=== PATIENT | female | born 1935 | race Caucasian/White ===

== ENCOUNTER → 2016-02-25 | Day surgery (SDC) | payer BC ==
[2016-02-18 09:52] VITALS: Ht 149.9 cm; Wt 77.3 kg
[~2016-02-25] VITALS: Ht 149.9 cm; Wt 77.3 kg
[~2016-02-25] MED LIST: ACET325T96 PO; ADVIN50/60 INH; ALBUAER19 INH; ALEN5TAB2 PO; ASCO1CAP3 PO; CEPH500C2 PO; CHOL1CAP30 PO; CLB/200 PO; FLUT50SP37 NAE; HYDR-5688 PO; IBUP-1050 PO; IOPAMIDOL INJ 61% 15 ML VIAL ONE; LIDOCAINE HCL 1% MPF 5 ML VIAL ONE; METO-551 PO; METO25TA3 PO; METO50TA7 PO; MONT1TAB5 PO; MULT-920 PO; MULT1CHW28 PO; NEILMED SINUS RINSE; POLYSOL4 OPB; PRAM0.129 PO; PRAM1TAB47 PO; PRAV20TA PO; PRLSR20 PO; SIMV20TA2 PO; SODIUM CHLORIDE 0.9% INJ 10 ML VIAL ONE; VERA120T15 PO; VNTHFA/IN INH; VRP40 PO; [UNRECOGNIZED DRUG - CODE] PO
--- NOTE | 2016-02-25 13:26 | History & Physical Bridge - [place] ---
H&P Re-Evaluation Bridge Note: I have examined the patient, reviewed the History & Physical and in the interval since the performance of the History & Physical I have noted the following changes of clinical significance: No changes noted
[2016-02-25 13:55] VITALS: TEMP 36.7
--- NOTE | 2016-02-25 14:03 | Discharge Instructions ---
Discharge Instructions Visit Reason for Visit: Lumbar Radiculopathy Discharge Discharge Diagnosis / Problem: stenosis with leg pain Discharge Goals Goal(s): Decrease discomfort, Improve function Activity Recommendations Activity Limitations: resume your previous activity Anesthesia . Post Anesthesia Instructions: If you have had General Anesthesia or IV Sedation: * Do not drive today. * Resume driving when surgeon permits. * Do not make important decisions or sign legal documents today. * Call surgeon for: 1. Temperature elevations greater than 101 degrees F. 2. Uncontrollable pain. 3. Excessive bleeding. 4. Persistent nausea and vomiting. 5. Medication intolerance (nausea, vomiting or rash). * For nausea and vomiting use only clear liquids such as: tea, soda, bouillon until nausea subsides, then gradually increase diet as tolerated. * If you have any concerns or questions, call your surgeon's office. If physician is unavailable and it is an emergency, call 911 or go to the nearest emergency room. . Diet Recommendations Recommended Home Diet: resume previous diet Procedures Procedures Performed: Lumbar Epidural Steroid Injection Pending Studies Studies pending at discharge: no Medical Emergencies . Who to Call and When: Medical Emergencies: If at any time you feel your situation is an emergency, please call 911 immediately. . Non-Emergent Contact Non-Emergency issues call your: Specialist . . "Provider Documentation" section prepared by Navneet Del Cid.
[2016-02-25 14:07] VITALS: BP 135/83; PULSE 82; O2SAT 95
--- NOTE | 2016-02-25 14:14 | OPERATIVE REPORT ---
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 POSTOPERATIVE DIAGNOSIS: Same. PROCEDURE: Right paramedian L5-S1 intralaminar epidural steroid injection under fluoroscopic guidance. INDICATIONS FOR PROCEDURE: The patient is a 80-year-old white female who presents today with a past medical history significant for synovial cyst resection with relief of radicular pain about 10 years ago. She reports just recently she began having problems with lumbar spinal stenosis and neurogenic claudication and she presents today for an epidural steroid injection to relieve her pain and improve her functional status. CONSENT: Verbal and written consent was obtained from the patient. Risks and benefits were reviewed. Risks include but are not limited to epidural abscess, epidural hematoma, allergic reaction, dural puncture. The patient wishes to proceed. DESCRIPTION OF PROCEDURE: The patient was taken back to the special procedures room of the [facility]. She was maintained in a prone position. Backside was cleansed with Betadine x3 and a dry sterile dressing was applied. Fluoroscope was used to identify the L5-S1 intralaminar space. Overlying skin on the right side was then anesthetized with 4 mL of lidocaine 1% with a 25-gauge 1.5-inch needle. A 22-gauge 3.5-inch Tuohy needle was then directed down towards the intralaminar space. It was advanced under lateral fluoroscopic guidance and loss of resistance was noted at a depth of 7 cm. Isovue-300 contrast 1 mL was injected in which demonstrated epidural uptake pattern which was confirmed with both AP and lateral views. She then underwent injection after negative aspiration of 40 mg of Depo-Medrol and 4 mL of preservative free sodium chloride. Injection was well tolerated. DISPOSITION: 1. The patient is taken out into the discharge recovery area where she will be discharged home once discharge criteria have been met. 2. Follow up in the [facility] office in 2-4 weeks. I attest to the content of the Intraoperative Record and any orders documented therein. Any exceptio ns are noted below.
== END | disposition home or self-care (01) ==
LOC: X.SURG 12:33
PROVIDERS: ATTEND Physical Medicine & Rehabilitation
DX: M48.06 Spinal stenosis, lumbar region (principal); M54.16 Radiculopathy, lumbar region; M06.9 Rheumatoid arthritis, unspecified; I10 Essential (primary) hypertension; Z85.3 Personal history of malignant neoplasm of breast

== ENCOUNTER → 2016-03-25 | Outpatient (CLI) | payer BC ==
[~2016-03-25] MED LIST changes: -ALEN5TAB2 PO; -CHOL1CAP30 PO; -IOPAMIDOL INJ 61% 15 ML VIAL ONE; -LIDOCAINE HCL 1% MPF 5 ML VIAL ONE; -METO25TA3 PO; -MONT1TAB5 PO; -SODIUM CHLORIDE 0.9% INJ 10 ML VIAL ONE; -VNTHFA/IN INH; -VRP40 PO
--- NOTE | 2016-03-26 07:31 | MAMMOGRAPHY REPORT ---
BILATERAL DIGITAL SCREENING MAMMOGRAM TOMOSYNTHESIS WITH CAD: 03/25/2016 CLINICAL HISTORY: Personal history of breast cancer. TECHNIQUE: Breast tomosynthesis in addition to standard 2D mammography was performed. Current study was also evaluated with a Computer Aided Detection (CAD) system. COMPARISON: Comparison is made to exams dated: 03/21/2015 mammogram, 02/27/2014 mammogram, 02/26/2013 ma mmogram, 03/08/2012 ultrasound, 03/08/2012 mammogram, and 02/25/2012 mammogram - [facility] enter. BREAST COMPOSITION: The tissue of both breasts is heterogeneously dense, which may obscure small ma sses. FINDINGS: No suspicious masses, calcifications, or areas of architectural distortion are noted in e ither breast. There has been no significant interval change compared to prior exams. There are stab le postsurgical changes in the left breast from prior lumpectomy. Scattered lateral benign-appearin g calcifications are not significantly changed. IMPRESSION: ACR BI-RADS CATEGORY 2: BENIGN There is no mammographic evidence of malignancy. A 1 year screening mammogram is recommended. The p atient will receive written notification of the results. Approximately 10% of breast cancers are not detected with mammography. A negative mammographic repor t should not delay biopsy if a clinically suggestive mass is present. Angela Ware M.D. /:03/25/2016 16:22:22 Service Manager: Madiha Peraza [facility] [address] letter sent: Normal 1/2 BI-RADS Code: ACR BI-RADS Category 2: Benign
== END | disposition home or self-care (01) ==
LOC: C.MAMM 10:25
PROVIDERS: ATTEND Internal Medicine
DX: Z12.31 Encounter for screening mammogram for malignant neoplasm of breast (principal); Z85.3 Personal history of malignant neoplasm of breast

== ENCOUNTER → 2016-04-20 | Outpatient (CLI) | payer BC ==
[2016-04-20 16:40] LABS: HEMATOCRIT 46.9 % (37-47); MEAN CELL VOLUME 94.9 fL (80-100); MEAN CORPUSCULAR HEMOGLOBIN 31.6 pg (25-34); MEAN CORPUSCULAR HGB CONC 33.3 g/dl (32-36); MEAN PLATELET VOLUME 12.3 fL (7.4-10.4); PLATELET COUNT 161 K/uL (130-400); RED BLOOD COUNT 4.94 M/uL (4.2-5.4); WHITE BLOOD COUNT 6.16 K/uL (4.8-10.8)
[2016-04-20 16:51] LABS: BLOOD UREA NITROGEN 20 mg/dl (7-18); BUN/CREATININE RATIO 31.2 (10-20); CALCIUM 9.3 mg/dl (8.5-10.1); CARBON DIOXIDE 32 mmol/L (21-32); CHLORIDE 106 mmol/L (98-107); CREATININE 0.63 mg/dl (0.60-1.20); GLUCOSE 81 mg/dl (70-99); MAGNESIUM 2.2 mg/dl (1.8-2.4); POTASSIUM 3.9 mmol/L (3.5-5.1); SODIUM 144 mmol/L (136-145)
== END | disposition home or self-care (01) ==
LOC: C.LAB1850 15:18
PROVIDERS: ATTEND Internal Medicine Cardiovascular Disease
DX: R00.2 Palpitations (principal)

== ENCOUNTER → 2016-04-28 | Outpatient (CLI) | payer BC ==
--- NOTE | 2016-04-28 15:31 | MAMMOGRAPHY REPORT ---
UNILATERAL LEFT DIGITAL DIAGNOSTIC MAMMOGRAM TOMOSYNTHESIS WITH CAD AND TARGETED LEFT ULTRASOUND: 04/28/2016 CLINICAL HISTORY: 80-year-old woman presents with pain along the left lateral breast deep near her r ibs that is asymmetric comparing to the right breast. No definite palpable mass or skin changes. P ersonal history of remote left breast cancer status post lumpectomy and radiation. TECHNIQUE: Left breast tomosynthesis in addition to standard 2D mammography was performed. Current ana laura rodriguez was also evaluated with a Computer Aided Detection (CAD) system. COMPARISON: Comparison is made to exams dated: 03/25/2016 mammogram, 03/21/2015 mammogram, 02/27/2014 ma mmogram, 02/26/2013 mammogram, 03/08/2012 ultrasound, and 02/23/2011 mammogram - [facility] nter. BREAST COMPOSITION: The tissue of the left breast is heterogeneously dense, which may obscure small masses. FINDINGS: A triangular skin palpable marker is located in the superior posterior left breast on the MLO view, denoting the area of pain pointed out by the patient. There are scattered coarse benign calcifications in the left breast. On the left CC view tomosynthesis slice 16 there is possible arc hitectural distortion identified in the lateral, middle one third of the breast. Another questionab le area of architectural distortion is seen anteriorly within the left breast on CC slice 35. There is skin irregularity in the medial left breast, in the area of skin surgical scar from prior lumpec luis daniel. Targeted ultrasound was performed in the areas of focal pain pointed out by the patient. The patien t reported she is most tender in the 3:00 to 4:00 left breast, 8 cm from the nipple area in the area of concern within the 3:00 left breast, there is a hypoechoic taller than wide shadowing mass with indistinct margins measuring approximately 5.9 x 6.6 x 6.4 mm. In the adjacent 3:00 left breast, 6 cm from the nipple, another ill-defined hypoechoic shadowing mass is seen measuring approximately 7. 7 x 8.6 x 7.7 mm. Angular geographic hypoechoic tissue is identified in the 6:00 left breast, 2 cm from the nipple. It is unclear if this may be related to the patient's prior surgery and represent surgical scarring. 2 abutting irregular hypoechoic solid shadowing masses with increased vascularit y are identified in the 12:00 left breast periareolar region measuring approximately 10.8 x 9.4 x 9. 2 mm in conglomerate. Additional sonographic evaluation performed in the left axilla fails to demon strate any suspicious lymphadenopathy. IMPRESSION: ACR BI-RADS CATEGORY 5: HIGHLY SUGGESTIVE OF MALIGNANCY, TARGETED ULTRASOUND ACR BI-RAD S CATEGORY 5: HIGHLY SUGGESTIVE OF MALIGNANCY 1. There are at least 4 suspicious hypoechoic solid shadowing masses within the left breast. The d istance between the 2 abutting masses in the 12:00 axis and the far lateral mass in the 3:00 breast is greater than 5 cm apart, suggesting multicentric disease. The patient is also experiencing sever e tenderness with sonography performed over both masses in the 3:00 breast. Further evaluation with an ultrasound-guided core needle biopsy of one of the masses in the 3:00 left breast, and the abutt ing masses in the 12:00 breast is recommended. 2. No suspicious left axillary lymphadenopathy was identified on ultrasound. These results and recommendations were discussed with the patient at the time of the exam. She tent atively scheduled the left breast biopsies prior to leaving our department. Approximately 10% of breast cancers are not detected with mammography. A negative mammographic repor t should not delay biopsy if a clinically suggestive mass is present. Jo Suggs M.D. ay/:04/28/2016 14:28:11 Planting Material Carrier: Madiha Peraza, [facility] letter sent: Abnormal 4/5 BI-RADS Code: ACR BI-RADS Category 5: Highly Suggestive Of Malignancy Ultrasound BI-RADS: ACR BI-RA DS Category 5: Highly Suggestive Of Malignancy
== END | disposition home or self-care (01) ==
LOC: C.MAMM 12:58
PROVIDERS: ATTEND Nurse Practitioner Family
DX: N64.4 Mastodynia (principal); N64.59 Other signs and symptoms in breast; N63 Unspecified lump in breast

== ENCOUNTER → 2016-05-07 | Outpatient (CLI) | payer BC ==
--- NOTE | 2016-05-07 10:15 | Discharge Instructions ---
Discharge Instructions Procedure Procedure Date: May 07, 2016. Reason for visit: Left Masses. Discharge Discharge Date: May 07, 2016. Discharge Diagnosis: status post breast biopsy Instructions Activity Recommendations: Additional Limitations (see below) Return to School/Work: no limitations Recommended Home Diet: No Limitations Provider Instructions: ACTIVITY RECOMMENDATIONS: * No lifting, pushing, pulling or exercising the affected side for three days. RETURN TO SCHOOL/WORK: * You may return to work/school after the procedure, but do not perform any strenuous activities for 24 to 48 hours. MEDICATIONS: * Tylenol (two 325 mg) every four to six hours if needed for mild pain (if not allergic to Tylenol). DIET: * Resume previous diet. SPECIAL CARE INSTRUCTIONS: * Keep biopsy site dry for 24 hours. May shower after 24 hours, but do not soak (bathe) incision. * May remove Tegaderm (plastic patch) tomorrow AFTER showering. * Leave the steri-strips on for one week. Allow the steri-strips to fall off by themselves. If not off after one week, you may remove them. You may place a Bandaid crosswise over the strips, if desired. * Apply ice 10 minutes on and 10 minutes off as needed. * Wear a bra at bedtime to sleep more comfortably for 2-3 days. * Your referring physician should have the results after approximately 5 to 7 business days. * Call for unusual bleeding, fever, drainage, etc or if you have any questions call during normal business hours or after hours call Dr Ware, . FOLLOW UP VISIT: Follow-up with Referring Physician as scheduled. Allergies Coded Allergies: Acetaminophen (Unverified Allergy, Unknown, [facility], 02/25/16) "BECAME DEPENDENT" Oxycodone (Unverified Allergy, Unknown, [facility], 02/25/16) Codeine (Verified Adverse Reaction, Mild, [facility], 02/25/16) Leta Cordoba Recommendations: Call your doctor if: * Temperature above 101 degrees * Pain not relieved by pain medicine ordered * There is increased drainage or redness from any incision * You have any unanswered questions or concerns. Your Doctors Instructions noted above were prepared by provider Angela Ware. Patient Signature Section: Patient Instructions Signature Page Delores Burger Patient (or Guardian) Signature/Date: I have read and understand the instructions given to me by my caregivers. Caregiver/RN/Doctor Signature/Date: The above-named patient and/or guardian has received patient instructions on this date. + Original Patient Signature Page (only) stays with chart. Please make copy for patient.
--- NOTE | 2016-05-07 14:32 | MAMMOGRAPHY REPORT ---
THIS REPORT HAS BEEN AMENDED. ULTRASOUND GUIDED BIOPSY LEFT BREAST: 05/07/2016 CLINICAL HISTORY: Left 12:00 breast mass. PATIENT CONSENT: The procedure, risks and benefits were discussed with the patient and informed writ ten consent was obtained. A timeout was performed immediately prior to the procedure. PROCEDURE DESCRIPTION: With ultrasound guidance, aseptic technique, and lidocaine as the local anest hetic (1% lidocaine to anesthetize the skin and 1% lidocaine with epinephrine to anesthetize the britt per tissues), the mass of concern in the left 12:00 breast (labeled mass B) was sampled 4 times with a 14-gauge Achieve biopsy needle. Direct pressure was applied to the site immediately post procedu re and hemostasis was achieved. Immediately thereafter, with ultrasound guidance, aseptic technique , and lidocaine as the local anesthetic, a metallic localizer clip (wing-shaped) was placed at the b iopsy site. Direct pressure was applied to the site immediately post procedure and hemostasis was ac hieved. Postprocedure unilateral mammograms were performed to confirm placement of the clip in the expected location of the breast mass. The patient tolerated the procedure without complication. She was given wound care instructions. The specimens were sent to pathology for analysis. COMPARISON: Comparison is made to exams dated: 04/28/2016 mammogram, 03/21/2015 mammogram, and 5 mammogram - [facility]. IMPRESSION: ULTRASOUND GUIDED BIOPSY Ultrasound guided core needle biopsy of the left 12:00 breast mass (labeled mass "B"), with clip juwan cement. The patient will receive pathology results from her referring provider. Angela Ware M.D. ah/:05/07/2016 10:19:21 Bait Man: Madiha Peraza, [facility] AMENDMENT: 05/12/2016 Angela Ware M.D. Pathology results from ultrasound-guided core needle biopsy of 2 left breast masses were reviewed on 05/12/2016. 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 Given the heterogeneously dense mammographic pattern and given the pr esence of possible architectural distortion seen with multiple areas in the left breast mammographic ally, recommend further evaluation with bilateral breast MRI to better evaluate the extent of diseas e.
--- NOTE | 2016-05-07 14:32 | MAMMOGRAPHY REPORT ---
UNILATERAL LEFT DIGITAL DIAGNOSTIC MAMMOGRAM TOMOSYNTHESIS: 05/07/2016 CLINICAL HISTORY: Status post ultrasound-guided biopsy of 2 left breast masses. TECHNIQUE: Breast tomosynthesis in addition to standard 2D mammography was performed. Postprocedur al Left CC and ML 2-D and tomosynthesis images were obtained. COMPARISON: Comparison is made to exams dated: 04/28/2016 mammogram, 03/25/2016 mammogram, 03/21/2015 ma mmogram, 02/27/2014 mammogram, and 02/26/2013 mammogram - [facility]. BREAST COMPOSITION: The tissue of the left breast is heterogeneously dense, which may obscure small masses. FINDINGS: A new wing-shaped biopsy marker clip is seen at the site of the biopsied mass in the left 12:00 breast. A new ribbon-shaped biopsy marker clip is seen at the site of the biopsied left 3:00 breast mass. No significant postbiopsy hematoma is seen. IMPRESSION: POST PROCEDURE IMAGING FOR MARKER PLACEMENT New biopsy marker clips status post ultrasound-guided biopsies of the left breast 2. Pathology res ults are pending. Approximately 10% of breast cancers are not detected with mammography. A negative mammographic repor t should not delay biopsy if a clinically suggestive mass is present. Angela Ware M.D. ah/:05/07/2016 10:30:30 Hurl Shaker: Madiha Peraza, [facility] BI-RADS Code: Post Procedure Imaging For Marker Placement
--- NOTE | 2016-05-07 14:32 | MAMMOGRAPHY REPORT ---
ULTRASOUND GUIDED BIOPSY LEFT BREAST: 05/07/2016 CLINICAL HISTORY: Suspicious left 3:00 breast mass. PATIENT CONSENT: The procedure, risks and benefits were discussed with the patient and informed writ ten consent was obtained. A timeout was performed immediately prior to the procedure. PROCEDURE DESCRIPTION: With ultrasound guidance, aseptic technique, and lidocaine as the local anest hetic (1% lidocaine to anesthetize the skin and 1% lidocaine with epinephrine to anesthetize the britt per tissues), the mass of concern in the left 3:00 breast, 8 cm from the nipple, (mass A) was sample d 4 times with a 14-gauge Achieve biopsy needle. Direct pressure was applied to the site immediatel y post procedure and hemostasis was achieved. Immediately thereafter, with ultrasound guidance, ase ptic technique, and lidocaine as the local anesthetic, a metallic localizer clip (ribbon-shaped) was placed at the biopsy site. Direct pressure was applied to the site immediately post procedure and hemostasis was achieved. Postprocedure unilateral mammograms were performed to confirm placement of the clip in the expected location of the breast mass. The patient tolerated the procedure without c omplication. She was given wound care instructions. The specimens were sent to pathology for analys is. COMPARISON: Comparison is made to exams dated: 04/28/2016 ultrasound, 04/28/2016 mammogram, 03/25/2016 ma mmogram, 03/21/2015 mammogram, and 02/27/2014 mammogram - [facility]. IMPRESSION: ULTRASOUND GUIDED BIOPSY Ultrasound guided core needle biopsy of the left 3:00 breast mass (labeled mass "A"), with clip plac ement. The patient will receive pathology results from her referring provider. Angela Ware M.D. ah/:05/07/2016 10:17:23 Magazine Supervisor: Madiha Peraza, [facility]
== END | disposition home or self-care (01) ==
LOC: C.MAMM 09:19
PROVIDERS: ATTEND Internal Medicine
DX: N63 Unspecified lump in breast (principal); D05.12 Intraductal carcinoma in situ of left breast

== ENCOUNTER → 2016-06-14 | Outpatient (CLI) | payer BC ==
[~2016-06-14] MED LIST changes: -SIMV20TA2 PO
--- NOTE | 2016-06-15 17:18 | DIAGNOSTIC IMAGING REPORT ---
PET/CT CLINICAL HISTORY: Breast cancer. TECHNIQUE: A PET/CT was performed from the skull base through the upper thighs following intravenous injection of 14.7 mCi of F 18 FDG IV. The injection was performed at 8:18 AM on June 14, 2016 and imaging began at 9:18 AM on June 14, 2016. Unenhanced CT was performed for attenuation correction purposes and anatomic localization. COMPARISON STUDY: CT of the chest abdomen and pelvis July 13, 2012. FINDINGS: Head and neck: No suspicious FDG uptake is identified within the neck. There is no cervical lymphadenopathy. Chest: No enlarged axillary, mediastinal or hilar lymph nodes are identified. There is no abnormal laurel FDG uptake. There is mild asymmetric FDG uptake within the left breast at the 12:00 position with an SUV max of 2.2. There is slight asymmetric left breast thickening. Subpleural reticulation within the left lung reflects postradiation change. The right upper lobe nodular densities are unchanged since a chest CT July 13, 2012. Abdomen and Pelvis: No suspicious FDG uptake is identified within the abdomen or the pelvis. There is no lymphadenopathy. Musculoskeletal: No suspicious skeletal uptake is identified. IMPRESSION: 1. No evidence of FDG avid metastatic disease. 2. Mild asymmetric FDG uptake within the left breast at the 12:00 position which may be related to the known breast masses or represent postbiopsy change. Electronically signed by: Christiano Walter M.D. 06/15/2016 5:16 PM Dictated Date/Time: 06/14/2016 11:46 AM
== END | disposition home or self-care (01) ==
LOC: C.PET 06-07 09:19
PROVIDERS: ATTEND Internal Medicine Hematology & Oncology
DX: C50.012 Malignant neoplasm of nipple and areola, left female breast (principal)

== ENCOUNTER → 2016-06-21 | Outpatient (CLI) | payer BC ==
[2016-06-21 09:25] LABS: HEMATOCRIT 45.7 % (37-47); MEAN CELL VOLUME 95.6 fL (80-100); MEAN CORPUSCULAR HEMOGLOBIN 31.4 pg (25-34); MEAN CORPUSCULAR HGB CONC 32.8 g/dl (32-36); MEAN PLATELET VOLUME 11.7 fL (7.4-10.4); PLATELET COUNT 155 K/uL (130-400); RED BLOOD COUNT 4.78 M/uL (4.2-5.4); WHITE BLOOD COUNT 5.07 K/uL (4.8-10.8)
[2016-06-21 09:33] LABS: ALT/SGPT 23 U/L (12-78); BLOOD UREA NITROGEN 14 mg/dl (7-18); BUN/CREATININE RATIO 30.6 (10-20); CARBON DIOXIDE 26 mmol/L (21-32); CHLORIDE 108 mmol/L (98-107); CHOLESTEROL 188 mg/dl (0-200); CREATININE 0.47 mg/dl (0.60-1.20); GLUCOSE 90 mg/dl (70-99); SODIUM 143 mmol/L (136-145); TRIGLYCERIDES 57 mg/dl (0-150); VERY LOW DENSITY LIPOPROT CALC 11 mg/dl
[2016-06-21 09:36] LABS: ALB/GLOB RATIO 0.8 (0.9-2); ALKALINE PHOSPHATASE 66 U/L (45-117); AST/SGOT 20 U/L (15-37); CHOLESTEROL/HDL RATIO 2.4; HDL CHOLESTEROL 78 mg/dl; LDL CHOLESTEROL CALCULATED 99 mg/dl
[2016-06-21 09:37] LABS: CALCIUM 9.3 mg/dl (8.5-10.1)
== END | disposition home or self-care (01) ==
LOC: C.LABFOXMH 08:49
PROVIDERS: ATTEND Internal Medicine
DX: E78.00 Pure hypercholesterolemia, unspecified (principal); Z51.81 Encounter for therapeutic drug level monitoring

== ENCOUNTER → 2016-07-23 | Outpatient (CLI) | payer BC ==
[~2016-07-23] MED LIST changes: -ASCO1CAP3 PO; -METO-551 PO
--- NOTE | 2016-07-23 11:19 | DIAGNOSTIC IMAGING REPORT ---
LUMBAR SPINE 5 VIEWS HISTORY: Low BACK PAIN COMPARISON: PET CT 06/14/2016. Lumbar spine 11/21/2015. FINDINGS: There is no fracture. No subluxation. There. The 6 lumbar-type vertebral bodies. There is moderate stool seen throughout the colon, unchanged. The sacrum is intact. Mild degenerative changes within the bilateral sacroiliac joints. Mild to moderate facet degenerative changes throughout the lumbar spine. This remains unchanged. Mild disc space narrowing at L5 L6 and L6 S1. Moderate to severe disc space narrowing at L3-L4 and L4-L5. IMPRESSION: No fracture or subluxation within the lumbar spine. Degenerative changes as described above which are not significantly changed. Electronically signed by: Kee Oliveira M.D. 07/23/2016 11:17 AM Dictated Date/Time: 07/23/2016 11:15 AM
== END | disposition home or self-care (01) ==
LOC: C.RAD 10:34
PROVIDERS: ATTEND Internal Medicine
DX: M54.5 Low back pain (principal)

== ENCOUNTER 2016-08-09 07:27 | Inpatient (IN) | payer BC, OTHER ==
[2016-07-02 08:27] VITALS: BMI 36.0
[2016-07-02 08:48] VITALS: BMI 36.0
[2016-08-09] VITALS (10 sets, daily range): BP systolic 134–182; BP diastolic 64–82; PULSE 58–78; TEMP 36.4–37; O2SAT 92–97; Ht 149.9 cm; Wt 80.0 kg
[~2016-08-09] VITALS: Ht 149.9 cm; Wt 80.0 kg
[~2016-08-09 07:27] MED LIST changes: +CEFAZOLIN 2000 MG/60 ML D5W IV SCH; -CEPH500C2 PO; -HYDR-5688 PO; +LACTATED RINGER'S 1000ML 1,000 ML IV SCH; -MULT-920 PO; -MULT1CHW28 PO; -NEILMED SINUS RINSE; -PRAM0.129 PO; -[UNRECOGNIZED DRUG - CODE] PO
[2016-08-09] MEDS ORDERED: FENTANYL CITRATE INJ 50 MCG/1 ML 2 ML VIAL ONE ×2 (07:52→10:10)
[2016-08-09] MEDS ORDERED: MIDAZOLAM HCL 1 MG/ML 2ML VIAL ONE (07:52)
[2016-08-09] MEDS ORDERED: [UNRECOGNIZED DRUG - CODE] PO (08:30)
[2016-08-09] MEDS ORDERED: NEILMED SINUS RINSE (08:30)
[2016-08-09] MEDS ORDERED: MULT-920 PO (08:34)
[2016-08-09] MEDS ORDERED: ISOSULFAN BLUE 10 MG/ML VIAL 5 ML ONE (09:04)
--- NOTE | 2016-08-09 09:14 | DIAGNOSTIC IMAGING REPORT ---
Lymphoscintigraphy LYMPH SENTINEL NODE ID CLINICAL HISTORY: BREAST CA breast carcinoma TECHNIQUE: Sequential periareolar injection of 1 mCi lymphocele. COMPARISON STUDY: None FINDINGS: Successful periareolar injection pre lymphoscintigraphy IMPRESSION: Lymphoscintigraphy Electronically signed by: Jersey Zhu M.D. 08/09/2016 9:12 AM Dictated Date/Time: 08/09/2016 9:11 AM
[2016-08-09] MEDS ORDERED: KETOROLAC TROMETHAMINE 15 MG/ML VIAL IV. PRN (10:00)
[2016-08-09] MEDS ORDERED: ONDANSETRON INJ 2 MG/ML 2 ML VIAL IV PRN ×2 (10:00→11:15)
[2016-08-09] MEDS ORDERED: LABETALOL HCL IV 5 MG/ML 20ML IV PRN (10:00)
[2016-08-09] MEDS ORDERED: ATROPINE SULFATE 0.1 MG/ML 5ML SYR IV PRN (10:00)
[2016-08-09] MEDS ORDERED: ROCURONIUM BROMID 50MG/5ML SYR ONE (10:06)
[2016-08-09] MEDS ORDERED: DEXAMETHASONE SOD INJ 4 MG/ML VIAL ONE (10:06)
[2016-08-09] MEDS ORDERED: LIDOCAINE HCL 2% 2 ML VIAL (20MG/ML) ONE (10:06)
[2016-08-09] MEDS ORDERED: ONDANSETRON INJ 2 MG/ML 2 ML VIAL ONE (10:06)
[2016-08-09] MEDS ORDERED: PROPOFOL IV EMULSION 10 MG/ML 20 ML VIAL IV ONE (10:06)
[2016-08-09] MEDS ORDERED: GLYCOPYRROLATE INJ 0.2 MG/ML VIAL ONE (11:04)
[2016-08-09] MEDS ORDERED: LACTATED RINGER'S 1000ML 1,000 ML IV SCH (11:04)
[2016-08-09] MEDS ORDERED: NEOSTIGMINE METHYLSULFATE 5 MG/5 ML SYR ONE (11:04)
--- NOTE | 2016-08-09 11:04 | [facility] Post Operative Brief Note ---
Immediate Operative Summary Operative Date Aug 09, 2016. Pre-Operative Diagnosis Left Breast Cancer Post-Operative Diagnosis Left Breast Cancer Procedure(s) Performed Left Breast Mastectomy with Left [place] Lymph Node Biopsy Surgeon Dr. Mota Sheeter Helper Surgeon(s) Jose L Ramsay PA-C Estimated Blood Loss 20ml Findings 2 sentinel LNs- negative on frozen Specimens A) Left Breast- silk is lateral (permanent specimen) B) Frozen specimen- [place] lymph node left breast- sent to lab at 1020. C) Additional inferior breast tissue- long silk lateral, short silk inferior edge (permanent specimen) Drains #[address] CATRACHO to bulb Anesthesia gen Complication(s) None Disposition Recovery Room / PACU
[2016-08-09] MEDS ORDERED: CEPH500C2 PO (11:12)
[2016-08-09] MEDS ORDERED: HYDR-5688 PO (11:12)
--- NOTE | 2016-08-09 11:14 | Discharge Instructions ---
Discharge Instructions Date of Service Aug 09, 2016. Admission Reason for Admission: Left Breast Cancer W/Lymph Inj Only Discharge Discharge Diagnosis / Problem: Lt breast cancer Discharge Goals Goal(s): Decrease discomfort, Improve function, Improve disease control Activity Recommendations Activity Limitations: as noted below Lifting Limitations: no more than 10 pounds Exercise/Sports Limitations: until after follow-up appointment May Resume Sexual Activity: when tolerated Shower/Bathe: keep incision dry (may shower over incision 08/11) Driving or Machine Use: 2 weeks SPECIAL CARE INSTRUCTIONS: * Cover incisions and change daily for comfort/drainage. * Empty drain 2-3 times per day and record. * May use ibuprofen for pain as tolerated. * Expect some swelling and bruising. Call your doctor if: * Temperature above 101 degrees * Pain not relieved by pain medicine ordered * There is increased drainage or redness from any incision * You have any unanswered questions or concerns [phone]. FOLLOW UP VISIT: If not already scheduled, please call the office for a follow-up visit. for next week- drain check and removal OFFICE PHONE NUMBER: Dr. Mota Office . Current Hospital Diet Patient's current hospital diet: Regular Diet Discharge Diet Recommended Diet: Regular Diet Procedures Procedures Performed: Left Breast Mastectomy with Left [place] Lymph Node Biopsy Pending Studies Studies pending at discharge: no Laboratory Results Lipid Panel Test 06/21/16 07:25 Range/Units Triglycerides Level 57 0-150 mg/dl Cholesterol Level 188 0-200 mg/dl HDL Cholesterol 78 mg/dl Cholesterol/HDL Ratio 2.4 LDL Cholesterol, Calculated 99 mg/dl Medical Emergencies . Who to Call and When: Medical Emergencies: If at any time you feel your situation is an emergency, please call 911 immediately. . Non-Emergent Contact Non-Emergency issues call your: Primary Care Provider, Surgeon . "Provider Documentation" section prepared by Roshan Mota. . VTE Core Measure Inpt VTE Proph given/why not?: SCD's
[2016-08-09] MEDS ORDERED: MoRPHine SULFATE 2 MG/ML CARP IV PRN (11:15)
[2016-08-09] MEDS ORDERED: MoRPHine SULFATE 4 MG/ML 1 ML CARP\\VIAL IV PRN (11:15)
[2016-08-09] MEDS ORDERED: HYDROCODONE/ACETAMOPHEN 5/325MG TAB PO PRN (11:15)
[2016-08-09] MEDS ORDERED: KETOROLAC TROMETHAMINE 30 MG/ML VIAL ONE (11:22)
[2016-08-09] MEDS: FENTANYL CITRATE INJ 50 MCG/1 ML 2 ML VIAL IV PRN ×2 (11:26→11:35)
--- NOTE | 2016-08-09 12:40 | Anesthesiology Progress Note ---
Anesthesia Post Op Note Date & Time Aug 09, 2016 at 12:39 Vital Signs Pain Intensity: 4 Vital Signs Past 12 Hours Date Time Temp Pulse Resp B/P (MAP) Pulse Ox O2 Delivery O2 Flow Rate FiO2 08/09/16 12:36 60 16 179/78 (111) 95 2.0 08/09/16 12:13 37.0 58 16 175/75 (108) 94 Nasal Cannula 2.0 08/09/16 12:00 36.2 60 16 176/73 96 Nasal Cannula 2 08/09/16 11:50 55 16 173/72 95 Nasal Cannula 2 08/09/16 11:40 58 14 170/76 96 Mask 10 08/09/16 11:30 55 18 181/79 95 Mask 10 08/09/16 11:20 61 19 182/82 96 Mask 10 08/09/16 11:12 36.3 65 16 181/81 96 Mask 10 08/09/16 08:00 36.8 75 18 173/82 94 Room Air Notes Mental Status: alert / awake / arousable, participated in evaluation Pt Amnestic to Procedure: Yes Nausea / Vomiting: adequately controlled Pain: adequately controlled Airway Patency, RR, SpO2: stable & adequate BP & HR: stable & adequate Hydration State: stable & adequate Anesthetic Complications: no major complications apparent
[2016-08-09] MEDS: HYDROCODONE/ACETAMOPHEN 5/325MG TAB PO PRN ×2 (13:27→22:27)
--- NOTE | 2016-08-09 13:56 | OPERATIVE REPORT ---
DATE OF OPERATION: 08/09/2016 NAME OF OPERATION: Left mastectomy with sentinel lymph node biopsy. PREOPERATIVE DIAGNOSIS: Recurrent left breast cancer. POSTOPERATIVE DIAGNOSIS: Same. STAFF SURGEON: Dr. Mota. ANESTHESIA: General anesthetic. RN CLINICAL APPEALS: Michael Ramsay PA-C DESCRIPTION OF PROCEDURE: The patient was brought in the operating room and placed on the operating table in supine position. Her left arm was extended on an arm board. She had previous left breast injection for the lymphoscintigraphy. Her left breast was prepped and draped as well as her axilla in the usual fashion. The Neoprobe was used in the axilla. I could identify activity in the axilla. At this point, elliptical incision was made from the sternum to the axilla around the nipple areolar complex to construct superior and inferior skin flaps. Superiorly, the subcutaneous tissue was dissected away from the breast tissue down to the pectoralis major muscle. This was also then done inferiorly and then the breast removed from the pectoralis muscle taking the fascia. The breast was then marked with the long silk suture lateral. Vessels were oversewn using 2-0 chromic and 0 chromic catgut suture. I was able to easily identify 2 lymph nodes in the left axilla. These did indicate activity and were felt to be the sentinel lymph node. These were sent for frozen section and found to be negative. A 15 round Ebenezer-Larios drain was placed into the left chest wound, secured to the skin using 3-0 nylon suture. Subcutaneous tissue was reapproximated using interrupted 3-0 Vicryl suture. Skin reapproximated using subcuticular 4-0 Monocryl and Steri-Strips. Dressing applied and patient transferred to recovery room in stable condition. I attest to the content of the Intraoperative Record and any orders documented therein. Any exception s are noted below.
--- NOTE | 2016-08-09 15:58 | Medical Consult ---
Consultation Date of Consultation: Aug 09, 2016. Attending Physician: Roshan Mota M.D. 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 She currently rates her pain a 2/10. She has no other complaints. She tolerated her lunch postoperatively without any complaints of nausea. She has not yet passed gas or had a bowel movement. She is urinating without difficulty. The patient has a history of asthma. She denies any shortness of breath. She also denies any chest pain or pressure. She denies any heart palpitations. She does note that she has fluctuant constipation and requires MiraLAX twice daily. Past Medical/Surgical History History of breast cancer Asthma Objective sleep apnea uses CPAP at home SVT status post ablation in the Status post D and C Family History Father-hypertension Social History Smoking Status: Never Smoker Alcohol Use: none Marital Status: Housing Status: assisted living (lives at [facility]) Occupation Status: retired Allergies Coded Allergies: Codeine (Unverified Allergy, Unknown, UNKNOWN, 08/09/16) Oxycodone (Unverified Adverse Reaction, Unknown, BECAME ADDICTED TO IT- 2003 PER PT, 08/09/16) Home Medications MiraLAX twice daily Metoprolol XL 50 mg twice daily Advair twice daily Omeprazole 20 mg daily Mirapex 0.5 mg at night Pravastatin 20 mg daily Verapamil 120 mg daily Current Inpatient Medications Current Inpatient Medications Medications (Trade) Dose Ordered Sig/Jalen Route Start Time Stop Time Status Last Admin Dose Admin Cefazolin Sodium 60 ml @ 100 mls/hr PREOP IV 08/09/16 06:00 08/09/16 18:00 08/09/16 09:25 100 MLS/HR Lactated Ringer's 1,000 ml @ 15 mls/hr Q24H IV 08/09/16 06:00 08/09/16 18:00 Cefazolin Sodium 1000 mg/Dextrose 55 ml @ 100 mls/hr Q6H IV 08/09/16 16:00 08/19/16 11:59 Acetaminophen/ Hydrocodone Bitart ([place] 5/325 Tab) 1 tab Q4 PRN PO 08/09/16 11:15 08/23/16 11:14 08/09/16 13:27 1 TAB Acetaminophen/ Hydrocodone Bitart ([place] 5/325 Tab) 2 tab Q4 PRN PO 08/09/16 11:15 08/23/16 11:14 Morphine Sulfate (MoRPHine SULFATE INJ) 2 mg Q4H PRN IV 08/09/16 11:15 08/23/16 11:14 Morphine Sulfate (MoRPHine SULFATE INJ) 4 mg Q4H PRN IV 08/09/16 11:15 08/23/16 11:14 Ondansetron HCl (Zofran Inj) 4 mg Q6H PRN IV 08/09/16 11:15 09/08/16 11:14 Review of Systems 10 system review performed and negative unless noted in HPI or below Physical Exam Date Time Temp Pulse Resp B/P (MAP) Pulse Ox O2 Delivery O2 Flow Rate FiO2 08/09/16 15:02 36.9 72 16 168/81 (110) 94 Nasal Cannula 2.0 08/09/16 14:10 36.6 68 16 167/81 (109) 97 Nasal Cannula 2.0 08/09/16 13:10 36.4 71 18 182/64 (103) 96 Nasal Cannula 2.0 08/09/16 12:36 60 16 179/78 (111) 95 2.0 08/09/16 12:13 37.0 58 16 175/75 (108) 94 Nasal Cannula 2.0 08/09/16 12:10 Room Air 08/09/16 12:10 94 Nasal Cannula 2.0 08/09/16 12:00 36.2 60 16 176/73 96 Nasal Cannula 2 08/09/16 11:50 55 16 173/72 95 Nasal Cannula 2 08/09/16 11:40 58 14 170/76 96 Mask 10 08/09/16 11:30 55 18 181/79 95 Mask 10 08/09/16 11:20 61 19 182/82 96 Mask 10 08/09/16 11:12 36.3 65 16 181/81 96 Mask 10 08/09/16 08:00 36.8 75 18 173/82 94 Room Air General Appearance: no apparent distress Head: normocephalic Eyes: EOMI Neck: thyroid normal Respiratory/Chest: lungs clear Cardiovascular: regular rate, rhythm Abdomen/GI: non tender, soft, + pertinent finding (bowel sounds hypoactive) Extremities/Musculoskelatal: no calf tenderness, no pedal edema Neurologic/Psych: no motor/sensory deficits, oriented x 3 Skin: warm/dry Assessment & Plan 81-year-old female with a diagnosis of breast cancer underwent a left total mastectomy today. Postoperatively, she is doing well -pain management, DVT prophylaxis, PT per primary team Asthma -Continue Advair twice daily -I added duo nebs every 4 hours as needed for difficulty breathing Hypertension/SVT -Continue metoprolol XL 50 mg twice daily and verapamil 120 mg daily. I ordered both of these Obstructive sleep apnea -Continue CPAP. Patient brought her own. Chronic transient constipation -MiraLAX twice daily-ordered -Colace 100 mg twice daily-ordered -Dulcolax suppositories prn Thank you for this consultation. We will continue to follow. I personally and independently interviewed and examined the patient I reviewed labs and imaging I agree with above mentioned physical exam, History and ROS I discussed and formulated the assessment and plan with Mrs. Erwin 81-year-old female S/P left total mastectomy today ROS is unobtainable PE as above assessment: Asthma Hypertension MADAN Chronic constipation Plan: -Continue Advair twice daily -I added duo nebs every 4 hours as needed for difficulty breathing -stool softiners -Continue CPAP. continue BP meds DVT prophylaxis by primary team Kadeem Massey [facility]
[2016-08-09] MEDS ORDERED: ALBUT/IPRATROP 3MG/0.5MG NEB 3 ML VIAL INH PRN (16:00)
[2016-08-09] MEDS: CEFAZOLIN IV 1,000 MG in DEXTROSE 5% 50ML 50 ML IV SCH ×2 (16:47→22:27)
[2016-08-09] MEDS: FLUTICASONE/SALMETEROL (ADVAIR) 500/50 INH 14 PUFF INH SCH (21:16)
[2016-08-09] MEDS: POLYETHYLENE (MIRALAX) 17 GM PACK PO SCH (21:19)
[2016-08-09] MEDS: VERAPAMIL HCL 120 MG TABCR PO SCH (21:19)
[2016-08-09] MEDS: DOCUSATE SODIUM 100 MG CAP PO SCH (21:19)
[2016-08-09] MEDS: PRAVASTATIN SOD 20 MG TAB PO SCH (21:20)
[2016-08-09] MEDS: PRAMIPEXOLE DIHYDROCHLORIDE 0.5 MG TAB PO SCH (21:20)
[2016-08-09] MEDS: PANTOprazole SOD 40 MG TAB PO SCH (21:20)
[2016-08-09] MEDS: METOPROLOL SUCC 50MG EXT REL TAB PO SCH (21:20)
[2016-08-10] VITALS (8 sets, daily range): BP systolic 130–168; BP diastolic 66–76; PULSE 66–77; TEMP 36.3–37; O2SAT 92–96
[2016-08-10] MEDS: CEFAZOLIN IV 1,000 MG in DEXTROSE 5% 50ML 50 ML IV SCH ×4 (03:41→21:35)
[2016-08-10 05:21] LABS: HEMATOCRIT 43.2 % (37-47); MEAN CELL VOLUME 92.5 fL (80-100); MEAN CORPUSCULAR HEMOGLOBIN 29.8 pg (25-34); MEAN CORPUSCULAR HGB CONC 32.2 g/dl (32-36); MEAN PLATELET VOLUME 11.3 fL (7.4-10.4); PLATELET COUNT 168 K/uL (130-400); RED BLOOD COUNT 4.67 M/uL (4.2-5.4); WHITE BLOOD COUNT 9.79 K/uL (4.8-10.8)
[2016-08-10 05:46] LABS: BUN/CREATININE RATIO 18.4 (10-20); CALCIUM 8.1 mg/dl (8.5-10.1); CREATININE 0.61 mg/dl (0.60-1.20); POTASSIUM 3.8 mmol/L (3.5-5.1)
--- NOTE | 2016-08-10 05:58 | Surgery Progress Note ---
Surgery Progress Note Date of Service Aug 10, 2016. Subjective pain controlled, no complaints Objective Vital Signs: Date Time Temp Pulse Resp B/P (MAP) Pulse Ox O2 Delivery O2 Flow Rate FiO2 08/10/16 03:15 37.0 69 16 135/70 (91) 94 BiPAP 08/09/16 23:05 36.9 71 16 134/71 (92) 93 Room Air 08/09/16 22:30 CPAP 08/09/16 21:18 78 148/76 (100) 08/09/16 19:09 36.7 76 18 146/74 (98) 92 Nasal Cannula 2.0 08/09/16 16:00 Nasal Cannula 2.0 08/09/16 15:02 36.9 72 16 168/81 (110) 94 Nasal Cannula 2.0 08/09/16 14:10 36.6 68 16 167/81 (109) 97 Nasal Cannula 2.0 08/09/16 13:10 36.4 71 18 182/64 (103) 96 Nasal Cannula 2.0 08/09/16 12:36 60 16 179/78 (111) 95 2.0 08/09/16 12:13 37.0 58 16 175/75 (108) 94 Nasal Cannula 2.0 08/09/16 12:10 Room Air 08/09/16 12:10 94 Nasal Cannula 2.0 08/09/16 12:00 36.2 60 16 176/73 96 Nasal Cannula 2 08/09/16 11:50 55 16 173/72 95 Nasal Cannula 2 08/09/16 11:40 58 14 170/76 96 Mask 10 08/09/16 11:30 55 18 181/79 95 Mask 10 08/09/16 11:20 61 19 182/82 96 Mask 10 08/09/16 11:12 36.3 65 16 181/81 96 Mask 10 08/09/16 08:00 36.8 75 18 173/82 94 Room Air General Appearance: no apparent distress Respiratory/Chest: no respiratory distress Incision(s): intact, drainage (expected from drain) Laboratory Results: Results Past 24 Hours Test 08/10/16 04:33 Range/Units White Blood Count 9.79 4.8-10.8 K/uL Red Blood Count 4.67 4.2-5.4 M/uL Hemoglobin 13.9 12.0-16.0 g/dL Hematocrit 43.2 37-47 % Mean Corpuscular Volume 92.5 80-100 fL Mean Corpuscular Hemoglobin 29.8 25-34 pg Mean Corpuscular Hemoglobin Concent 32.2 32-36 g/dl RDW Standard Deviation 46.5 36.4-46.3 fL RDW Coefficient of Variation 13.7 11.5-14.5 % Platelet Count 168 130-400 K/uL Mean Platelet Volume 11.3 7.4-10.4 fL Sodium Level 141 136-145 mmol/L Potassium Level 3.8 3.5-5.1 mmol/L Chloride Level 106 98-107 mmol/L Carbon Dioxide Level 28 21-32 mmol/L Anion Gap 7.0 3-11 mmol/L Blood Urea Nitrogen 11 7-18 mg/dl Creatinine 0.61 0.60-1.20 mg/dl Est Creatinine Clear Calc Drug Dose 68.4 ml/min Estimated GFR () 99.9 Estimated GFR (Non- 86.2 BUN/Creatinine Ratio 18.4 10-20 Random Glucose 144 70-99 mg/dl Calcium Level 8.1 8.5-10.1 mg/dl Assessment & Plan 08/10/16- s/p Lt mastectomy w/ sentinel lymph node bx- doing well will monitor progress today and cont wound care and IV atbx- probable d/c tomorrow to [facility]
--- NOTE | 2016-08-10 08:03 | Anesthesiology Progress Note ---
Anesthesia Post Op Note Date & Time Aug 10, 2016 at 08:02 Vital Signs Vital Signs Past 12 Hours Date Time Temp Pulse Resp B/P (MAP) Pulse Ox O2 Delivery O2 Flow Rate FiO2 08/10/16 07:41 36.4 66 14 134/68 (90) 93 Room Air 08/10/16 03:15 37.0 69 16 135/70 (91) 94 BiPAP 08/09/16 23:05 36.9 71 16 134/71 (92) 93 Room Air 08/09/16 22:30 CPAP 08/09/16 21:18 78 148/76 (100) Notes Mental Status: alert / awake / arousable, participated in evaluation Pt Amnestic to Procedure: Yes Nausea / Vomiting: adequately controlled Pain: adequately controlled Airway Patency, RR, SpO2: stable & adequate BP & HR: stable & adequate Hydration State: stable & adequate Anesthetic Complications: no major complications apparent
[2016-08-10] MEDS: FLUTICASONE/SALMETEROL (ADVAIR) 500/50 INH 14 PUFF INH SCH ×2 (09:18→21:34)
[2016-08-10] MEDS: DOCUSATE SODIUM 100 MG CAP PO SCH ×2 (09:18→21:30)
[2016-08-10] MEDS: METOPROLOL SUCC 50MG EXT REL TAB PO SCH ×2 (09:19→21:33)
[2016-08-10] MEDS: PANTOprazole SOD 40 MG TAB PO SCH ×2 (09:19→21:30)
[2016-08-10] MEDS: POLYETHYLENE (MIRALAX) 17 GM PACK PO SCH ×2 (09:19→21:33)
[2016-08-10] MEDS: HYDROCODONE/ACETAMOPHEN 5/325MG TAB PO PRN ×2 (09:25→15:07)
[2016-08-10] MEDS ORDERED: COUGH DROP (SUGAR FREE) LOZ 24 LOZ/1 BOX PO PRN (09:45)
--- NOTE | 2016-08-10 09:54 | Hospitalist Progress Note ---
Hospitalist Progress Note Date of Service Aug 10, 2016. (Ellen George PA-C) Subjective Pt evaluation today including: conversation w/ patient, physical exam, chart review, lab review, review of studies, review of inpatient medication list Patient seen and evaluated. Reporting increased pain of the L chest but just received medication and will monitor. Reporting post-nasal drip, irritated throat, and loose cough of clear/white sputum. Order placed for cough drops and will monitor. No wheezing, SOB, or asthma exacerbation. Utilized CPAP throughout the night. Tolerating diet without N/V/abdominal pain. Constitutional: No fever, No chills ENT: + nasal symptoms, + sore throat, + problem reported (post-nasal drip), No trouble swallowing Respiratory: + cough, + sputum (clear/white), No wheezing, No shortness of breath Cardiovascular: No orthopnea, No palpitations Breast: + breast pain (musculoskeletal at site of L mastectomy) Abdomen: + constipation (chronic), No pain, No nausea, No vomiting, No diarrhea Musculoskeletal: No swelling, No calf pain Female : No dysuria Neurologic: + numbness/tingling (chronic at tips of fingers; no worsening or new onset numbness/tingling since surgery) (Ellen George, ASHLEYC) Medications Current Inpatient Medications Medications (Trade) Dose Ordered Sig/Jalen Route Start Time Stop Time Status Last Admin Dose Admin Cefazolin Sodium 1000 mg/Dextrose 55 ml @ 100 mls/hr Q6H IV 08/09/16 16:00 08/19/16 11:59 08/10/16 09:25 100 MLS/HR Acetaminophen/ Hydrocodone Bitart ([place] 5/325 Tab) 1 tab Q4 PRN PO 08/09/16 11:15 08/23/16 11:14 08/10/16 09:25 1 TAB Acetaminophen/ Hydrocodone Bitart ([place] 5/325 Tab) 2 tab Q4 PRN PO 08/09/16 11:15 08/23/16 11:14 Morphine Sulfate (MoRPHine SULFATE INJ) 2 mg Q4H PRN IV 08/09/16 11:15 08/23/16 11:14 Morphine Sulfate (MoRPHine SULFATE INJ) 4 mg Q4H PRN IV 08/09/16 11:15 08/23/16 11:14 Ondansetron HCl (Zofran Inj) 4 mg Q6H PRN IV 08/09/16 11:15 09/08/16 11:14 Salmeterol Xinafoate/ Fluticasone (Advair Diskus 500/50 Inh) 1 puff BID INH 08/09/16 21:00 09/08/16 20:59 08/10/16 09:18 1 PUFF Metoprolol Succinate (Toprol Xl Tab) 50 mg BID PO 08/09/16 21:00 09/08/16 20:59 08/10/16 09:19 50 MG Pramipexole Dihydrochloride (miraPEX TAB) 0.5 mg QPM PO 08/09/16 21:00 09/08/16 20:59 08/09/16 21:20 0.5 MG Pravastatin Sodium (Pravachol Tab) 20 mg QPM PO 08/09/16 21:00 09/08/16 20:59 08/09/16 21:20 20 MG Pantoprazole Sodium (Protonix Tab) 40 mg BID PO 08/09/16 21:00 09/08/16 20:59 08/10/16 09:19 40 MG Verapamil HCl (Calan-Sr Tab) 120 mg QPM PO 08/09/16 21:00 09/08/16 20:59 08/09/16 21:19 120 MG Albuterol/ Ipratropium (Duoneb) 3 ml Q4 PRN INH 08/09/16 16:00 09/08/16 15:59 Polyethylene (Miralax Powder Packet) 17 gm BID PO 08/09/16 21:00 09/08/16 20:59 08/10/16 09:19 17 GM Docusate Sodium (coLACE CAP) 100 mg BID PO 08/09/16 21:00 09/08/16 20:59 08/10/16 09:18 100 MG Menthol (Nice Jodie) 1 jodie Q2H PRN PO 08/10/16 09:45 09/09/16 09:44 UNV (Ellen George PA-C) Objective Vital Signs Date Time Temp Pulse Resp B/P (MAP) Pulse Ox O2 Delivery O2 Flow Rate FiO2 08/10/16 08:28 93 Room Air 08/10/16 07:41 36.4 66 14 134/68 (90) 93 Room Air 08/10/16 03:15 37.0 69 16 135/70 (91) 94 BiPAP 08/09/16 23:05 36.9 71 16 134/71 (92) 93 Room Air 08/09/16 22:30 CPAP 08/09/16 21:18 78 148/76 (100) 08/09/16 19:09 36.7 76 18 146/74 (98) 92 Nasal Cannula 2.0 08/09/16 16:00 Nasal Cannula 2.0 08/09/16 15:02 36.9 72 16 168/81 (110) 94 Nasal Cannula 2.0 08/09/16 14:10 36.6 68 16 167/81 (109) 97 Nasal Cannula 2.0 08/09/16 13:10 36.4 71 18 182/64 (103) 96 Nasal Cannula 2.0 08/09/16 12:36 60 16 179/78 (111) 95 2.0 08/09/16 12:13 37.0 58 16 175/75 (108) 94 Nasal Cannula 2.0 08/09/16 12:10 Room Air 08/09/16 12:10 94 Nasal Cannula 2.0 08/09/16 12:00 36.2 60 16 176/73 96 Nasal Cannula 2 08/09/16 11:50 55 16 173/72 95 Nasal Cannula 2 08/09/16 11:40 58 14 170/76 96 Mask 10 08/09/16 11:30 55 18 181/79 95 Mask 10 08/09/16 11:20 61 19 182/82 96 Mask 10 08/09/16 11:12 36.3 65 16 181/81 96 Mask 10 (Ellen George, PA-C) Physical Exam General Appearance: WD/WN, no apparent distress Eyes: sclerae normal ENT: hearing grossly normal, pharynx normal Neck: supple, no JVD, trachea midline Respiratory/Chest: lungs clear, normal breath sounds, no respiratory distress, no accessory muscle use, + pertinent finding (L CATRACHO drain with serosang. drainage ; dressing/NYLA wrap clean dry intact; surround skin without erythema/warmth) Cardiovascular: regular rate, rhythm, no gallop, no murmur Abdomen: normal bowel sounds, non tender, soft Extremities: no pedal edema, no calf tenderness, + pertinent finding (radial pulse and ulnar pulse 2+ in L arm; motor function intact) Neurologic/Psychiatric: no motor/sensory deficits, alert, oriented x 3 Skin: normal color, warm/dry (Ellen George PA-C) Laboratory Results Last 24 Hours Test 08/10/16 04:33 White Blood Count 9.79 K/uL Red Blood Count 4.67 M/uL Hemoglobin 13.9 g/dL Hematocrit 43.2 % Mean Corpuscular Volume 92.5 fL Mean Corpuscular Hemoglobin 29.8 pg Mean Corpuscular Hemoglobin Concent 32.2 g/dl RDW Standard Deviation 46.5 fL RDW Coefficient of Variation 13.7 % Platelet Count 168 K/uL Mean Platelet Volume 11.3 fL Sodium Level 141 mmol/L Potassium Level 3.8 mmol/L Chloride Level 106 mmol/L Carbon Dioxide Level 28 mmol/L Anion Gap 7.0 mmol/L Blood Urea Nitrogen 11 mg/dl Creatinine 0.61 mg/dl Est Creatinine Clear Calc Drug Dose 68.4 ml/min Estimated GFR () 99.9 Estimated GFR (Non- 86.2 BUN/Creatinine Ratio 18.4 Random Glucose 144 mg/dl Calcium Level 8.1 mg/dl (Ellen George PA-C) Assessment and Plan 81-year-old female with a diagnosis of breast cancer underwent a left total mastectomy 08/09. Postoperatively, she is doing well S/P L Total Mastectomy 2/2 Recurrent Breast CA: Dr. Mota on 08/09: - Pain management, IVF, DVT prophylaxis, PT/OT per primary team Asthma without Exacerbation: - Advair BID - Duonebs Q4H PRN Hypertension/SVT: - Metoprolol XL 50 mg BID and Verapamil 120 mg daily Obstructive Sleep Apnea: - Continue CPAP - May use own Chronic Transient Constipation: - MiraLAX BID - patient's current home regimen - Colace 100 mg BID - Dulcolax suppositories PRN Thank you for this consultation. We will continue to follow. Continued [facility] stay due to: inadequate oral pain control Discharge planning: home ([place]) (Ellen George PA-C) Attending Attestation & Admission Note: Pt seen/examined, chart reviewed, and care plan d/w THEODORE George. I agree w/ the peraza components of her documentation. Pt c/o mild cough. Pain controlled in left chest. VSS o2 sats acceptable gen - nad heart - RRR lungs - scant end-exp wheeze with decreased airation A/P: 1. asthma - recommended she use her albuterol tonight and again in am if necessary. Encouraged pulm toilet with incentive shahana. If cough continues consider mucinex. 2. MADAN - CPAP. 3. HTN - BPs reasonably controlled with home meds. Demetris Garcia MD (Demetris Garcia MD)
[2016-08-10] MEDS: VERAPAMIL HCL 120 MG TABCR PO SCH (21:31)
[2016-08-10] MEDS: PRAMIPEXOLE DIHYDROCHLORIDE 0.5 MG TAB PO SCH (21:32)
[2016-08-10] MEDS: PRAVASTATIN SOD 20 MG TAB PO SCH (21:33)
[2016-08-11] MEDS: CEFAZOLIN IV 1,000 MG in DEXTROSE 5% 50ML 50 ML IV SCH ×2 (04:25→10:42)
--- NOTE | 2016-08-11 07:13 | DISCHARGE SUMMARY ---
PRINCIPAL DIAGNOSIS: Recurrent left breast cancer. PROCEDURES: The patient underwent left mastectomy with sentinel lymph node biopsy. HISTORY OF PRESENT ILLNESS: The patient is a 81-year-old female with a core biopsy of the left breast showing invasive cancer with decision to proceed with left mastectomy with sentinel lymph node biopsy. HOSPITAL COURSE: The patient was brought into the hospital on 08/09/2016 where she underwent left mastectomy with sentinel lymph node biopsy. The sentinel lymph node biopsy was negative. The patient did well and has progressed well in both diet and activity and is felt stable for discharge back to [facility] today to be followed in the surgical clinic next week.
[2016-08-11 07:48] VITALS: BP 132/68; PULSE 74; TEMP 36.5; O2SAT 91
[2016-08-11 07:57] VITALS: O2SAT 91
[2016-08-11] MEDS: FLUTICASONE/SALMETEROL (ADVAIR) 500/50 INH 14 PUFF INH SCH (08:25)
[2016-08-11] MEDS: POLYETHYLENE (MIRALAX) 17 GM PACK PO SCH (08:26)
[2016-08-11] MEDS: DOCUSATE SODIUM 100 MG CAP PO SCH (08:26)
[2016-08-11] MEDS: PANTOprazole SOD 40 MG TAB PO SCH (08:26)
[2016-08-11] MEDS: METOPROLOL SUCC 50MG EXT REL TAB PO SCH (08:27)
[2016-08-11 09:47] VITALS: BP 159/78; PULSE 86; O2SAT 94
[2016-08-11 11:22] VITALS: BP 159/78; PULSE 86; TEMP 36.5; O2SAT 94
== END 2016-08-11 14:39 | DRG 581 ==
LOC: C.ACU 07:27 → C.MSN 08:40 → ENRESERV 11:48
PROVIDERS: ADMIT Surgery; ATTEND Surgery
PROC: 0HTU0ZZ Resection of Left Breast, Open Approach (ICD-10-PCS; principal; 2016-08-09 10:00)
PROC: 07B60ZX Excision of Left Axillary Lymphatic, Open Approach, Diagnostic (ICD-10-PCS; principal; 2016-08-09 10:00)
DX: C50.912 Malignant neoplasm of unspecified site of left female breast (principal); M19.90 Unspecified osteoarthritis, unspecified site; J45.909 Unspecified asthma, uncomplicated; N81.11 Cystocele, midline; I10 Essential (primary) hypertension; N39.46 Mixed incontinence; G47.33 Obstructive sleep apnea (adult) (pediatric); K59.01 Slow transit constipation; Z80.3 Family history of malignant neoplasm of breast

== ENCOUNTER → 2016-09-30 | Outpatient (CLI) | payer BC ==
[~2016-09-30] MED LIST changes: -CEFAZOLIN 2000 MG/60 ML D5W IV SCH; +CEPH500C2 PO; +HYDR-5688 PO; -LACTATED RINGER'S 1000ML 1,000 ML IV SCH; +MULT-920 PO; +NEILMED SINUS RINSE; +[UNRECOGNIZED DRUG - CODE] PO
== END | disposition home or self-care (01) ==
LOC: C.MAMM 10:27
PROVIDERS: ATTEND Internal Medicine
DX: M85.851 Other specified disorders of bone density and structure, right thigh (principal); M85.852 Other specified disorders of bone density and structure, left thigh

== ENCOUNTER → 2017-01-05 | Outpatient (CLI) | payer BC ==
[2017-01-05 08:55] LABS: ALT/SGPT 23 U/L (12-78); BLOOD UREA NITROGEN 18 mg/dl (7-18); CALCIUM 9.1 mg/dl (8.5-10.1); CARBON DIOXIDE 27 mmol/L (21-32); CHLORIDE 107 mmol/L (98-107); CREATININE 0.53 mg/dl (0.60-1.20); GLUCOSE 95 mg/dl (70-99); SODIUM 143 mmol/L (136-145)
[2017-01-05 09:00] LABS: MEAN CELL VOLUME 92.6 fL (80-100); MEAN CORPUSCULAR HGB CONC 32.4 g/dl (32-36); MEAN PLATELET VOLUME 12.4 fL (7.4-10.4); PLATELET COUNT 153 K/uL (130-400); RED BLOOD COUNT 4.97 M/uL (4.2-5.4)
[2017-01-05 09:05] LABS: ALB/GLOB RATIO 0.8 (0.9-2); ALKALINE PHOSPHATASE 75 U/L (45-117); AST/SGOT 21 U/L (15-37)
== END ==
LOC: C.LABFOXMH 08:03
PROVIDERS: ATTEND Internal Medicine
DX: G62.9 Polyneuropathy, unspecified (principal)

== ENCOUNTER → 2017-02-09 | Outpatient (CLI) | payer BC ==
[~2017-02-09] MED LIST changes: +ACET-1693 PO; -ACET325T96 PO; +ALEN5TAB2 PO; +CHOL1CAP30 PO; +METO25TA4 PO; -METO50TA7 PO; +METO50TA8 PO; +MONT1TAB5 PO; +VNTHFA/IN INH; +VRP40 PO
== END | disposition home or self-care (01) ==
LOC: C.RDSM 08:15
PROVIDERS: ATTEND Orthopaedic Surgery Sports Medicine
DX: G56.01 Carpal tunnel syndrome, right upper limb (principal)

== ENCOUNTER → 2017-02-28 | Outpatient (CLI) | payer BC ==
[~2017-02-28] MED LIST changes: -ACET-1693 PO; +ACET325T96 PO; -CEPH500C2 PO; -HYDR-5688 PO; +METO25TA3 PO; -METO25TA4 PO; +METO50TA7 PO; -METO50TA8 PO
[2017-02-28 09:17] LABS: HEMATOCRIT 46.7 % (37-47); HEMOGLOBIN 15.6 g/dL (12.0-16.0); MEAN CELL VOLUME 91.7 fL (80-100); MEAN CORPUSCULAR HEMOGLOBIN 30.6 pg (25-34); MEAN CORPUSCULAR HGB CONC 33.4 g/dl (32-36); PLATELET COUNT 170 K/uL (130-400); RED CELL DISTRIBUTION WIDTH CV 14.3 % (11.5-14.5); RED CELL DISTRIBUTION WIDTH SD 48.3 fL (36.4-46.3); WHITE BLOOD COUNT 6.25 K/uL (4.8-10.8)
[2017-02-28 09:35] LABS: ALBUMIN 3.3 gm/dl (3.4-5.0); ALT/SGPT 24 U/L (12-78); AST/SGOT 19 U/L (15-37); BLOOD UREA NITROGEN 15 mg/dl (7-18); CALCIUM 9.1 mg/dl (8.5-10.1); CARBON DIOXIDE 29 mmol/L (21-32); CREATININE 0.58 mg/dl (0.60-1.20); GLUCOSE 96 mg/dl (70-99); POTASSIUM 3.9 mmol/L (3.5-5.1); SODIUM 138 mmol/L (136-145)
[2017-02-28 09:37] LABS: ALKALINE PHOSPHATASE 78 U/L (45-117); TOTAL PROTEIN 7.5 gm/dl (6.4-8.2)
== END | disposition home or self-care (01) ==
LOC: C.LABFOXMH 08:46
PROVIDERS: ATTEND Internal Medicine
DX: C50.919 Malignant neoplasm of unspecified site of unspecified female breast (principal)

== ENCOUNTER → 2017-03-04 | Day surgery (SDC) | payer BC ==
[2017-02-28 08:19] VITALS: Ht 149.9 cm; Wt 77.3 kg
[~2017-03-04] VITALS: Ht 149.9 cm; Wt 77.3 kg
[~2017-03-04] MED LIST changes: -ALBUAER19 INH; +ATROPINE SULFATE 0.1 MG/ML 5ML SYR IV PRN; +BUPIVACAINE 0.5 % 5 MG/1 ML MPF 30ML VIAL ONE; +CEFAZOLIN 1000MG IV PUSH 5 ML IV SCH; +EpHEDrine SULFATE INJ 50 MG/ML AMP IV PRN; +EpINEphrine INJ 1MG/ML AMP 1 MG/ML AMP ONE; +FENTANYL CITRATE INJ 50 MCG/1 ML 2 ML VIAL IV PRN; +FENTANYL CITRATE INJ 50 MCG/1 ML 2 ML VIAL ONE; +HydrALAZINE HCL 20 MG/ML VIAL ONE; +LACTATED RINGER'S 1000ML 1,000 ML IV SCH; +LIDOCAINE HCL 1% 20 ML VIAL ONE; +LIDOCAINE HCL 2% 2 ML VIAL (20MG/ML) ONE; -METO50TA7 PO; -NEILMED SINUS RINSE; +ONDANSETRON INJ 2 MG/ML 2 ML VIAL IV PRN; +PROMETHAZINE HCL INJ 6.25 MG in SODIUM CHLORIDE 0.9% 50ML 50 ML IV PRN; +PROPOFOL IV EMULSION 10 MG/ML 20 ML VIAL IV ONE; +TRAMADOL HCL 50 MG TAB PO PRN; -VERA120T15 PO; -[UNRECOGNIZED DRUG - CODE] PO
--- NOTE | 2017-03-04 10:03 | Discharge Instructions-SurgCtr ---
Discharge Instructions Date of Service Mar 04, 2017. Visit Reason for Visit: Right Carpal Tunnel Syndrome Discharge Discharge Diagnosis / Problem: Status post endscopic right carpal tunnel release. Discharge Goals Goal(s): Decrease discomfort, Improve function, Increase independence Activity Recommendations Activity Limitations: per Instructions/Follow-up section May Resume Sexual Activity: when tolerated Driving or Machine Use: Not while on Narcotics Anesthesia . Post Anesthesia Instructions: If you have had General Anesthesia or IV Sedation: * Do not drive today. * Resume driving when surgeon permits. * Do not make important decisions or sign legal documents today. * Call surgeon for: 1. Temperature elevations greater than 101 degrees F. 2. Uncontrollable pain. 3. Excessive bleeding. 4. Persistent nausea and vomiting. 5. Medication intolerance (nausea, vomiting or rash). * For nausea and vomiting use only clear liquids such as: tea, soda, bouillon until nausea subsides, then gradually increase diet as tolerated. * If you have any concerns or questions, call your surgeon's office. If physician is unavailable and it is an emergency, call 911 or go to the nearest emergency room. . Instructions / Follow-Up Instructions / Follow-Up Dr. Roberson in 10-15 days. PT in 3-5 days. Diet Recommendations Home Diet: resume previous diet Procedures Procedures Performed: Right Endoscopic Carpal Tunnel Pending Studies Studies pending at discharge: no Medical Emergencies . Who to Call and When: Medical Emergencies: If at any time you feel your situation is an emergency, please call 911 immediately. . Non-Emergent Contact Non-Emergency issues call your: Surgeon Call Non-Emergent contact if: temperature is above 101.5, your pain is not controlled, wound has increased drainage, wound has increased redness . . "Provider Documentation" section prepared by Luis Angel Roberson. .
--- NOTE | 2017-03-04 10:05 | [facility] Post Operative Brief Note ---
Immediate Operative Summary Operative Date Mar 04, 2017. Pre-Operative Diagnosis Right Carpal Tunnel Syndrome Post-Operative Diagnosis Same Procedure(s) Performed Right Endoscopic Carpal Tunnel Surgeon Dr. Roberson Glass Unloading Equipment Tender Surgeon(s) Kassie Morton Estimated Blood Loss 11ML Findings Thickened Right TCL. Fluids (cc crystalloids) 700 Specimens none per surgeon Drains n/a Anesthesia Local + sedation Complication(s) None Disposition Recovery Room / PACU (Stable)
--- NOTE | 2017-03-04 10:06 | [facility] Operative Report ---
Operative Report Operative Date Mar 04, 2017. Pre-Operative Diagnosis Right Carpal Tunnel Syndrome Post-Operative Diagnosis Same Procedure(s) Performed Right Endoscopic Carpal Tunnel Surgeon Dr. Roberson Index Editor Surgeon(s) Patricia Morton. Estimated Blood Loss 11ML Findings Thickened right Transverse Carpal Ligament. Fluids (cc crystalloids) 700 Specimens none per surgeon Drains n/a Anesthesia Local + sedation Complication(s) None Disposition Recovery Room / PACU (Stable) Implants n/a Indications The patient is a 81 year old female with long standing right carpal tunnel syndrome that has failed conservative treatment. I recommended endoscopic right carpal tunnel release. The patient understands the risks of surgery, which include but are not limited to: bleeding, infection, re-operation, damage to nerves and arteries, continued pain, and stiffness. The patient understands all of these instructions and explanations, all of their questions have been satisfactorily addressed. The patient has elected to proceed with surgery and the informed consent was signed. Description of Procedure The patient was taken to the Operating Room and placed in the supine position on the operating table. After adequate sedation was administered a multidisciplinary time-out was performed identifying my initials on the right upper extremity as the correct and operative limb. Prior to the incisions being made, 1 gram of intravenous Ancef were given. The right upper extremity was prepped and draped in the usual orthopaedic sterile fashion. A Median nerve block was performed in the standard manner, along with superficial injection of the planned incisions with 10 cc of a 50:50 mix of 1% Lidocaine plain and 0.5% Bupivacaine plain. The Pisiform was marked and the planned transverse incision was marked 0.5 cm proximal and 1.5 cm radial, approximately 1 cm in length. An Esmarch was used to exsanguinate the limb and the tourniquet was inflated to 250mmHg. The planned exit portal was made in- line with the Ring Finger crossing Caplans line. The Transverse incision was carried down through the skin and blunt dissect was carried down through the fascia, protecting any superficial vessels. A freer was used to expose the carpal tunnel to the point of the distal exit portal. The slotted cannula was introduced from proximal to distal and the exit portal was incised and the slotted cannula was delivered out the exit portal. The hand was placed on the extension bump. The arthroscope was placed from proximal to distal to view the Transverse Carpal Ligament (TCL). Multiple Q-tips were used for better exposure. The most distal aspect of the TCL was incised with forward cutting blade. Then the Triangular blade was used to incise the TCL in the mid-portion. The retrograde scalpel was used to connect the two incisions in the TCL. At this point the arthroscope was switched to view from the distal to proximal and the proximal portion of the TCL was incised. Care was taken not incise the skin. The forward cutting blade was used to incise the proximal portion. Then the retrograde blade connected the two incisions in the TCL. The triangular blade was used to incise any remaining fibers of the TCL. The entire release was visualized with the arthroscope. The wounds were copiously irrigated. The trocar was replaced prior to removing the cannula. Both portals were closed with 3-0 Nylon. The incisions were dressed with Xeroform gauze, sterile gauze, sterile Webril, and an NYLA bandage. The sponge and needle counts were correct. The patient was taken to the recovery room in stable condition. Post-op Instructions: Pain medicine prescription was given pre-operatively to be taken as needed. The patient will elevate and ice. No heavy lifting with his right upper extremity. The patient will follow up with me in 10-15 days. I attest to the content of the Intraoperative Record and any orders documented therein. Any exceptions are noted below.
[2017-03-04 10:11] VITALS: TEMP 36.6
--- NOTE | 2017-03-04 10:48 | Anesthesia Progress Nt - [facility] ---
Anesthesia Post Op Note Date & Time Mar 04, 2017 at 10:48 Vital Signs Pain Intensity: 0 Vital Signs Past 12 Hours Date Time Temp Pulse Resp B/P (MAP) Pulse Ox O2 Delivery O2 Flow Rate FiO2 03/04/17 10:11 36.6 78 16 154/66 (95) 95 Room Air 03/04/17 08:15 36.6 82 18 154/87 (109) 94 Room Air Notes Mental Status: alert / awake / arousable, participated in evaluation Pt Amnestic to Procedure: Yes Nausea / Vomiting: adequately controlled Pain: adequately controlled Airway Patency, RR, SpO2: stable & adequate BP & HR: stable & adequate Hydration State: stable & adequate Anesthetic Complications: no major complications apparent
[2017-03-04 11:00] VITALS: BP 138/76; PULSE 75; O2SAT 95
== END | disposition home or self-care (01) ==
LOC: X.SURG 07:56
PROVIDERS: ATTEND Orthopaedic Surgery Sports Medicine
DX: G56.01 Carpal tunnel syndrome, right upper limb (principal); I10 Essential (primary) hypertension; E78.00 Pure hypercholesterolemia, unspecified; G47.33 Obstructive sleep apnea (adult) (pediatric); M06.9 Rheumatoid arthritis, unspecified; M19.90 Unspecified osteoarthritis, unspecified site; E66.9 Obesity, unspecified; Z79.899 Other long term (current) drug therapy; Z68.34 Body mass index [BMI] 34.0-34.9, adult; K44.9 Diaphragmatic hernia without obstruction or gangrene; Z85.3 Personal history of malignant neoplasm of breast; E03.9 Hypothyroidism, unspecified

== ENCOUNTER → 2017-03-28 | Outpatient (CLI) | payer BC ==
[~2017-03-28] MED LIST changes: -ATROPINE SULFATE 0.1 MG/ML 5ML SYR IV PRN; -BUPIVACAINE 0.5 % 5 MG/1 ML MPF 30ML VIAL ONE; -CEFAZOLIN 1000MG IV PUSH 5 ML IV SCH; -EpHEDrine SULFATE INJ 50 MG/ML AMP IV PRN; -EpINEphrine INJ 1MG/ML AMP 1 MG/ML AMP ONE; -FENTANYL CITRATE INJ 50 MCG/1 ML 2 ML VIAL IV PRN; -FENTANYL CITRATE INJ 50 MCG/1 ML 2 ML VIAL ONE; -HydrALAZINE HCL 20 MG/ML VIAL ONE; -IBUP-1050 PO; -LACTATED RINGER'S 1000ML 1,000 ML IV SCH; -LIDOCAINE HCL 1% 20 ML VIAL ONE; -LIDOCAINE HCL 2% 2 ML VIAL (20MG/ML) ONE; -ONDANSETRON INJ 2 MG/ML 2 ML VIAL IV PRN; -PROMETHAZINE HCL INJ 6.25 MG in SODIUM CHLORIDE 0.9% 50ML 50 ML IV PRN; -PROPOFOL IV EMULSION 10 MG/ML 20 ML VIAL IV ONE; -TRAMADOL HCL 50 MG TAB PO PRN
--- NOTE | 2017-03-28 15:03 | MAMMOGRAPHY REPORT ---
UNILATERAL RIGHT DIGITAL SCREENING MAMMOGRAM TOMOSYNTHESIS WITH CAD: 03/28/2017 CLINICAL HISTORY: Annual screening of the right breast. Personal history of left breast cancer statu s post mastectomy. TECHNIQUE: Right breast tomosynthesis in addition to standard 2D mammography was performed. Current ana laura rodriguez was also evaluated with a Computer Aided Detection (CAD) system. COMPARISON: Comparison is made to exams dated: 05/07/2016 ultrasound biopsy, 05/07/2016 mammogram, 04/21 ultrasound biopsy, 03/25/2016 mammogram, 03/21/2015 mammogram, and 02/27/2014 mammogram - [facility]. BREAST COMPOSITION: The tissue of the right breast is heterogeneously dense, which may obscure small masses. FINDINGS: There is an asymmetry in the slightly medial anterior right breast on the CC tomosynthesis images (slice 17/85) that could represent normal overlapping fiber glandular tissue although additio nal spot compression tomosynthesis views and possible ultrasound are recommended. There are scattered benign appearing round and rim calcifications in the right breast. No other susp icious mass, architectural distortion or cluster of microcalcifications is seen. IMPRESSION: ACR BI-RADS CATEGORY 0: INCOMPLETE EVALUATION: NEED ADDITIONAL IMAGING EVALUATION The asymmetry in the slightly medial, anterior right breast needs additional evaluation. The patient will be called to schedule an appointment. Approximately 10% of breast cancers are not detected with mammography. A negative mammographic report should not delay biopsy if a clinically suggestive mass is present. Jo Suggs M.D. ay/:03/28/2017 13:52:56 Human Factors Advisor Lead: Madiha WOLFE(R)(M), [facility] letter sent: Addl Imaging 0 BI-RADS Code: ACR BI-RADS Category 0: Incomplete Evaluation: Need Additional Imaging Evaluation
== END | disposition home or self-care (01) ==
LOC: C.MAMM 10:25
PROVIDERS: ATTEND Internal Medicine
DX: Z12.31 Encounter for screening mammogram for malignant neoplasm of breast (principal); N64.89 Other specified disorders of breast; Z90.12 Acquired absence of left breast and nipple

== ENCOUNTER → 2017-04-08 | Outpatient (CLI) | payer BC ==
[~2017-04-08] MED LIST changes: +ACET-1693 PO; -ACET325T96 PO; -METO25TA3 PO; +METO25TA4 PO
--- NOTE | 2017-04-08 14:58 | MAMMOGRAPHY REPORT ---
UNILATERAL RIGHT DIGITAL DIAGNOSTIC MAMMOGRAM TOMOSYNTHESIS AND TARGETED RIGHT ULTRASOUND: 04/08/2017 CLINICAL HISTORY: Callback from screening mammogram for right breast asymmetry. TECHNIQUE: Breast tomosynthesis in addition to standard 2D mammography was performed. Right CC and spot compression right CC 2-D and tomosynthesis images were obtained. COMPARISON: Comparison is made to exams dated: 03/28/2017 mammogram, 05/07/2016 ultrasound biopsy, 2016 mammogram, 03/21/2015 mammogram, and 02/27/2014 mammogram - [facility]. BREAST COMPOSITION: The tissue of the right breast is heterogeneously dense, which may obscure small masses. FINDINGS: The previously described asymmetry seen within the right slightly medial anterior breast on the cc view effaces on the additional views and has the appearance of normal fibroglandular tissue o n the current exam. No suspicious mass or other suspicious abnormality is seen within this region on the additional views. Targeted ultrasound was performed of the right slightly medial breast in the region of the mammograph ic asymmetry. Sonographically normal tissue is seen in this region, without evidence of a mass or ot her suspicious sonographic abnormalities. IMPRESSION: ACR BI-RADS CATEGORY 2: BENIGN, TARGETED ULTRASOUND ACR BI-RADS CATEGORY 2: BENIGN The right breast asymmetry effaces on the additional views, without corresponding suspicious sonograp hic abnormality evident. Findings are benign and compatible with normal overlapping fibroglandular t issue. There is no mammographic or targeted sonographic evidence of malignancy. A 1 year screening m ammogram is recommended. The patient has been verbally notified of the results. Approximately 10% of breast cancers are not detected with mammography. A negative mammographic report should not delay biopsy if a clinically suggestive mass is present. Angela Ware M.D. /:04/08/2017 11:31:38 Research Study Assistant: Madiha WOLFE(Zac)(Jeannette), [facility] letter sent: Normal 1/2 BI-RADS Code: ACR BI-RADS Category 2: Benign Ultrasound BI-RADS: ACR BI-RADS Category 2: Benign
== END | disposition home or self-care (01) ==
LOC: C.MAMM 11:01
PROVIDERS: ATTEND Internal Medicine
DX: N64.89 Other specified disorders of breast (principal); Z90.12 Acquired absence of left breast and nipple

== ENCOUNTER → 2017-07-04 | Outpatient (CLI) | payer BC ==
[2017-07-04 09:41] LABS: BLOOD UREA NITROGEN 14 mg/dl (7-18); CALCIUM 8.9 mg/dl (8.5-10.1); CARBON DIOXIDE 30 mmol/L (21-32); CHOLESTEROL 182 mg/dl (0-200); CREATININE 0.53 mg/dl (0.60-1.20); GLUCOSE 84 mg/dl (70-99); POTASSIUM 4.4 mmol/L (3.5-5.1); SODIUM 142 mmol/L (136-145)
[2017-07-04 09:45] LABS: LDL CHOLESTEROL CALCULATED 102 mg/dl
== END | disposition home or self-care (01) ==
LOC: C.LABFOXMH 08:48
PROVIDERS: ATTEND Internal Medicine
DX: I10 Essential (primary) hypertension (principal); E78.00 Pure hypercholesterolemia, unspecified

== ENCOUNTER 2022-07-02 07:27 | Observation (INO) ==
--- NOTE | 2022-05-31 14:48 | PAT Medication Instructions ---
Medication Instructions Date of Service May 31, 2022 Home Medications acetaminophen 650 mg tablet,extended release 325 - 650 mg PO Q6H PRN Pain albuterol sulfate 90 mcg/actuation aerosol inhaler (Ventolin HFA) 2 puff inhalation Q6H PRN Shortness Of Breath Or Wheezing celecoxib 200 mg capsule (Celebrex) 200 mg PO BID fluticasone propionate 50 mcg/actuation nasal spray,suspension (Flonase Allergy Relief) 1 spray intranasal QPM omeprazole 20 mg tablet,delayed release 20 mg PO QAM pravastatin 20 mg tablet 20 mg PO QPM verapamil 120 mg 24 hr capsule,extended release 120 mg PO QAM candesartan 8 mg tablet 8 mg PO QAM metoprolol succinate 50 mg tablet,extended release 24 hr 50 mg PO BID pramipexole 0.5 mg tablet 0.5 mg PO TID umeclidinium 62.5 mcg-vilanterol 25 mcg/actuation powdr for inhalation (Anoro Ellipta) 1 inh inhalation QAM denosumab 60 mg/mL subcutaneous syringe See Rx Instructions escitalopram oxalate 5 mg tablet (Lexapro) 5 mg PO DAILY Equate Eye Drops 1 drp PO UD PRN Dry Eyes diclofenac sodium 1 % topical gel 2 g topical QID PRN Pain furosemide 40 mg tablet 40 mg PO QAM Continue as directed denosumab 60 mg/mL subcutaneous syringe See Rx Instructions escitalopram oxalate 5 mg tablet (Lexapro) 5 mg PO DAILY ASK your surgeon for instructions celecoxib 200 mg capsule (Celebrex) 200 mg PO BID diclofenac sodium 1 % topical gel 2 g topical QID PRN Pain DO NOT take the morning of surgery candesartan 8 mg tablet 8 mg PO QAM furosemide 40 mg tablet 40 mg PO QAM Take morning of surgery With a small sip of water, OTHERWISE NOTHING TO EAT OR DRINK AFTER MIDNIGHT: acetaminophen 650 mg tablet,extended release 325 - 650 mg PO Q6H PRN Pain (if needed) albuterol sulfate 90 mcg/actuation aerosol inhaler (Ventolin HFA) 2 puff inhalation Q6H PRN Shortness Of Breath Or Wheezing (use if needed; please bring with you to hospital day of surgery if possible) omeprazole 20 mg tablet,delayed release 20 mg PO QAM verapamil 120 mg 24 hr capsule,extended release 120 mg PO QAM metoprolol succinate 50 mg tablet,extended release 24 hr 50 mg PO BID pramipexole 0.5 mg tablet 0.5 mg PO TID umeclidinium 62.5 mcg-vilanterol 25 mcg/actuation powdr for inhalation (Anoro El lipta) 1 inh inhalation QAM Equate Eye Drops 1 drp PO UD PRN Dry Eyes (if needed) Take evening before surgery acetaminophen 650 mg tablet,extended release 325 - 650 mg PO Q6H PRN Pain (if needed) albuterol sulfate 90 mcg/actuation aerosol inhaler (Ventolin HFA) 2 puff inhalation Q6H PRN Shortness Of Breath Or Wheezing (if needed) fluticasone propionate 50 mcg/actuation nasal spray,suspension (Flonase Allergy Relief) 1 spray intranasal QPM pravastatin 20 mg tablet 20 mg PO QPM metoprolol succinate 50 mg tablet,extended release 24 hr 50 mg PO BID Equate Eye Drops 1 drp PO UD PRN Dry Eyes (if needed) pramipexole 0.5 mg tablet 0.5 mg PO TID Other Notes If you have any questions please call us at [phone] or [phone] or [phone] or [phone]
--- NOTE | 2022-06-03 14:06 | Anesthesiology Consultation ---
Date of Service June 03, 2022 Assessment & Plan (1) Encounter for pre-operative examination: Chart Review Chart Review: Acceptable Risk for Surgery (pending upcoming or most recent PCP note ) and Patient seen in Pre Admission Testing - Please obtain upcoming PCP visit (Dr. Kumari) (pt thinks appt is the week of 06/07/22) - Fluid bolus not ordered due to moderate aortic stenosis hx- will leave to anesthesiologist discretion if patient needs procedure under [place] Left limb restriction - Pt is NOT an Outpatient Joint candidate Per PAT appt on 06/03/22, patient denies any recent travel or large group ac tivities. Pt is vaccinated for Covid. Will leave to surgeon's discretion if preop Covid testing needed. Educated on importance of using Covid precautions one week prior to surgery Pt seen by cardio 05/04/22= patient with longstanding dyspneic symptoms which may be due to low-grade chronic heart failure with preserved EF, as recent spirometry was unremarkable. Fortunately, she appears euvolemic on her current furosemide dose of 40 mg daily. On exam, aortic stenosis is probably moderate. Given her an active lifestyle and vascular risk factors (primarily age), she could have occult coronary artery disease as well. Therefore recommend reevaluation cardiac structure as well as pharmacologic stress test prior to any surgery. "Will schedule dobutamine stress echocardiogram. As long as her aortic stenosis is not severe and there is no evidence of myocardial ischemia, she could proceed to knee surgery anytime after her stress study." (Stress test showed no ischemia and moderate aortic stenosis ) Teaching & Discussion Pre-Anesthesia Teaching/Discussion Notes: Instructed NPO after midnight before surgery,except medications with 15 cc of water. Medication instructions provided according to the PAT guidelines. History Surgery Operation Date: 07/02/22 12:50 Proposed Procedures p Right Lateral Total Hip Arthroplasty - Familia Jameson, Height/Weight Height: 4 ft 11 in Weight: 76 kg Allergies Allergy/AdvReac Type Severity Reaction Status Date / Time codeine Allergy Unknown "RISE IN Verified 05/28/22 13:16 TEMP" oxycodone AdvReac Unknown BECAME Verified 06/01/22 15:11 ADDICTED TO IT PER PT COW MILK AdvReac Unknown "GAS" Uncoded 06/01/22 15:11 Medications Home Medications Medication Instructions Recorded Confirmed Last Taken acetaminophen 650 mg 325 - 650 mg PO Q6H PRN Pain 11/17/17 05/28/22 Unknown tablet,extended release albuterol sulfate 90 mcg/actuation 2 puff inhalation Q6H PRN 11/17/17 05/28/22 11/24/17 07:00 aerosol inhaler (Ventolin HFA) Shortness Of Breath Or Wheezing celecoxib 200 mg capsule (Celebrex) 200 mg PO BID 11/17/17 05/28/22 11/24/17 07:00 fluticasone propionate 50 1 spray intranasal QPM 11/17/17 05/28/22 11/24/17 07:00 mcg/actuation nasal spray,suspension (Flonase Allergy Relief) omeprazole 20 mg tablet,delayed 20 mg PO QAM 11/17/17 05/28/22 11/24/17 07:00 release pravastatin 20 mg tablet 20 mg PO QPM 11/17/17 05/28/22 11/23/17 verapamil 120 mg 24 hr 120 mg PO QAM 11/23/18 05/28/22 Unknown capsule,extended release candesartan 8 mg tablet 8 mg PO QAM 01/29/21 05/28/22 Unknown metoprolol succinate 50 mg 50 mg PO BID 04/02/21 05/28/22 Unknown tablet,extended release 24 hr pramipexole 0.5 mg tablet 0.5 mg PO TID 04/02/21 05/28/22 Unknown umeclidinium 62.5 mcg-vilanterol 1 inh inhalation QAM 11/17/21 05/28/22 Unknown 25 mcg/actuation powdr for inhalation (Anoro Ellipta) denosumab 60 mg/mL subcutaneous See Rx Instructions subcut .COMPLEX 03/29/22 05/28/22 Unknown syringe escitalopram oxalate 5 mg tablet 5 mg PO DAILY 05/04/22 05/28/22 Unknown (Lexapro) Equate Eye Drops 1 drp PO UD PRN Dry Eyes 05/28/22 05/28/22 Unknown diclofenac sodium 1 % topical gel 2 g topical QID PRN Pain 05/28/22 05/28/22 Unknown furosemide 40 mg tablet 40 mg PO QAM 05/28/22 05/28/22 Unknown Past Medical History Medical History Asthma Stable and controlled Atrial fibrillation [facility] Breast cancer, left x2, 1997- radiation, 2016- surgery Carpal tunnel syndrome Residual right finger numbness Chronic back pain Cystocele, midline GERD (gastroesophageal reflux disease) Well controlled and stable Hearing deficit b/l hearing aids Hyperlipidemia Hypertension Moderate aortic stenosis Per 05/19/22 DSE Osteoarthritis Restless leg syndrome Sciatic nerve disease Sleep apnea CPAP Exercise / Class Metabolic Activity III < 4 Walking/Shop/Light housework (no chest pain, mild SOB with flat surface ambulation - uses walker ) Past Surgical History Surgical History H/O left breast biopsy 1997- MALIGNANT History of back surgery LUMBAR CYST REMOVED History of carpal tunnel surgery of right wrist History of left mastectomy 2016 LEFT LIMB RESTRICTION History of lumpectomy of left breast 1997 History of tonsillectomy and adenoidectomy S/P epidural steroid injection Past Anesthesia History No Hx of Anesthesia Complications and No Family Hx of Anesthesia Complications History of PONV No Hx of PONV and No Hx of Motion Sickness Social History Smoking Status: Never smoker Do You Dip or Chew Tobacco: No Hx Alcohol Use: Yes Alcohol type: wine alcohol intake frequency: holidays/special occasions only Hx Substance Use: No substance use type: does not use Review of Systems Cough x 1 week- tested three times for Covid (negative). Pt declines Covid test in PAT Patient denies chest pain, shortness of breath, dyspnea on exertion, cough, wheezing, palpitations. No hx of seizures, stroke, NM. No hx of blood clots or blood transfusions Physical Exam Vital Signs VITALS BP 136/72 P 98 TEMP 98.0 SP02 94% RESP 16 Constitutional no acute distress ENMT Mouth: + small oral opening; no TMJ clicking Thyromental Distance: < 3.5 Finger Breadths (3.0) Mallampati Class: III Neck + limited neck extension (significant ) Respiratory normal respiratory effort; no respiratory distress Auscultation: lungs clear to auscultation bilaterally; no wheezes Cardiovascular Rate/Rhythm: regular rate and regular rhythm Heart Sounds: + murmur (II-III/ murmur) Vessels: no carotid bruit Musculoskeletal Spine: no pain with cervical ROM Extremities: extremities normal to inspection Psychiatric Orientation: alert Lab Results Anesthesia Preop Results Results Anesthesia Widget: WBC 8.54 K/ul (4.8-10.8) 06/03/22 Hgb 13.8 g/dl (12.0-16.0) 06/03/22 Hct 42.3 % (37.0-47.0) 06/03/22 Plt 167 K/uL (130-400) 06/03/22 Na 138 mmol/L (136-145) 06/03/22 K 4.0 mmol/L (3.5-5.1) 06/03/22 Cl 103 mmol/L (98-107) 06/03/22 CO2 29 mmol/L (21-32) 06/03/22 BUN 18 mg/dl (6-23) 06/03/22 Creat 0.60 mg/dl (0.6-1.2) 06/03/22 Glucose Level 146 mg/dl (70-99(Fasting)) H 06/03/22 PT 11.2 Seconds (9.0-12.0) 06/03/22 PTT 30.3 Seconds (21.0-31.0) 06/03/22 INR 1.1 (0.9-1.1) 06/03/22 Blood Type AB Positive 06/03/22 Antibody Screen NEGATIVE 06/03/22 Testing Electrocardiogram Date: 06/03/22 Findings: + NSR @ (90bpm ) Minimal voltage criteria for LVH, may be normal variant When compared to EKG from June 01, 2010nonspecific T wave abnormality no longer evident in inferior leads, T wave amplitude has increased anterior lateral leads per cardio Chest X-Ray Date: 06/03/22 FINDINGS: No pneumothorax. No pleural effusions. Chronic reticulonodular interstitial thickening persists. This is most pronounced at the lung bases. Otherwise, no new focal lung consolidations. No evidence for pulmonary edema. The heart remains mildly enlarged. There are calcifications within the aortic knob. Degenerative changes within the thoracic spine. IMPRESSION: No change in the chronic reticulonodular interstitial thickening. No new focal lung consolidations identified. Echocardiogram Date: 01/06/21 EF: 60-65% LV Function: normal RWMA: + none Other Findings: + LVH (Mild concentric) and + diastolic dysfunction (Grade 1) Mild to moderate valvular aortic stenosis Mild AR. Mild MR LA moderately dilated. RV mildly dilated. RVSP is normal. Stress Test Date: 05/19/22 Type: DSE Negative dobutamine stress echocardiogram for myocardial ischemia by echocardiographic and EKG criteria at 91% MPHR. Transient neck/chest discomfort at peak exertion (nonspecific finding). Sporadic PVCs at baseline with a 4 beat run of ventricular tachycardia during stress. Resting echocardiogram with normal systolic function, moderate AAS/mild AI. (ROB 1.4-1.6 cm; AV max velocity 1.90 m/s; AV mean PG 7.8mmHg) Compared with 01/06/2021 study, mild progression of aortic stenosis, no other significant change Mild cLVH. EF 60%. No RWMA COVID-19 Risk Screen Screening Information COVID-19 Screen Date: 06/03/22 Exposure 21 Days Family/Household +COVID Last 21 Days: No Exposure 10 Days Any COVID Exposure Last 10 Days: No Symptoms Last 10 Days Experienced COVID Sx Last 10 Days: No + COVID 0-90 Days COVID + in Last 0-90 Days: No Risk Plan COVID Risk Plan: No Risk Identified Patient Education COVID Preop Screening Education Complete: Yes
--- NOTE | 2022-07-02 06:40 | History & Physical Report ---
Date of Service July 02, 2022 Assessment & Plan (1) Osteoarthritis of right hip: We will proceed with a right total hip arthroplasty. Postoperatively she will be started on aspirin for DVT prophylaxis and kept overnight in the hospital for postoperative medical management. History of Present Illness Chief Complaint: Osteoarthritis of the right hip. Primary Care Provider: José Kumari MD Delores is a pleasant 87-year-old female who has been dealing with increasing right lower extremity pain. She is pain in her knee and her hip. She is ambulating with a wheeled walker because of the hip pain. X-rays and clinical examination were diagnostic for advanced osteoarthritis of the right hip. After failed conservative treatment, she has elected proceed with a right total hip arthroplasty.. Allergies Allergy/AdvReac Type Severity Reaction Status Date / Time codeine Allergy Unknown "RISE IN Verified 05/28/22 13:16 TEMP" oxycodone AdvReac Unknown BECAME Verified 06/01/22 15:11 ADDICTED TO IT PER PT COW MILK AdvReac Unknown "GAS" Uncoded 06/01/22 15:11 Home Medications Medication Instructions Recorded Confirmed Type acetaminophen 650 mg 325 - 650 mg PO Q6H PRN Pain 11/17/17 05/28/22 History tablet,extended release albuterol sulfate 90 mcg/actuation 2 puff inhalation Q6H PRN 11/17/17 05/28/22 History aerosol inhaler (Ventolin HFA) Shortness Of Breath Or Wheezing celecoxib 200 mg capsule (Celebrex) 200 mg PO BID 11/17/17 05/28/22 History fluticasone propionate 50 1 spray intranasal QPM 11/17/17 05/28/22 History mcg/actuation nasal spray,suspension (Flonase Allergy Relief) omeprazole 20 mg tablet,delayed 20 mg PO QAM 11/17/17 05/28/22 History release pravastatin 20 mg tablet 20 mg PO QPM 11/17/17 05/28/22 History verapamil 120 mg 24 hr 120 mg PO QAM 11/23/18 05/28/22 History capsule,extended release candesartan 8 mg tablet 8 mg PO QAM 01/29/21 05/28/22 History metoprolol succinate 50 mg 50 mg PO BID 04/02/21 05/28/22 History tablet,extended release 24 hr pramipexole 0.5 mg tablet 0.5 mg PO TID 04/02/21 05/28/22 History umeclidinium 62.5 mcg-vilanterol 1 inh inhalation QAM 11/17/21 05/28/22 History 25 mcg/actuation powdr for inhalation (Anoro Ellipta) denosumab 60 mg/mL subcutaneous See Rx Instructions subcut .COMPLEX 03/29/22 05/28/22 History syringe escitalopram oxalate 5 mg tablet 5 mg PO DAILY 05/04/22 05/28/22 History (Lexapro) Equate Eye Drops 1 drp PO UD PRN Dry Eyes 05/28/22 05/28/22 History diclofenac sodium 1 % topical gel 2 g topical QID PRN Pain 05/28/22 05/28/22 Hi story furosemide 40 mg tablet 40 mg PO QAM 05/28/22 05/28/22 History Past Med/Surg History Medical History Asthma Stable and controlled Atrial fibrillation Follows with [facility] Breast cancer, left x2, 1997- radiation, 2016- surgery Carpal tunnel syndrome Residual right finger numbness Chronic back pain Cystocele, midline GERD (gastroesophageal reflux disease) Well controlled and stable Hearing deficit b/l hearing aids Hyperlipidemia Hypertension Moderate aortic stenosis Per 05/19/22 DSE Osteoarthritis Restless leg syndrome Sciatic nerve disease Sleep apnea CPAP Surgical History H/O left breast biopsy 1997- MALIGNANT History of back surgery LUMBAR CYST REMOVED History of carpal tunnel surgery of right wrist History of left mastectomy 2016 LEFT LIMB RESTRICTION History of lumpectomy of left breast 1997 History of tonsillectomy and adenoidectomy S/P epidural steroid injection Social History Smoking Status: Never smoker Second Hand Exposure: Yes (HX CHILD); Do You Dip or Chew Tobacco: No; Tobacco Cessation Education Requested by Patient: No Hx Alcohol Use: Yes Alcohol type: wine Hx Substance Use: No Preferred Language: Chadian Communication Ability: Effective Technology Education Instructor Required: No Beliefs That Will Affect Care: None Current Living Situation: Spouse Other Information That Helps Us Care for You: No Feels Safe at Home: Yes Safety Concerns: Feels Safe At This Time Assistive Devices: CPAP, Glasses and Hearing Aid - Bilateral Review of Systems All systems reviewed & are unremarkable except as noted in HPI & below. Physical Exam On physical examination the right hip, she has decreased range of motion and pain with forced internal and external rotation. All of her pain is located in her groin.. Constitutional WD/WN, vitals as above Eyes PERRL, conjunctivae normal, anicteric sclerae ENMT external ear and nose normal, oropharynx normal Neck trachea midline, no thyromegaly Respiratory normal respiratory effort, lungs clear to auscultation Cardiovascular RRR, no murmur, no edema Gastrointestinal (Abdomen) normal bowel sounds, soft, nontender, no hepatosplenomegaly Skin no rashes, warm and dry Psychiatric A+Ox3, euthymic affect Results & Data Results & Data Laboratory Results . Diagnostic Findings X-rays of the right hip show advanced osteoarthritis with joint space narrowing, osteophyte formation, and further articulation. PG Care Time/CCT Total # of Minutes Spent Total Time Spent with Patient: Total time spent is greater than 50% in coordination of care (as documented) at patient's floor/unit and/or counseling patient: Coding Level of Care Code None Diagnoses Osteoarthritis of right hip M16.11
[~2022-07-02 07:27] MED LIST changes: -ACET-1693 PO; +ACETAMINOPHEN 500 MG TAB PO SCH; -ADVIN50/60 INH; -ALEN5TAB2 PO; +BUPIVACAINE 0.5 % 5 MG/1 ML PF 10ML VIAL ONE; -CHOL1CAP30 PO; -CLB/200 PO; +DEXAMETHASONE SOD INJ 4 MG/ML VIAL ONE; +FAMOTIDINE 20 MG TAB PO SCH; -FLUT50SP37 NAE; +GABAPENTIN 300 MG CAP PO SCH; +LIDOCAINE 2% 2 ML VIAL/AMP(20MG/ML) INFIL ONE; +LR 15ML/HR IV SCH; +LR 60ML/HR IV SCH; -METO25TA4 PO; +MIDAZOLAM HCL 1 MG/ML 2ML VIAL ONE; -MONT1TAB5 PO; -MULT-920 PO; +ONDANSETRON INJ 2 MG/ML 2 ML VIAL ONE; +ORTHO JOINT MIX INFIL SCH; -POLYSOL4 OPB; -PRAM1TAB47 PO; -PRAV20TA PO; -PRLSR20 PO; +PROPOFOL IV EMULSION 10 MG/ML 20 ML VIAL IV ONE; +TRANEXAMIC ACID 1,000 MG **IV Intra-op IV SCH; +TRANEXAMIC ACID 1,000 MG **IV Pre-op IV SCH; -VNTHFA/IN INH; -VRP40 PO; +ceFAZolin 2000MG 2,000 MG/15 ML SYR IV SCH; +dexAMETHasone 4 MG TAB PO SCH; +fentaNYL citrate PF 100 MCG/2 ML VIAL ONE
--- NOTE | 2022-07-02 08:21 | History & Physical Bridge Note ---
Date of Service July 02, 2022 History & Physical Bridge Note I have examined the patient, reviewed the History & Physical and in the interval since the performance of the History & Physical I have noted the following changes of clinical significance: no changes noted
[2022-07-02] MEDS ORDERED: fentaNYL citrate PF 100 MCG/2 ML VIAL IV PRN (08:54)
[2022-07-02] MEDS ORDERED: ATROPINE SULFATE 0.1 MG/ML 10ML SYR IV PRN (08:54)
[2022-07-02] MEDS ORDERED: ePHEDrine sulfate 50 MG/ML AMP IV PRN (08:54)
[2022-07-02] MEDS ORDERED: ONDANSETRON INJ 2 MG/ML 2 ML VIAL IV PRN ×2 (08:54→13:31)
[2022-07-02] MEDS ORDERED: ROCURONIUM BROMIDE 10 MG/ML 5 ML VIAL IV ONE ×5 (09:08)
[2022-07-02] MEDS ORDERED: LIDOCAINE 2% 2 ML VIAL/AMP(20MG/ML) INFIL ONE (09:09)
[2022-07-02] MEDS ORDERED: ORTHO JOINT ANESTHETIC ONE (09:20)
[2022-07-02] MEDS ORDERED: METOPROLOL TARTRATE 1 MG/ML VIAL IV ONE (09:48)
[2022-07-02] MEDS ORDERED: SUGAMMADEX SODIUM 200 MG/2 ML VIAL IV ONE (09:52)
[2022-07-02] MEDS ORDERED: ESMOLOL HCL INJ 10 MG/ML 10ML VIAL IV ONE (09:52)
[2022-07-02] MEDS ORDERED: hydrALAZINE HCL 20 MG/ML VIAL ONE (09:58)
[2022-07-02] MEDS ORDERED: PROPOFOL IV EMULSION 10 MG/ML 20 ML VIAL IV ONE (10:05)
[2022-07-02] MEDS ORDERED: fentaNYL citrate PF 100 MCG/2 ML VIAL ONE (10:15)
--- NOTE | 2022-07-02 11:10 | XRay Report ---
XR hip RT 1V HISTORY: 87 years-old Female RIGHT HIP XRAY IN OR right hip arthroplasty COMPARISON: 06/02/2012 TECHNIQUE: Crosstable lateral view of the right hip FINDINGS: Single image demonstrates satisfactory alignment of the right hip arthroplasty. Expected postoperativ e soft tissue swelling with deep tissue air. No acute fracture identified. IMPRESSION: Right hip arthroplasty with expected postoperative changes. ACT 112: Negative or not required by law. The above report was generated using voice recognition software. It may contain grammatical, syntax o r spelling errors. Electronically signed by: True Garcia M.D. 07/02/2022 11:09 AM
--- NOTE | 2022-07-02 11:12 | Operative Report ---
PG Post Operative Report Pre & Post Diagnosis Operation Date: 07/02/22 09:20 Pre-Op Diagnosis: Osteoarthritis of the right hip Post-Op Diagnosis: Osteoarthritis of the right hip I identified the patient and participated in the time-out.: Yes Procedure Operation Date: 07/02/22 09:20 Actual Procedures p Right Lateral Total Hip Arthroplasty(Right) - Familia Jameson DO Surgeon Familia Jameson DO Laundry Or Dry Cleaners Counter Clerk Armando Gunter PA-C Estimated Blood Loss 200 Findings Consistent with Post-Op Diagnosis Specimens Right femoral head Description of Procedure On July 02, [address] [facility] for the above procedure. She was seen in the preoperative holding area and the operative extremity identified and signed. She was given a preoperative antibiotic and a spinal anesthetic. She was taken back the operating room and laid on the table in supine position. She was given basic sedation. She was put into the lateral decubitus position. The right hip was prepped and draped in sterile fashion. A timeout was done. The patient and the operative extremity was properly identified. A lateral approach was used. Dissection was taken down through the fascia. The IT band was exposed and incised. The abductors were then exposed. The anterior third of the abductors were then tenotomized off the greater trochanter. The capsule was then excised. The hip was then dislocated. The femoral neck was then resected and the femoral head was removed. The acetabulum was then exposed. Time was spent doing a circumferential capsule labral release. Sequential reaming up to a size 45 reamer was done. A 46 mm Biomet G7 shell was then impacted into place. A manhole cover was placed followed by a 25 mm screw. An E1 polyethylene liner was then snapped into place. Surrounding soft tissues were injected with 100 cc of an orthopedic pain control cocktail. The proximal femur was then exposed. Sequential broaching up to a size 2 broach was done. A standard femoral neck and a 32 mm head was then placed. The hip was then reduced. A single flatplate x-ray was taken out was happy with the overall sizing and alignment of the components. The hip was then dislocated. The trials were removed. The final size 2 Melvina Avenir complete standard offset collared stem was then impacted into place. A 32 mm ceramic head with a 0 neck was then impacted into place. The hip was then reduced. The hip was then brought through a full range of motion and felt to be stable. The wound was then irrigated. The abductors were then tenodesed back to the greater trochanter with transosseous broadband sutures and side to side sutures. The IT band was closed with #1 Vicryl. Deep fat layer was closed with #1 Vicryl. Skin was closed with 2-0 Vicryl and alice. She was then placed in a soft dressing. She was then transferred to a hospital bed and taken to the postanesthesia care unit in stable condition. She tolerated the procedure well. Armando Gunter PA-C, was present for the entire procedure. He was critical for patient positioning, prepping, draping, retraction exposure, wound closure and application of sterile dressing. I attest to the content of the Intraoperative Record and any orders documented therein. Any exceptions are noted below.
--- NOTE | 2022-07-02 12:21 | XRay Report ---
AP PELVIS, CROSSTABLE LATERAL RIGHT HIP History: Right total hip arthroplasty. Degenerative arthritis. Postop. FINDINGS: The patient is status post a right total hip arthroplasty. The hardware is intact. No fract ure or dislocation. Skin alice are in place. IMPRESSION: Right total hip arthroplasty. No evidence for hardware complication ACT 112: Negative or not required by law. Electronically signed by: Kee Oliveira M.D. 07/02/2022 12:20 PM
[2022-07-02] MEDS ORDERED: METOCLOPRAMIDE HCL INJ 5 MG/ML 2 ML VIAL IV PRN (13:31)
[2022-07-02] MEDS ORDERED: ALBUTEROL HFA 8 GM INHALER INH PRN (13:31)
[2022-07-02] MEDS ORDERED: MAGNESIUM HYDROXIDE SUSP 30 ML UDC PO PRN (13:31)
[2022-07-02] MEDS ORDERED: SODIUM CHLORIDE 0.9% 1000ML 1,000 ML IV SCH (13:31)
[2022-07-02] MEDS ORDERED: NALOXONE HCL 0.4 MG/1 ML VIAL/CARP IV PRN (13:31)
[2022-07-02] MEDS ORDERED: bisacodyL 10 MG SUPP PR PRN (13:31)
--- NOTE | 2022-07-02 13:32 | Anesthesiology Progress Note ---
Date of Service July 02, 2022 Anesthesia Post Procedure Vital Signs Vital Signs: Temp Pulse Pulse Resp BP Pulse Ox O2 Del Method 07/02/22 13:10 36.9 C 90 17 106/55 L 94 Nasal Cannula 07/02/22 13:00 89 20 106/55 L 94 Nasal Cannula 07/02/22 12:45 36.7 C 87 18 104/62 92 Nasal Cannula 07/02/22 12:35 87 16 121/60 95 Nasal Cannula 07/02/22 12:25 86 21 122/59 L 97 Oxymask 07/02/22 12:15 86 17 118/57 L 96 Oxymask 07/02/22 12:05 91 H 20 135/61 99 Oxymask 07/02/22 11:55 87 19 127/55 L 99 Oxymask 07/02/22 11:45 36.9 C 85 14 119/59 L 98 Oxymask 07/02/22 08:21 36.6 C 79 18 161/97 H 93 Room Air O2 Flow Rate 07/02/22 13:10 4 07/02/22 13:00 4 07/02/22 12:45 2 07/02/22 12:35 2 07/02/22 12:25 4 07/02/22 12:15 4 07/02/22 12:05 10 07/02/22 11:55 10 07/02/22 11:45 10 07/02/22 08:21 Transfer of Care Handoff Completed per policy Notes Mental Status: alert / awake / arousable and participated in evaluation Patient Amnestic to Procedure: Yes Nausea / Vomiting: adequately controlled Pain: adequately controlled Airway Patency, RR, SpO2: stable & adequate BP & HR: stable & adequate Hydration State: stable & adequate Anesthetic Complications: no major complications apparent and Pt Satisfied with anesthetic care
[2022-07-02] MEDS: PRAMIPEXOLE DIHYDROCHLO 0.5 MG TAB PO SCH ×2 (15:07→21:39)
[2022-07-02] MEDS: KETOROLAC TROMETHAMINE 15 MG/ML VIAL IV SCH ×2 (15:07→17:40)
[2022-07-02] MEDS: ceFAZolin 2000MG 2,000 MG/15 ML SYR IV SCH (17:39)
[2022-07-02] MEDS ORDERED: SENNA 8.6 MG TAB PO SCH (21:00)
[2022-07-02] MEDS ORDERED: PRAVASTATIN SOD 20 MG TAB PO SCH (21:00)
[2022-07-02] MEDS: METOPROLOL SUCC 50MG EXT REL TAB PO SCH (21:39)
[2022-07-02] MEDS: DOCUSATE SODIUM 100 MG CAP PO SCH (21:39)
[2022-07-02] MEDS: ASPIRIN 81 MG ECTAB PO SCH (21:39)
[2022-07-03] MEDS: ceFAZolin 2000MG 2,000 MG/15 ML SYR IV SCH (00:49)
[2022-07-03] MEDS: KETOROLAC TROMETHAMINE 15 MG/ML VIAL IV SCH ×2 (00:49→06:29)
[2022-07-03] MEDS: PRAMIPEXOLE DIHYDROCHLO 0.5 MG TAB PO SCH ×2 (07:10→14:05)
[2022-07-03] MEDS: ASPIRIN 81 MG ECTAB PO SCH (07:10)
[2022-07-03] MEDS: METOPROLOL SUCC 50MG EXT REL TAB PO SCH (07:11)
[2022-07-03] MEDS: DOCUSATE SODIUM 100 MG CAP PO SCH (07:12)
[2022-07-03] MEDS: traMADol HCL 50 MG TABLET PO PRN ×2 (07:18→14:05)
--- NOTE | 2022-07-03 07:36 | Orthopedic Progress Note ---
Date of Service July 03, 2022 Assessment & Plan (1) Status post right hip replacement: Overall she is doing fairly well. She is not having too much pain in the right hip. She will be seen by physical therapy today for ambulation and range of motion exercises. She is on aspirin for DVT prophylaxis. If she does well enough today with physical therapy to be discharged to [facility] then she can be discharged home later today. If she is very slow with therapy and they do not feel safe discharging her to [facility], she can stay until tomorrow. Galen Estrella was seen and examined at bedside this morning. Overall she is doing fairly well. She has not been out of bed yet with physical therapy. She has some soreness in the hip but is not too bad. She was sitting in a chair some last night. She has no complaints.. Review of Systems All systems reviewed & are unremarkable except as noted in HPI & below. Physical Exam On physical examination of the right hip, the dressing is clean and dry. Her leg is out full extension. She has active dorsiflexion plantarflexion of her right ankle.. Results & Data Results & Data Laboratory Results . Diagnostic Findings Postoperative x-rays of the right hip show the prosthesis to be in anatomic alignment without any evidence of fracture, desiccation, or loosening. PG Care Time/CCT Total # of Minutes Spent Total Time Spent with Patient: Total time spent is greater than 50% in coordination of care (as documented) at patient's floor/unit and/or counseling patient: Coding Level of Care Code 90770 Post Operative Follow-Up Diagnoses Status post right hip replacement Z96.641
[2022-07-03] MEDS ORDERED: dexAMETHasone 4 MG TAB PO SCH (08:00)
[2022-07-03] MEDS ORDERED: FUROSEMIDE 40 MG TAB PO SCH (09:00)
[2022-07-03] MEDS ORDERED: ESCITALOPRAM OXALATE 10 MG TAB PO SCH (09:00)
[2022-07-03] MEDS ORDERED: VERAPAMIL HCL 120 MG TABCR PO SCH (09:00)
[2022-07-03] MEDS ORDERED: UMECLIDINIUM/VILANTEROL 62.5/25MCG 7 PUFFS/INHALER INH SCH (09:00)
[2022-07-03] MEDS ORDERED: MULTIVITAMIN TAB PO SCH (09:00)
[2022-07-03] MEDS ORDERED: LOSARTAN POTASSIUM 25 MG TAB PO SCH (09:00)
[2022-07-03] MEDS ORDERED: PANTOprazole 40 MG TAB PO SCH (09:00)
--- NOTE | 2022-07-07 11:35 | Discharge Summary ---
Date of Service July 07, 2022 Admission HPI (Per Admitting) Delores is a pleasant 87-year-old female who has been dealing with increasing right lower extremity pain. She is pain in her knee and her hip. She is ambulating with a wheeled walker because of the hip pain. X-rays and clinical examination were diagnostic for advanced osteoarthritis of the right hip. After failed conservative treatment, she has elected proceed with a right total hip arthroplasty.. Admission Exam (Per Admitting) On physical examination the right hip, she has decreased range of motion and pain with forced internal and external rotation. All of her pain is located in her groin.. Principal Diagnosis Same as "Discharge Diagnosis" noted below under Discharge Instructions. Discharge Exam On physical examination of the right hip, the dressing is clean and dry. Her leg is out full extension. She has active dorsiflexion plantarflexion of her right ankle.. Discharge Data Procedures Performed Operation Date: 07/02/22 09:20 Actual Procedures p Right Lateral Total Hip Arthroplasty(Right) - Familia Jameson DO Hospital Course (1) Status post right hip replacement: Admitted after elective R Lateral THR. She had no immediate post operative complications. She was cleared by PT/OT for discharge back to [facility] and was discharged there on POD 1 without issue. PG Care Time/CCT Total # of Minutes Spent Total Time Spent with Patient: Total time spent is greater than 50% in coordination of care (as documented) at patient's floor/unit and/or counseling patient: Discharge Plan Discharge Items Patient Disposition: Transfer Halfway Fac Reason For Visit: Osteoarthritis of the right hip Discharge Diagnosis: Right hip replacement Activity: Per Instructions section Non-emergency contact: Surgeon Call non-emergency contact if: your wound has increased redness and your wound has increased drainage Follow-up/Referrals: José Kumari MD [Primary Care Provider] - Diet: Regular Addtl Attending Provider Instructions: Activity and Therapy Recommendations: * If you are using [facility] then therapy will be provided at your home until they feel you have accomplished all of your goals. * If you are using [facility] then Physical Therapy will be provided until they feel you are ready to start Outpatient Physical Therapy. * If you are not using home therapy then Outpatient Physical Therapy should start about 3-5 days from your day of surgery. Therapy will last about 6-10 weeks * You were shown a series of exercises in the hospital. Do these exercises three times each day including the exercises you were shown in physical therapy. * Get up and walk several times each day.~ For the first four weeks, try not to stand or walk for more than one hour at a time. If you do stand or walk for more than one hour, you will not hurt anything, but your leg will likely swell.~~ * As you feel comfortable, you may change from the walker or crutches to a cane and~then to independent walking. Medications: * Narcotic You will likely be sent home from the hospital with a prescription for the narcotic pain medication that worked best throughout your stay. * Aspirin Most patients will be required to take Aspirin 81mg twice a day for 6 weeks after surgery. This is obtained [id number] and a prescription is not necessary. * Other medications may be prescribed for specific circumstances. If you have any questions, please call the office at . * Resume previous home medications unless otherwise instructed TEDs/Elastic Stockings: The white elastic stockings help limit swelling and prevent blood clots from forming in your legs. The more you wear them, the more they work. Wear them for six weeks. Dressing Care: Leave the Silverlon dressing in place for 7 days. After 7 days you may remove the dressing. If the incision is not draining then you may leave the alice open to air. If there is a little bit of drainage or if the alice are getting stuck on your clothing then cover the incision with a dry dressing. The alice will be removed at your 2 week follow-up appointment. Showering: You may shower with the Silverlon dressing in place. Do not let the shower spray hit the dressing directly. Pat the Silverlon dressing dry. If the dressing becomes wet underneath, then simply remove the dressing. Keep the incision dry until you are 7 days out from the day of surgery. After 7 days you may remove the Silverlon dressing and shower with the alice exposed. Let soapy water run over the alice and pat them dry. Do not scrub or soak the incision. Things To Watch For: * Drainage from the incision site that occurs more than one week after your surgery. * Increased redness at the incision site. * Fever above 102 degrees Fahrenheit. * Unusual chest pain or shortness of breath. * Call [facility] at with any of the above problems Follow-Up Visit: Follow-up with Dr. Jameson's PA (Familia Rodriguez) 2-3 weeks after your day of surgery. He will remove your alice and answer any questions. If you have any additional questions or concerns, Dr Jameson is usually in the office at the same time and will be available An appointment was probably scheduled when you signed-up for surgery in the office. If you have any questions call Office Instructions: More detailed instructions as well as Frequently Asked Questions were provided in a folder by our office when you signed-up for surgery. Please review these instructions when you get home. If you have any further questions or concerns, please feel free to call the office at [phone] Pending Studies at Discharge: No Stand-Alone Forms: My [facility], Smoking Cessation Skilled Items Patient informed of condition?: Yes DNR: No Discharge Level of Care: Skilled Communicable Disease: No Discharge Prognosis: Stable Lines: None Urinary Catheter: No Medications and DC Order Prescriptions: New aspirin 81 mg Tablet,Delayed Release (/Ec) 81 mg PO BID 42 Days Qty: 84 0RF tramadol 50 mg Tablet 50 mg PO Q4H PRN (Reason: pain) Qty: 40 0RF Continued denosumab 60 mg/mL syringe See Rx Instructions subcut .COMPLEX Rx Instructions: every 6 months subcutaneously; metoprolol succinate 50 mg tablet extended release 24 hr 50 mg PO BID candesartan 8 mg tablet 8 mg PO QAM escitalopram oxalate [Lexapro] 5 mg tablet 5 mg PO DAILY Patient Comments: ordered by Dr shamar Vann, but doesn't think she's taking this verapamil 120 mg capsule,ext rel. pellets 24 hr 120 mg PO QAM Anoro Ellipta 62.5-25 mcg/actuation blister with device 1 inh inhalation QAM celecoxib [Celebrex] 200 mg Capsule 200 mg PO BID acetaminophen 650 mg Tablet Extended Release 325 - 650 mg PO Q6H PRN (Reason: Pain) pravastatin 20 mg Tablet 20 mg PO QPM albuterol sulfate [Ventolin HFA] 90 mcg/actuation Hfa Aerosol Inhaler 2 puff INHALATION Q6H PRN (Reason: Shortness Of Breath Or Wheezing) fluticasone propionate [Flonase Allergy Relief] 50 mcg/actuation [place],Suspension 1 spray INTRANASAL QPM omeprazole 20 mg Tablet,Delayed Release (Dr/Ec) 20 mg PO QAM pramipexole 0.5 mg tablet 0.5 mg PO TID furosemide 40 mg tablet 40 mg PO QAM diclofenac sodium 1 % Gel 2 g TOPICAL QID PRN (Reason: Pain) Rx Instructions: apply to single elbow, wrist or hand; for hand includes palm/fingers/back of hand Equate Eye Drops 1 drp PO UD PRN (Reason: Dry Eyes) Discharge Orders: Discharge Order (Routine); Ordered 07/03/22 Ordered By: Familia Jameson Admission Data Admit Date/Time: 07/02/22 11:40 Attending Provider: Familia Jameson Admit Provider: Familia Jameson Primary Care Provider: José Kumari Other Interventions: Discharge Summary Assessment (RN) Last Done: 07/03/22 13:08
== END 2022-07-03 15:00 ==
LOC: 3E 07:27 → ASU 07:27

== ENCOUNTER 2022-11-26 07:34 | Observation (INO) ==
--- NOTE | 2022-11-02 14:02 | PAT Medication Instructions ---
Medication Instructions Date of Service November 02, 2022 Home Medications acetaminophen 650 mg tablet,extended release 325 - 650 mg PO Q6H PRN albuterol sulfate 90 mcg/actuation aerosol inhaler (Ventolin HFA) 2 puff inhalation Q6H PRN celecoxib 200 mg capsule (Celebrex) 200 mg PO BID fluticasone propionate 50 mcg/actuation nasal spray,suspension (Flonase Allergy Relief) 1 spray intranasal QPM omeprazole 20 mg tablet,delayed release 20 mg PO QAM pravastatin 20 mg tablet 20 mg PO QPM verapamil 120 mg 24 hr capsule,extended release 120 mg PO QAM candesartan 8 mg tablet 8 mg PO QAM metoprolol succinate 50 mg tablet,extended release 24 hr 50 mg PO BID pramipexole 0.5 mg tablet 0.5 mg PO HS umeclidinium 62.5 mcg-vilanterol 25 mcg/actuation powdr for inhalation (Anoro Ellipta) 1 inh inhalation QAM escitalopram oxalate 5 mg tablet (Lexapro) 5 mg PO QAM diclofenac sodium 1 % topical gel 2 g topical QID PRN furosemide 40 mg tablet 60 mg PO QAM calcium carbonate 500 mg calcium (1,250 mg) chewable tablet 500 mg PO Q6H PRN cholecalciferol (vitamin D3) 50 mcg (2,000 unit) capsule (Vitamin D3) 50 mcg PO HS ASK your surgeon for instructions celecoxib 200 mg capsule (Celebrex) 200 mg PO BID STOP taking 24 hours before surgery diclofenac sodium 1 % topical gel 2 g topical QID PRN DO NOT take the morning of surgery candesartan 8 mg tablet 8 mg PO QAM furosemide 40 mg tablet 60 mg PO QAM calcium carbonate 500 mg calcium (1,250 mg) chewable tablet 500 mg PO Q6H PRN Take morning of surgery With a small sip of water, OTHERWISE NOTHING TO EAT OR DRINK AFTER MIDNIGHT: acetaminophen 650 mg tablet,extended release 325 - 650 mg PO Q6H PRN(if needed) albuterol sulfate 90 mcg/actuation aerosol inhaler (Ventolin HFA) 2 puff inhalation Q6H PRN(use if needed; please bring with you to hospital day of surgery if possible) omeprazole 20 mg tablet,delayed release 20 mg PO QAM verapamil 120 mg 24 hr capsule,extended release 120 mg PO QAM metoprolol succinate 50 mg tablet,extended release 24 hr 50 mg PO BID umeclidinium 62.5 mcg-vilanterol 25 mcg/actuation powdr for inhalation (Anoro Ellipta) 1 inh inhalation QAM escitalopram oxalate 5 mg tablet (Lexapro) 5 mg PO QAM Take evening before surgery acetaminophen 650 mg tablet,extended release 325 - 650 mg PO Q6H PRN(if needed) albuterol sulfate 90 mcg/actuation aerosol inhaler (Ventolin HFA) 2 puff inhalation Q6H PRN(if needed) fluticasone propionate 50 mcg/actuation nasal spray,suspension (Flonase Allergy Relief) 1 spray intranasal QPM pravastatin 20 mg tablet 20 mg PO QPM metoprolol succinate 50 mg tablet,extended release 24 hr 50 mg PO BID pramipexole 0.5 mg tablet 0.5 mg PO HS calcium carbonate 500 mg calcium (1,250 mg) chewable tablet 500 mg PO Q6H PRN(if needed) cholecalciferol (vitamin D3) 50 mcg (2,000 unit) capsule (Vitamin D3) 50 mcg PO HS Other Notes If you have any questions please call us at [phone] or [phone] or [phone] or [phone]
--- NOTE | 2022-11-05 13:11 | Anesthesiology Consultation ---
Date of Service November 05, 2022 Assessment & Plan (1) Encounter for pre-operative examination: - Outpatient joint assessment: Pt currently scheduled for inpatient pathway. If surgeon requests review for outpatient joint pathway, patient is not recommended candidate for outpatient joint program from anesthesia standpoint. - LUE limb restriction s/p left breast lumpectomy - Cardiology visit (05/04/22): patient with longstanding dyspneic symptoms which may be due to low-grade chronic heart failure with preserved EF, as recent spirometry was unremarkable. Fortunately, she appears euvolemic on her current furosemide dose of 40 mg daily. On exam, aortic stenosis is probably moderate. Given her an active lifestyle and vascular risk factors (primarily age), she could have occult coronary artery disease as well. Therefore recommend reevaluation cardiac structure as well as pharmacologic stress test prior to any surgery. "Will schedule dobutamine stress echocardiogram. As long as her aortic stenosis is not severe and there is no evidence of myocardial ischemia, she could proceed to knee surgery anytime after her stress study."(Stress test showed no ischemia and moderate aortic stenosis, Right MERRITT done at [facility] 07/02/22*) - S/P Right MERRITT (07/02/22): Grade 2 view, Glidescope #3, ETT 7.0 at [facility] ([place] 2/2 moderate per anesthesia consult) - Infectious disease screening: Per assessment on 11/05/22: No known infectious disease contacts or current infectious disease symptoms. No noted Covid positive test result in past 90 days. - Patient scheduled for routine cardiology f/u visit prior to surgery- Awaiting cardiology visit note (EUGENIA, appt 11/16). Chart Review Chart Review: Acceptable Risk for Surgery and Patient seen in Pre Admission Testing Teaching & Discussion Pre-Anesthesia Teaching/Discussion Notes: Instructed NPO after midnight before surgery,except medications with 15 cc of water. Medication instructions provided according to the PAT guidelines. History Surgery Operation Date: 11/26/22 10:00 Proposed Procedures p Left Total Knee Arthroplasty - Familia Jameson, Height/Weight Height: 4 ft 11 in Weight: 73.3 kg Allergies Allergy/AdvReac Type Severity Reaction Status Date / Time codeine Allergy Unknown Temperature Verified 11/05/22 08:43 rise oxycodone AdvReac Unknown "Became Verified 11/05/22 08:43 addicted to it" COW MILK AdvReac Unknown "Gas" Uncoded 11/05/22 08:43 Medications Home Medications Medication Instructions Recorded Confirmed Last Taken acetaminophen 650 mg 325 - 650 mg PO Q6H PRN Pain 11/17/17 10/28/22 07/01/22 08:00 tablet,extended release albuterol sulfate 90 mcg/actuation 2 puff inhalation Q6H PRN 11/17/17 10/28/22 07/01/22 08:00 aerosol inhaler (Ventolin HFA) Shortness Of Breath Or Wheezing celecoxib 200 mg capsule (Celebrex) 200 mg PO BID 11/17/17 10/28/22 06/28/22 08:00 fluticasone propionate 50 1 spray intranasal QPM 11/17/17 10/28/22 07/01/22 08:00 mcg/actuation nasal spray,suspension (Flonase Allergy Relief) omeprazole 20 mg tablet,delayed 20 mg PO QAM 11/17/17 10/28/22 07/01/22 08:00 release pravastatin 20 mg tablet 20 mg PO QPM 11/17/17 10/28/22 07/01/22 22:00 verapamil 120 mg 24 hr 120 mg PO QAM 11/23/18 10/28/22 07/01/22 08:00 capsule,extended release candesartan 8 mg tablet 8 mg PO QAM 01/29/21 10/28/22 07/01/22 08:00 metoprolol succinate 50 mg 50 mg PO BID 04/02/21 10/28/22 07/01/22 08:00 tablet,extended release 24 hr pramipexole 0.5 mg tablet 0.5 mg PO HS 04/02/21 10/28/22 07/01/22 22:00 umeclidinium 62.5 mcg-vilanterol 1 inh inhalation QAM 11/17/21 10/28/22 Unknown 25 mcg/actuation powdr for inhalation (Anoro Ellipta) escitalopram oxalate 5 mg tablet 5 mg PO QAM 05/04/22 10/28/22 07/01/22 08:00 (Lexapro) diclofenac sodium 1 % topical gel 2 g topical QID PRN Pain 05/28/22 10/28/22 06/28/22 08:00 furosemide 40 mg tablet 60 mg PO QAM 0410/28/22 07/01/22 08:00 calcium carbonate 500 mg calcium 500 mg PO Q6H PRN Indigestion 10/28/22 10/28/22 Unknown (1,250 mg) chewable tablet cholecalciferol (vitamin D3) 50 50 mcg PO HS 10/28/22 10/28/22 Unknown mcg (2,000 unit) capsule (Vitamin D3) Past Medical History Medical History Asthma Atrial fibrillation Follows with [facility] cardio Breast cancer, left x2, 1997- radiation, 2016- surgery Left limb restriction Carpal tunnel syndrome Residual right finger numbness Chronic back pain Cystocele, midline GERD (gastroesophageal reflux disease) Well controlled and stable Hearing deficit b/l hearing aids History of COVID-19 06/2022- "mild cold symptoms" > resolved Hyperlipidemia Hypertension Moderate aortic stenosis DSE 05/19/22: Moderate aortic stenosis (ROB 1.4-1.6cm2, MG 7.8mmhg) Osteoarthritis Restless leg syndrome Sciatic nerve disease Sleep apnea CPAP (compliant) Exercise / Class Metabolic Activity III < 4 Walking/Shop/Light housework (uses walker) Past Surgical History Surgical History H/O left breast biopsy 1997 ("malignant") History of back surgery Lumbar cyst removal History of carpal tunnel surgery of right wrist History of left mastectomy 2016 Left limb restriction History of lumpectomy of left breast 1997 History of right hip replacement Right MERRITT (07/02/22): Grade 2 view, Glidescope #3, ETT 7.0 at [facility] ([place] 2/2 moderate per anesthesia consult) History of tonsillectomy and adenoidectomy S/P epidural steroid injection Past Anesthesia History No Hx of Anesthesia Complications and No Family Hx of Anesthesia Complications History of PONV No Hx of PONV and No Hx of Motion Sickness Social History Smoking Status: Never smoker Do You Dip or Chew Tobacco: No Hx Alcohol Use: Yes Alcohol type: wine alcohol intake frequency: holidays/special occasions only Hx Substance Use: No substance use type: does not use Review of Systems Patient denies chest pain, shortness of breath, fever, chills, cough, wheezing, palpitations. Physical Exam Vital Signs VITALS BP 123/72 P 84 TEMP 97.7 SP02 94%RA RESP 18 PHYSICAL Mildly decreased cervical extension range of motion. Full TMJ range of motion. TMD 3 finger breaths Mallampati Score 4 (small oral opening) Dentition: intact Lungs: clear throughout to auscultation Cardiac: regular rate and rhythm, II-III/ systolic murmur Spine: normal Carotid arteries: negative bruit Extremities: no LE edema Lab Results Anesthesia Preop Results Results Anesthesia Widget: WBC 7.56 K/ul (4.8-10.8) 11/05/22 Hgb 14.3 g/dl (12.0-16.0) 11/05/22 Hct 45.0 % (37.0-47.0) 11/05/22 Plt 177 K/uL (130-400) 11/05/22 Na 140 mmol/L (136-145) 11/05/22 K 4.3 mmol/L (3.5-5.1) 11/05/22 Cl 104 mmol/L (98-107) 11/05/22 CO2 28 mmol/L (21-32) 11/05/22 BUN 26 mg/dl (6-23) H 11/05/22 Creat 0.76 mg/dl (0.6-1.2) 11/05/22 Glucose Level 86 mg/dl (70-99(Fasting)) 11/05/22 PT 10.5 Seconds (9.0-12.0) 11/05/22 PTT 27.4 Seconds (21.0-31.0) 11/05/22 INR 1.0 (0.9-1.1) 11/05/22 Blood Type AB Positive 11/05/22 Antibody Screen NEGATIVE 11/05/22 Testing Electrocardiogram Date: 06/03/22 Findings: + NSR @ (90bpm ) Minimal voltage criteria for LVH, may be normal variant When compared to EKG from June 01, 2010nonspecific T wave abnormality no longer evident in inferior leads, T wave amplitude has increased anterior lateral leads per cardio Chest X-Ray Date: 06/03/22 FINDINGS: No pneumothorax. No pleural effusions. Chronic reticulonodular interstitial thickening persists. This is most pronounced at the lung bases. Otherwise, no new focal lung consolidations. No evidence for pulmonary edema. The heart remains mildly enlarged. There are calcifications within the aortic knob. Degenerative changes within the thoracic spine. IMPRESSION: No change in the chronic reticulonodular interstitial thickening. No new focal lung consolidations identified. Echocardiogram Date: 01/06/21 EF: 60-65% LV Function: normal RWMA: + none Other Findings: + LVH (Mild concentric) and + diastolic dysfunction (Grade 1) Mild to moderate valvular aortic stenosis Mild AR. Mild MR LA moderately dilated. RV mildly dilated. RVSP is normal. Stress Test Date: 05/19/22 Type: DSE Negative dobutamine stress echocardiogram for myocardial ischemia by echocardiographic and EKG criteria at 91% MPHR. Transient neck/chest discomfort at peak exertion (nonspecific finding). Sporadic PVCs at baseline with a 4 beat run of ventricular tachycardia during stress. Resting echocardiogram with normal systolic function, moderate /mild AI. (ROB 1.4-1.6 cm; AV max velocity 1.90 m/s; AV mean PG 7.8mmHg) Compared with 01/06/2021 study, mild progression of aortic stenosis, no other significant change Mild cLVH. EF 60%. No RWMA
[~2022-11-26 07:34] MED LIST changes: -BUPIVACAINE 0.5 % 5 MG/1 ML PF 10ML VIAL ONE; -DEXAMETHASONE SOD INJ 4 MG/ML VIAL ONE; -LIDOCAINE 2% 2 ML VIAL/AMP(20MG/ML) INFIL ONE; -MIDAZOLAM HCL 1 MG/ML 2ML VIAL ONE; -ONDANSETRON INJ 2 MG/ML 2 ML VIAL ONE; -PROPOFOL IV EMULSION 10 MG/ML 20 ML VIAL IV ONE; +ROPIVACAINE 0.5% 5 MG/ML 30 ML VIAL ONE; -fentaNYL citrate PF 100 MCG/2 ML VIAL ONE
[2022-11-26] MEDS ORDERED: MIDAZOLAM HCL 1 MG/ML 2ML VIAL ONE (08:00)
[2022-11-26] MEDS ORDERED: fentaNYL citrate PF 100 MCG/2 ML VIAL ONE (08:00)
--- NOTE | 2022-11-26 08:08 | History & Physical Bridge Note ---
Date of Service November 26, 2022 History & Physical Bridge Note I have examined the patient, reviewed the History & Physical and in the interval since the performance of the History & Physical I have noted the following changes of clinical significance: no changes noted
[2022-11-26] MEDS ORDERED: ORTHO JOINT ANESTHETIC ONE (08:35)
[2022-11-26] MEDS ORDERED: ATROPINE SULFATE 0.1 MG/ML 10ML SYR IV PRN (08:39)
[2022-11-26] MEDS ORDERED: ePHEDrine sulfate 50 MG/ML AMP IV PRN (08:39)
[2022-11-26] MEDS ORDERED: fentaNYL citrate PF 100 MCG/2 ML VIAL IV PRN (08:39)
[2022-11-26] MEDS ORDERED: ONDANSETRON INJ 2 MG/ML 2 ML VIAL IV PRN ×2 (08:39→14:25)
[2022-11-26] MEDS ORDERED: DEXAMETHASONE SOD INJ 4 MG/ML VIAL ONE (09:24)
[2022-11-26] MEDS ORDERED: ONDANSETRON INJ 2 MG/ML 2 ML VIAL ONE (09:24)
[2022-11-26] MEDS ORDERED: ROCURONIUM BROMIDE 10 MG/ML 5 ML VIAL IV ONE ×4 (09:39→09:40)
--- NOTE | 2022-11-26 10:27 | Operative Report ---
PG Post Operative Report Pre & Post Diagnosis Operation Date: 11/26/22 09:00 Pre-Op Diagnosis: osteoarthritis of left knee Post-Op Diagnosis: osteoarthritis of left knee I identified the patient and participated in the time-out.: Yes Procedure Operation Date: 11/26/22 09:00 Actual Procedures p Left Total Knee Arthroplasty(Left) - Familia Jameson DO Surgeon Familia Jameson DO [employer] Familia Rodriguez PA-C Estimated Blood Loss 30 Findings Consistent with Post-Op Diagnosis Specimens Left femoral tibial bone Description of Procedure Implants used: I used a Melvina Persona total knee arthroplasty system with a size 6 PS narrow femur, C tibia, 28 oval patella, and a size 12 CPS polyethylene bearing. All components were cemented in place with Biomet cement. Delores arrived [facility] for the above procedure. She was seen in the preoperative holding area and the operative extremity was identified and signed. She was given a preoperative antibiotic, TXA, a spinal anesthetic and an adductor nerve block. She was taken back to the operating room and laid on the table in supine position. She was given basic sedation. The operative knee was then prepped and draped in sterile fashion. A timeout was done, and the patient and the operative extremity was properly identified. A midline incision was made directly over the patella. Dissection was taken down to the extensor mechanism. A midvastus arthrotomy was used. The medial retinaculum was released and the fat pad was mostly excised. The knee was flexed and the ACL, PCL, and meniscus were removed. A drill was sent down the center of the femoral canal followed by an intramedullary awais. Off that awais a distal femoral cutting block was placed. 9 mm was resected off the distal femur at 5 of valgus. A posterior referencing AP sizing guide was then placed on the distal femur. The femur measured to be a size 6. 2 drill holes were placed in 3 of external rotation. A 4-in-1 cutting block was then impacted into place. Anterior, posterior, and chamfer cuts were then made. The proximal tibia was then exposed. An external tibial alignment guide was placed. A tibial cut guide was then anchored in place and the proximal tibia was then resected. The posterior aspect of the knee was then opened up and any additional meniscus fragments and osteophytes were removed. The tibia measured to be a size C. The tibial plate was then placed in the appropriate rotation and the tibia was drilled and punched. Trial components were then placed. I used a size 12 CPS polyethylene insert. The knee was brought through a full range of motion and felt to be stable. The peg holes for the femoral component were then drilled. The patella was then everted and 9 mm was resected off the posterior aspect of the patella. The patella measured to be a size 28 oval. 3 peg holes were then drilled. A trial patella was placed. The knee was once again brought through a full range of motion and felt to be stable. Trial components were then removed. The surrounding soft tissues were injected with 100 cc of an orthopedic pain control cocktail. All components were then cemented into place with Biomet cement. The final polyethylene insert was then snapped into place. Once cement was dry the tourniquet was deflated. Hemostasis was obtained. A dilute betadyne lavage was then done for 3 minutes. The joint was then irrigated with normal saline solution. The midvastus arthrotomy was then closed with #1 Vicryl suture. The skin was closed with 2-0 Vicryl, 3-0V lock suture, and alice. A soft compressive dressing was placed. She was then transferred to a hospital bed and taken to the postanesthesia care unit in stable condition. She tolerated the procedure well. Familia Rodriguez PA-C, was present for the entire procedure. He was critical for patient positioning, prepping, draping, retraction exposure, wound closure and application of sterile dressing. I attest to the content of the Intraoperative Record and any orders documented therein. Any exceptions are noted below.
[2022-11-26] MEDS ORDERED: SUGAMMADEX SODIUM 200 MG/2 ML VIAL IV ONE (10:38)
--- NOTE | 2022-11-26 11:28 | XRay Report ---
TWO VIEWS LEFT KNEE CLINICAL HISTORY: Postoperative examination. FINDINGS: AP and crosstable lateral portable views of the left knee are obtained. A left knee arthrop lasty is in near anatomic alignment. There has been undersurface remodeling of the patella. No acute fracture is seen. There are expected postoperative changes around the knee including skin clips, soft tissue edema, and subcutaneous gas. Atherosclerotic calcification is noted in the popliteal artery. IMPRESSION: Expected postoperative changes status post left knee arthroplasty. No acute fracture is s een. ACT 112: Negative or not required by law. Electronically signed by: Blaine Michael M.D. 11/26/2022 11:26 AM
--- NOTE | 2022-11-26 12:39 | Anesthesiology Progress Note ---
Date of Service November 26, 2022 Anesthesia Post Procedure Vital Signs Vital Signs: Temp Pulse Resp BP BP Pulse Ox O2 Del Method 11/26/22 12:25 60 19 130/61 93 Nasal Cannula 11/26/22 12:15 62 22 129/59 L 93 Nasal Cannula 11/26/22 12:05 59 L 23 122/60 93 Nasal Cannula 11/26/22 11:55 53 L 22 108/51 L 93 Nasal Cannula 11/26/22 11:45 63 18 137/58 L 94 Nasal Cannula 11/26/22 11:35 65 22 149/70 H 97 Oxymask 11/26/22 11:25 68 22 145/68 H 94 Oxymask 11/26/22 11:15 72 22 142/70 H 94 Oxymask 11/26/22 11:05 72 22 133/74 94 Oxymask 11/26/22 10:57 36.5 C 68 10 L 136/83 94 Oxymask 11/26/22 07:50 36.8 C 76 20 118/62 95 Room Air O2 Flow Rate 11/26/22 12:25 3 11/26/22 12:15 3 11/26/22 12:05 3 11/26/22 11:55 3 11/26/22 11:45 2 11/26/22 11:35 4 11/26/22 11:25 8 11/26/22 11:15 12 11/26/22 11:05 12 11/26/22 10:57 12 11/26/22 07:50 Pain Intensity Left Knee: Pain Intensity: 7 Transfer of Care Handoff Completed per policy Notes Mental Status: alert / awake / arousable and participated in evaluation Patient Amnestic to Procedure: Yes Nausea / Vomiting: adequately controlled Pain: adequately controlled Airway Patency, RR, SpO2: stable & adequate BP & HR: stable & adequate Hydration State: stable & adequate Anesthetic Complications: no major complications apparent and Pt Satisfied with anesthetic care
[2022-11-26] MEDS ORDERED: HYDROmorphone INJ 0.5 MG/0.5 ML SYR IV PRN (14:25)
[2022-11-26] MEDS ORDERED: METOCLOPRAMIDE HCL INJ 5 MG/ML 2 ML VIAL IV PRN (14:25)
[2022-11-26] MEDS ORDERED: oxyCODONE HCL IR 5 MG TAB (IMMEDIATE RELEASE) PO PRN (14:25)
[2022-11-26] MEDS ORDERED: ALBUTEROL HFA 8 GM INHALER INH PRN (14:25)
[2022-11-26] MEDS ORDERED: bisacodyL 10 MG SUPP PR PRN (14:25)
[2022-11-26] MEDS ORDERED: MAGNESIUM HYDROXIDE SUSP 30 ML UDC PO PRN (14:25)
[2022-11-26] MEDS ORDERED: NALOXONE HCL 0.4 MG/1 ML VIAL/CARP IV PRN (14:25)
[2022-11-26] MEDS: SODIUM CHLORIDE 0.9% 1,000 ML IV SCH (15:07)
[2022-11-26] MEDS: ACETAMINOPHEN 500 MG TAB PO SCH (16:44)
[2022-11-26] MEDS: ceFAZolin 2000MG 2,000 MG/15 ML SYR IV SCH (17:09)
[2022-11-26] MEDS: DOCUSATE SODIUM 100 MG CAP PO SCH (20:50)
[2022-11-26] MEDS: ASPIRIN 81 MG ECTAB PO SCH (20:50)
[2022-11-26] MEDS: METOPROLOL SUCC 50MG EXT REL TAB PO SCH (20:51)
[2022-11-26] MEDS ORDERED: SENNA 8.6 MG TAB PO SCH (21:00)
[2022-11-26] MEDS ORDERED: PRAMIPEXOLE DIHYDROCHLO 0.5 MG TAB PO SCH (21:00)
[2022-11-26] MEDS ORDERED: FLUTICASONE PROPIONATE NA SPR 16 GM BTL SCH (21:00)
[2022-11-26] MEDS ORDERED: PRAVASTATIN SOD 20 MG TAB PO SCH (21:00)
[2022-11-27] MEDS: ACETAMINOPHEN 500 MG TAB PO SCH ×3 (00:51→13:49)
[2022-11-27] MEDS: ceFAZolin 2000MG 2,000 MG/15 ML SYR IV SCH (01:28)
[2022-11-27] MEDS: SODIUM CHLORIDE 0.9% 1,000 ML IV SCH (02:18)
[2022-11-27] MEDS ORDERED: dexAMETHasone 4 MG TAB PO SCH (08:00)
--- NOTE | 2022-11-27 08:11 | Orthopedic Progress Note ---
Date of Service November 27, 2022 Assessment & Plan (1) Status post left knee replacement: Overall she is doing well with the knee but she is dealing with some confusion. I am not sure if this is baseline for her. I talked to the nurse. She lives at [place] [facility] was hoping to go back to the [facility] when stable. She was not on any oxygen when I was in there this morning. We will see how she does with physical therapy. If she does well with therapy and her vital signs are stable, and her confusion subsides then she can be discharged to the [facility] today. Otherwise, she may need to stay an extra day. We will see how she does. Galen Estrella was seen and examined at bedside this morning. Unfortunately she is little bit confused. She is not having any pain in the knee but she was confused about where she was this morning. Not sure if this is baseline for her or not. She had no acute events overnight.. Review of Systems All systems reviewed & are unremarkable except as noted in HPI & below. Physical Exam On physical examination of the left knee, the dressing is clean and dry. She is sitting up at bedside with the knee flexed 90 degrees. She does not seem to have much pain in the knee.. Results & Data Results & Data Laboratory Results . Diagnostic Findings Postoperative x-rays of the left knee show the prosthesis to be in anatomic alignment without any evidence of fracture, dyscrasia, or loosening.. PG Care Time/CCT Total # of Minutes Spent Total Time Spent with Patient: Total time spent is greater than 50% in coordination of care (as documented) at patient's floor/unit and/or counseling patient: Coding Level of Care Code 87094 Post Operative Follow-Up Diagnoses Status post left knee replacement Z96.652
[2022-11-27] MEDS: ASPIRIN 81 MG ECTAB PO SCH (08:38)
[2022-11-27] MEDS: DOCUSATE SODIUM 100 MG CAP PO SCH (08:38)
[2022-11-27] MEDS: METOPROLOL SUCC 50MG EXT REL TAB PO SCH (08:38)
[2022-11-27] MEDS ORDERED: LOSARTAN POTASSIUM 25 MG TAB PO SCH (09:00)
[2022-11-27] MEDS ORDERED: PANTOprazole 40 MG TAB PO SCH (09:00)
[2022-11-27] MEDS ORDERED: VERAPAMIL HCL 120 MG TABCR PO SCH (09:00)
[2022-11-27] MEDS ORDERED: UMECLIDINIUM/VILANTEROL 62.5/25MCG 7 PUFFS/INHALER INH SCH (09:00)
[2022-11-27] MEDS ORDERED: MULTIVITAMIN TAB PO SCH (09:00)
[2022-11-27] MEDS ORDERED: ESCITALOPRAM OXALATE 10 MG TAB PO SCH (09:00)
[2022-11-27] MEDS ORDERED: FUROSEMIDE 20 MG TAB PO SCH (09:00)
--- NOTE | 2022-11-30 06:46 | Discharge Summary ---
Date of Service November 30, 2022 Principal Diagnosis Same as "Discharge Diagnosis" noted below under Discharge Instructions. Discharge Exam On physical examination of the left knee, the dressing is clean and dry. She is sitting up at bedside with the knee flexed 90 degrees. She does not seem to have much pain in the knee.. Discharge Data Procedures Performed Operation Date: 11/26/22 09:00 Actual Procedures p Left Total Knee Arthroplasty(Left) - Familia Jameson DO Ordered Studies 11/26/22 05:00 US - OR guided needle placemen Routine Hospital Course (1) Status post left knee replacement: On November 26, 2022 Delores arrived at [facility] and underwent a left knee replacement without complication. She had a general anesthetic. Postoperatively she was started on aspirin for DVT prophylaxis and transferred to the general orthopedic floors. Her hospital course was uneventful. On postop day #1, her vital signs were mostly stable. She was a little bit hypoxic but that improved throughout the morning. She was also a little bit confused in the morning but that also improved. She was able to participate well with physical therapy doing ambulation and range of motion exercises. She was then discharged back to [facility]. She will follow-up with orthopedics in 2 weeks. PG Care Time/CCT Total # of Minutes Spent Total Time Spent with Patient: Total time spent is greater than 50% in coordination of care (as documented) at patient's floor/unit and/or counseling patient: Discharge Plan Discharge Items Patient Disposition: Home - Home Health Services Reason For Visit: DJD Left Knee Discharge Diagnosis: Left knee replacement Activity: Per Instructions section Non-emergency contact: Surgeon Call non-emergency contact if: your wound has increased redness and your wound has increased drainage Follow-up/Referrals: José Kumari MD [Primary Care Provider] - Diet: Regular Addtl Attending Provider Instructions: Activity and Therapy Recommendations: * If you are using [facility] then therapy will be provided at your home until they feel you have accomplished all of your goals. * If you are using [facility] then Physical Therapy will be provided until they feel you are ready to start Outpatient Physical Therapy. * If you are not using home therapy then Outpatient Physical Therapy should start about 3-5 days from your day of surgery. Therapy will last about 6-10 weeks * It is important not to put a pillow under your knee when you are relaxing or sleeping. It is just as important to make sure you are getting your knee perfectly straight as it is to regain your knee bend. * You were shown a series of exercises in the hospital. Do these exercises three times each day including the exercises you were shown in physical therapy. * Get up and walk several times each day. For the first four weeks, try not to stand or walk for more than one hour at a time. If you do stand or walk for more than one hour, you will not hurt anything, but your leg will likely swell. * As you feel comfortable, you may change from the walker or crutches to a cane and then to independent walking. Medications: * Narcotic You will likely be sent home from the hospital with a prescription for the narcotic pain medication that worked best throughout your stay. * Aspirin Most patients will be required to take Aspirin 81mg twice a day for 6 weeks after surgery. This is obtained [id number] and a prescription is not necessary. * Other medications may be prescribed for specific circumstances. If you have any questions, please call the office at . * Resume previous home medications unless otherwise instructed TEDs/Elastic Stockings: The white elastic stockings help limit swelling and prevent blood clots from forming in your legs.~ The more you wear them, the more they work. Wear them for six weeks. Dressing Care: The dressing can be changed after physical therapy on postop day #1. Daily dry dressing changes for a few days, especially if the incision is still draining some. If the incision is not draining then you may leave the alice open to air. If there is a little bit of drainage or if the alice are getting stuck on your clothing then cover the incision with a dry dressing. The alice will be removed at your 2 week follow-up appointment. Showering: You may shower 5 days from the day of surgery as long as the incision is no longer draining. You may shower with the alice exposed. Let soapy water run over the alice and pat them dry. Do not scrub or soak the incision. Things To Watch For: * Drainage from the incision site that occurs more than one week after your surgery. * Increased redness at the incision site. * Fever above 102 degrees Fahrenheit. * Unusual chest pain or shortness of breath. * Call [facility] at with any of the above problems Follow-Up Visit: Follow-up with Dr. Jameson's PA (Familia Rodriguez) 2-3 weeks after your day of surgery. He will remove your alice and answer any questions. If you have any additional questions or concerns, Dr Jameson is usually in the office at the same time and will be available An appointment was probably scheduled when you signed-up for surgery in the office. If you have any questions call Office Instructions: More detailed instructions as well as Frequently Asked Questions were provided in a folder by our office when you signed-up for surgery. Please review these instructions when you get home. If you have any further questions or concerns, please feel free to call the office at [phone] Pending Studies at Discharge: No Stand-Alone Forms: My [facility] [employer], Smoking Cessation Medications and DC Order Prescriptions: New aspirin 81 mg Tablet,Delayed Release (Dr/Ec) 81 mg PO BID 42 Days Qty: 84 0RF tramadol 50 mg tablet 50 mg PO Q6H PRN (Reason: pain) Qty: 30 0RF Continued metoprolol succinate 50 mg tablet extended release 24 hr 50 mg PO BID candesartan 8 mg tablet 8 mg PO QAM escitalopram oxalate [Lexapro] 5 mg tablet 5 mg PO QAM Patient Comments: ordered by Dr shamar Vann, but doesn't think she's taking this verapamil 120 mg capsule,ext rel. pellets 24 hr 120 mg PO QAM Anoro Ellipta 62.5-25 mcg/actuation blister with device 1 inh inhalation QAM celecoxib [Celebrex] 200 mg Capsule 200 mg PO BID acetaminophen 650 mg Tablet Extended Release 325 - 650 mg PO Q6H PRN (Reason: Pain) pravastatin 20 mg Tablet 20 mg PO QPM albuterol sulfate [Ventolin HFA] 90 mcg/actuation Hfa Aerosol Inhaler 2 puff INHALATION Q6H PRN (Reason: Shortness Of Breath Or Wheezing) fluticasone propionate [Flonase Allergy Relief] 50 mcg/actuation [place],Suspension 1 spray INTRANASAL QPM omeprazole 20 mg Tablet,Delayed Release (Dr/Ec) 20 mg PO QAM pramipexole 0.5 mg tablet 0.5 mg PO HS furosemide 40 mg tablet 60 mg PO QAM diclofenac sodium 1 % Gel 2 g TOPICAL QID PRN (Reason: Pain) Rx Instructions: apply to single elbow, wrist or hand; for hand includes palm/fingers/back of hand calcium carbonate 500 mg calcium (1,250 mg) Tablet,Chewable 500 mg PO Q6H PRN (Reason: Indigestion) cholecalciferol (vitamin D3) [Vitamin D3] 50 mcg (2,000 unit) Capsule 50 mcg PO HS Admission Data Admit Date/Time: 11/26/22 10:55 Attending Provider: Familia Jameson Admit Provider: Familia Jameson Primary Care Provider: José Kumari Other Interventions: Discharge Summary Assessment (RN) Last Done: 11/27/22 14:11
== END 2022-11-27 16:04 | disposition home health service (06) ==
LOC: PACUINP 07:34 → ASU 07:34 → 3W 14:29

== ENCOUNTER 2024-02-07 07:55 | Inpatient (IN) ==
--- NOTE | 2024-01-17 13:49 | PAT Medication Instructions ---
Medication Instructions Date of Service January 17, 2024 Home Medications acetaminophen 650 mg tablet,extended release 325 - 650 mg PO Q6H PRN Pain albuterol sulfate 90 mcg/actuation aerosol inhaler (Ventolin HFA) 2 puff inhalation Q6H PRN Shortness Of Breath Or Wheezing celecoxib 200 mg capsule (Celebrex) 200 mg PO BID fluticasone propionate 50 mcg/actuation nasal spray,suspension (Flonase Allergy Relief) 1 spray intranasal QPM PRN allergies omeprazole 20 mg tablet,delayed release 20 mg PO QAM verapamil 120 mg 24 hr capsule,extended release 120 mg PO QAM candesartan 8 mg tablet 8 mg PO QAM metoprolol succinate 50 mg tablet,extended release 24 hr 50 mg PO BID pramipexole 0.5 mg tablet 0.5 mg PO HS escitalopram oxalate 5 mg tablet (Lexapro) 5 mg PO QAM furosemide 40 mg tablet 60 mg PO QAM calcium carbonate 500 mg PO Q6H PRN Indigestion cholecalciferol (vitamin D3) 50 mcg (2,000 unit) capsule (Vitamin D3) 50 mcg PO HS aspirin 81 mg capsule 81 mg PO DAILY atorvastatin 40 mg tablet 40 mg PO DAILY potassium chloride 10 mEq capsule,extended release 10 meq PO DAILY vitamin B12 1,000 mcg-folic acid 400 mcg sublingual tablet 1 tab sublingual DAILY MEDICATION INSTRUCTIONS: Continue as directed albuterol sulfate 90 mcg/actuation aerosol inhaler (Ventolin HFA) 2 puff inhalation Q6H PRN Shortness Of Breath Or Wheezing (use if needed; BRING TO HOSPITAL) fluticasone propionate 50 mcg/actuation nasal spray,suspension (Flonase Allergy Relief) 1 spray intranasal QPM PRN allergies ASK your surgeon for instructions celecoxib 200 mg capsule (Celebrex) 200 mg PO BID ASK your prescriber and surgeon aspirin 81 mg capsule 81 mg PO DAILY DO NOT take the morning of surgery calcium carbonate 500 mg PO Q6H PRN Indigestion candesartan 8 mg tablet 8 mg PO QAM furosemide 40 mg tablet 60 mg PO QAM potassium chloride 10 mEq capsule,extended release 10 meq PO DAILY vitamin B12 1,000 mcg-folic acid 400 mcg sublingual tablet 1 tab sublingual DAILY Take morning of surgery With a small sip of water, OTHERWISE NOTHING TO EAT OR DRINK AFTER MIDNIGHT: metoprolol succinate 50 mg tablet,extended release 24 hr 50 mg PO BID acetaminophen 650 mg tablet,extended release 325 - 650 mg PO Q6H PRN Pain atorvastatin 40 mg tablet 40 mg PO DAILY omeprazole 20 mg tablet,delayed release 20 mg PO QAM verapamil 120 mg 24 hr capsule,extended release 120 mg PO QAM escitalopram oxalate 5 mg tablet (Lexapro) 5 mg PO QAM Take evening before surgery metoprolol succinate 50 mg tablet,extended release 24 hr 50 mg PO BID acetaminophen 650 mg tablet,extended release 325 - 650 mg PO Q6H PRN Pain calcium carbonate 500 mg PO Q6H PRN Indigestion pramipexole 0.5 mg tablet 0.5 mg PO HS cholecalciferol (vitamin D3) 50 mcg (2,000 unit) capsule (Vitamin D3) 50 mcg PO HS Other Notes If you have any questions please call us at [phone] or [phone] or [phone] or [phone]
--- NOTE | 2024-01-18 12:22 | Anesthesiology Consultation ---
Date of Service January 18, 2024 Assessment & Plan (1) Encounter for pre-operative examination: Plan - CBC with diff, coags and TS clotted per labs. Awaiting surgeon's office response on if to order these for day of surgery or earlier. - left arm restriction. - cardiology office visit 05/19/23 [place]: "...chronic HFpEF who underwent left knee arthroplasty recently with no perioperative complications...has not had any s ymptoms to suggest ongoing myocardial ischemia, uncontrolled heart failure, or significant dysrhythmia...appears euvolemic on her current furosemide dose of 60 mg daily. Her aortic stenosis was previously moderate but is now likely bordering on severe, but with her limited ambulatory ability (uses a walker) she likely will tolerate progressive aortic stenosis for years to come. Check follow-up echocardiogram at the time of her next office visit in 6 months (for prognostic purposes)..." Chart Review Chart Review: Pending: Refer to Additional Notes / Consult section and Patient seen in Pre Admission Testing Teaching & Discussion Pre-Anesthesia Teaching/Discussion Notes: Instructed NPO after midnight before surgery, except medications with 15 cc of water. Medication instructions provided according to the PAT guidelines. History Surgery Operation Date: 02/07/24 10:20 Proposed Procedures p Right Transcarotid Artery Revascularization - Jaden Camarillo MD Height/Weight Height: 4 ft 11 in Weight: 76.6 kg Allergies Allergy/AdvReac Type Severity Reaction Status Date / Time codeine Allergy Unknown Temperature Verified 01/17/24 10:25 rise oxycodone AdvReac Unknown "Became Verified 01/17/24 10:25 addicted to it" COW MILK AdvReac Unknown "Gas" Uncoded 01/17/24 10:25 Medications Home Medications Medication Instructions Recorded Confirmed Last Taken acetaminophen 650 mg 325 - 650 mg PO Q6H PRN Pain 11/17/17 01/17/24 11/25/22 tablet,extended release albuterol sulfate 90 mcg/actuation 2 puff inhalation Q6H PRN 11/17/17 01/17/24 07/01/22 08:00 aerosol inhaler (Ventolin HFA) Shortness Of Breath Or Wheezing celecoxib 200 mg capsule (Celebrex) 200 mg PO BID 11/17/17 01/17/24 11/25/22 fluticasone propionate 50 1 spray intranasal QPM PRN 11/17/17 01/17/24 11/25/22 mcg/actuation nasal allergies spray,suspension (Flonase Allergy Relief) omeprazole 20 mg tablet,delayed 20 mg PO QAM 11/17/17 01/17/24 11/26/22 06:00 release verapamil 120 mg 24 hr 120 mg PO QAM 11/23/18 01/17/24 11/26/22 06:00 capsule,extended release candesartan 8 mg tablet 8 mg PO QAM 01/29/21 01/17/24 11/25/22 metoprolol succinate 50 mg 50 mg PO BID 04/02/21 01/17/24 11/26/22 06:00 tablet,extended release 24 hr pramipexole 0.5 mg tablet 0.5 mg PO HS 04/02/21 01/17/24 11/25/22 escitalopram oxalate 5 mg tablet 5 mg PO QAM 05/04/22 01/17/24 11/26/22 06:00 (Lexapro) furosemide 40 mg tablet 60 mg PO QAM 05/28/22 01/17/24 11/25/22 calcium carbonate 500 mg PO Q6H PRN Indigestion 10/28/22 01/17/24 11/25/22 cholecalciferol (vitamin D3) 50 50 mcg PO HS 10/28/22 01/17/24 11/25/22 mcg (2,000 unit) capsule (Vitamin D3) aspirin 81 mg capsule 81 mg PO DAILY 01/17/24 01/17/24 Unknown atorvastatin 40 mg tablet 40 mg PO DAILY 01/17/24 01/17/24 Unknown potassium chloride 10 mEq 10 meq PO DAILY 01/17/24 01/17/24 Unknown capsule,extended release vitamin B12 1,000 mcg-folic acid 1 tab sublingual DAILY 01/17/24 01/17/24 Unknown 400 mcg sublingual tablet Past Medical History Medical History (Updated 01/23/24 @ 10:40 by Mya Latham PA-C) Arthritis Asthma Atrial fibrillation per hx, pt unsure, Follows with [facility] cardio Bilateral edema of lower extremity chronic, denies change or worsening Breast cancer, left (1996) "Status post left breast cancer 1996 treated with lumpectomy followed by radiation therapy Self detected left breast mass April 2016 Status post mammogram followed by core needle biopsy 05/07/2016 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, progesterone receptor positive, HER-2/wendy positive" Carpal tunnel syndrome surgery 2022-Residual right finger numbness Chronic back pain Chronic neck pain Cystocele, midline Dyslipidemia Dyspnea on exertion chronic, denies change or worsening GERD (gastroesophageal reflux disease) Well controlled and stable Hearing deficit b/l hearing aids Heart failure with preserved ejection fraction History of COVID-19 (06/2022) 06/2022- "mild cold symptoms" > resolved Hyperlipidemia Hypertension controlled, stable per pt Limb alert care status left Moderate aortic stenosis DSE 05/19/22: Moderate aortic stenosis (ROB 1.4-1.6cm2, MG 7.8mmhg) Osteoarthritis Poor historian Restless leg syndrome Sciatic nerve disease Sleep apnea CPAP (compliant) SVT (supraventricular tachycardia) "palpitations occasionally" - follows with kumar Patient denies h/o stroke, seizures, heart attack, heart failure, DM, HTN, blood clots/DVTs or blood transfusions. Exercise / Class Metabolic Activity III < 4 Walking/Shop/Light housework (ambulates with rolling walker, occasional shortness of breath with one flight of stairs-ongoing for several years-usually remains on flat surfaces-denies chest discomfort, denies change or worsening) Past Surgical History Surgical History (Updated 01/23/24 @ 10:40 by Mya Latham PA-C) H/O left breast biopsy (1997) ("malignant") History of back surgery Lumbar cyst removal History of carpal tunnel surgery of right wrist History of left mastectomy (2015) Left limb restriction History of lumpectomy of left breast 1997 History of right hip replacement (07/02/22) Right MERRITT History of tonsillectomy and adenoidectomy S/P epidural steroid injection Status post left knee replacement (12/2022) Past Anesthesia History No Hx of Anesthesia Complications and No Family Hx of Anesthesia Complications History of PONV No Hx of PONV and No Hx of Motion Sickness Social History Smoking Status: Never smoker Do You Dip or Chew Tobacco: No Hx Alcohol Use: Yes Alcohol type: wine alcohol intake frequency: a few times a month Hx Substance Use: No substance use type: does not use Review of Systems Patient denies chest pain, reflux, fever, chills, cough, wheezing, or palpitations. Physical Exam Vital Signs Vitals BP 118/77 P 65 TEMP 98.3 SP02 94% on RA RESP 18 Physical Patient resting comfortably in chair in no acute distress, alert and oriented, responding appropriately throughout visit Full cervical extension range of motion without pain TMD 3 finger breadths Mallampati Score 2 Dentition: intact, denies chipped or loose teeth, caps/crowns, implants or bridg es Lungs: normal respiratory effort. Good air movement, clear throughout to auscultation, no adventitious breath sounds Cardiac: regular rate and rhythm, 2/6 systolic murmur, no gallops or rubs Lab Results Anesthesia Preop Results Results Anesthesia Widget: Na 140 mmol/L (136-145) 01/18/24 K 4.1 mmol/L (3.5-5.1) 01/18/24 Cl 104 mmol/L (98-107) 01/18/24 CO2 31 mmol/L (21-32) 01/18/24 BUN 25 mg/dl (6-23) H 01/18/24 Creat 0.69 mg/dl (0.6-1.2) 01/18/24 Glucose Level 122 mg/dl (70-99(Fasting)) H 01/18/24 Testing Electrocardiogram Date: 01/18/24 NSR, rate 67 bpm Chest X-Ray Date: 07/06/23 No acute chest disease and no evidence of left rib fracture. Echocardiogram Date: 01/06/24 EF 65-70% No LV regional wall motion abnormalities Mild cLVH Grade II diastolic dysfunction Moderate valvular aortic stenosis (ROB 1.2 cm2, mean gradient 11.4 mmHg) Moderate aortic regurgitation Mild to moderate mitral regurgitation Moderately dilated LA Stress Test Date: 05/19/22 Negative dobutamine stress echo for myocardial ischemia MPHR 91% Sporadic PVCs at baseline with a 4 beat run of ventricular tachycardia during stress EF 60% Mildly dilated LA Mild cLVH Mild mitral regurgitation Moderate aortic valve stenosis Mild aortic valve insufficiency Mild tricuspid regurgitation Other Testing Neck CTA 12/29/23 1. Mild atherosclerosis of the right carotid bulb with resultant high-grade stenosis of the proximal cervical segment right ICA. 2. Short segment high-grade stenosis of the V4 segment left vertebral artery. 3. No dissection or arterial occlusion identified. Brain MRI 12/04/23 1. No acute intracranial abnormality. 2. Question an abnormal left vertebral artery flow-void at the skull base. This may be artifactual or related to slow flow. If warranted this could be further assessed with a CT angiogram of the neck. Carotid doppler 11/25/23 1. There is evidence of greater than 70% stenosis of the right internal carotid artery by velocity criteria. 2. There is no sonographic evidence of hemodynamically significant stenosis involving the left carotid arterial system. 3. Antegrade flow is shown in the vertebral arteries.
--- NOTE | 2024-02-07 07:54 | History & Physical Report ---
Date of Service February 07, 2024 Assessment & Plan (1) Stenosis of right carotid artery: Plan: Patient admitted for a right tcar. I have discussed the risks options and benefits of the procedure with the patient. The patient understands the risks options and benefits and agrees to the procedure. History of Present Illness Chief Complaint: Right internal carotid artery stenosis Primary Care Provider: José Kumari MD Ms. Burger is an 88-year-old female who in mid October had an episode of left leg weakness at which point she was dragging her foot. This lasted a short period of time and then totally resolved. She had not had any episodes similar to this before or after this 1 episode. She denies any upper extremity weakness or facial droop or speech difficulties at that time. Allergies Allergy/AdvReac Type Severity Reaction Status Date / Time codeine Allergy Unknown Temperature Verified 02/03/24 13:42 rise oxycodone AdvReac Unknown "Became Verified 02/03/24 13:42 addicted to it" COW MILK AdvReac Unknown "Gas" Uncoded 02/03/24 13:42 Home Medications Medication Instructions Recorded Confirmed Type acetaminophen 650 mg 325 - 650 mg PO Q6H PRN Pain 11/17/17 02/03/24 History tablet,extended release albuterol sulfate 90 mcg/actuation 2 puff inhalation Q6H PRN 11/17/17 02/03/24 History aerosol inhaler (Ventolin HFA) Shortness Of Breath Or Wheezing celecoxib 200 mg capsule (Celebrex) 200 mg PO BID 11/17/17 02/03/24 History fluticasone propionate 50 1 spray intranasal QPM PRN 11/17/17 02/03/24 History mcg/actuation nasal allergies spray,suspension (Flonase Allergy Relief) omeprazole 20 mg tablet,delayed 20 mg PO QAM 11/17/17 02/03/24 History release verapamil 120 mg 24 hr 120 mg PO QAM 11/23/18 02/03/24 History capsule,extended release candesartan 8 mg tablet 8 mg PO QAM 01/29/21 02/03/24 History metoprolol succinate 50 mg 50 mg PO BID 04/02/21 02/03/24 History tablet,extended release 24 hr pramipexole 0.5 mg tablet 0.5 mg PO HS 04/02/21 02/03/24 History escitalopram oxalate 5 mg tablet 5 mg PO QAM 05/04/22 02/03/24 History (Lexapro) furosemide 40 mg tablet 60 mg PO QAM 05/28/22 02/03/24 History calcium carbonate 500 mg PO Q6H PRN Indigestion 10/28/22 02/03/24 History cholecalciferol (vitamin D3) 50 50 mcg PO HS 10/28/22 02/03/24 History mcg (2,000 unit) capsule (Vitamin D3) aspirin 81 mg capsule 81 mg PO DAILY 01/17/24 02/03/24 History atorvastatin 40 mg tablet 40 mg PO DAILY 01/17/24 02/03/24 History potassium chloride 10 mEq 10 meq PO DAILY 01/17/24 02/03/24 History capsule,extended release vitamin B12 1,000 mcg-folic acid 1 tab sublingual DAILY 01/17/24 02/03/24 History 400 mcg sublingual tablet Past Med/Surg History Problem List (Updated 02/07/24 @ 07:55 by Jaden Camarillo MD) Stenosis of right carotid artery Preoperative cardiovascular examination Valvular heart disease Carotid artery stenosis Encounter for pre-operative examination DDD (degenerative disc disease), lumbar Bruit of left carotid artery Arthritis Diastolic congestive heart failure, NYHA class 3 Bilateral edema of lower extremity (Chronic) SVT (supraventricular tachycardia) (Chronic) Asthma (Chronic) Hypertension (Chronic) Dyslipidemia (Chronic) Dyspnea on exertion (Chronic) Breast cancer (Acute 05/07/16) "Status post left breast cancer 1996 treated with lumpectomy followed by radiation therapy Self detected left breast mass April 2016 Status post mammogram followed by core needle biopsy 05/07/2016 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, progesterone receptor positive, HER-2/wendy positive" Medical History Chronic neck pain Poor historian Arthritis Limb alert care status left Dyspnea on exertion chronic, denies change or worsening SVT (supraventricular tachycardia) "palpitations occasionally" - follows with kumar Bilateral edema of lower extremity chronic, denies change or worsening Moderate aortic stenosis DSE 05/19/22: Moderate aortic stenosis (ROB 1.4-1.6cm2, MG 7.8mmhg) Dyslipidemia Heart failure with preserved ejection fraction History of COVID-19 (06/2022) 06/2022- "mild cold symptoms" > resolved Asthma Cystocele, midline Carpal tunnel syndrome surgery 2022-Residual right finger numbness Osteoarthritis Sciatic nerve disease Chronic back pain GERD (gastroesophageal reflux disease) Well controlled and stable Breast cancer, left (1996) "Status post left breast cancer 1996 treated with lumpectomy followed by radiation therapy Self detected left breast mass April 2016 Status post mammogram followed by core needle biopsy 05/07/2016 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, progesterone receptor positive, HER-2/wendy positive" Hearing deficit b/l hearing aids Restless leg syndrome Hyperlipidemia Hypertension controlled, stable per pt Atrial fibrillation per hx, pt unsure, Follows with [facility] Sleep apnea CPAP (compliant) Surgical History Status post left knee replacement (12/2022) History of right hip replacement (07/02/22) Right MERRITT S/P epidural steroid injection History of carpal tunnel surgery of right wrist History of back surgery Lumbar cyst removal H/O left breast biopsy (1997) ("malignant") History of left mastectomy (2015) Left limb restriction History of lumpectomy of left breast 1997 History of tonsillectomy and adenoidectomy Social History Smoking Status: Never smoker Second Hand Exposure: No; Do You Dip or Chew Tobacco: No; Tobacco Cessation Education Requested by Patient: No Hx Alcohol Use: Yes Alcohol type: wine Hx Substance Use: No Preferred Language: Cuban Communication Ability: Effective Policy Director Required: No Beliefs That Will Affect Care: None Current Living Situation: Spouse Current Living Situation Comment: assisted living at [facility] Other Information That Helps Us Care for You: No Feels Safe at Home: Yes Safety Concerns: Feels Safe At This Time Assistive Devices: Cane, CPAP, Glasses, Hearing Aid - Bilateral and Walker Review of Systems All systems reviewed & are unremarkable except as noted in HPI & below Physical Exam Physical Exam: On exam she is awake alert oriented x 3. Her blood pressure 104/54 on the right. Left was not taken due to mastectomy in the past. In no apparent distress. Her radials and carotids are +2 bilaterally. I cannot appreciate any carotid bruits. Lungs are clear. Heart had a regular rate and rhythm. Abdominal exam is benign. I cannot appreciate a pulsatile mass due to the body habitus. Femorals and pedal's are +2 bilaterally. Neurologic exam is grossly intact to motor and sensory function.
[2024-02-07 09:04] LABS: Basophils # (auto) 0.06 K/uL (0.00-0.20); Basophils % (auto) 0.8 %; Eosinophils # (auto) 0.25 K/uL (0.00-0.50); Eosinophils % (auto) 3.5 %; Hematocrit (blood only) 47.6 % (37.0-47.0); Hemoglobin 15.3 g/dl (12.0-16.0); Immature Granulocytes # (auto) 0.02 K/uL (0.01-0.20); Immature Granulocytes % (auto) 0.3 %; Lymphocytes # (auto) 1.27 K/uL (1.20-3.40); Lymphocytes % (auto) 17.6 %; Mean Corpuscular Hemoglobin 29.8 pg (25.0-34.0); Mean Corpuscular Hgb Conc 32.1 g/dL (32.0-36.0); Mean Corpuscular Volume 92.6 fL (80.0-100.0); Mean Platelet Volume 11.3 fL (9.4-12.4); Monocytes # (auto) 0.58 K/uL (0.11-0.59); Neutrophils # (auto) 5.04 K/uL (1.40-6.50); Neutrophils % (auto) 69.8 %; Platelet Count 186 K/uL (130-400); RDW Coefficient of Variation 13.5 % (11.5-14.5); RDW Standard Deviation 46.2 fL (36.4-46.3); Red Blood Count 5.14 M/uL (4.20-5.40); White Blood Count 7.22 K/ul (4.8-10.8)
[2024-02-07 09:23] LABS: BUN Creatinine Ratio 31.9 (10-20); Calcium 9.5 mg/dl (8.6-10.3); Creatinine Clr Calc Pharmacy 49.8 ml/min; Potassium 3.9 mmol/L (3.5-5.1)
[2024-02-07] MEDS ORDERED: DEXAMETHASONE SOD INJ 4 MG/ML VIAL ONE (09:26)
[2024-02-07] MEDS ORDERED: ONDANSETRON INJ 2 MG/ML 2 ML VIAL ONE (09:26)
[2024-02-07] MEDS ORDERED: LIDOCAINE 2% 2 ML VIAL/AMP(20MG/ML) INFIL ONE (09:26)
[2024-02-07] MEDS ORDERED: PROPOFOL IV EMULSION 10 MG/ML 20 ML VIAL IV ONE (09:26)
[2024-02-07] MEDS ORDERED: fentaNYL citrate PF 100 MCG/2 ML VIAL ONE (09:26)
[2024-02-07] MEDS ORDERED: ROCURONIUM BROMIDE 10 MG/ML 5 ML VIAL IV ONE (09:27)
[2024-02-07] MEDS ORDERED: GLYCOPYRROLATE 0.2 MG/ML VIAL ONE (09:27)
[2024-02-07] MEDS ORDERED: HEPARIN SOD (PORCINE) 1000 UNIT/ML ONE (09:27)
[2024-02-07 09:34] LABS: Partial Thromboplastin Time 28 Seconds (21-31); Prothrombin Time 10.8 Seconds (9.0-12.0)
[2024-02-07] MEDS ORDERED: Nursing to Pharmacy Communication SCH (10:00)
[2024-02-07] MEDS: LR 15ML/HR IV SCH (10:30)
[2024-02-07] MEDS: ceFAZolin 2000MG 2,000 MG/15 ML SYR IV SCH ×2 (11:10→19:46)
[2024-02-07] MEDS ORDERED: ePHEDrine sulfate 50 MG/5 ML SYR ONE (11:29)
[2024-02-07] MEDS ORDERED: SUGAMMADEX SODIUM 200 MG/2 ML VIAL IV ONE (11:56)
[2024-02-07] MEDS ORDERED: PROTAMINE SULFATE 10 MG/ML 5 ML VIAL IV ONE (12:25)
[2024-02-07] MEDS: GELATIN SPONGE SZ 100 ONE (12:40)
[2024-02-07] MEDS: ceFAZolin 330 MG/ML 1 GM VIAL ONE (12:53)
--- NOTE | 2024-02-07 12:53 | History & Physical Bridge Note ---
Date of Service February 07, 2024 History & Physical Bridge Note I have examined the patient, reviewed the History & Physical and in the interval since the performance of the History & Physical I have noted the following changes of clinical significance: no changes noted
--- NOTE | 2024-02-07 12:53 | Post Operative Brief Note ---
Immediate Post Op Note Date of Surgery February 07, 2024 Pre & Post Diagnosis Operation Date: 02/07/24 10:20 Pre-Op Diagnosis: Stenosis of right carotid artery Post-Op Diagnosis: Stenosis of right carotid artery I identified the patient and participated in the time-out.: Yes Procedure Operation Date: 02/07/24 10:20 Actual Procedures p Right Transcarotid Artery Revascularization, Ultrasound Femoral vein(Right) - Jaden Camarillo MD Surgeon Jaden Camarillo MD Chemical Research Technician DO Lanre Dejesus, PAC Estimated Blood Loss 20 Findings Consistent with Post-Op Diagnosis Anesthesia Type General Complications none Disposition Accompanied Patient To Recovery: No Disposition: Recovery Room
[2024-02-07] MEDS: THROMBIN FOR SOLN 20000 UNIT KIT ONE (12:54)
[2024-02-07] MEDS: BUPIVACAINE/EPINEPHRINE 0.5% MPF 1:200,000 30 ML VIAL ONE (12:55)
--- NOTE | 2024-02-07 13:11 | Operative Report ---
Post Operative Report Pre & Post Diagnosis Operation Date: 02/07/24 10:20 Pre-Op Diagnosis: Stenosis of right carotid artery Post-Op Diagnosis: Stenosis of right carotid artery I identified the patient and participated in the time-out.: Yes Procedure Operation Date: 02/07/24 10:20 Actual Procedures p Right Transcarotid Artery Revascularization, Ultrasound Femoral vein(Right) - Jaden Camarillo MD Surgeon Jaden Camarillo MD Deputy Commonwealth'S Attorney DO Kaitlynn DejesusMinarchick, PAC Estimated Blood Loss 20 Findings Consistent with Post-Op Diagnosis Severe stenosis of the R ICA seen on pre-intervention angiography. Following stenting, no significant flow limiting stenosis within the stented segment. Pt was moving all extremities at conclusion of case with some baseline L leg weakness. Fluids Per anesthesia record. Specimens No specimen. Drains No drain. Anesthesia Type General Complications No apparent complications on conclusion of the case. Indications Stenosis of the R carotid Description of Procedure The patient was brought to the operating room, where lines were placed and general anesthesia was accomplished by anesthesia team. A shoulder roll was placed and the neck was rotated towards the left side of the patient. The right neck and left groin were prepped and patient was draped in the usual sterile fashion. A timeout was performed identifying the correct patient by name, procedure, and location of procedure and all were in agreement. A 4cm transverse incision was made between the sternal and clavicular heads of the sternocleidomastoid muscle. The muscle heads were retracted to each side and the carotid sheath was identified. Using blunt dissection, the carotid sheath was opened and 3cm of common carotid artery (CCA) were isolated. Umbilical tape was placed around the proximal CCA under direct visualization. A 5-0 prolene U- stitch was pre-placed in the anterior wall of the CCA to facilitate hemostasis after removal of the arterial sheath at completion of the procedure. The patient was given 8000 units of IV heparin. The contralateral (left) common femoral vein was accessed under ultrasound guidance, using a micropuncture needle and a wire and sheath were placed using modified Seldinger technique. The venous return sheath was advanced into the common femoral vein over the 0.035" wire. Blood was aspirated from the flow line and the sheath was flushed with heparinized saline.The sheath was secured to the patient's skin with a 2-0 silk stitch to maintain position in the vessel. ACT was confirmed to be above 250 seconds prior to arterial access. A 4-Irish non- stiffened micropuncture set was used, puncturing the artery with a 21G needle through the pre-placed U-stitch while holding gentle traction on the umbilical tape to stabilize the CCA within the incision. The micropuncture wire was advanced 3-4cm into the CCA and the 21G needle removed. The micropuncture sheath was advanced 3cm into the CCA and the wire and dilator were removed. A cerebral angiogram was obtained after ensuring there were no air bubbles in the system. The J-tipped guidewire was inserted and the external carotid artery was engaged After micropuncture sheath removal, the transcarotid arterial sheath was advanced to the 3rd marker and the 0.035" wire and dilator were removed. Susan rial sheath position was assessed under fluoroscopy. The arterial sheath was sutured to the patient at two sites. The Flow Controller was connected to the transcarotid arterial sheath, prepared by passively allowing arterial blood to backfill the line and then it was connected to the venous return sheath. The CCA was clamped proximally with a Yoko tourniquet to ensure active flow reversal. Heparinized saline was delivered into the venous flow line to confirm adequate flow reversal. A TCAR timeout was performed, heart rate was >70bpm and systolic BP was >140mmHg. Patient had been pretreated with glycopyrrolate and atropine was available. The lesion was crossed with a 0.035 stiff angle glide wire and catheter. The glide catheter was exchanged for 0.014" guidewire and pre-dilation balloon angioplasty was performed with a 4.5x25mm [employer] rapid exchange balloon to 12 atmospheres for about 10 seconds. A 8/6 x 30mm ENROUTE transcarotid stent was placed, sized to the right CCA. A completion angiogram was performed showing appropriate stent position with good wall apposition. Post-dilation balloon angioplasty was performed with a 5x25 and a 6x25 silk road balloon. At TCAR case completion, antegrade flow was restored by releasing the tourniquet on the CCA and closing the stopcocks to the flow lines. The total clamp time was 26 minutes. The transcarotid arterial sheath was removed and the pre-placed suture was tied. 25 of protamine were given. A repeat ACT was obtained and was 141. The venous return sheath was removed and hemostasis achieved with manual compression. The neck incision was irrigated with antibiotic solution and was hemostatic before closure. The platysma was approximated with 3-0 Vicryl running suture and the skin was closed with 4-0 running Vicryl suture and covered with Dermabond. The patient tolerated the procedure well and was extubated in the operating room. Se was moving all four extremities to command prior to transfer to the recovery room. All counts were correct at the end of the procedure. Fluoroscopy time was 11.3minutes, radiation dose was 107mGy and 18cc of contrast were used. Dr. Camarillo was present and participated in all critical parts of the procedure. I attest to the content of the Intraoperative Record and any orders documented therein. Any exceptions are noted below.
[2024-02-07] MEDS: PHENYLEPHRINE HCL 25 MG/250 ML NSS IV ONE (14:00)
--- NOTE | 2024-02-07 14:50 | Anesthesiology Progress Note ---
Date of Service February 07, 2024 Anesthesia Post Procedure Vital Signs Vital Signs: Temp Pulse Pulse Resp BP BP Pulse Ox 02/07/24 14:35 68 12 167/72 H 97 02/07/24 14:25 36.5 C 69 14 146/63 H 160/90 H 98 02/07/24 14:15 60 23 162/80 H 141/91 H 95 02/07/24 14:05 58 L 20 100/41 L 127/37 L 96 02/07/24 13:55 59 L 15 86/51 L 81/51 L 93 02/07/24 13:45 61 14 92/86 L 103/42 L 95 02/07/24 13:35 62 16 92/78 L 80/50 L 97 02/07/24 13:25 65 20 114/68 96 02/07/24 13:17 36 C L 66 15 128/87 117/46 L 96 02/07/24 09:19 36.8 C 77 20 136/77 94 O2 Del Method O2 Flow Rate 02/07/24 14:35 Nasal Cannula 3 02/07/24 14:25 Nasal Cannula 3 02/07/24 14:15 Nasal Cannula 3 02/07/24 14:05 Nasal Cannula 3 02/07/24 13:55 Nasal Cannula 3 02/07/24 13:45 Oxymask 4 02/07/24 13:35 Oxymask 4 02/07/24 13:25 Oxymask 4 02/07/24 13:17 Oxymask 4 02/07/24 09:19 Room Air Pain Intensity Right 3rd Digit Toe: Pain Intensity: 6 Transfer of Care Handoff Completed per policy Notes Mental Status: alert / awake / arousable Patient Amnestic to Procedure: Yes Nausea / Vomiting: adequately controlled Pain: adequately controlled Airway Patency, RR, SpO2: stable & adequate BP & HR: stable & adequate Hydration State: stable & adequate Anesthetic Complications: no major complications apparent and Pt Satisfied with anesthetic care
[2024-02-07] MEDS ORDERED: NYSTATIN POWDER 15GM BTL EXT PRN (15:22)
[2024-02-07] MEDS ORDERED: ALBUTEROL HFA 8 GM INHALER INH PRN (15:22)
[2024-02-07] MEDS ORDERED: STAT IV Infusion **Titration per Protocol STA (15:22)
[2024-02-07] MEDS ORDERED: ONDANSETRON INJ 2 MG/ML 2 ML VIAL IV PRN (15:22)
[2024-02-07] MEDS: PHENYLEPHRINE/NSS 25 MG/250 ML BAG IV PRN (15:55)
--- NOTE | 2024-02-07 15:55 | Critical Care Consultation ---
Date of Consultation February 07, 2024 Assessment & Plan (1) Stenosis of right carotid artery: (2) Valvular heart disease: (3) Diastolic congestive heart failure, NYHA class 3: (4) Hypertension: (5) Dyslipidemia: Plan Impression: 88-year-old female with complicated medical history presenting for symptomatic right carotid stenosis status post TCAR. Her blood pressure is slightly low postoperatively. Recommendations: 1. Status post TCAR: Management per vascular surgery. 2. Postprocedural hypotension: Will hold metoprolol, verapamil, and candesartan. Currently on a low-dose of Vinod-Synephrine. Will try and wean off as tolerated. If unable to wean, may consider the addition of oral midodrine. Can restart antihypertensives as tolerated by blood pressure. 3. Defer anticoagulation and antiplatelet agents to vascular surgery. 4. Patient's remaining critical care issues have been well addressed by the vascular surgery service. Will continue to follow in the ICU overnight tonight. Feel free to reach out to us with additional critical care questions. History of Present Illness Attending Physician: Jaden Camarillo MD History of Present Illness Asked by vascular surgery to assist in evaluation management this patient status post right TCAR. History is obtained from review of electronic medical record as well as interviewed the patient. The patient is an 88-year-old female with a history of hypertension, valvular heart disease, diastolic heart failure, and hyperlipidemia who presented with strokelike symptoms in October. She was found to have carotid stenosis. She was taken to the OR today for TCAR which was accomplished without difficulty. She did require phenylephrine for a brief period of time in PACU but then became hypertensive and this was discontinued. She was brought to the ICU. She has had slightly low blood pressures on arrival. She is neuro logically intact. She offers no complaints currently. Allergies Allergy/AdvReac Type Severity Reaction Status Date / Time codeine Allergy Intermediate Temperature Verified 02/07/24 09:10 rise oxycodone AdvReac Severe "Became Verified 02/07/24 09:10 addicted to it" COW MILK AdvReac Mild "Gas" Uncoded 02/07/24 09:10 Home Medications Medication Instructions Recorded Confirmed Type acetaminophen 650 mg 325 - 650 mg PO Q6H PRN Pain 11/17/17 02/07/24 History tablet,extended release albuterol sulfate 90 mcg/actuation 2 puff inhalation Q6H PRN 11/17/17 02/07/24 History aerosol inhaler (Ventolin HFA) Shortness Of Breath Or Wheezing celecoxib 200 mg capsule (Celebrex) 200 mg PO BID 11/17/17 02/07/24 History fluticasone propionate 50 1 spray intranasal QPM PRN 11/17/17 02/07/24 History mcg/actuation nasal allergies spray,suspension (Flonase Allergy Relief) omeprazole 20 mg tablet,delayed 20 mg PO QAM 11/17/17 02/07/24 History release verapamil 120 mg 24 hr 120 mg PO QAM 11/23/18 02/07/24 History capsule,extended release candesartan 8 mg tablet (Atacand) 8 mg PO QAM 01/29/21 02/07/24 History metoprolol succinate 50 mg 50 mg PO BID 04/02/21 02/07/24 History tablet,extended release 24 hr pramipexole 0.5 mg tablet 0.5 mg PO HS 04/02/21 02/07/24 History escitalopram oxalate 5 mg tablet 5 mg PO QAM 05/04/22 02/07/24 History (Lexapro) furosemide 40 mg tablet 60 mg PO QAM 05/28/22 02/07/24 History calcium carbonate 500 mg PO Q6H PRN Indigestion 10/28/22 02/07/24 History cholecalciferol (vitamin D3) 50 50 mcg PO HS 10/28/22 02/07/24 History mcg (2,000 unit) capsule (Vitamin D3) aspirin 81 mg capsule 81 mg PO DAILY 01/17/24 02/07/24 History atorvastatin 40 mg tablet (Lipitor) 40 mg PO DAILY 01/17/24 02/07/24 History potassium chloride 10 mEq 10 meq PO DAILY 01/17/24 02/07/24 History capsule,extended release vitamin B12 1,000 mcg-folic acid 1 tab sublingual DAILY 01/17/24 02/07/24 History 400 mcg sublingual tablet clopidogrel 75 mg tablet (Plavix) 75 mg PO DAILY 02/07/24 02/07/24 History Patient History Medical History Chronic neck pain Poor historian Arthritis Limb alert care status left Dyspnea on exertion chronic, denies change or worsening SVT (supraventricular tachycardia) "palpitations occasionally" - follows with kumar Bilateral edema of lower extremity chronic, denies change or worsening Moderate aortic stenosis DSE 05/19/22: Moderate aortic stenosis (ROB 1.4-1.6cm2, MG 7.8mmhg) Dyslipidemia Heart failure with preserved ejection fraction History of COVID-19 (06/2022) 06/2022- "mild cold symptoms" > resolved Asthma Cystocele, midline Carpal tunnel syndrome surgery 2022-Residual right finger numbness Osteoarthritis Sciatic nerve disease Chronic back pain GERD (gastroesophageal reflux disease) Well controlled and stable Breast cancer, left (1996) "Status post left breast cancer 1996 treated with lumpectomy followed by radiation therapy Self detected left breast mass April 2016 Status post mammogram followed by core needle biopsy 05/07/2016 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, progesterone receptor positive, HER-2/wendy positive" Hearing deficit b/l hearing aids Restless leg syndrome Hyperlipidemia Hypertension controlled, stable per pt Atrial fibrillation per hx, pt unsure, Follows with EUGEN[facility] Vega cardio Sleep apnea CPAP (compliant) Surgical History Status post left knee replacement (12/2022) History of right hip replacement (07/02/22) Right MERRITT S/P epidural steroid injection History of carpal tunnel surgery of right wrist History of back surgery Lumbar cyst removal H/O left breast biopsy (1997) ("malignant") History of left mastectomy (2015) Left limb restriction History of lumpectomy of left breast 1997 History of tonsillectomy and adenoidectomy Social History Smoking Status: Never smoker Second Hand Exposure: No; Do You Dip or Chew Tobacco: No; Tobacco Cessation Education Requested by Patient: No Hx Alcohol Use: Yes Alcohol type: wine Hx Substance Use: No Preferred Language: Chinese Communication Ability: Effective Damaged Freight Inspector Required: No Beliefs That Will Affect Care: None Current Living Situation: Spouse Current Living Situation Comment: assisted living at [facility] Other Information That Helps Us Care for You: No Feels Safe at Home: Yes Safety Concerns: Feels Safe At This Time Assistive Devices: Cane, CPAP, Glasses, Hearing Aid - Bilateral and Walker Review of Systems Review of Systems: Please refer to admission H&P. No additions or deletions Physical Exam Constitutional: WD/WN, vitals as above Neck: trachea midline, no thyromegaly Incision site clean dry and intact. No swelling. No tracheal deviation Respiratory: normal respiratory effort, lungs clear to auscultation Cardiovascular: RRR, no murmur, no edema Gastrointestinal (Abdomen): normal bowel sounds, soft, nontender, no hepatosplenomegaly Musculoskeletal: Extremities: extremities normal to inspection Skin: no rashes, warm and dry Neurologic: Nonfocal exam Lymphatic: no cervical lymphadenopathy Results & Data Results & Data Vital Signs (Past 12 Hours) Vital Signs Temp Pulse Pulse Resp BP BP Pulse Ox 02/07/24 14:45 60 16 168/84 H 95 02/07/24 14:35 68 12 167/72 H 97 02/07/24 14:25 36.5 C 69 14 146/63 H 160/90 H 98 02/07/24 14:15 60 23 162/80 H 141/91 H 95 02/07/24 14:05 58 L 20 100/41 L 127/37 L 96 02/07/24 13:55 59 L 15 86/51 L 81/51 L 93 02/07/24 13:45 61 14 92/86 L 103/42 L 95 02/07/24 13:35 62 16 92/78 L 80/50 L 97 02/07/24 13:25 65 20 114/68 96 02/07/24 13:17 36 C L 66 15 128/87 117/46 L 96 02/07/24 09:19 36.8 C 77 20 136/77 94 O2 Del Method O2 Flow Rate 02/07/24 14:45 Nasal Cannula 3 02/07/24 14:35 Nasal Cannula 3 02/07/24 14:25 Nasal Cannula 3 02/07/24 14:15 Nasal Cannula 3 02/07/24 14:05 Nasal Cannula 3 02/07/24 13:55 Nasal Cannula 3 02/07/24 13:45 Oxymask 4 02/07/24 13:35 Oxymask 4 02/07/24 13:25 Oxymask 4 02/07/24 13:17 Oxymask 4 02/07/24 09:19 Room Air Critical Care Results & Data Vital Signs (Past 12 Hours) Vital Signs Temp Pulse Pulse Resp BP BP Pulse Ox 02/07/24 14:45 60 16 168/84 H 95 02/07/24 14:35 68 12 167/72 H 97 02/07/24 14:25 36.5 C 69 14 146/63 H 160/90 H 98 02/07/24 14:15 60 23 162/80 H 141/91 H 95 02/07/24 14:05 58 L 20 100/41 L 127/37 L 96 02/07/24 13:55 59 L 15 86/51 L 81/51 L 93 02/07/24 13:45 61 14 92/86 L 103/42 L 95 02/07/24 13:35 62 16 92/78 L 80/50 L 97 02/07/24 13:25 65 20 114/68 96 02/07/24 13:17 36 C L 66 15 128/87 117/46 L 96 02/07/24 09:19 36.8 C 77 20 136/77 94 O2 Del Method O2 Flow Rate 02/07/24 14:45 Nasal Cannula 3 02/07/24 14:35 Nasal Cannula 3 02/07/24 14:25 Nasal Cannula 3 02/07/24 14:15 Nasal Cannula 3 02/07/24 14:05 Nasal Cannula 3 02/07/24 13:55 Nasal Cannula 3 02/07/24 13:45 Oxymask 4 02/07/24 13:35 Oxymask 4 02/07/24 13:25 Oxymask 4 02/07/24 13:17 Oxymask 4 02/07/24 09:19 Room Air Lab & Micro Results (Past 24 Hours) RBC 5.14 M/uL (4.20-5.40) 02/07/24 WBC 7.22 K/ul (4.8-10.8) 02/07/24 Hgb 15.3 g/dl (12.0-16.0) 02/07/24 Hct 47.6 % (37.0-47.0) H 02/07/24 MCV 92.6 fL (80.0-100.0) 02/07/24 MCH 29.8 pg (25.0-34.0) 02/07/24 MCHC 32.1 g/dL (32.0-36.0) 02/07/24 RDW Standard Deviation 46.2 fL (36.4-46.3) 02/07/24 RDW Coefficient of Variation 13.5 % (11.5-14.5) 02/07/24 Plt Count 186 K/uL (130-400) 02/07/24 MPV 11.3 fL (9.4-12.4) 02/07/24 Neutrophils (%) (Auto) 69.8 % 02/07/24 Lymphocytes (%) (Auto) 17.6 % 02/07/24 Monocytes # (Auto) 0.58 K/uL (0.11-0.59) 02/07/24 Eosinophils # (Auto) 0.25 K/uL (0.00-0.50) 02/07/24 Immature Granulocyte % (Auto) 0.3 % 02/07/24 Neutrophils # (Auto) 5.04 K/uL (1.40-6.50) 02/07/24 Lymphocytes # (Auto) 1.27 K/uL (1.20-3.40) 02/07/24 Monocytes # (Auto) 0.58 K/uL (0.11-0.59) 02/07/24 Eosinophils # (Auto) 0.25 K/uL (0.00-0.50) 02/07/24 Basophils # (Auto) 0.06 K/uL (0.00-0.20) 02/07/24 Immature Granulocyte # (Auto) 0.02 K/uL (0.01-0.20) 4 Na 141 mmol/L (136-145) 02/07/24 K 3.9 mmol/L (3.5-5.1) 02/07/24 Cl 104 mmol/L (98-107) 02/07/24 CO2 28 mmol/L (21-32) 02/07/24 Anion Gap 9 (3-11) 02/07/24 BUN 23 mg/dl (6-23) 02/07/24 Creatinine 0.72 mg/dl (0.6-1.2) 02/07/24 BUN/Creatinine Ratio 31.9 (10-20) H 02/07/24 Glu 97 mg/dl (70-99(Fasting)) 02/07/24 Ca 9.5 mg/dl (8.6-10.3) 02/07/24 Calcium Level 9.5 mg/dl (8.6-10.3) 02/07/24 08:47 Prothromb Time International Ratio 1.0 (0.9-1.1) 02/07/24 08:4 7 I & O Totals 24 Hours 02/06/24 02/07/24 02/08/24 06:59 06:59 06:59 Intake Total 800 / 800 Output Total Balance 780 / 780 Cumulative 01/17/24 09:52 thru 02/07/24 14:37 Intake Total 800 Output Total 20 Balance 780 RT Ventilator Mngmt (Last Documented) Ventilator Ordered Settings Respiratory Rate 16 02/07/24 14:45 Ventilator - PT Measurements Respiratory Rate 16 Coding Level of Care Code 90180 IN/OBS CONSULT LVL 3,45M Diagnoses Stenosis of right carotid artery I65.21 Valvular heart disease I38 Chronic diastolic congestive heart failure, NYHA class 3 I50.32 Congestive heart failure chronicity: chronic Primary hypertension I10 Hypertension type: primary hypertension Dyslipidemia E78.5 (3) Diastolic congestive heart failure, NYHA class 3 Congestive heart failure chronicity: chronic Qualified Code(s): I50.32 - Chronic diastolic (congestive) heart failure (4) Hypertension Hypertension type: primary hypertension Qualified Code(s): I10 - Essential (primary) hypertension
[2024-02-07] MEDS: SODIUM CHLORIDE 0.9% 1,000 ML IV SCH (16:40)
[2024-02-07] MEDS: CeleBREX 200 MG CAP PO SCH (19:51)
[2024-02-07] MEDS: PRAMIPEXOLE DIHYDROCHLO 0.5 MG TAB PO SCH (19:52)
[2024-02-07] MEDS: CHOLECALCIFEROL 25 MCG (1000 UNITS) TAB PO SCH (19:53)
[2024-02-07] MEDS ORDERED: METOPROLOL SUCC 50MG EXT REL TAB PO SCH (21:00)
[2024-02-07] MEDS: traMADol HCL 50 MG TABLET PO PRN (23:35)
[2024-02-08] MEDS: ATORVASTATIN 40 MG TAB PO SCH (08:25)
[2024-02-08] MEDS: ASPIRIN 81 MG ECTAB PO SCH (08:25)
[2024-02-08] MEDS: ESCITALOPRAM OXALATE 10 MG TAB PO SCH (08:26)
[2024-02-08] MEDS: FOLIC ACID 400 MCG TAB PO SCH (08:26)
[2024-02-08] MEDS: PANTOprazole 40 MG TAB PO SCH (08:26)
[2024-02-08] MEDS: CYANOCOBALAMIN (B-12) 500 MCG TABLET PO SCH (08:26)
[2024-02-08] MEDS: CLOPIDOGREL BISULFATE 75 MG TAB PO SCH (08:29)
--- NOTE | 2024-02-08 08:39 | Critical Care Progress Note ---
Date of Service February 08, 2024 Assessment & Plan (1) Stenosis of right carotid artery: (2) Valvular heart disease: (3) Diastolic congestive heart failure, NYHA class 3: (4) Hypertension: (5) Dyslipidemia: Plan Impression: 88-year-old female with complicated medical history presenting for symptomatic right carotid stenosis status post TCAR. Requiring vasopressors overnight. Recommendations: 1. Status post TCAR: Management per vascular surgery. 2. Strokelike symptoms -at approximately 0830, I was summoned by nursing staff given an acute change in mental status as well as focal neurological deficits. On exam, the patient had a RIGHT-sided fixed gaze with garbled speech and dense LEFT-sided hemiparesis noted on exam. The patient had required vasopressors throughout the night and it had no similar symptoms previously. Blood pressures were running soft with systolics in the 80s. Given recent carotid intervention and focal exam findings, stroke alert was called to mobilize staff and expedite imaging studies. It is understood that the patient would not be a TNKase candidate secondary to recent vascular intervention, however her findings necessitated rapid evaluation and thus need for stroke alert. Her blood sugar was found to be within normal limits. Verbal order to titrate up her vasopressor while and route to CT to maintain higher blood pressures to aid in perfusion. Upon return from CT, the patient was reassessed and noted to have significant improvement in mentation and focal neurological deficits. She has had complete resolution at this time. Systolic blood pressures are running in the 160s. The patient is awake, alert, and oriented. She is able to describe her hospitalization and describes lack of symptoms at this point. Her neurological exam is completely unremarkable at this time. Patient likely experienced a hyperperfusion event in combination with recent carotid intervention. Recommend sustaining blood pressures in the 140s systolically for now. Vascular surgery was updated by nursing staff. Continue with stroke assessment interventions per hospital protocol 2. Postprocedural hypotension: Continue to hold antihypertensives. Continue with Vinod-Synephrine with goal systolics of 140. 3. Defer anticoagulation and antiplatelet agents to vascular surgery. I have personally spent 50 minutes of critical care time in the direct management of this patient. This is a life/limb threatening event. This includes time spent evaluating patient, direct bedside care, chart review, placing orders, interpretation of diagnostic studies, discussion with consultants, patient, and family members, as well as other required patient management activities. This time is exclusive of all separately billable procedures, and teaching time and separate from and in addition to any other critical care service time. Admission and Anticipated Discharge Date Admission Date: February 07, 2024 Supervising Physician Co-Signing Physician Notes Patient seen and examined. EMR reviewed. Discussed with critical care URI as well as with bedside critical care nurse and on multidisciplinary rounds. Events of this morning were noted. Patient's neurological status has resolved with improvement in her blood pressure. Would currently try and maintain systolic blood pressures around 120-140. Repeat imaging noted with repeat evaluation by vascular surgery pending. Continue physical therapy and Occupational Therapy. Will defer decisions regarding anticoagulation to vascular surgery. She did have a mild decrease in hemoglobin and hematocrit today but does not meet criteria for transfusion. Her other numbers are within normal limits. Will continue to observe in ICU today with ultimate disposition per vascular surgery. Subjective No reported overnight events. She remained on low-dose Vinod-Synephrine for soft blood pressures. At approximately 0 830, was summoned to bedside by nursing staff as the patient had an acute change in mental status. Patient with fixed gaze to the RIGHT with garbled speech and LEFT-sided flaccid paralysis. Stroke alert called per hospital protocol. Review of Systems Review of Systems: Unable to assess. Physical Exam Physical Exam: VITAL SIGNS - Vital signs and nursing notes were reviewed. GENERAL - 88-year-old female. RIGHT sided fixed gaze, garbled speech, LEFT-sided hemiparesis. SKIN - RIGHT-sided neck base incision site clean, dry, and intact. Mild underlying edema and ecchymosis. HEAD - NC/AT. EYES - PERRL. Sclera anicteric. RIGHT sided fixed gaze. NOSE - Midline and without cyanosis. No epistaxis or purulent drainage noted. MOUTH/OROPHARYNX - Without perioral cyanosis. B NECK - RIGHT sided neck incision site as above. LUNGS - Chest wall symmetric without accessory muscle use, intercostals retractions, or central cyanosis. Normal vesicular breath sounds CTA B/L. No wheezes, rales, or rhonchi appreciated. CARDIAC - RRR with S1/S2. No murmur, rubs, or gallops appreciated. ABDOMEN - Abdominal contour obese without pulsations or visible masses. BS normoactive all four quadrants. No tenderness, palpable masses, hepatosplenomegaly, or ascites noted. EXTREMITIES - No clubbing or peripheral cyanosis. No pretibial edema present. +3/5 radial and dorsalis pedis pulses palpated throughout. LEFT sided flaccid paralysis. NEUROLOGIC - 0833: RIGHT-sided fixed gaze. Garbled s peech. LEFT-sided hemiparesis. 0900: On reassessment, resolution of RIG HT-sided fixed gaze, garbled speech, and LEFT-sided hemiparesis. She has equal defensive fire control systems operator strength of the upper extremities bilaterally. She has full range of motion and strength of the bilateral lower extremities on exam. Sensation intact to the upper and lower extremities bilaterally. No facial droop appreciated. Patient is awake, alert, and oriented x 4. Resolution of symptoms noted on reassessment. Results & Data Results & Data Vital Signs (Past 12 Hours) Vital Signs Temp Pulse Resp BP Pulse Ox O2 Del Method 02/08/24 07:41 Room Air 02/08/24 07:38 81 02/08/24 07:34 131/64 02/08/24 07:27 60 15 94 Room Air 02/08/24 07:12 54 L 21 02/08/24 06:12 54 L 16 89 L 02/08/24 06:06 54 L 22 92 02/08/24 06:01 89/53 L 02/08/24 05:51 58 L 17 89 L 02/08/24 05:42 54 L 22 91 02/08/24 05:33 53 L 25 H 89 L 02/08/24 05:00 55 L 23 88 L 02/08/24 04:45 55 L 24 92 02/08/24 04:30 57 L 18 94 02/08/24 04:15 56 L 25 H 90 02/08/24 04:06 54 L 24 94 02/08/24 04:00 114/63 02/08/24 04:00 114/63 02/08/24 03:57 54 L 24 93 02/08/24 03:42 63 15 90 02/08/24 03:39 61 22 92 02/08/24 03:27 58 L 18 94 02/08/24 03:18 57 L 16 94 02/08/24 02:54 56 L 22 94 02/08/24 02:30 56 L 15 95 02/08/24 02:14 36.5 C 02/08/24 02:06 126/50 L 02/08/24 01:42 56 L 19 95 02/08/24 01:18 54 L 26 H 94 02/08/24 01:00 61 23 91 02/08/24 00:45 53 L 16 94 02/08/24 00:27 53 L 17 94 02/08/24 00:06 59 L 24 94 02/08/24 00:05 36.5 C 02/08/24 00:00 130/55 L 02/08/24 00:00 130/55 L 02/07/24 23:42 53 L 15 95 02/07/24 23:30 53 L 12 95 02/07/24 23:18 56 L 18 95 02/07/24 23:00 53 L 16 91 02/07/24 22:30 51 L 13 95 02/07/24 22:21 54 L 14 95 02/07/24 22:15 55 L 18 96 02/07/24 21:54 53 L 12 96 02/07/24 21:42 52 L 13 96 02/07/24 21:30 54 L 18 97 02/07/24 21:03 49 L 19 96 02/07/24 21:02 114/49 L 02/07/24 21:02 114/49 L 02/07/24 21:02 114/49 L 02/07/24 20:57 53 L 20 95 02/07/24 20:51 54 L 18 95 02/07/24 20:45 49 L 17 94 Coding Level of Care Code 15737 CRITICAL CARE 1ST 30-74M Diagnoses Stenosis of right carotid artery I65.21 Valvular heart disease I38 Chronic diastolic congestive heart failure, NYHA class 3 I50.32 Congestive heart failure chronicity: chronic Primary hypertension I10 Hypertension type: primary hypertension Dyslipidemia E78.5 (3) Diastolic congestive heart failure, NYHA class 3 Congestive heart failure chronicity: chronic Qualified Code(s): I50.32 - Chronic diastolic (congestive) heart failure (4) Hypertension Hypertension type: primary hypertension Qualified Code(s): I10 - Essential (primary) hypertension
[2024-02-08] MEDS: OPTIRAY 320 125ml IV ONE (08:45)
[2024-02-08] MEDS: FUROSEMIDE 20 MG TAB PO SCH (08:59)
[2024-02-08] MEDS ORDERED: CANDESARTAN 8 MG PO SCH (09:00)
[2024-02-08] MEDS ORDERED: NON-FORMULARY MEDICATION (Vitamin B12-Folic Acid 1,000-400 mcg Tablet, Sublingual) SL SCH (09:00)
[2024-02-08] MEDS ORDERED: VERAPAMIL HCL 120 MG TABCR PO SCH (09:00)
[2024-02-08] MEDS: CALCIUM CARBONATE 500 MG CHEWABLE TAB PO PRN (09:01)
[2024-02-08] MEDS: POTASSIUM CHLORIDE 10 MEQ TABCR PO SCH (09:01)
--- NOTE | 2024-02-08 09:05 | CT Scan Report ---
CT head/brain wo con CLINICAL HISTORY: neuro deficit, acute stroke suspected Technique: Contiguous axial CT images of the head were acquired from the base of the skull to the annabel luna without intravenous contrast administration. Images were viewed in brain, subdural and bone [facility]. Automated dose lowering techniques and/or adjustment according to patient size were utilized for this exam. Comparison: None available at the time of this dictation. Findings: Areas of decreased attenuation are present in the periventricular and subcortical white matter bilate rally consistent with small vessel ischemic disease. Generalized cerebral atrophy with commensurate e nlargement of the ventricles, sulci, and cisterns is also present. There is no acute intracranial hem orrhage or evidence of acute territorial infarction. No shift of the midline structures, mass effect, or extra-axial abnormalities are shown. Atherosclerotic calcifications are present in the intracran ial segments of the internal carotid arteries. Imaged portions of the paranasal sinuses and mastoid air cells are clear. The orbits appear normal. There are no acute fractures of the calvaria or scalp swelling. Impression: No acute intracranial hemorrhage, no evidence of acute territorial infarction or other acute intracra nial disease process. ACT 112: Negative or not required by law. Electronically signed by: Andres Guadalupe M.D. 02/08/2024 9:03 AM
--- NOTE | 2024-02-08 09:11 | CT Scan Report ---
CT angio head w con CLINICAL HISTORY: 88 years-old Female with neuro deficit, acute stroke suspected. Acute strokelike symptoms COMPARISON STUDY: Head CT of same day, brain MRI 12/04/2023, CT neck 12/29/2023 TECHNIQUE: Following the IV administration of 120 cc of Optiray, CT angiogram of the brain was performed from the skull ba se to the vertex. Images are reviewed in the axial, sagittal, and coronal planes. 3-D MIPS images are created and assessed. IV contrast was administered without complication. All measurements were obtai gold according to NASCET criteria. A dose lowering technique was utilized adhering to the principles o f ALARA. FINDINGS: CT BRAIN: Dictated separately. CT ANGIOGRAM OF THE BRAIN: Unchanged high-grade stenosis of the supraclinoid segment right ICA. The imaged distal left ICA appea rs patent. Moderate stenosis involving the proximal A2 segment of the left anterior cerebral artery. The middle cerebral arteries appear patent with areas of multifocal mild stenosis. Short segment high -grade stenosis of the V4 segment left vertebral artery redemonstrated. The distal right vertebral ar mani is patent. Multifocal moderate to high-grade stenoses of the posterior cerebral arteries with ar eas of mild basilar artery stenosis. Dural sinuses appear patent. IMPRESSION: 1. Unchanged high-grade stenosis of the supraclinoid segment right ICA. 2. Short segment high-grade stenosis of the V4 segment left vertebral artery is also unchanged. 3. Additional areas of otzc-ef-bjzaioip stenosis as above. ACT 112: Negative or not required by law. The above report was generated using voice recognition software. It may contain grammatical, syntax o r spelling errors. Electronically signed by: True Garcia M.D. 02/08/2024 9:09 AM
[2024-02-08 09:32] LABS: Basophils # (auto) 0.02 K/uL (0.00-0.20); Basophils % (auto) 0.2 %; Hematocrit (blood only) 35.5 % (37.0-47.0); Hemoglobin 11.7 g/dl (12.0-16.0); Immature Granulocytes # (auto) 0.03 K/uL (0.01-0.20); Immature Granulocytes % (auto) 0.3 %; Lymphocytes # (auto) 0.93 K/uL (1.20-3.40); Lymphocytes % (auto) 9.4 %; Mean Corpuscular Hemoglobin 31.2 pg (25.0-34.0); Mean Corpuscular Volume 94.7 fL (80.0-100.0); Monocytes # (auto) 0.85 K/uL (0.11-0.59); Monocytes % (auto) 8.6 %; Neutrophils # (auto) 8.02 K/uL (1.40-6.50); Neutrophils % (auto) 81.5 %; Platelet Count 161 K/uL (130-400); RDW Coefficient of Variation 14.1 % (11.5-14.5); RDW Standard Deviation 49.2 fL (36.4-46.3); Red Blood Count 3.75 M/uL (4.20-5.40); White Blood Count 9.85 K/ul (4.8-10.8)
--- NOTE | 2024-02-08 09:39 | CT Scan Report ---
CT ANGIOGRAPHY OF THE NECK WITH CONTRAST CLINICAL HISTORY: neuro deficit, acute stroke suspected COMPARISON STUDY: CTA of the neck December 29, 2023. Technique: CT angiography of the carotid and vertebral arteries was obtained using [employer] and 3D rec onstruction on an independent workstation. NASCET criteria was utilized. Automated exposure control was utilized for the study. A dose lowering technique was utilized adhering to the principles of ALA RA. 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 This has progressed since prior CT. The left vertebral artery is patent. The right vertebral artery is also patent. Mild plaque within the proximal left internal carotid artery results in mild stenosis. This is unchanged. Soft tissue gas, stranding and fluid within the right ne ck is postprocedural. Interval placement of a right carotid stent which extends across the bifurcatio n is noted. Severe narrowing at the origin of the right external carotid artery is not unexpected pos t stenting. There is moderate to severe luminal narrowing of the right carotid within the proximal as pect of the stent. The vessel is patent. The distal cervical portion of the right internal carotid ar mani is patent. Severe stenosis of the right cavernous carotid is similar to prior CTA of December 29, 2023. IMPRESSION: 1. Status post interval right transcarotid artery vascularization. Moderate to severe narrowing of th e right carotid within the proximal aspect of the stent. This may be due to pre-existing plaque. An u nderlying dissection is considered less likely but could appear similar. Findings discussed with Dr. Camarillo at time of dictation. Expected fluid and gas within the right neck. 2. 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 3. Severe stenosis of the right cavernous carotid, similar to prior CTA. ACT 112: Negative or not required by law. Electronically signed by: Christiano Walter M.D. 02/08/2024 9:38 AM
[2024-02-08 09:42] LABS: Albumin Level 2.9 gm/dl (3.4-5.0); BUN Creatinine Ratio 32.4 (10-20); Bilirubin,Total 0.5 mg/dl (0.2-1.0); Calcium 8.2 mg/dl (8.6-10.3); Creatinine Clr Calc Pharmacy 53.7 ml/min; Magnesium 1.9 mg/dl (1.7-2.4); Potassium 4.1 mmol/L (3.5-5.1); Total Protein 5.9 gm/dl (6.0-8.3)
[2024-02-08 09:47] LABS: Troponin I High Sensitivity 5.2 pg/ml (0-14)
[2024-02-08 09:48] LABS: Partial Thromboplastin Time 26 Seconds (21-31); Prothrombin Time 11.1 Seconds (9.0-12.0)
[2024-02-08] MEDS: MIDODRINE HCL 2.5 MG TAB PO SCH (11:40)
--- NOTE | 2024-02-08 15:15 | Surgery Progress Note ---
Date of Service February 08, 2024 Assessment & Plan (1) Dissection of right carotid artery: Plan: CTA showed an area of dissection just proximal to the stent with narrowing in the stent, although this may be flow dynamics due to the narrowing at the proximal stent from the dissection. Would recommend redo right tcar to seal the dissection. I have discussed the risks options and benefits of the procedure with the patients . The patient's understands the risks options and benefits and agrees to the procedure. This is scheduled for tomorrow afternoon. Admission and Anticipated Discharge Date Admission Date: February 07, 2024 Subjective Patient had left sided weakness and garbled speech this am that resolved. She then returned to normal. She was hypotensive at that time. Physical Exam Constitutional: WD/WN, vitals as above Respiratory: normal respiratory effort; no respiratory distress Cardiovascular: Rate/Rhythm: regular rate and regular rhythm Skin: + incision (dry and clean) Neurologic: CN's II-XI intact bilaterally and moves all extremities Results & Data Vital Signs (Past 12 Hours) Vital Signs Pulse Resp BP Pulse Ox O2 Del Method 02/08/24 14:30 60 19 93 02/08/24 14:00 50 L 14 95 02/08/24 13:33 54 L 22 92 02/08/24 13:30 117/51 L 02/08/24 13:30 117/51 L 02/08/24 13:30 117/51 L 02/08/24 13:21 59 L 18 95 02/08/24 13:12 56 L 20 93 02/08/24 13:00 120/51 L 02/08/24 13:00 120/51 L 02/08/24 12:54 53 L 24 93 02/08/24 12:33 61 13 89 L 02/08/24 12:30 123/58 L 02/08/24 12:30 123/58 L 02/08/24 12:30 123/58 L 02/08/24 12:27 61 17 93 02/08/24 12:12 69 23 95 02/08/24 12:00 151/62 H 02/08/24 11:57 55 L 13 95 02/08/24 11:45 58 L 16 94 02/08/24 11:33 50 L 18 90 02/08/24 11:31 145/61 H 02/08/24 11:27 52 L 18 90 02/08/24 11:15 139/55 L 02/08/24 11:15 54 L 19 89 L 02/08/24 11:06 55 L 23 94 02/08/24 11:00 117/52 L 02/08/24 10:51 63 12 91 02/08/24 10:48 60 16 92 02/08/24 10:45 123/54 L 02/08/24 10:42 55 L 16 91 02/08/24 10:39 55 L 16 93 02/08/24 10:31 152/67 H 02/08/24 10:15 145/70 H 02/08/24 10:06 53 L 23 94 02/08/24 09:45 63 16 93 02/08/24 09:45 120/49 L 02/08/24 09:39 61 25 H 92 02/08/24 09:30 119/55 L 02/08/24 09:18 58 L 18 93 02/08/24 09:15 140/60 02/08/24 09:09 56 L 18 95 02/08/24 09:00 161/67 H 02/08/24 08:27 69 20 86 L 02/08/24 08:15 61 20 88 L 02/08/24 08:09 78 16 90 02/08/24 07:41 Room Air 02/08/24 07:38 81 02/08/24 07:34 131/64 02/08/24 07:27 60 15 94 Room Air 02/08/24 07:12 54 L 21 02/08/24 06:12 54 L 16 89 L 02/08/24 06:06 54 L 22 92 02/08/24 06:01 89/53 L 02/08/24 05:51 58 L 17 89 L 02/08/24 05:42 54 L 22 91 02/08/24 05:33 53 L 25 H 89 L 02/08/24 05:00 55 L 23 88 L 02/08/24 04:45 55 L 24 92 02/08/24 04:30 57 L 18 94 02/08/24 04:15 56 L 25 H 90 02/08/24 04:06 54 L 24 94 02/08/24 04:00 114/63 02/08/24 04:00 114/63 02/08/24 03:57 54 L 24 93 02/08/24 03:42 63 15 90 02/08/24 03:39 61 22 92 02/08/24 03:27 58 L 18 94 02/08/24 03:18 57 L 16 94
[2024-02-09 06:32] LABS: Basophils # (auto) 0.06 K/uL (0.00-0.20); Basophils % (auto) 0.7 %; Eosinophils # (auto) 0.18 K/uL (0.00-0.50); Eosinophils % (auto) 2.2 %; Hematocrit (blood only) 33.9 % (37.0-47.0); Hemoglobin 10.9 g/dl (12.0-16.0); Immature Granulocytes # (auto) 0.02 K/uL (0.01-0.20); Immature Granulocytes % (auto) 0.2 %; Lymphocytes # (auto) 1.73 K/uL (1.20-3.40); Lymphocytes % (auto) 20.8 %; Mean Corpuscular Hemoglobin 30.7 pg (25.0-34.0); Mean Corpuscular Hgb Conc 32.2 g/dL (32.0-36.0); Mean Corpuscular Volume 95.5 fL (80.0-100.0); Mean Platelet Volume 12.2 fL (9.4-12.4); Monocytes # (auto) 0.78 K/uL (0.11-0.59); Monocytes % (auto) 9.4 %; Neutrophils # (auto) 5.53 K/uL (1.40-6.50); Neutrophils % (auto) 66.7 %; Platelet Count 133 K/uL (130-400); RDW Coefficient of Variation 14.3 % (11.5-14.5); Red Blood Count 3.55 M/uL (4.20-5.40)
[2024-02-09 06:39] LABS: Albumin Level 2.9 gm/dl (3.4-5.0); BUN Creatinine Ratio 35.1 (10-20); Bilirubin,Total 0.5 mg/dl (0.2-1.0); Calcium 8.3 mg/dl (8.6-10.3); Creatinine Clr Calc Pharmacy 63.8 ml/min; Magnesium 1.9 mg/dl (1.7-2.4); Phosphorus 2.7 mg/dl (2.5-4.9); Total Protein 5.9 gm/dl (6.0-8.3)
[2024-02-09] MEDS: FLUTICASONE PROPIONATE NA SPR 16 GM BTL PRN (07:38)
--- NOTE | 2024-02-09 08:30 | History & Physical Bridge Note ---
Date of Service February 09, 2024 History & Physical Bridge Note Patient for a redo right tcar due to dissection proximal to the stent. I have discussed the risks options and benefits of the procedure with the patient. The patient understands the risks options and benefits and agrees to the procedure. I have examined the patient, reviewed the History & Physical and in the interval since the performance of the History & Physical I have noted the following changes of clinical significance: no changes noted
--- NOTE | 2024-02-09 10:08 | Critical Care Progress Note ---
Date of Service February 09, 2024 Assessment & Plan (1) Stenosis of right carotid artery: (2) Valvular heart disease: (3) Diastolic congestive heart failure, NYHA class 3: (4) Hypertension: (5) Dyslipidemia: Plan Impression: 88-year-old female with complicated medical history presenting for symptomatic right carotid stenosis status post TCAR. Requiring vasopressors overnight. Recommendations: 1. Status post TCAR: Management per vascular surgery. Antiplatelet and anti coagulation per vascular surgery 2. Small dissection at the site of the TCAR. Plan to return to the OR today for overlapping stent. Keep NPO. Continue blood pressure 3. Postprocedural hypotension: Continue to hold antihypertensives. Continue with Vinod-Synephrine with goal systolics of 120-140 4. Will need physical therapy and Occupational Therapy evaluation post procedure but will hold off. 5. Will observe in the ICU after her procedure today. Above recommendations and plan were discussed with the patient as well as with bedside nurse. Admission and Anticipated Discharge Date Admission Date: February 07, 2024 Review of Systems Review of Systems: All systems reviewed & are unremarkable except as noted in Subjective Physical Exam Constitutional: WD/WN, vitals as above Neck: trachea midline, no thyromegaly Respiratory: normal respiratory effort, lungs clear to auscultation Cardiovascular: RRR, no murmur, no edema Gastrointestinal (Abdomen): normal bowel sounds, soft, nontender, no hepatosplenomegaly Musculoskeletal: Extremities: extremities normal to inspection Skin: no rashes, warm and dry Neurologic: unremarkable Lymphatic: no cervical lymphadenopathy Results & Data Results & Data Vital Signs (Past 12 Hours) Vital Signs Temp Pulse Resp BP Pulse Ox 02/09/24 07:06 61 17 95 02/09/24 07:00 145/65 H 02/09/24 06:54 65 20 97 02/09/24 06:51 59 L 14 95 02/09/24 06:30 140/61 02/09/24 06:30 140/61 02/09/24 06:21 57 L 23 93 02/09/24 06:03 59 L 22 95 02/09/24 06:00 139/63 02/09/24 05:36 59 L 14 96 02/09/24 05:30 59 L 17 97 02/09/24 05:30 149/64 H 02/09/24 05:30 149/64 H 02/09/24 05:30 149/64 H 02/09/24 05:09 64 19 97 02/09/24 04:30 60 19 95 02/09/24 04:30 140/61 02/09/24 04:03 56 L 24 94 02/09/24 04:00 143/64 H 02/09/24 04:00 143/64 H 02/09/24 03:51 56 L 19 94 02/09/24 03:39 61 17 96 02/09/24 03:09 57 L 20 95 02/09/24 03:00 146/63 H 02/09/24 02:30 168/65 H 02/09/24 02:18 57 L 22 94 02/09/24 02:00 58 L 19 96 02/09/24 02:00 153/66 H 02/09/24 02:00 153/66 H 02/09/24 01:33 56 L 21 95 02/09/24 01:30 147/59 H 02/09/24 01:30 147/59 H 02/09/24 01:30 147/59 H 02/09/24 01:27 58 L 22 93 02/09/24 01:03 60 90 02/09/24 01:00 143/63 H 02/09/24 01:00 143/63 H 02/09/24 00:48 57 L 21 93 02/09/24 00:42 61 17 90 02/09/24 00:13 36.6 C 02/09/24 00:09 57 L 16 93 02/09/24 00:00 53 L 02/08/24 23:33 58 L 19 91 02/08/24 23:30 140/61 02/08/24 23:30 140/61 02/08/24 23:24 58 L 19 93 02/08/24 23:12 58 L 17 91 02/08/24 23:00 138/58 L 02/08/24 22:54 60 20 90 02/08/24 22:36 61 21 90 02/08/24 22:30 150/80 H 02/08/24 22:30 150/80 H 02/08/24 22:18 72 21 02/08/24 22:01 163/90 H 02/08/24 22:00 65 17 94 Critical Care Results & Data Vital Signs (Past 12 Hours) Vital Signs Temp Pulse Resp BP Pulse Ox 12/19/24 07:06 61 17 95 02/09/24 07:00 145/65 H 02/09/24 06:54 65 20 97 02/09/24 06:51 59 L 14 95 02/09/24 06:30 140/61 02/09/24 06:30 140/61 02/09/24 06:21 57 L 23 93 02/09/24 06:03 59 L 22 95 02/09/24 06:00 139/63 02/09/24 05:36 59 L 14 96 02/09/24 05:30 59 L 17 97 02/09/24 05:30 149/64 H 02/09/24 05:30 149/64 H 02/09/24 05:30 149/64 H 02/09/24 05:09 64 19 97 02/09/24 04:30 60 19 95 02/09/24 04:30 140/61 02/09/24 04:03 56 L 24 94 02/09/24 04:00 143/64 H 02/09/24 04:00 143/64 H 02/09/24 03:51 56 L 19 94 02/09/24 03:39 61 17 96 02/09/24 03:09 57 L 20 95 02/09/24 03:00 146/63 H 02/09/24 02:30 168/65 H 02/09/24 02:18 57 L 22 94 02/09/24 02:00 58 L 19 96 02/09/24 02:00 153/66 H 02/09/24 02:00 153/66 H 02/09/24 01:33 56 L 21 95 02/09/24 01:30 147/59 H 02/09/24 01:30 147/59 H 02/09/24 01:30 147/59 H 02/09/24 01:27 58 L 22 93 02/09/24 01:03 60 90 02/09/24 01:00 143/63 H 02/09/24 01:00 143/63 H 02/09/24 00:48 57 L 21 93 02/09/24 00:42 61 17 90 02/09/24 00:13 36.6 C 02/09/24 00:09 57 L 16 93 02/09/24 00:00 53 L 02/08/24 23:33 58 L 19 91 02/08/24 23:30 140/61 02/08/24 23:30 140/61 02/08/24 23:24 58 L 19 93 02/08/24 23:12 58 L 17 91 02/08/24 23:00 138/58 L 02/08/24 22:54 60 20 90 02/08/24 22:36 61 21 90 02/08/24 22:30 150/80 H 02/08/24 22:30 150/80 H 02/08/24 22:18 72 21 Lab & Micro Results (Past 24 Hours) RBC 3.55 M/uL (4.20-5.40) L 02/09/24 WBC 8.30 K/ul (4.8-10.8) 02/09/24 Hgb 10.9 g/dl (12.0-16.0) L 02/09/24 Hct 33.9 % (37.0-47.0) L 02/09/24 MCV 95.5 fL (80.0-100.0) 02/09/24 MCH 30.7 pg (25.0-34.0) 02/09/24 MCHC 32.2 g/dL (32.0-36.0) 02/09/24 RDW Standard Deviation 50.0 fL (36.4-46.3) H 02/09/24 RDW Coefficient of Variation 14.3 % (11.5-14.5) 02/09/24 Plt Count 133 K/uL (130-400) 02/09/24 MPV 12.2 fL (9.4-12.4) 02/09/24 Neutrophils (%) (Auto) 66.7 % 02/09/24 Lymphocytes (%) (Auto) 20.8 % 02/09/24 Monocytes # (Auto) 0.78 K/uL (0.11-0.59) H 02/09/24 Eosinophils # (Auto) 0.18 K/uL (0.00-0.50) 02/09/24 Immature Granulocyte % (Auto) 0.2 % 02/09/24 Neutrophils # (Auto) 5.53 K/uL (1.40-6.50) 02/09/24 Lymphocytes # (Auto) 1.73 K/uL (1.20-3.40) 02/09/24 Monocytes # (Auto) 0.78 K/uL (0.11-0.59) H 02/09/24 Eosinophils # (Auto) 0.18 K/uL (0.00-0.50) 02/09/24 Basophils # (Auto) 0.06 K/uL (0.00-0.20) 02/09/24 Immature Granulocyte # (Auto) 0.02 K/uL (0.01-0.20) 4 Na 140 mmol/L (136-145) 02/09/24 K 4.0 mmol/L (3.5-5.1) 02/09/24 Cl 107 mmol/L (98-107) 02/09/24 CO2 29 mmol/L (21-32) 02/09/24 Anion Gap 4 (3-11) 02/09/24 BUN 20 mg/dl (6-23) 02/09/24 Creatinine 0.57 mg/dl (0.6-1.2) L 02/09/24 BUN/Creatinine Ratio 35.1 (10-20) H 02/09/24 Glu 87 mg/dl (70-99(Fasting)) 02/09/24 Ca 8.3 mg/dl (8.6-10.3) L 02/09/24 Phosphorus Level 2.7 mg/dl (2.5-4.9) 02/09/24 Total Bilirubin 0.5 mg/dl (0.2-1.0) 02/09/24 AST 14 U/L (13-39) 02/09/24 ALT 6 U/L (7-52) L 02/09/24 Alkaline Phosphatase 69 U/L (34-104) 02/09/24 TP 5.9 gm/dl (6.0-8.3) L 02/09/24 Albumin 2.9 gm/dl (3.4-5.0) L 02/09/24 Globulin 3.0 gm/dl (2.5-4.0) 02/09/24 Albumin/Globulin Ratio 1.0 (0.9-2) 02/09/24 Mg 1.9 mg/dl (1.7-2.4) 02/09/24 03:41 Calcium Level 8.3 mg/dl (8.6-10.3) L 02/09/24 03:41 I & O Totals 24 Hours 02/08/24 02/09/24 02/10/24 06:59 06:59 06:59 Intake Total 1351.679 / 1351.679 622.362 / 622.362 155.277 / 155.277 Output Total 520 / 520 Balance 1331.679 / 1331.679 622.362 / 622.362 -364.723 / -364.723 Cumulative 01/17/24 09:52 thru 02/09/24 09:55 Intake Total 2129.318 Output Total 540 Balance 1589.318 RT Ventilator Mngmt (Last Documented) Ventilator Ordered Settings Respiratory Rate 17 02/09/24 07:06 Ventilator - PT Measurements Respiratory Rate 17 Coding Level of Care Code 35790 SUB INP/OBS CARE 2/35MIN Diagnoses Stenosis of right carotid artery I65.21 Valvular heart disease I38 Chronic diastolic congestive heart failure, NYHA class 3 I50.32 Congestive heart failure chronicity: chronic Primary hypertension I10 Hypertension type: primary hypertension Dyslipidemia E78.5 (3) Diastolic congestive heart failure, NYHA class 3 Congestive heart failure chronicity: chronic Qualified Code(s): I50.32 - Chronic diastolic (congestive) heart failure (4) Hypertension Hypertension type: primary hypertension Qualified Code(s): I10 - Essential (primary) hypertension
[2024-02-09] MEDS ORDERED: fentaNYL citrate PF 100 MCG/2 ML VIAL ONE ×2 (13:33→14:51)
--- NOTE | 2024-02-09 13:39 | Anesthesiology Consultation ---
Date of Service February 09, 2024 Assessment & Plan (1) Encounter for pre-operative examination: Plan GA with trever perez Chart Review Chart Review: Acceptable Risk for Surgery Consults Requested none ASA ASA4 Proposed Anesthesia Anesthesia Type: General Anesthesia Line Insertion: Arterial line History Surgery Operation Date: 02/07/24 10:20 Proposed Procedures p Right Transcarotid Artery Revascularization - Jaden Camarillo MD Operation Date: 02/09/24 14:20 Proposed Procedures p Re-Do Right Transcarotid Artery Revascularization - Jaden Camarillo MD Height/Weight Height: 4 ft 11 in Weight: 77.9 kg Allergies Allergy/AdvReac Type Severity Reaction Status Date / Time codeine Allergy Intermediate Temperature Verified 02/07/24 09:10 rise oxycodone AdvReac Severe "Became Verified 02/07/24 09:10 addicted to it" lactose AdvReac Verified 02/08/24 09:58 COW MILK AdvReac Mild "Gas" Uncoded 02/07/24 09:10 Medications Home Medications Medication Instructions Recorded Confirmed Last Taken acetaminophen 650 mg 325 - 650 mg PO Q6H PRN Pain 11/17/17 02/07/24 02/07/24 05:00 tablet,extended release 650 mg albuterol sulfate 90 mcg/actuation 2 puff inhalation Q6H PRN 11/17/17 02/07/24 07/01/22 08:00 aerosol inhaler (Ventolin HFA) Shortness Of Breath Or Wheezing celecoxib 200 mg capsule (Celebrex) 200 mg PO BID 11/17/17 02/07/24 01/30/24 08:00 fluticasone propionate 50 1 spray intranasal QPM PRN 11/17/17 02/07/24 11/25/22 mcg/actuation nasal allergies spray,suspension (Flonase Allergy Relief) omeprazole 20 mg tablet,delayed 20 mg PO QAM 11/17/17 02/07/24 02/07/24 05:00 release verapamil 120 mg 24 hr 120 mg PO QAM 11/23/18 02/07/24 02/07/24 05:00 capsule,extended release candesartan 8 mg tablet (Atacand) 8 mg PO QAM 01/29/21 02/07/24 02/06/24 08:00 metoprolol succinate 50 mg 50 mg PO BID 04/02/21 02/07/24 02/07/24 05:00 tablet,extended release 24 hr pramipexole 0.5 mg tablet 0.5 mg PO HS 04/02/21 02/07/24 02/06/24 20:00 escitalopram oxalate 5 mg tablet 5 mg PO QAM 05/04/22 02/07/24 02/07/24 05:00 (Lexapro) furosemide 40 mg tablet 60 mg PO QAM 05/28/22 02/07/24 02/06/24 08:00 calcium carbonate 500 mg PO Q6H PRN Indigestion 10/28/22 02/07/24 11/25/22 cholecalciferol (vitamin D3) 50 50 mcg PO HS 10/28/22 02/07/24 02/06/24 08:00 mcg (2,000 unit) capsule (Vitamin D3) aspirin 81 mg capsule 81 mg PO DAILY 01/17/24 02/07/24 02/07/24 05:00 atorvastatin 40 mg tablet (Lipitor) 40 mg PO DAILY 01/17/24 02/07/24 02/06/24 20:00 potassium chloride 10 mEq 10 meq PO DAILY 01/17/24 02/07/24 02/06/24 08:00 capsule,extended release vitamin B12 1,000 mcg-folic acid 1 tab sublingual DAILY 01/17/24 02/07/24 02/06/24 08:00 400 mcg sublingual tablet clopidogrel 75 mg tablet (Plavix) 75 mg PO DAILY 02/07/24 02/07/24 02/07/24 05:00 Active Medications Generic Name Dose Route Start Last Admin Trade Name Buffy PRN Reason Stop Dose Admin Aspirin 81 mg 02/08/24 09:00 02/09/24 07:37 Aspirin 81 Mg Ectab PO 03/09/24 08:59 81 mg DAILY DANNY Administration Atorvastatin Calcium 40 mg 02/08/24 09:00 02/09/24 07:32 Atorvastatin 40 Mg Tab PO 03/09/24 08:59 40 mg DAILY DANNY Administration Calcium Carbonate 500 mg 02/07/24 16:24 02/08/24 09:01 Calcium Carbonate 500 Mg Chewable Tab PO 03/08/24 16:23 500 mg Q6H PRN Administration Indigestion Celecoxib 200 mg 02/07/24 21:00 02/09/24 11:50 Celebrex 200 Mg Cap PO 03/08/24 20:59 Not Given BID DANNY Clopidogrel Bisulfate 75 mg 02/08/24 09:00 02/09/24 07:37 Clopidogrel Bisulfate 75 Mg Tab PO 03/09/24 08:59 75 mg DAILY DANNY Administration Cyanocobalamin 1,000 mcg 02/08/24 09:00 02/09/24 07:32 Cyanocobalamin (B-12) 500 Mcg Tablet PO 03/09/24 08:59 1,000 mcg DAILY DANNY Administration Escitalopram Oxalate 5 mg 02/08/24 09:00 02/09/24 07:33 Escitalopram Oxalate 10 Mg Tab PO 03/09/24 08:59 5 mg QAM DANNY Administration Fluticasone Propionate 1 sprays 02/07/24 15:22 02/09/24 07:38 Fluticasone Propionate Na Spr 16 Gm Btl NA 03/08/24 15:21 1 sprays QPM PRN Administration allergies Folic Acid 400 mcg 02/08/24 09:00 02/09/24 07:37 Folic Acid 400 Mcg Tab PO 03/09/24 08:59 400 mcg DAILY DANNY Administration Furosemide 60 mg 02/08/24 09:00 02/09/24 07:32 Furosemide 20 Mg Tab PO 03/09/24 08:59 60 mg QAM DANNY Administration Phenylephrine HCl 25 mg in 250 mls @ 22.779 mls/hr 02/07/24 15:22 02/09/24 07:04 Phenylephrine/Nss IV 03/08/24 15:21 0.1 mcg/kg/min .[id number] PRN 4.6 mls/hr For SBP below 100 Titration Protocol 0.5 MCG/KG/MIN Midodrine 5 mg 02/08/24 12:00 02/09/24 12:50 Midodrine Hcl 2.5 Mg Tab PO 03/09/24 11:59 5 mg TID@0800,1200,1700 DANNY Administration Pantoprazole Sodium 40 mg 02/08/24 09:00 02/09/24 07:33 Pantoprazole 40 Mg Tab PO 03/09/24 08:59 40 mg QAM DANNY Administration Potassium Chloride 10 meq 02/08/24 09:00 02/09/24 07:40 Potassium Chloride 10 Meq Tabcr PO 03/09/24 08:59 10 meq DAILY DANNY Administration Pramipexole Dihydrochloride 0.5 mg 02/07/24 21:00 02/08/24 20:20 Pramipexole Dihydrochlo 0.5 Mg Tab PO 03/08/24 20:59 0.5 mg HS DANNY Administration Tramadol HCl 50 mg 02/07/24 15:22 02/09/24 07:56 Tramadol Hcl 50 Mg Tablet PO 03/08/24 15:21 50 mg Q4H PRN Administration Pain Vitamin D 50 mcg 02/07/24 21:00 02/08/24 20:20 Cholecalciferol 25 Mcg (1000 Units) Tab PO 03/08/24 20:59 50 mcg HS DANNY Administration NPO Date Last Intake of Fluids: 02/09/24 Time Last Intake of Fluids: 08:00 Last Intake of Fluids Comment: Sips of water with medications Date Last Intake of Solids: 02/08/24 Time Last Intake of Solids: 21:00 Past Medical History Medical History Chronic neck pain Poor historian Arthritis Limb alert care status left Dyspnea on exertion chronic, denies change or worsening SVT (supraventricular tachycardia) "palpitations occasionally" - follows with kumar Bilateral edema of lower extremity chronic, denies change or worsening Moderate aortic stenosis DSE 05/19/22: Moderate aortic stenosis (ROB 1.4-1.6cm2, MG 7.8mmhg) Dyslipidemia Heart failure with preserved ejection fraction History of COVID-19 (06/2022) 06/2022- "mild cold symptoms" > resolved Asthma Cystocele, midline Carpal tunnel syndrome surgery 2022-Residual right finger numbness Osteoarthritis Sciatic nerve disease Chronic back pain GERD (gastroesophageal reflux disease) Well controlled and stable Breast cancer, left (1996) "Status post left breast cancer 1996 treated with lumpectomy followed by radiation therapy Self detected left breast mass April 2016 Status post mammogram followed by core needle biopsy 05/07/2016 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, progesterone receptor positive, HER-2/wendy positive" Hearing deficit b/l hearing aids Restless leg syndrome Hyperlipidemia Hypertension controlled, stable per pt Atrial fibrillation per hx, pt unsure, Follows with EUGEN[facility] cardio Sleep apnea CPAP (compliant) Exercise / Class Metabolic Activity III < 4 Walking/Shop/Light housework Past Surgical History Surgical History Status post left knee replacement (12/2022) History of right hip replacement (07/02/22) Right MERRITT S/P epidural steroid injection History of carpal tunnel surgery of right wrist History of back surgery Lumbar cyst removal H/O left breast biopsy (1997) ("malignant") History of left mastectomy (2015) Left limb restriction History of lumpectomy of left breast 1997 History of tonsillectomy and adenoidectomy Past Anesthesia History No Hx of Anesthesia Complications History of PONV No Hx of PONV Social History Smoking Status: Never smoker Do You Dip or Chew Tobacco: No Hx Alcohol Use: Yes Alcohol type: wine alcohol intake frequency: a few times a month Hx Substance Use: No substance use type: does not use Review of Systems Neurologic: as per Subjective / HPI Physical Exam Vital Signs Last Vital Signs Temp 36.6 C 02/09/24 00:13 Pulse 57 L 02/09/24 12:27 Resp 19 02/09/24 12:27 BP 135/56 L 02/09/24 12:30 Pulse Ox 95 02/09/24 12:27 O2 Del Method Nasal Cannula 02/09/24 07:30 O2 Flow Rate 3 02/09/24 07:30 Constitutional + obese ENMT Mouth: no dentition abnormality Thyromental Distance: > or= 3.5 Finger Breadths Mallampati Class: III Respiratory normal respiratory effort Cardiovascular Rate/Rhythm: regular rate Neurologic moves all extremities diminished strength 3-4/5 upper,4/5 lower CN 2-12 grosely intact Testing Laboratory Results 02/09/24 03:41 02/09/24 03:41 PT 11.1 Seconds (9.0-12.0) 02/08/24 09:00 INR 1.0 (0.9-1.1) 02/08/24 09:00 APTT 26 Seconds (21-31) 02/08/24 09:00 Blood Type AB Positive 02/07/24 08:47 Antibody Screen NEGATIVE 02/07/24 08:47 02/09/24 02/09/24 02/08/24 11:41 05:28 18:31 POC Glucose 86 83 POC Glucose (other) 113 H Electrocardiogram Date: 01/18/24 NSR, rate 67 bpm Chest X-Ray Date: 07/06/23 No acute chest disease and no evidence of left rib fracture. Echocardiogram Date: 01/06/24 EF 65-70% No LV regional wall motion abnormalities Mild cLVH Grade II diastolic dysfunction Moderate valvular aortic stenosis (ROB 1.2 cm2, mean gradient 11.4 mmHg) Moderate aortic regurgitation Mild to moderate mitral regurgitation Moderately dilated LA Stress Test Date: 05/19/22 Negative dobutamine stress echo for myocardial ischemia MPHR 91% Sporadic PVCs at baseline with a 4 beat run of ventricular tachycardia during stress EF 60% Mildly dilated LA Mild cLVH Mild mitral regurgitation Moderate aortic valve stenosis Mild aortic valve insufficiency Mild tricuspid regurgitation Other Testing Neck CTA 12/29/23 1. Mild atherosclerosis of the right carotid bulb with resultant high-grade stenosis of the proximal cervical segment right ICA. 2. Short segment high-grade stenosis of the V4 segment left vertebral artery. 3. No dissection or arterial occlusion identified. Brain MRI 12/04/23 1. No acute intracranial abnormality. 2. Question an abnormal left vertebral artery flow-void at the skull base. This may be artifactual or related to slow flow. If warranted this could be further assessed with a CT angiogram of the neck. Carotid doppler 11/25/23 1. There is evidence of greater than 70% stenosis of the right internal carotid artery by velocity criteria. 2. There is no sonographic evidence of hemodynamically significant stenosis involving the left carotid arterial system. 3. Antegrade flow is shown in the vertebral arteries.
[2024-02-09] MEDS: ceFAZolin 2000MG 2,000 MG/15 ML SYR IV ONE (14:36)
[2024-02-09] MEDS ORDERED: PROTAMINE SULFATE 10 MG/ML 5 ML VIAL IV ONE (15:16)
[2024-02-09] MEDS ORDERED: SUGAMMADEX SODIUM 200 MG/2 ML VIAL IV ONE (15:17)
[2024-02-09] MEDS: VISIPAQUE IV ONE (15:17)
[2024-02-09] MEDS: THROMBIN FOR SOLN 20000 UNIT KIT ONE (15:18)
[2024-02-09] MEDS: GELATIN SPONGE SZ 100 ONE (15:19)
--- NOTE | 2024-02-09 15:45 | Post Operative Brief Note ---
Immediate Post Op Note Date of Surgery February 09, 2024 Pre & Post Diagnosis Operation Date: 02/09/24 14:20 Pre-Op Diagnosis: Right Common Carotid Artery Dissection Post-Op Diagnosis: Right Common Carotid Artery Dissection I identified the patient and participated in the time-out.: Yes Procedure Operation Date: 02/09/24 14:20 Actual Procedures p Re-Do Right Transcarotid Artery Revascularization, Ultrasound localization of left common femoral vein - Jaden Camarillo MD Surgeon Jaden Camarillo MD Pin Chaser DO Anjelica Estimated Blood Loss 20 Findings Consistent with Post-Op Diagnosis Drains De La Vega Catheter Anesthesia Type General Complications none Disposition Accompanied Patient To Recovery: No Disposition: Surgical ICU
[2024-02-09] MEDS: ceFAZolin 330 MG/ML 1 GM VIAL ONE (15:48)
[2024-02-09] MEDS: SURGICEL ABSORB HEMOSTAT 2IN X 14IN TOP ONE (15:55)
[2024-02-09] MEDS: BUPIVACAINE/EPINEPHRINE 0.5% MPF 1:200,000 30 ML VIAL ONE (16:06)
--- NOTE | 2024-02-09 16:22 | Operative Report ---
Post Operative Report Pre & Post Diagnosis Operation Date: 02/09/24 14:20 Pre-Op Diagnosis: Right Common Carotid Artery Dissection Post-Op Diagnosis: Right Common Carotid Artery Dissection I identified the patient and participated in the time-out.: Yes Procedure Operation Date: 02/09/24 14:20 Actual Procedures Procedure p Re-Do Right Transcarotid Artery Revascularization, Ultrasound localization of left common femoral vein - Jaden Camarillo MD Surgeon Jaden Camarillo MD Vegetable Buncher DO Anjelica Estimated Blood Loss 20 Findings Consistent with Post-Op Diagnosis On pre intervention angiography a dissection flap was noted proximal to prior R carotid stent with luminal narrowing within the stent. Following relining and extension of the stent, no residual narrowing or dissection was noted. The ICA was patent. Fluids Per anesthesia report Specimens No specimen Drains No drain Anesthesia Type General Complications None apparent at case conclusion Indications R carotid stenosis with dissection Description of Procedure The patient was brought to the operating room, where lines were placed and general anesthesia was accomplished by anesthesia team. A shoulder roll was placed and the neck was rotated towards the left side of the patient. The right neck and left groin were prepped and patient was draped in the usual sterile fashion. A timeout was performed identifying the correct patient by name, procedure, and location of procedure and all were in agreement. A 4cm transverse incision was made between the sternal and clavicular heads of the sternocleidomastoid muscle. The muscle heads were retracted to each side and the carotid sheath was identified. Using blunt dissection, the carotid sheath was opened and 3cm of common carotid artery (CCA) were isolated. Umbilical tape was placed around the proximal CCA under direct visualization. A 5-0 prolene U- stitch was pre-placed in the anterior wall of the CCA proximal to prior access site to facilitate hemostasis after removal of the arterial sheath at completion of the procedure. The patient was given 8000 units of IV heparin. The contralateral (left) common femoral vein was accessed under ultrasound guidance, using a micropuncture needle and a wire and sheath were placed using modified Seldinger technique. The venous return sheath was advanced into the common femoral vein over the 0.035" wire. Blood was aspirated from the flow line and the sheath was flushed with heparinized saline.The sheath was secured to the patient's skin with a 2-0 silk stitch to maintain position in the vessel. ACT was confirmed to be above 250 seconds prior to arterial access. A 4-Hebrew non- stiffened micropuncture set was used, puncturing the artery with a 21G needle through the pre-placed U-stitch while holding gentle traction on the umbilical tape to stabilize the CCA within the incision. The micropuncture wire was advanced 3-4cm into the CCA and the 21G needle removed. The micropuncture sheath was advanced 3cm into the CCA and the wire and dilator were removed. A cerebral angiogram was obtained after ensuring there were no air bubbles in the system. The J-tipped guidewire was inserted and passed to the proximal portion of the patient's prior stent. After micropuncture sheath removal, the transcarotid arterial sheath was advanced to the 3rd marker and the 0.035" wire and dilator were removed. Arterial sheath position was assessed under fluoroscopy. The arterial sheath was sutured to the patient at two sites. The Flow Controller was connected to the transcarotid arterial sheath, prepared by passively allowing arterial blood to backfill the line and then it was connected to the venous return sheath. The CCA was clamped proximally with a Yoko tourniquet to ensure active flow reversal. Heparinized saline was delivered into the venous flow line to confirm adequate flow reversal. A TCAR timeout was performed, heart rate was >70bpm and systolic BP was >140mmHg. Patient had been pretreated with glycopyrrolate and atropine was available. The lesion was crossed with an 0.014" guidewire. Pre-dilation balloon angioplasty was not performed. A 9/7x30mm ENROUTE transcarotid stent was placed within the prior stent. A second 9x30mm ENROUTE stent was placed to extend proximally. A completion angiogram was performed showing appropriate stent position with good wall apposition and no residual dissection or luminal narrowing was appreciated. Post-dilation balloon angioplasty was performed with a 6x35mm silkroad balloon. At TCAR case completion, antegrade flow was restored by releasing the tourniquet on the CCA and closing the stopcocks to the flow lines. The total clamp time was 15 minutes. The transcarotid arterial sheath was removed and the pre-placed suture was tied. 25 of protamine were given. A repeat ACT was obtained and was 141. The venous return sheath was removed and hemostasis achieved with manual compression. The neck incision was irrigated with antibiotic solution and was hemostatic before closure. 10cc of 0.25% marcaine with epinephrine were used for local anesthesia around skin edges. The platysma was approximated with 3-0 Vicryl running suture and the skin was closed with 4-0 running Vicryl suture and covered with Dermabond. The patient tolerated the procedure well and was extubated in the operating room. She was moving all four extremities to command prior to transfer to the recovery room. All counts were correct at the end of the procedure. Fluoroscopy time was 3.7minutes, radiation dose was 84mGy and 10cc of contrast were used. Dr. Camarillo was present and participated in all critical parts of the procedure. I attest to the content of the Intraoperative Record and any orders documented therein. Any exceptions are noted below.
--- NOTE | 2024-02-09 16:28 | Anesthesiology Progress Note ---
Date of Service February 09, 2024 Anesthesia Post Procedure Vital Signs Vital Signs: Temp Pulse Resp BP Pulse Ox O2 Del Method O2 Flow Rate 02/09/24 12:30 135/56 L 02/09/24 12:27 57 L 19 95 02/09/24 12:06 60 12 94 02/09/24 12:00 126/55 L 02/09/24 12:00 115/39 L 02/09/24 11:51 64 14 96 02/09/24 11:15 61 17 02/09/24 10:30 140/67 02/09/24 10:27 59 L 16 02/09/24 10:01 163/65 H 02/09/24 10:01 163/65 H 02/09/24 10:00 60 17 02/09/24 09:30 154/72 H 02/09/24 09:30 154/72 H 02/09/24 09:30 154/72 H 02/09/24 09:27 60 13 97 02/09/24 09:09 58 L 22 97 02/09/24 09:00 157/69 H 02/09/24 09:00 157/69 H 02/09/24 08:57 56 L 19 97 02/09/24 08:30 151/63 H 02/09/24 08:24 57 L 18 96 02/09/24 08:09 57 L 14 96 02/09/24 08:01 149/70 H 02/09/24 08:00 133/47 L 02/09/24 07:51 64 21 96 02/09/24 07:30 153/62 H 02/09/24 07:30 Nasal Cannula 3 02/09/24 07:27 59 L 17 96 02/09/24 07:06 61 17 95 02/09/24 07:00 145/65 H 02/09/24 06:54 65 20 97 02/09/24 06:51 59 L 14 95 02/09/24 06:30 140/61 02/09/24 06:30 140/61 02/09/24 06:21 57 L 23 93 02/09/24 06:03 59 L 22 95 02/09/24 06:00 139/63 02/09/24 05:36 59 L 14 96 02/09/24 05:30 59 L 17 97 02/09/24 05:30 149/64 H 02/09/24 05:30 149/64 H 02/09/24 05:30 149/64 H 02/09/24 05:09 64 19 97 02/09/24 04:30 60 19 95 02/09/24 04:30 140/61 02/09/24 04:03 56 L 24 94 02/09/24 04:00 143/64 H 02/09/24 04:00 143/64 H 02/09/24 03:51 56 L 19 94 02/09/24 03:39 61 17 96 02/09/24 03:09 57 L 20 95 02/09/24 03:00 146/63 H 02/09/24 02:30 168/65 H 02/09/24 02:18 57 L 22 94 02/09/24 02:00 58 L 19 96 02/09/24 02:00 153/66 H 02/09/24 02:00 153/66 H 02/09/24 01:33 56 L 21 95 02/09/24 01:30 147/59 H 02/09/24 01:30 147/59 H 02/09/24 01:30 147/59 H 02/09/24 01:27 58 L 22 93 02/09/24 01:03 60 90 02/09/24 01:00 143/63 H 02/09/24 01:00 143/63 H 02/09/24 00:48 57 L 21 93 02/09/24 00:42 61 17 90 02/09/24 00:13 36.6 C 02/09/24 00:09 57 L 16 93 02/09/24 00:00 53 L 02/08/24 23:33 58 L 19 91 02/08/24 23:30 140/61 02/08/24 23:30 140/61 02/08/24 23:24 58 L 19 93 02/08/24 23:12 58 L 17 91 02/08/24 23:00 138/58 L 02/08/24 22:54 60 20 90 02/08/24 22:36 61 21 90 02/08/24 22:30 150/80 H 02/08/24 22:30 150/80 H 02/08/24 22:18 72 21 02/08/24 22:01 163/90 H 02/08/24 22:00 65 17 94 02/08/24 21:33 58 L 21 92 02/08/24 21:30 150/67 H 02/08/24 21:27 58 L 93 02/08/24 21:12 61 24 91 02/08/24 21:00 169/68 H 02/08/24 20:51 60 19 93 02/08/24 20:33 58 L 14 95 02/08/24 20:30 144/62 H 02/08/24 20:30 144/62 H 02/08/24 20:27 70 95 02/08/24 20:09 56 L 13 96 02/08/24 20:00 166/67 H Nasal Cannula 2 02/08/24 19:30 Nasal Cannula 2 02/08/24 19:30 143/63 H 02/08/24 19:30 143/63 H 02/08/24 19:30 36.4 C L 02/08/24 19:12 65 16 95 02/08/24 19:06 57 L 19 95 02/08/24 19:00 148/60 H Nasal Cannula 2 02/08/24 18:36 56 L 13 96 02/08/24 18:30 145/64 H 02/08/24 18:27 59 L 15 96 02/08/24 18:09 59 L 20 94 02/08/24 18:00 133/55 L 02/08/24 18:00 133/55 L 02/08/24 17:57 59 L 20 95 02/08/24 17:30 59 L 14 94 02/08/24 17:30 123/58 L 02/08/24 17:21 55 L 17 96 02/08/24 17:11 103/58 L 02/08/24 16:51 62 16 92 02/08/24 16:30 145/60 H 02/08/24 16:30 145/60 H 02/08/24 16:30 145/60 H 02/08/24 16:30 145/60 H 02/08/24 16:30 67 15 89 L 02/08/24 16:30 36.6 C Pain Intensity Right 3rd Digit Toe: Pain Intensity: 6 Notes Mental Status: alert / awake / arousable Patient Amnestic to Procedure: Yes Nausea / Vomiting: adequately controlled Pain: adequately controlled Airway Patency, RR, SpO2: stable & adequate BP & HR: stable & adequate Hydration State: stable & adequate Anesthetic Complications: no major complications apparent Notes: Direct to ICU full report given
--- NOTE | 2024-02-09 22:14 | Anesthesiology Progress Note ---
Date of Service February 09, 2024 Anesthesia Post Procedure Vital Signs Vital Signs: Temp Pulse Resp BP Pulse Ox O2 Del Method O2 Flow Rate 02/09/24 17:30 63 14 94 02/09/24 17:30 138/57 L 02/09/24 17:15 155/64 H 02/09/24 17:15 64 16 95 02/09/24 16:54 64 14 97 02/09/24 16:53 36.9 C 02/09/24 16:50 179/76 H 02/09/24 16:40 200/79 H 96 6 02/09/24 16:39 71 16 97 8 02/09/24 16:36 210/89 H 02/09/24 16:36 210/89 H 02/09/24 16:36 65 20 98 02/09/24 16:27 78 28 H 94 10 02/09/24 12:30 135/56 L 02/09/24 12:27 57 L 19 95 02/09/24 12:06 60 12 94 02/09/24 12:00 126/55 L 02/09/24 12:00 115/39 L 02/09/24 11:51 64 14 96 02/09/24 11:15 61 17 02/09/24 10:30 140/67 02/09/24 10:27 59 L 16 02/09/24 10:01 163/65 H 02/09/24 10:01 163/65 H 02/09/24 10:00 60 17 02/09/24 09:30 154/72 H 02/09/24 09:30 154/72 H 02/09/24 09:30 154/72 H 02/09/24 09:27 60 13 97 02/09/24 09:09 58 L 22 97 02/09/24 09:00 157/69 H 02/09/24 09:00 157/69 H 02/09/24 08:57 56 L 19 97 02/09/24 08:30 151/63 H 02/09/24 08:24 57 L 18 96 02/09/24 08:09 57 L 14 96 02/09/24 08:01 149/70 H 02/09/24 08:00 133/47 L 02/09/24 07:51 64 21 96 02/09/24 07:30 153/62 H 02/09/24 07:30 Nasal Cannula 3 12/19/24 07:27 59 L 17 96 02/09/24 07:06 61 17 95 02/09/24 07:00 145/65 H 02/09/24 06:54 65 20 97 02/09/24 06:51 59 L 14 95 02/09/24 06:30 140/61 02/09/24 06:30 140/61 02/09/24 06:21 57 L 23 93 02/09/24 06:03 59 L 22 95 02/09/24 06:00 139/63 02/09/24 05:36 59 L 14 96 02/09/24 05:30 59 L 17 97 02/09/24 05:30 149/64 H 02/09/24 05:30 149/64 H 02/09/24 05:30 149/64 H 02/09/24 05:09 64 19 97 02/09/24 04:30 60 19 95 02/09/24 04:30 140/61 02/09/24 04:03 56 L 24 94 02/09/24 04:00 143/64 H 02/09/24 04:00 143/64 H 02/09/24 03:51 56 L 19 94 02/09/24 03:39 61 17 96 02/09/24 03:09 57 L 20 95 02/09/24 03:00 146/63 H 02/09/24 02:30 168/65 H 02/09/24 02:18 57 L 22 94 02/09/24 02:00 58 L 19 96 02/09/24 02:00 153/66 H 02/09/24 02:00 153/66 H 02/09/24 01:33 56 L 21 95 02/09/24 01:30 147/59 H 02/09/24 01:30 147/59 H 02/09/24 01:30 147/59 H 02/09/24 01:27 58 L 22 93 02/09/24 01:03 60 90 02/09/24 01:00 143/63 H 02/09/24 01:00 143/63 H 02/09/24 00:48 57 L 21 93 02/09/24 00:42 61 17 90 02/09/24 00:13 36.6 C 02/09/24 00:09 57 L 16 93 02/09/24 00:00 53 L 02/08/24 23:33 58 L 19 91 02/08/24 23:30 140/61 02/08/24 23:30 140/61 02/08/24 23:24 58 L 19 93 02/08/24 23:12 58 L 17 91 02/08/24 23:00 138/58 L 02/08/24 22:54 60 20 90 02/08/24 22:36 61 21 90 02/08/24 22:30 150/80 H 02/08/24 22:30 150/80 H 02/08/24 22:18 72 21 Pain Intensity Right 3rd Digit Toe: Pain Intensity: 6 Transfer of Care Handoff Completed per policy Notes Mental Status: alert / awake / arousable and participated in evaluation Patient Amnestic to Procedure: Yes Nausea / Vomiting: adequately controlled Pain: adequately controlled Airway Patency, RR, SpO2: stable & adequate BP & HR: stable & adequate Hydration State: stable & adequate Anesthetic Complications: no major complications apparent and Pt Satisfied with anesthetic care
--- NOTE | 2024-02-10 08:18 | Critical Care Progress Note ---
Date of Service February 10, 2024 Assessment & Plan (1) Stenosis of right carotid artery: (2) Valvular heart disease: (3) Diastolic congestive heart failure, NYHA class 3: (4) Hypertension: (5) Dyslipidemia: Plan Impression: 88-year-old female with complicated medical history presenting for symptomatic right carotid stenosis status post TCAR. Her care was complicated by dissection requiring return to the OR for overlapping stent placement. Her blood pressures have now been well-controlled. Recommendations: 1. Status post TCAR: Management per vascular surgery. Antiplatelet and anticoagulation per vascular surgery 2. Small dissection at the site of the TCAR. Resolved with repeat stent. 3. Postprocedural hypotension: Resolved. Can judiciously restart antihypertensives as tolerated 4. Initiate physical therapy and Occupational Therapy. Out of bed to chair as tolerated. 5. Patient requires rehab and may require placement. Will wait and see how she does. Discussed with vascular surgery. She is okay to transfer out of the ICU but requires some fine-tuning. Will consult hospitalist and asked them to assume primary attending duties as her vascular issues have been resolved. Critical care will sign off. Above recommendations and plan were discussed with the patient as well as with bedside nurse. Admission and Anticipated Discharge Date Admission Date: February 07, 2024 Subjective Patient seen and examined. EMR reviewed. Discussed with vascular surgery and with bedside critical care nurse. Patient is doing reasonably well. She is weak and debilitated. Her blood pressure has been stable and she has been off vasoactive medications. She has no new neurological deficits. Review of Systems Review of Systems: All systems reviewed & are unremarkable except as noted in Subjective Physical Exam Constitutional: WD/WN, vitals as above Neck: trachea midline, no thyromegaly Respiratory: normal respiratory effort, lungs clear to auscultation Cardiovascular: RRR, no murmur, no edema Gastrointestinal (Abdomen): normal bowel sounds, soft, nontender, no hepatosplenomegaly Musculoskeletal: Extremities: extremities normal to inspection Skin: no rashes, warm and dry Lymphatic: no cervical lymphadenopathy Results & Data Results & Data Vital Signs (Past 12 Hours) Vital Signs Temp Pulse Resp BP Pulse Ox 02/10/24 05:42 90 21 93 02/10/24 05:36 91 H 12 93 02/10/24 05:21 94 H 20 92 02/10/24 05:12 90 19 92 02/10/24 05:06 90 12 93 02/10/24 04:42 96 H 19 93 02/10/24 04:30 97 H 23 92 02/10/24 04:21 91 H 24 92 02/10/24 04:18 89 20 93 02/10/24 04:09 88 18 94 02/10/24 04:00 139/57 L 02/10/24 04:00 139/57 L 02/10/24 04:00 139/57 L 02/10/24 04:00 139/57 L 02/10/24 03:45 100 H 23 94 02/10/24 03:42 93 H 20 93 02/10/24 03:30 92 H 21 94 02/10/24 03:24 95 H 23 93 02/10/24 03:00 96 H 20 93 02/10/24 02:42 91 H 23 92 02/10/24 02:30 96 H 20 93 02/10/24 02:24 96 H 18 92 02/10/24 02:09 90 19 90 02/10/24 01:45 88 19 93 02/10/24 01:33 89 22 90 02/10/24 01:24 36.8 C 02/10/24 01:12 82 17 92 02/10/24 01:00 123/52 L 02/10/24 01:00 123/52 L 02/10/24 01:00 123/52 L 02/10/24 01:00 123/52 L 02/10/24 01:00 82 18 91 02/10/24 00:51 84 17 92 02/10/24 00:42 84 92 02/10/24 00:33 86 91 02/10/24 00:21 85 92 02/10/24 00:12 91 H 93 02/10/24 00:00 80 91 02/10/24 00:00 136/59 L 02/10/24 00:00 136/59 L 02/10/24 00:00 136/59 L 02/09/24 23:54 82 90 02/09/24 23:48 83 91 02/09/24 23:36 82 90 02/09/24 23:24 76 92 02/09/24 23:12 78 90 02/09/24 23:06 79 91 02/09/24 23:00 134/56 L 02/09/24 23:00 134/56 L 02/09/24 22:57 78 91 02/09/24 22:51 79 90 02/09/24 22:48 78 90 02/09/24 22:30 75 93 02/09/24 22:24 73 94 02/09/24 22:15 70 94 02/09/24 22:09 76 94 02/09/24 22:00 139/59 L 02/09/24 21:57 71 95 02/09/24 21:30 69 94 02/09/24 21:30 141/55 H 02/09/24 21:30 141/55 H 02/09/24 21:30 141/55 H 02/09/24 21:21 71 95 02/09/24 21:00 134/53 L 02/09/24 20:59 68 20 95 02/09/24 20:53 67 20 95 02/09/24 20:46 128/51 L 02/09/24 20:44 65 17 95 02/09/24 20:41 64 19 95 02/09/24 20:38 62 17 93 Critical Care Results & Data Vital Signs (Past 12 Hours) Vital Signs Temp Pulse Resp BP Pulse Ox 02/10/24 05:42 90 21 93 02/10/24 05:36 91 H 12 93 02/10/24 05:21 94 H 20 92 02/10/24 05:12 90 19 92 02/10/24 05:06 90 12 93 02/10/24 04:42 96 H 19 93 02/10/24 04:30 97 H 23 92 02/10/24 04:21 91 H 24 92 02/10/24 04:18 89 20 93 02/10/24 04:09 88 18 94 02/10/24 04:00 139/57 L 02/10/24 04:00 139/57 L 02/10/24 04:00 139/57 L 02/10/24 04:00 139/57 L 02/10/24 03:45 100 H 23 94 02/10/24 03:42 93 H 20 93 02/10/24 03:30 92 H 21 94 02/10/24 03:24 95 H 23 93 02/10/24 03:00 96 H 20 93 02/10/24 02:42 91 H 23 92 02/10/24 02:30 96 H 20 93 02/10/24 02:24 96 H 18 92 02/10/24 02:09 90 19 90 02/10/24 01:45 88 19 93 02/10/24 01:33 89 22 90 02/10/24 01:24 36.8 C 02/10/24 01:12 82 17 92 02/10/24 01:00 123/52 L 02/10/24 01:00 123/52 L 02/10/24 01:00 123/52 L 02/10/24 01:00 123/52 L 02/10/24 01:00 82 18 91 02/10/24 00:51 84 17 92 02/10/24 00:42 84 92 02/10/24 00:33 86 91 02/10/24 00:21 85 92 02/10/24 00:12 91 H 93 02/10/24 00:00 80 91 02/10/24 00:00 136/59 L 02/10/24 00:00 136/59 L 02/10/24 00:00 136/59 L 02/09/24 23:54 82 90 02/09/24 23:48 83 91 02/09/24 23:36 82 90 02/09/24 23:24 76 92 02/09/24 23:12 78 90 02/09/24 23:06 79 91 02/09/24 23:00 134/56 L 02/09/24 23:00 134/56 L 02/09/24 22:57 78 91 02/09/24 22:51 79 90 02/09/24 22:48 78 90 02/09/24 22:30 75 93 02/09/24 22:24 73 94 02/09/24 22:15 70 94 02/09/24 22:09 76 94 02/09/24 22:00 139/59 L 02/09/24 21:57 71 95 02/09/24 21:30 69 94 02/09/24 21:30 141/55 H 02/09/24 21:30 141/55 H 02/09/24 21:30 141/55 H 02/09/24 21:21 71 95 02/09/24 21:00 134/53 L 02/09/24 20:59 68 20 95 02/09/24 20:53 67 20 95 02/09/24 20:46 128/51 L 02/09/24 20:44 65 17 95 02/09/24 20:41 64 19 95 02/09/24 20:38 62 17 93 Lab & Micro Results (Past 24 Hours) No Data to Display No Data to Display No Data to Display I & O Totals 24 Hours 02/09/24 02/10/24 02/11/24 06:59 06:59 06:59 Intake Total 622.362 / 100.908 4415.940 / 1309.940 Output Total 2570 / 2570 Balance 622.362 / 622.362 -1260.060 / -1260.060 Cumulative 01/17/24 09:52 thru 02/10/24 05:57 Intake Total 3283.981 Output Total 2590 Balance 693.981 RT Ventilator Mngmt (Last Documented) Ventilator Ordered Settings Respiratory Rate 21 02/10/24 05:42 Ventilator - PT Measurements Respiratory Rate 21 Coding Level of Care Code 62613 SUB INP/OBS CARE 2/35MIN Diagnoses Stenosis of right carotid artery I65.21 Valvular heart disease I38 Chronic diastolic congestive heart failure, NYHA class 3 I50.32 Congestive heart failure chronicity: chronic Primary hypertension I10 Hypertension type: primary hypertension Dyslipidemia E78.5 (3) Diastolic congestive heart failure, NYHA class 3 Congestive heart failure chronicity: chronic Qualified Code(s): I50.32 - Chronic diastolic (congestive) heart failure (4) Hypertension Hypertension type: primary hypertension Qualified Code(s): I10 - Essential (primary) hypertension
--- NOTE | 2024-02-10 09:27 | Surgery Progress Note ---
Date of Service February 10, 2024 Assessment & Plan (1) Dissection of right carotid artery: Plan: Pt now POD #1 after redo R TCAR. Tachycardic today, but otherwise stable. No new sx/events. D/C to rehab when medically stable per medical team. Admission and Anticipated Discharge Date Admission Date: February 07, 2024 Subjective 88 yo f POD #1 after redo R TCAR, seen in f/u today. She previously had her original R TCAR 3 days ago and was noted to have a R carotid dissection requiring a redo. Pt states feeling ok, but tired and weak. Pt mildly confused. Review of Systems Review of Systems: All systems reviewed & are unremarkable except as noted in HPI & below Physical Exam Constitutional: WD/WN, vitals as above Respiratory: normal respiratory effort; no respiratory distress Cardiovascular: Rate/Rhythm: regular rate and regular rhythm Skin: + incision (dry and clean) Neurologic: CN's II-XI intact bilaterally and moves all extremities Results & Data Vital Signs (Past 12 Hours) Vital Signs Temp Pulse Pulse Resp BP BP Pulse Ox 02/10/24 07:00 36.5 C 99 H 20 126/72 95 02/10/24 05:42 90 21 93 02/10/24 05:36 91 H 12 93 02/10/24 05:21 94 H 20 92 02/10/24 05:12 90 19 92 02/10/24 05:06 90 12 93 02/10/24 04:42 96 H 19 93 02/10/24 04:30 97 H 23 92 02/10/24 04:21 91 H 24 92 02/10/24 04:18 89 20 93 02/10/24 04:09 88 18 94 02/10/24 04:00 139/57 L 02/10/24 04:00 139/57 L 02/10/24 04:00 139/57 L 02/10/24 04:00 139/57 L 02/10/24 03:45 100 H 23 94 02/10/24 03:42 93 H 20 93 02/10/24 03:30 92 H 21 94 02/10/24 03:24 95 H 23 93 02/10/24 03:00 96 H 20 93 02/10/24 02:42 91 H 23 92 02/10/24 02:30 96 H 20 93 02/10/24 02:24 96 H 18 92 02/10/24 02:09 90 19 90 02/10/24 01:45 88 19 93 02/10/24 01:33 89 22 90 02/10/24 01:24 36.8 C 02/10/24 01:12 82 17 92 02/10/24 01:00 123/52 L 02/10/24 01:00 123/52 L 02/10/24 01:00 123/52 L 02/10/24 01:00 123/52 L 02/10/24 01:00 82 18 91 02/10/24 00:51 84 17 92 02/10/24 00:42 84 92 02/10/24 00:33 86 91 02/10/24 00:21 85 92 02/10/24 00:12 91 H 93 02/10/24 00:00 80 91 02/10/24 00:00 136/59 L 02/10/24 00:00 136/59 L 02/10/24 00:00 136/59 L 02/09/24 23:54 82 90 02/09/24 23:48 83 91 02/09/24 23:36 82 90 02/09/24 23:24 76 92 02/09/24 23:12 78 90 02/09/24 23:06 79 91 02/09/24 23:00 134/56 L 02/09/24 23:00 134/56 L 02/09/24 22:57 78 91 02/09/24 22:51 79 90 02/09/24 22:48 78 90 02/09/24 22:30 75 93 02/09/24 22:24 73 94 02/09/24 22:15 70 94 02/09/24 22:09 76 94 02/09/24 22:00 139/59 L 02/09/24 21:57 71 95 02/09/24 21:30 69 94 02/09/24 21:30 141/55 H 02/09/24 21:30 141/55 H 02/09/24 21:30 141/55 H O2 Del Method O2 Flow Rate 02/10/24 07:00 Nasal Cannula 2 02/10/24 05:42 02/10/24 05:36 02/10/24 05:21 02/10/24 05:12 02/10/24 05:06 02/10/24 04:42 02/10/24 04:30 02/10/24 04:21 02/10/24 04:18 02/10/24 04:09 02/10/24 04:00 02/10/24 04:00 02/10/24 04:00 02/10/24 04:00 02/10/24 03:45 02/10/24 03:42 02/10/24 03:30 02/10/24 03:24 02/10/24 03:00 02/10/24 02:42 02/10/24 02:30 02/10/24 02:24 02/10/24 02:09 02/10/24 01:45 02/10/24 01:33 02/10/24 01:24 02/10/24 01:12 02/10/24 01:00 02/10/24 01:00 02/10/24 01:00 02/10/24 01:00 02/10/24 01:00 02/10/24 00:51 02/10/24 00:42 02/10/24 00:33 02/10/24 00:21 02/10/24 00:12 02/10/24 00:00 02/10/24 00:00 02/10/24 00:00 02/10/24 00:00 02/09/24 23:54 02/09/24 23:48 02/09/24 23:36 02/09/24 23:24 02/09/24 23:12 02/09/24 23:06 02/09/24 23:00 02/09/24 23:00 02/09/24 22:57 02/09/24 22:51 02/09/24 22:48 02/09/24 22:30 02/09/24 22:24 02/09/24 22:15 02/09/24 22:09 02/09/24 22:00 02/09/24 21:57 02/09/24 21:30 02/09/24 21:30 02/09/24 21:30 02/09/24 21:30
[2024-02-10] MEDS: METOPROLOL TARTRATE 1 MG/ML VIAL IV STA ×2 (09:46→10:20)
[2024-02-10] MEDS: METOPROLOL TARTRATE 25 MG TAB PO SCH ×2 (09:52→11:52)
[2024-02-10] MEDS ORDERED: STAT IV Infusion **Titration per Protocol STA ×2 (11:28→12:24)
[2024-02-10] MEDS: METOPROLOL TARTRATE 1 MG/ML VIAL IV PRN (11:46)
[2024-02-10] MEDS: dilTIAZem HCl 5 MG/ML 5 ML VIAL IV STA (11:48)
[2024-02-10] MEDS ORDERED: AMIODARONE IV BOLUS & DRIP IV STA (12:24)
[2024-02-10] MEDS: ACETAMINOPHEN 325 MG TAB PO PRN (12:25)
[2024-02-10] MEDS ORDERED: 0.2 MICRON FILTER SET 1 EACH IV ONE (12:45)
[2024-02-10] MEDS: AMIODARONE / D5W 150 MG/100 ML BAG IV ONE (12:47)
[2024-02-10] MEDS: AMIODARONE / D5W 360 MG/200 ML BAG IV ONE (12:52)
[2024-02-10] MEDS: dilTIAZem HCL 125 MG in DEXTROSE 5% 100 ML IV SCH (12:56)
--- NOTE | 2024-02-10 17:57 | Hospitalist Progress Note ---
Date of Service February 10, 2024 Assessment & Plan (1) Atrial fibrillation: Plan: new onset A-fib/RVR. Recent echocardiogramsuspect valvular heart disease as well as procedural stress as far as chronic/acute reasons. Did not respond in any lasting way to metoprolol. Recently hypotensiveconsidered diltiazem but after discussion with sorting machine attendant who is taking care of her when her blood pressures were lowerthis was foregone. Given that it just started this mo rning, risk of thromboembolism appears low. To slow rates/minimize risk of lowering blood pressureamiodarone drip startedon follow-up this appears to be helping her rates quite considerably. Most literature favors anticoagulation long-term for stroke prophylaxis even with that being "perioperative A-fib"but there appears to be no emergency and doing this. Did discuss with vascular surgeryanticoagulation is not contraindicated from a surgical perspectivetherefore will started, but again there does not appear to be a time sensitive urgency to this. (2) Valvular heart disease: Plan: continue home meds. While she did have some degree of anginal symptoms and ST depressions when she was quite tachycardicthis improved even slowing her heart rate down to reasonable ranges for her age, and she did not bump her troponin. Continue home meds (3) Carotid artery stenosis: Plan: status post multiple procedures. Appears to be doing well. Continue antiplatelets. (4) DVT prophylaxis: Plan: For now on dual antiplatelets. Will initiate anticoagulation soon (5) Discharge planning issues: Plan: PT/OT eval and treatappears likely to need SNF Admission and Anticipated Discharge Date Admission Date: February 07, 2024 Subjective Patient seen multiple times today. Whenever I first saw her this morning she had noted some degree of feeling like her heart was racing and a degree of chest pressurethis sounds to have been about one of her heart rate was as high as 150. And multiple follow-up visits once her heart rate was even down in the 120s she no longer had the chest pressure. Late in the day I revisited and was able to update her at the bedside. Nursing noted overall once her heart rates were a bit slower she had no notable problems other than some waxing and waning confusion. Review of Systems Review of Systems: All systems reviewed & are unremarkable except as noted in HPI & below Physical Exam Physical Exam: In general she is awake and alert seems to be oriented, although on again off again seems a little more easily confused. No distress. HEENT normocephalic atraumatic mucous membranes moist. Cardio is irregularly irregular and tachycardic, although her rate slow as the day progresses. Right neck incision appears to be healing. No focal neurodeficits noted, although exam somewhat limited given her overall status. Skin without rashes pallor or icterus. Results & Data Results & Data Vital Signs (Past 12 Hours) Vital Signs Temp Pulse Pulse Resp BP BP Pulse Ox 02/10/24 17:12 90 21 02/10/24 17:00 109/63 02/10/24 16:57 103 H 19 02/10/24 16:09 126 H 20 02/10/24 16:00 111/83 02/10/24 16:00 111/83 02/10/24 15:48 107 H 20 02/10/24 15:37 97.9 F 117 H 22 129/75 96 02/10/24 15:30 129/75 02/10/24 15:30 116 H 22 02/10/24 15:19 98.2 F 02/10/24 15:12 112 H 16 02/10/24 15:00 133/78 02/10/24 15:00 133/78 02/10/24 14:57 101 H 12 02/10/24 14:42 115 H 27 H 02/10/24 14:30 124/81 02/10/24 14:18 102 H 18 02/10/24 14:03 116 H 21 02/10/24 14:00 132/65 02/10/24 14:00 132/65 02/10/24 13:45 119 H 31 H 95 02/10/24 13:30 108/70 02/10/24 13:18 101 H 16 96 02/10/24 13:03 100 H 23 95 02/10/24 13:01 100/73 02/10/24 12:57 121 H 19 95 02/10/24 12:43 124 H 124/73 02/10/24 12:30 124/73 02/10/24 12:30 122 H 20 95 02/10/24 12:28 113/69 02/10/24 12:25 124 H 110/88 02/10/24 12:15 122 H 17 95 02/10/24 12:11 110/88 02/10/24 12:11 110/88 02/10/24 12:10 126 H 110/88 02/10/24 12:09 124 H 17 95 02/10/24 11:58 120 H 117/81 02/10/24 11:57 123 H 117/81 02/10/24 11:54 117/81 02/10/24 11:54 117/81 02/10/24 11:54 117/81 02/10/24 11:51 120 H 16 96 02/10/24 11:46 144 H 122/42 L 02/10/24 11:30 143 H 18 96 02/10/24 11:18 146 H 20 95 02/10/24 11:06 140 H 17 95 02/10/24 11:01 147/84 H 02/10/24 11:00 97.9 F 02/10/24 10:54 121 H 19 96 02/10/24 10:36 117 H 17 96 02/10/24 10:34 125 H 133/80 02/10/24 10:21 111 H 17 95 02/10/24 10:20 114 H 133/80 02/10/24 10:18 133/80 02/10/24 10:18 133/80 02/10/24 10:15 124 H 18 92 02/10/24 10:00 127/86 02/10/24 10:00 126 H 16 95 02/10/24 09:59 122 H 141/77 H 02/10/24 09:51 141/77 H 02/10/24 09:51 141/77 H 02/10/24 09:46 146 H 151/71 H 02/10/24 09:42 138 H 21 94 02/10/24 09:06 92 H 14 95 02/10/24 09:00 151/70 H 02/10/24 08:54 120 H 20 94 02/10/24 08:53 131/75 02/10/24 08:53 131/75 02/10/24 08:51 109 H 21 93 02/10/24 08:03 99 H 18 94 02/10/24 08:00 151/68 H 02/10/24 08:00 151/68 H 02/10/24 08:00 151/68 H 02/10/24 08:00 151/68 H 12/20/24 08:00 02/10/24 08:00 99 H 02/10/24 08:00 02/10/24 07:36 92 H 17 94 02/10/24 07:09 100 H 18 93 02/10/24 07:00 126/70 02/10/24 07:00 126/70 02/10/24 07:00 97.7 F 99 H 20 126/72 95 02/10/24 06:54 94 H 16 92 02/10/24 06:45 96 H 16 92 Pulse Ox O2 Del Method O2 Del Method O2 Flow Rate O2 Flow Rate 02/10/24 17:12 02/10/24 17:00 02/10/24 16:57 02/10/24 16:09 02/10/24 16:00 02/10/24 16:00 02/10/24 15:48 02/10/24 15:37 Nasal Cannula 2 02/10/24 15:30 02/10/24 15:30 02/10/24 15:19 02/10/24 15:12 02/10/24 15:00 02/10/24 15:00 02/10/24 14:57 02/10/24 14:42 02/10/24 14:30 02/10/24 14:18 02/10/24 14:03 02/10/24 14:00 02/10/24 14:00 02/10/24 13:45 02/10/24 13:30 02/10/24 13:18 02/10/24 13:03 02/10/24 13:01 02/10/24 12:57 02/10/24 12:43 02/10/24 12:30 02/10/24 12:30 02/10/24 12:28 02/10/24 12:25 02/10/24 12:15 02/10/24 12:11 02/10/24 12:11 02/10/24 12:10 02/10/24 12:09 02/10/24 11:58 02/10/24 11:57 02/10/24 11:54 02/10/24 11:54 02/10/24 11:54 02/10/24 11:51 02/10/24 11:46 02/10/24 11:30 02/10/24 11:18 02/10/24 11:06 02/10/24 11:01 02/10/24 11:00 02/10/24 10:54 02/10/24 10:36 02/10/24 10:34 02/10/24 10:21 02/10/24 10:20 02/10/24 10:18 02/10/24 10:18 02/10/24 10:15 02/10/24 10:00 02/10/24 10:00 02/10/24 09:59 02/10/24 09:51 02/10/24 09:51 02/10/24 09:46 02/10/24 09:42 02/10/24 09:06 02/10/24 09:00 02/10/24 08:54 02/10/24 08:53 02/10/24 08:53 02/10/24 08:51 02/10/24 08:03 02/10/24 08:00 02/10/24 08:00 02/10/24 08:00 02/10/24 08:00 02/10/24 08:00 95 Nasal Cannula 2 02/10/24 08:00 02/10/24 08:00 Nasal Cannula 2 02/10/24 07:36 02/10/24 07:09 02/10/24 07:00 02/10/24 07:00 02/10/24 07:00 Nasal Cannula 2 02/10/24 06:54 02/10/24 06:45 PG Care Time/CCT Total # of Minutes Spent Total Time Spent with Patient: Total time spent is greater than 50% in coordination of care (as documented) at patient's floor/unit and/or counseling patient: Coding Level of Care Code 94206 SUB INP/OBS CARE 3/50MIN Diagnoses Atrial fibrillation I48.91 Valvular heart disease I38 Stenosis of right carotid artery I65.21 Laterality: right DVT prophylaxis Z29.9 Discharge planning issues Z75.8 (3) Carotid artery stenosis Laterality: right Qualified Code(s): I65.21 - Occlusion and stenosis of right carotid artery
--- NOTE | 2024-02-10 17:57 | Billing Data ---
Date of Service February 10, 2024 Coding Level of Care Code 47376 SUB INP/OBS CARE MIN
[2024-02-10] MEDS ORDERED: METOPROLOL TARTRATE 1 MG/ML VIAL IV PRN (18:45)
[2024-02-10] MEDS: AMIODARONE / D5W 360 MG/200 ML BAG IV SCH (19:03)
[2024-02-10] MEDS: SODIUM CHLORIDE 0.9% 250 ML IV ONE (19:20)
--- NOTE | 2024-02-10 22:13 | Electrocardiogram Report ---
Test Reason : Blood Pressure : */* mmHG Vent. Rate : 145 BPM Atrial Rate : 163 BPM P-R Int : * ms QRS Dur : 96 ms QT Int : 318 ms P-R-T Axes : * -2 212 degrees QTcB Int : 493 ms Atrial fibrillation with rapid ventricular response with premature ventricular or aberrantly conducte d complexes Marked ST abnormality, possible inferolateral subendocardial injury Abnormal ECG When compared with ECG of 18-Jan-2024 11:58, Atrial fibrillation has replaced Sinus rhythm Vent. rate has increased by [address] now depressed in Inferior leads ST now depressed in Anterolateral leads Nonspecific T wave abnormality now evident in Inferior leads T wave inversion now evident in Lateral leads Confirmed by Jose Angel Almanzar ([id number]) on 02/10/2024 10:13:37 PM Referred By: Jaden Camarillo Confirmed By: Jose Angel Almanzar
--- NOTE | 2024-02-10 22:14 | Electrocardiogram Report ---
Test Reason : Blood Pressure : */* mmHG Vent. Rate : 134 BPM Atrial Rate : 134 BPM P-R Int : * ms QRS Dur : 88 ms QT Int : 334 ms P-R-T Axes : * 1 -23 degrees QTcB Int : 498 ms Atrial fibrillation with rapid ventricular response with premature ventricular or aberrantly conducte d complexes Nonspecific ST abnormality Abnormal ECG When compared with ECG of 10-Feb-2024 09:31, T wave inversion no longer evident in Lateral leads Confirmed by Jose Angel Almanzar ([id number]) on 02/10/2024 10:14:18 PM Referred By: Jaden Camarillo Confirmed By: Jose Angel Almanzar
[2024-02-11 05:31] LABS: Basophils # (auto) 0.03 K/uL (0.00-0.20); Basophils % (auto) 0.4 %; Eosinophils # (auto) 0.18 K/uL (0.00-0.50); Eosinophils % (auto) 2.4 %; Hematocrit (blood only) 33.5 % (37.0-47.0); Hemoglobin 10.5 g/dl (12.0-16.0); Immature Granulocytes # (auto) 0.03 K/uL (0.01-0.20); Immature Granulocytes % (auto) 0.4 %; Lymphocytes # (auto) 0.66 K/uL (1.20-3.40); Lymphocytes % (auto) 8.8 %; Mean Corpuscular Hemoglobin 30.3 pg (25.0-34.0); Mean Corpuscular Hgb Conc 31.3 g/dL (32.0-36.0); Mean Corpuscular Volume 96.5 fL (80.0-100.0); Mean Platelet Volume 11.9 fL (9.4-12.4); Monocytes # (auto) 0.82 K/uL (0.11-0.59); Monocytes % (auto) 10.9 %; Neutrophils # (auto) 5.79 K/uL (1.40-6.50); Neutrophils % (auto) 77.1 %; Platelet Count 111 K/uL (130-400); RDW Coefficient of Variation 13.9 % (11.5-14.5); RDW Standard Deviation 49.1 fL (36.4-46.3); Red Blood Count 3.47 M/uL (4.20-5.40); White Blood Count 7.51 K/ul (4.8-10.8)
[2024-02-11 06:27] LABS: BUN Creatinine Ratio 27.6 (10-20); Calcium 7.5 mg/dl (8.6-10.3); Creatinine Clr Calc Pharmacy 61.8 ml/min; Magnesium 1.7 mg/dl (1.7-2.4); Potassium 3.3 mmol/L (3.5-5.1)
--- NOTE | 2024-02-11 07:23 | Hospitalist Progress Note ---
Date of Service February 11, 2024 Assessment & Plan (1) Atrial fibrillation: Plan: Echocardiogram from 02/10/24suspect valvular heart disease as well as procedural stress as far as chronic/acute reasons. Pt in sinus rhythm this morning at rate of 85 bpm. Continues with mild diastolic hypotension. - Continue IV drip Amiodarone/dextrose 360mg in 200mls - Continue metoprolol 2.5mg IV q5m PRN (2) Valvular heart disease: Plan: Appears stable - Continue to monitor - Holding furosemide (3) Carotid artery stenosis: Plan: S/p R TCAR and repeat for carotid dissection. Appears to be doing well. - Continue clopidigrel 75mg qd - Continue asa 81 mg qd. (4) DVT prophylaxis: Plan: Remains on dual antiplatelets. Will initiate anticoagulation soon (5) Discharge planning issues: Plan: PT/OT consults placed on 02/09 - Anticipate recommendations for discharge Plan Chronic conditions: - HLD- continue atorvastatin 40mg qd - OA- continue celecoxib 200mg BID, Tylenol 650 q4h PRN - Depression- continue escitalopram 5mg qd Admission and Anticipated Discharge Date Admission Date: February 07, 2024 Supervising Physician Co-Signing Physician Notes I personally examined the patient and verified all peraza points of history and exam, discussed case, and agree with decision making with Dr Handy resting comfortably no new issues identified, HR now NSR. vitals noted nad breathing comfortably and unlabored at rest no accessory muscles. now NSR afib/RVR - now NSR - given amiodarone. can resume metoprolol - follow BP first since has been prone to run soft at times. will need anticoagulation intermediate PT/OT eval and treat, anticipate need for SNF. otherwise as above Subjective Pt is an 88 yo female who was admitted on 02/06/24 for carotid artery stenosis and underwent right TCAR on 02/07/24 and repeat on 02/09/24 due to carotid dissection. This morning, pt is c/o left sided neck pain as well as left shoulder pain. Pt is sleepy and oriented to name. Review of Systems Review of Systems: As per HPI Physical Exam Constitutional: well developed and + lethargic Eyes: PERRL, conjunctivae normal, anicteric sclerae Respiratory: normal respiratory effort, lungs clear to auscultation Cardiovascular: Rate/Rhythm: regular rate and regular rhythm Gastrointestinal (Abdomen): normal bowel sounds, soft, nontender, no hepatosplenomegaly Skin: + scar (Horizontal at right side of neck with ecchymosis) Neurologic: moves all extremities Psychiatric: Orientation: oriented to person and cooperative; + not oriented to time Results & Data Results & Data Vital Signs (Past 12 Hours) Vital Signs Temp Pulse Pulse Resp BP BP Pulse Ox 02/11/24 06:00 139/60 02/11/24 06:00 73 13 98 02/11/24 05:03 75 17 98 02/11/24 05:03 36.5 C 73 15 128/64 02/11/24 05:00 128/64 02/11/24 04:36 72 15 02/11/24 04:00 133/55 L 02/11/24 04:00 71 15 02/11/24 03:12 73 17 02/11/24 02:17 106/51 L 02/11/24 02:09 67 16 02/11/24 01:03 69 15 02/11/24 01:00 99/47 L 02/11/24 00:57 68 15 02/11/24 00:32 68 02/11/24 00:18 71 17 02/11/24 00:00 98/55 L 02/10/24 23:54 68 16 02/10/24 23:46 36.6 C 71 14 111/70 98 02/10/24 23:43 111/70 02/10/24 23:39 70 17 02/10/24 23:17 92/44 L 02/10/24 23:15 69 17 02/10/24 23:00 94/49 L 02/10/24 23:00 69 15 02/10/24 22:57 68 16 02/10/24 22:03 69 19 02/10/24 22:00 105/50 L 02/10/24 21:54 68 16 02/10/24 21:45 66 15 02/10/24 21:15 65 19 02/10/24 21:00 89/54 L 02/10/24 20:45 68 16 02/10/24 20:30 66 16 02/10/24 20:03 99 H 17 02/10/24 20:00 113/68 02/10/24 19:55 89/49 L 02/10/24 19:39 84 13 02/10/24 19:38 125/71 02/10/24 19:38 02/10/24 19:33 96 H 18 O2 Del Method O2 Flow Rate 02/11/24 06:00 02/11/24 06:00 02/11/24 05:03 02/11/24 05:03 02/11/24 05:00 02/11/24 04:36 02/11/24 04:00 02/11/24 04:00 02/11/24 03:12 02/11/24 02:17 02/11/24 02:09 02/11/24 01:03 02/11/24 01:00 02/11/24 00:57 02/11/24 00:32 02/11/24 00:18 02/11/24 00:00 02/10/24 23:54 02/10/24 23:46 Nasal Cannula 2 02/10/24 23:43 02/10/24 23:39 02/10/24 23:17 02/10/24 23:15 02/10/24 23:00 02/10/24 23:00 02/10/24 22:57 02/10/24 22:03 02/10/24 22:00 02/10/24 21:54 02/10/24 21:45 02/10/24 21:15 02/10/24 21:00 02/10/24 20:45 02/10/24 20:30 02/10/24 20:03 02/10/24 20:00 02/10/24 19:55 02/10/24 19:39 02/10/24 19:38 02/10/24 19:38 Nasal Cannula 2 02/10/24 19:33 (3) Carotid artery stenosis Laterality: right Qualified Code(s): I65.21 - Occlusion and stenosis of right carotid artery
--- NOTE | 2024-02-11 14:23 | Billing Data ---
Date of Service February 11, 2024 Coding Level of Care Code 55590 SUB INP/OBS CARE
--- NOTE | 2024-02-12 06:44 | Hospitalist Progress Note ---
Date of Service February 12, 2024 Assessment & Plan (1) Atrial fibrillation: Plan: Echocardiogram from 02/10/24suspect valvular heart disease as well as procedural stress as far as chronic/acute reasons. Pt in sinus rhythm for more than 24 hours currently at rate of 77 bpm. Pt is no longer hypotensive. - Stopped IV Amiodarone - Started PO metoprolol 50 mg PO BID (2) Valvular heart disease: Plan: Appears stable - Continue to monitor - Holding furosemide (3) Carotid artery stenosis: Plan: S/p R TCAR and repeat for carotid dissection. Appears to be doing well. Pt c/o new onset left shoulder pain and weakness. Unable to elevated left UE without assistance. Reports pain at shoulder with PROM elevation. Atrophy noted at left forearm and hand compared to right. Pt denies previous shoulder injury or trauma. - Ordered Non-contrast head CT - Continue clopidigrel 75mg qd - Continue asa 81 mg qd. - Consider DOAC after Head CT to r/o recent hemorrhage. (4) DVT prophylaxis: Plan: Remains on dual antiplatelets. Will initiate anticoagulation following normal head CT (5) Discharge planning issues: Plan: PT/OT following - recommendations for discharge to SNF Plan Chronic conditions: - HLD- continue atorvastatin 40mg qd - OA- continue celecoxib 200mg BID, Tylenol 650 q4h PRN - Depression- continue escitalopram 5mg qd Admission and Anticipated Discharge Date Admission Date: February 07, 2024 Supervising Physician Co-Signing Physician Notes I personally examined the patient and verified all peraza points of history and exam, discussed case, and agree with decision making with Dr Handy feeling ok. biggest complaint for me is pain where IV site was restarted. present at bedside. vitals noted nad mild L arm weakness but mostly weak all over no facial droop HR reg now NSR breathing unlabored no accessory muscles afib/RVR - now NSR - given amiodarone. can resume metoprolol today. terminal computer operator anticoagulation (given her clinical course will obtain CT head first to ensure no bleeding before starting anticoag) carotid artery disease - s/p surgery. PT/OT eval and treat, anticipate need for SNF. otherwise as above Subjective Pt is an 88 yo female who was admitted on 02/06/24 for carotid artery stenosis and underwent right TCAR on 02/07/24 and repeat on 02/09/24 due to carotid dissection. This morning, pt is alert and reporting primarily left shoulder pain and weakness. She reports this is new onset for her. Pt denies CP, palpitation, SOB, nausea, headache, changes in sensation of vision. Review of Systems Review of Systems: As per HPI Physical Exam Constitutional: well developed; not in distress Eyes: PERRL, conjunctivae normal, anicteric sclerae Respiratory: normal respiratory effort, lungs clear to auscultation Cardiovascular: Rate/Rhythm: regular rate and regular rhythm Gastrointestinal (Abdomen): normal bowel sounds, soft, nontender, no hepatosplenomegaly Musculoskeletal: Shoulder: + limited ROM (Left shoulder elevation weakness and pain) Left UE atrophy noted Skin: + scar (Horizontal at right side of neck with ecchymosis) Neurologic: moves all extremities Psychiatric: Orientation: alert, oriented to person, oriented to place and cooperative Results & Data Results & Data Vital Signs (Past 12 Hours) Vital Signs Temp Pulse Pulse Resp BP Pulse Ox O2 Del Method 02/12/24 04:58 36.6 C 75 20 131/65 97 Room Air 02/12/24 02:22 70 02/11/24 23:57 36.6 C 77 19 154/68 H 99 Nasal Cannula 02/11/24 19:22 Nasal Cannula 02/11/24 19:21 36.7 C 83 22 124/60 98 Nasal Cannula O2 Flow Rate 02/12/24 04:58 02/12/24 02:22 02/11/24 23:57 2 02/11/24 19:22 2 02/11/24 19:21 2 Resident Activity Tracking Resident Involvement: Resident Care Provided Care Provided: Adult Hospital Medicine (3) Carotid artery stenosis Laterality: right Qualified Code(s): I65.21 - Occlusion and stenosis of right carotid artery
[2024-02-12 07:51] LABS: Hematocrit (blood only) 33.3 % (37.0-47.0); Hemoglobin 10.5 g/dl (12.0-16.0); Mean Corpuscular Hgb Conc 31.5 g/dL (32.0-36.0); Mean Corpuscular Volume 95.1 fL (80.0-100.0); Mean Platelet Volume 11.9 fL (9.4-12.4); Platelet Count 123 K/uL (130-400); RDW Coefficient of Variation 13.8 % (11.5-14.5); RDW Standard Deviation 48.2 fL (36.4-46.3); White Blood Count 7.02 K/ul (4.8-10.8)
[2024-02-12 08:05] LABS: Albumin Globulin Ratio 0.8 (0.9-2); Albumin Level 2.7 gm/dl (3.4-5.0); BUN Creatinine Ratio 38.8 (10-20); Bilirubin,Total 0.6 mg/dl (0.2-1.0); Calcium 8.6 mg/dl (8.6-10.3); Creatinine Clr Calc Pharmacy 74.2 ml/min; Globulin 3.4 gm/dl (2.5-4.0); Potassium 3.8 mmol/L (3.5-5.1); Total Protein 6.1 gm/dl (6.0-8.3)
--- NOTE | 2024-02-12 14:39 | Billing Data ---
Date of Service February 12, 2024 Coding Level of Care Code 08300 SUB INP/OBS CARE
--- NOTE | 2024-02-12 14:40 | Billing Data ---
Date of Service February 12, 2024 Coding Level of Care Code 69525 SUB INP/OBS CARE
--- NOTE | 2024-02-12 14:44 | CT Scan Report ---
EXAM: CT Head Without Intravenous Contrast INDICATION: Evaluate for hemorrhage. TECHNIQUE: Axial computed tomography images of the head/brain without intravenous contrast. Sagittal and/or coronal reformats are provided. Sagittal and coronal reformatted images were created and reviewed. This CT exam was performed using one or more of the following dose reduction techniques: automated exposure control, adjustment of the mA and/or kV according to patient size, and/or use of iterative reconstruction technique. COMPARISON: 2023 FINDINGS: Limitations: None. Brain and extra-axial spaces: There is new subarachnoid versus parenchymal hemorrhage in the inferior left frontal lobe measuring 1.4 x 0.7 by roughly 0.6 cm. There is mild surrounding edema. Generalized chronic small vessel ischemic changes and cortical atrophy stable. No shift. Bones/joints: No acute changes. Soft tissues: No significant abnormality noted. Vasculature: Atherosclerotic calcifications present. Sinuses: No layering fluid in the visualized portions of the paranasal sinuses. Mastoid air cells: No mastoid effusion. Orbits: No significant abnormality noted. IMPRESSION: There is a small focus of acute hemorrhage in the inferior left frontal lobe which could be subarachnoid or intraparenchymal. Small amounts of edema without localized mass effect. ACT 112: Negative or not required by law. Electronically signed by Leanna Powell 02-12-2024 2:43 PM
[2024-02-12] MEDS: METOPROLOL SUCC 50MG EXT REL TAB PO SCH (21:29)
[2024-02-12 22:19] VITALS: PULSE 86; RESP 18; TEMP 99
--- NOTE | 2024-02-12 22:34 | CT Scan Report ---
Exam(s): CT HEAD Without Contrast EXAM: CT Head Without Intravenous Contrast CLINICAL HISTORY: Hemorrhage TECHNIQUE: Axial computed tomography images of the head/brain without intravenous contrast. CTDI is 36.43 mGy and DLP is 546.36 mGy-cm. Automated exposure control was utilized for the study. A dose lowering technique was utilized adhering to the principles of ALARA. COMPARISON: CT head 07/13/2012 FINDINGS: Brain: There is a small mass-effect or hemorrhage of the inferior aspect of the left frontal lobe. Mild periventricular white matter hypodensities are most consistent with chronic microangiopathy. No mass- effect or midline shift. Ventricles: Unremarkable. No ventriculomegaly. Bones/joints: Unremarkable. No acute fracture. Soft tissues: Unremarkable. Sinuses: There is mild mucosal thickening of the ethmoid and maxillary sinuses. The remaining visualized paranasal sinuses are clear. Mastoid air cells: Unremarkable as visualized. No mastoid effusion. IMPRESSION: 1. There is a small mass-effect or hemorrhage of the inferior aspect of the left frontal lobe. Please note no recent CT head is available for comparison to assess for stability. 2. No mass-effect or midline shift. Communications: Verify Receipt Electronically signed by: Jen Mackenzie MD 02/12/24 22:33 PM
[2024-02-13 00:08] VITALS: BP 144/83; O2SAT 93
--- NOTE | 2024-02-13 00:16 | Communication Note ---
Date of Service: February 13, 2024 At approximately 20:30 I was notified by nursing that the patient had a head CT completed this afternoon which had an abnormal result which upon chart review did not appear to have been addressed. I reviewed CT head report which stated: "There is a small focus of acute hemorrhage in the inferior left frontal lobe which could be subarachnoid or intraparenchymal. Small amounts of edema without localized mass effect." I notified my attending physician of this result and ordered a STAT repeat head CT. I paged the patient's vascular surgeon, Dr. Venkatesh petersen, who originally admitted the patient for a right TCAR. Of note, the acute finding is on the opposite side as the recent TCAR procedure. I placed the patient's Plavix, Celebrex, and aspirin on hold. I spoke with Dr. Camarillo about the above result and pending repeat head CT. I went to bedside and evaluated the patient, patient was alert and oriented, cranial nerves intact to testing except unable to shrug left shoulder which appears consistent with prior documented exams from 02/11. I called the [facility] and discussed the new finding on imaging. I called the radiology department to request that the patient's CT images from 02/11 be "pushed" to the cloud so they could be reviewed by the [facility] neurologist. I later received a call from the [facility] transfer center who explained that the neurologist reviewed all of the imaging and has accepted the patient for transfer to neuro ICU at [facility]. I personally called and notified the patient's of the CT finding and the plan for transfer to [facility], patient's expressed understanding of the plan and I answered his questions to the best of my ability. Patient was later transferred to [facility] neuro ICU via [facility]. Resident Activity Tracking Resident Involvement: Resident Care Provided Care Provided: Adult Hospital Medicine
--- NOTE | 2024-02-13 00:47 | Discharge Summary ---
Date of Service February 13, 2024 Admission HPI Per Admitting Provider Ms. Burger is an 88-year-old female who in mid October had an episode of left leg weakness at which point she was dragging her foot. This lasted a short period of time and then totally resolved. She had not had any episodes similar to this before or after this 1 episode. She denies any upper extremity weakness or facial droop or speech difficulties at that time. Admission Exam Per Admitting Provider On exam she is awake alert oriented x 3. Her blood pressure 104/54 on the right. Left was not taken due to mastectomy in the past. In no apparent distress. Her radials and carotids are +2 bilaterally. I cannot appreciate any carotid bruits. Lungs are clear. Heart had a regular rate and rhythm. Abdominal exam is benign. I cannot appreciate a pulsatile mass due to the body habitus. Femorals and pedal's are +2 bilaterally. Neurologic exam is grossly intact to motor and sensory function. Principal Diagnosis Acute hemorrhage at L inferior frontal lobe, S/p TCAR Discharge Exam Constitutional WD/WN, vitals as above Eyes + anicteric sclerae; no conjunctival abnormality ENMT Ears: + hearing impairment; no external ear abnormality Nose: no external nose abnormality Moist mucous membranes Neck Pain with movement of neck Respiratory normal respiratory effort, lungs clear to auscultation Cardiovascular Rate/Rhythm: regular rate and regular rhythm Gastrointestinal (Abdomen) Inspection/Auscultation: + abdomen abnormal to inspection and abdomen not distended Percussion/Palpation: abdomen soft Musculoskeletal Moves all limbs, decreased motion of left upper extremity (i.e. with should shrug). 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 Milk Containing Products AdvReac cow milk = Verified 02/09/24 15:18 (Dairy) "gas", lactose already profiled Consultations 02/07/24 15:[address] Engineer Routine 02/10/24 08:10 Consult Hospitalist Routine 02/12/24 23:43 Burn CD for patient Stat Procedures Performed Operation Date: 02/09/24 14:20 Actual Procedures p Re-Do Right Transcarotid Artery Revascularization - Jaden Camarillo MD Ordered Studies 02/07/24 07:22 EV angio carotid cerv RT Routine US EV guide vascular access Routine 02/08/24 08:33 CT angio head w con Stat CT angio neck with con Stat CT head/brain wo con Stat 02/09/24 07:36 EV angio carotid cerv RT Routine US EV guide vascular access Routine 02/12/24 13:[address] [CT head/brain wo con] Routine 02/12/24 20:47 CT head/brain wo con Stat Head CT 02/08/24 08:33 CT head/brain wo con CLINICAL HISTORY: neuro deficit, acute stroke suspected Technique: Contiguous axial CT images of the head were acquired from the base of the skull to the vertex without intravenous contrast administration. Images were viewed in brain, subdural and bone windows. Automated dose lowering techniques and/or adjustment according to patient size were utilized for this exam. Comparison: None available at the time of this dictation. Findings: Areas of decreased attenuation are present in the periventricular and subcortical white matter bilaterally consistent with small vessel ischemic disease. Generalized cerebral atrophy with commensurate enlargement of the ventricles, sulci, and cisterns is also present. There is no acute intracranial hemorrhage or evidence of acute territorial infarction. No shift of the midline structures, mass effect, or extra-axial abnormalities are shown. Atherosclerotic calcifications are present in the intracranial segments of the internal carotid arteries. Imaged portions of the paranasal sinuses and mastoid air cells are clear. The orbits appear normal. There are no acute fractures of the calvaria or scalp swelling. Impression: No acute intracranial hemorrhage, no evidence of acute territorial infarction or other acute intracranial disease process. ACT 112: Negative or not required by law. Electronically signed by: Andres Guadalupe M.D. 02/08/2024 9:03 AM Head CTA 02/08/24 08:33 CT angio head w con CLINICAL HISTORY: 88 years-old Female with neuro deficit, acute stroke suspected. Acute strokelike symptoms COMPARISON STUDY: Head CT of same day, brain MRI 12/04/2023, CT neck 12/29/2023 TECHNIQUE: Following the IV administration of 120 cc of Optiray, CT angiogram of the brain was performed from the skull base to the vertex. Images are reviewed in the axial, sagittal, and coronal planes. 3-D MIPS images are created and assessed. IV contrast was administered without complication. All measurements were obtained according to NASCET criteria. A dose lowering technique was utilized adhering to the principles of ALARA. FINDINGS: CT BRAIN: Dictated separately. CT ANGIOGRAM OF THE BRAIN: Unchanged high-grade stenosis of the supraclinoid segment right ICA. The imaged distal left ICA appears patent. Moderate stenosis involving the proximal A2 segment of the left anterior cerebral artery. The middle cerebral arteries appear patent with areas of multifocal mild stenosis. Short segment high-grade stenosis of the V4 segment left vertebral artery redemonstrated. The distal right vertebral artery is patent. Multifocal moderate to high-grade stenoses of the posterior cerebral arteries with areas of mild basilar artery stenosis. Dural sinuses appear patent. IMPRESSION: 1. Unchanged high-grade stenosis of the supraclinoid segment right ICA. 2. Short segment high-grade stenosis of the V4 segment left vertebral artery is also unchanged. 3. Additional areas of plhe-su-dcakioha stenosis as above. ACT 112: Negative or not required by law. The above report was generated using voice recognition software. It may contain grammatical, syntax or spelling errors. Electronically signed by: True Garcia M.D. 02/08/2024 9:09 AM Neck CTA 02/08/24 08:33 CT ANGIOGRAPHY OF THE NECK WITH CONTRAST CLINICAL HISTORY: neuro deficit, acute stroke suspected COMPARISON STUDY: CTA of the neck December 29, 2023. Technique: CT angiography of the carotid and vertebral arteries was obtained using Optiray and 3D reconstruction on an independent workstation. NASCET criteria was utilized. Automated exposure control was utilized for the study. A dose lowering technique was utilized adhering to the principles of ALARA. 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 This has progressed since prior CT. The left vertebral artery is patent. The right vertebral artery is also patent. Mild plaque within the proximal left internal carotid artery results in mild stenosis. This is unchanged. Soft tissue gas, stranding and fluid within the right neck is postprocedural. Interval placement of a right carotid stent which extends across the bifurcation is noted. Severe narrowing at the origin of the right external carotid artery is not unexpected post stenting. There is moderate to severe luminal narrowing of the right carotid within the proximal aspect of the stent. The vessel is patent. The distal cervical portion of the right internal carotid artery is patent. Severe stenosis of the right cavernous carotid is similar to prior CTA of December 29, 2023. IMPRESSION: 1. Status post interval right transcarotid artery vascularization. Moderate to severe narrowing of the right carotid within the proximal aspect of the stent. This may be due to pre-existing plaque. An underlying dissection is considered less likely but could appear similar. Findings discussed with Dr. Camarillo at time of dictation. Expected fluid and gas within the right neck. 2. 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 3. Severe stenosis of the right cavernous carotid, similar to prior CTA. ACT 112: Negative or not required by law. Electronically signed by: Christiano Walter M.D. 02/08/2024 9:[address] 02/12/24 13:00 EXAM: CT Head Without Intravenous Contrast INDICATION: Evaluate for hemorrhage. TECHNIQUE: Axial computed tomography images of the head/brain without intravenous contrast. Sagittal and/or coronal reformats are provided. Sagittal and coronal reformatted images were created and reviewed. This CT exam was performed using one or more of the following dose reduction techniques: automated exposure control, adjustment of the mA and/or kV according to patient size, and/or use of iterative reconstruction technique. COMPARISON: 2023 FINDINGS: Limitations: None. Brain and extra-axial spaces: There is new subarachnoid versus parenchymal hemorrhage in the inferior left frontal lobe measuring 1.4 x 0.7 by roughly 0.6 cm. There is mild surrounding edema. Generalized chronic small vessel ischemic changes and cortical atrophy stable. No shift. Bones/joints: No acute changes. Soft tissues: No significant abnormality noted. Vasculature: Atherosclerotic calcifications present. Sinuses: No layering fluid in the visualized portions of the paranasal sinuses. Mastoid air cells: No mastoid effusion. Orbits: No significant abnormality noted. IMPRESSION: There is a small focus of acute hemorrhage in the inferior left frontal lobe which could be subarachnoid or intraparenchymal. Small amounts of edema without localized mass effect. ACT 112: Negative or not required by law. Electronically signed by Leanna Powell 02-12-2024 2:[address] 02/12/24 20:47 CR Exam(s): CT HEAD Without Contrast EXAM: CT Head Without Intravenous Contrast CLINICAL HISTORY: Hemorrhage TECHNIQUE: Axial computed tomography images of the head/brain without intravenous contrast. CTDI is 36.43 mGy and DLP is 546.36 mGy-cm. Automated exposure control was utilized for the study. A dose lowering technique was utilized adhering to the principles of ALARA. COMPARISON: CT head 07/13/2012 FINDINGS: Brain: There is a small mass-effect or hemorrhage of the inferior aspect of the left frontal lobe. Mild periventricular white matter hypodensities are most consistent with chronic microangiopathy. No mass- effect or midline shift. Ventricles: Unremarkable. No ventriculomegaly. Bones/joints: Unremarkable. No acute fracture. Soft tissues: Unremarkable. Sinuses: There is mild mucosal thickening of the ethmoid and maxillary sinuses. The remaining visualized paranasal sinuses are clear. Mastoid air cells: Unremarkable as visualized. No mastoid effusion. IMPRESSION: 1. There is a small mass-effect or hemorrhage of the inferior aspect of the left frontal lobe. Please note no recent CT head is available for comparison to assess for stability. 2. No mass-effect or midline shift. Communications: Verify Receipt Electronically signed by: Jen Mackenzie MD 02/12/24 22:33 PM Hospital Course (1) Atrial fibrillation: (2) Valvular heart disease: (3) Carotid artery stenosis: (4) Intraparenchymal hemorrhage of brain: Plan Acute Hemorrhage of Inferior Left Frontal Lobe -CT head completed on afternoon of 02/11 to rule out recent hemorrhage prior to initiating anticoagulation (for atrial fibrillation) -Report indicated new finding with small focus of acute hemorrhage at left frontal lobe -Vascular surgeon was contacted, this hemorrhage was on opposite side of recent TCAR -Repeat CT head completed, [facility] contacted. After review of images, [facility] to [facility] -No new neuro changes or focal deficits appreciated compared to documentation of prior -Evening dose of Celebrex held. Aspirin and Plavix are being held in setting of acute hemorrhage, note: recent TCAR with stent was completed on 02/06 and 02/08 -Patient flown via [facility] to [facility]. Patient's was notified of need for transfer. Atrial fibrillation Echocardiogram from 02/10/24suspect valvular heart disease as well as procedural stress as far as chronic/acute reasons. -Started PO metoprolol 50 mg PO BID -As above, CT head initially ordered to rule out bleed prior to starting anticoagulation Valvular heart disease -Continue to monitor -Holding furosemide Carotid artery stenosis | S/P TCAR S/p R TCAR (02/06) and repeat (02/08) for carotid dissection. Endorses some neck pain and left shoulder weakness, although does not seem to be an acute change. Chronic conditions: - HLD- continue atorvastatin 40mg qd - OA- Tylenol 650 q4h PRN, holding celebrex due to bleed - Depression- continue escitalopram 5mg qd Total Time Total Time Spent Total Time Spent (In Minutes): . Discharge Plan Discharge Items Patient Disposition: Transfer Acute Care Hospital Reason For Visit: Right Iliac Carotid Artery Stenosis Discharge Diagnosis: acute hemorrhage of inferior left frontal lobe Activity: Per Instructions section Non-emergency contact: Primary Care Provider Call non-emergency contact if: you have any medication questions and your symptoms worsen Follow-up/Referrals: José Kumari MD [Primary Care Provider] - Diet: Heart Healthy Addtl Attending Provider Instructions: Acute Hemorrhage of Inferior Left Frontal Lobe -CT head completed on afternoon of 02/11 to rule out recent hemorrhage prior to initiating anticoagulation (for atrial fibrillation) -Report indicated new finding with small focus of acute hemorrhage -Vascular surgeon was contacted, this hemorrhage was on opposite side of recent TCAR -Repeat CT head completed, [facility] contacted. After review of images, [facility] accepted patient for transfer to Neuro ICU -No new neuro changes or focal deficits appreciated compared to documentation of prior -Evening dose of Celebrex held. Aspirin and Plavix are being held in setting of acute hemorrhage, note: recent TCAR with stent was completed on 02/06 and 02/08 Atrial fibrillation Echocardiogram from 02/10/24suspect valvular heart disease as well as procedural stress as far as chronic/acute reasons. -Started PO metoprolol 50 mg PO BID -As above, CT head initially ordered to rule out bleed prior to starting anticoagulation Valvular heart disease -Continue to monitor -Holding furosemide Carotid artery stenosis | S/P TCAR S/p R TCAR (02/06) and repeat (02/08) for carotid dissection. Endorses some neck pain and left shoulder weakness, although does not seem to be an acute change. Unable to elevated left UE without assistance. Chronic conditions: - HLD- continue atorvastatin 40mg qd - OA- Tylenol 650 q4h PRN, holding celebrex - Depression- continue escitalopram 5mg qd Pending Studies at Discharge: No Stand-Alone Forms: My [facility] Skilled Items Patient informed of condition?: Yes DNR: No Discharge Level of Care: Other Communicable Disease: No Discharge Prognosis: Other Lines: Peripheral IV Urinary Catheter: Yes Medications and DC Order Prescriptions: Continued metoprolol succinate 50 mg tablet extended release 24 hr 50 mg PO BID escitalopram oxalate [Lexapro] 5 mg tablet 5 mg PO QAM acetaminophen 650 mg Tablet Extended Release 325 - 650 mg PO Q6H PRN (Reason: Pain) albuterol sulfate [Ventolin HFA] 90 mcg/actuation Hfa Aerosol Inhaler 2 puff INHALATION Q6H PRN (Reason: Shortness Of Breath Or Wheezing) fluticasone propionate [Flonase Allergy Relief] 50 mcg/actuation [place] ,Suspension 1 spray INTRANASAL QPM PRN (Reason: allergies) omeprazole 20 mg Tablet,Delayed Release (Dr/Ec) 20 mg PO QAM pramipexole 0.5 mg tablet 0.5 mg PO HS calcium carbonate 500 mg calcium (1,250 mg) Tablet,Chewable 500 mg PO Q6H PRN (Reason: Indigestion) cholecalciferol (vitamin D3) [Vitamin D3] 50 mcg (2,000 unit) Capsule 50 mcg PO HS atorvastatin [Lipitor] 40 mg Tablet 40 mg PO DAILY potassium chloride 10 mEq Capsule, Extended Release 10 meq PO DAILY vitamin Z71-hydit acid 1,000-400 mcg Tablet, Sublingual 1 tab SUBLINGUAL DAILY Held celecoxib [Celebrex] 200 mg Capsule 200 mg PO BID Hold Instructions: Resume on 02/22/24. hold until cleared by neurology/vascular aspirin 81 mg Capsule 81 mg PO DAILY Hold Instructions: Resume on 02/22/24. hold until cleared by neurology/vascular clopidogrel [Plavix] 75 mg Tablet 75 mg PO DAILY Hold Instructions: Resume on 02/22/24. hold until cleared by neurology/vascular Discontinued candesartan [Atacand] 8 mg tablet 8 mg PO QAM verapamil 120 mg capsule,ext rel. pellets 24 hr 120 mg PO QAM furosemide 40 mg tablet 60 mg PO QAM Discharge Orders: Discharge Order (Routine); Ordered 02/13/24 Ordered By: Nayeli Mckeon Admission Data Admit Date/Time: 02/07/24 07:56 Attending Provider: Dinh Dumont Admit Provider: Jaden Camarillo Primary Care Provider: José Kumari Other Providers: Edwar Simon; Familia Kaur; Ahsan Ward; Abhijit Oliveira; Tejinder Allison; Navneet Damian; Teo Prado; Kole Sapp; Mary Alexander; Megan Garcia; Simone Burrows; Girish Cobb; Sola Paris; Manfred Ayala Other Interventions: Discharge Summary Assessment (RN) Last Done: 02/13/24 01:47
== END 2024-02-13 01:08 | disposition short-term general hospital (02) | DRG 34 ==
LOC: SUATTDRO 07:56 → ASU 08:22 → 1E 08:23
PROC: EV.TCAR (2024-02-07 10:20)

== ENCOUNTER 2024-06-24 18:45 | Inpatient (IN) ==
--- OUTSIDE RECORDS SUMMARY | 2024-06-24 18:51 | External Medical Summary | Continuity of Care Document ---
Author Name Unknown Organization [facility] [address] [facility] Address [address] [place], [place] [id number] Care Team Providers Care Camp Head Counselor Name Role Phone José Kumari Primary Care Physician [phone] Encounter [facility] [id number] Date(s): 01/16/24 - 01/16/24 [facility] [address], [address] [place] [address] [phone] Encounter Diagnosis Bilateral carotid artery stenosis(Discharge Diagnosis) - 01/16/24 Discharge Disposition: Home or Self Care Attending Physician: MD Camarillo Eugene J Referring Physician: MD Kumari Rodney M Allergies, Adverse Reactions, Alerts Substance Criticality Severity Reaction Reaction Severity Status codeine Active Percocet Activ e Assessment and Plan Extracted from: Title:Clinical Document Author:JUAN RAMON Wolfe Lynn Date:01/16/24 I OUTPATIENT NOTE Name: SOREN BURGER Patient Number: [id number] : 1935 Date of Service: 01/16/2024 Chief Complaint: _Follow-up for carotid stenosis HPI: _Ms. Burger is an elderly female who presents to Dr. Camarillo's vascular surgery clinic today for a follow-up appointment after undergoing a CTA of the neck ordered by her brick offbearer after a carotid ultrasound demonstrated severe right ICA stenosis. About 2 months ago, patient had suffered some symptoms of left leg weakness which lasted a short time. She has not had any further symptoms since that time. Patient denies any other concerning symptoms as well. She is anxious to get the results of her CT scan. The CTA of the neck performed about the [facility] does confirm the ultrasound findings with over 90% stenosis of the right ICA. Current Home Meds: (Last Updated 01/15 15:29) acetaminophen (Tylenol) albuterol (Ventolin HFA 90 mcg/inh inhalation aerosol) 2 puff inhaled qid PRN: as needed for wheezing aspirin (aspirin 81 mg oral delayed release tablet) 81 mg PO Daily candesartan (Atacand 8 mg oral tablet) 8 mg PO Daily celecoxib (CeleBREX) 200 mg PO bid cholecalciferol (cholecalciferol 50 mcg (2000 intl units) oral tablet) 50 mcg PO Daily clopidogrel (Plavix 75 mg oral tablet) 75 mg PO Daily escitalopram (escitalopram 5 mg oral tablet) 5 mg PO Daily fluticasone nasal (fluticasone 50 mcg/inh nasal spray) 2 spray each nostril Daily furosemide (furosemide 40 mg oral tablet) 1.5 tab PO Daily metoprolol (metoprolol succinate 50 mg oral tablet, extended release) 50 mg PO bid omeprazole (omeprazole 20 mg oral delayed release tablet) 20 mg PO qAM potassium chloride (potassium chloride 10 mEq oral capsule, extended release) 10 mEq PO Daily pramipexole (pramipexole 0.5 mg oral tablet) 0.5 mg PO Daily pravastatin (pravastatin 20 mg oral tablet) 20 mg PO Daily verapamil (verapamil 120 mg/24 hours oral capsule, extended release) 120 mg PO Daily Allergies and Sensitivities: Percocet 5/325 codeine Past Medical History: Problems: Bilateral carotid artery stenosis Pes anserinus bursitis OA (osteoarthritis) of knee Knee pain Pain in left foot Hamstring strain Neck pain Knee pain Tenosynovitis, de Quervain S/P orthopedic surgery, follow-up exam Pre-op exam Right carpal tunnel syndrome Lumbar radiculopathy Lumbar radiculitis Neural foraminal stenosis of lumbar spine Arm numbness Heart disease CA - breast cancer Rheumatoid disease HTN (hypertension) OBJECTIVE Vitals: Last Updated 01/16/24 14:58 Date Temp BP Location Pulse RR SpO2 Pain 01/16/24 136/80 Right Arm 78 95 10/15/21 2 08/18/21 4 Vital Signs are the last 3 documented. No Orthostatic Data Available Height and Weight: Last Updated 07/15/21 09:38 Date BMI Wt(kg) Wt(lb) Method Ht(cm) (ft-in) Method 07/15/21 36.8 80.6 177 Standing Scale 148 4-10 05/12/21 36.71 80.4 177 Standing Scale 148 4-10 09/18/20 41.25 82 180 Standing Scale 141 4-7 Heights and Weights are the last 3 documented. Physical Exam Constitutional: In general patient is in a rate generally healthy-appearing well-nourished well-developed elderly female in no distress. She is alert and oriented without any focal deficits. Her right carotid does not demonstrate a bruit. ASSESSMENT: _ PLAN: _ 1 ) _severe right ICA stenosis Patient does have severe right ICA stenosis, and did have some possible TIA symptoms approximately 2 months ago. She has not had any further symptoms. She does take 81 mg aspirin as well as pravastatin daily, but does not take Plavix. We did discuss with the patient the surgical options of carotid endarterectomy versus transcarotid artery revascularization. After this discussion, patient elects to proceed with a right TCAR. The risks of the surgery, including but not limited to bleeding, infection, stroke, blood clot, nerve damage, heart attack, , or discussed with the patient by myself at Dr. Camarillo's request. Patient expresses understanding and agreement to proceed. She understands that she will need to take Plavix in addition to her regular medications for at least 1 year postoperatively. We did send a prescription for Plavix to the pharmacy for her today, she is to start taking this tomorrow, and will undergo platelet function testing while on Plavix sometime in the next week or 2. She is advised to call our office if she has any further questions. She is agreeable to this plan. Thank you for letting us participate in the care of this patient. I have personally spent _37__ minutes performing [id number] and jsh-[id number]-br-face activities on this date of service. Time does not include separately reported services. Activities Include: _x_ review of the medical record x__ obtaining a history _x_ physical exam/evaluation __ review labs _x_ review radiology reports _x_ counseling/educating patient/family/caregiver __ discussion/referral to other healthcare professional x__ documenting care in the medical record __ independent interpretation of results x__ communication of results to patient/family/caregiver x__ coordination of care Medications aspirin 81 mg oral delayed release tablet Start: 12/27/23 2:57:00 PM EST, 1 tab, PO, Daily Start Date: 12/27/23 Status: Ordered Atacand 8 mg oral tablet Start: 07/16/20 8:23:00 AM EDT, 1 tab, PO, Daily Start Date: 07/16/20 Status: Ordered CeleBREX Start: 12/27/23 2:57:00 PM EST, 200 mg =, PO, bid Start Date: 12/27/23 Status: Ordered cholecalciferol 50 mcg (2000 intl units) oral tablet Start: 12/27/23 2:58:00 PM EST, 1 tab, PO, Daily Start Date: 12/27/23 Status: Ordered escitalopram 5 mg oral tablet Start: 12/27/23 2:58:00 PM EST, 1 tab, PO, Daily Start Date: 12/27/23 Status: Ordered fluticasone 50 mcg/inh nasal spray Start: 12/27/23 3:04:00 PM EST, 2 spray, each nostril, Daily Start Date: 12/27/23 Status: Ordered furosemide 40 mg oral tablet Start: 12/27/23 3:00:00 PM EST, See Instructions, 1.5 tab PO Daily Start Date: 12/27/23 Status: Ordered metoprolol succinate 50 mg oral tablet, extended release Start: 12/27/23 2:59:00 PM EST, 1 tab, PO, bid Start Date: 12/27/23 Status: Ordered omeprazole 20 mg oral delayed release tablet Start: 10/05/12 9:42:00 AM EDT, 1 tab, PO, qAM Start Date: 10/05/12 Status: Ordered Plavix 75 mg oral tablet Start: 01/16/24 2:56:00 PM EST, 1 tab, PO, Daily, Disp# 90 tab, Refills: 3, Pharmacy: [facility] Start Date: 01/16/24 Status: Ordered potassium chloride 10 mEq oral capsule, extended release Start: 12/27/23 3:01:00 PM EST, 1 cap, PO, Daily Start Date: 12/27/23 Status: Ordered pramipexole 0.5 mg oral tablet Start: 07/27/16 11:33:00 AM EDT, 1 tab, PO, Daily Start Date: 07/27/16 Status: Ordered pravastatin 20 mg oral tablet Start: 07/27/16 11:32:00 AM EDT, 1 tab, PO, Daily Start Date: 07/27/16 Status: Ordered Tylenol Start: 09/11/20 2:03:00 PM EDT Start Date: 09/11/20 Status: Ordered Ventolin HFA 90 mcg/inh inhalation aerosol Start: 07/27/16 11:33:00 AM EDT, 2 puff, inhaled, qid, PRN: as needed for wheezing Start Date: 07/27/16 Status: Ordered verapamil 120 mg/24 hours oral capsule, extended release Start: 12/27/23 3:02:00 PM EST, 1 cap, PO, Daily Start Date: 12/27/23 Status: Ordered Problem List Condition Confirmation Course Effective Dates Status H ealth Status Informant Arm numbness 1 Confirmed Active Bilateral carotid artery stenosis Confirmed Active CA - breast cancer Confirmed Active Right carpal tunnel syndrome Confirmed Active Pain in left foot Confirmed Active Heart disease Confirmed Active HTN (hypertension) Confirmed Active Hamstring strain Confirmed Active Knee pain Confirmed Active Lumbar radiculopathy Confirmed Active Neck pain Confirmed Active Lumbar radiculitis Confirmed Active OA (osteoarthritis) of knee Confirmed Active Knee pain Confirmed Active Pre-op exam Confirmed Active Pes anserinus bursitis Confirmed Active Tenosynovitis, de Quervain Confirmed Active Rheumatoid disease 2 Confirmed Active Neural foraminal stenosis of lumbar spine Confirmed Active S/P orthopedic surgery, follow-up exam Confirmed Active 1arm and hand numbness, B/L 2fingers Diagnosis Diagnosis Type Effective Dates Health Status Cl inical Service Informant Bilateral carotid artery stenosis Discharge Diagnosis 01/16/24 Procedures Procedure Date Related Diagnosis Body Site Status Carcinogen Completed Vital Signs Most recent to oldest [Reference Range]: 1 Heart Rate 78 bpm (01/16/24 2:58 PM) Blood Pressure 136/80mmHg (01/16/24 2:58 PM) Cuff Pulse Pressure 56 mmHg (01/16/24 2:58 PM) BP Location # 1 Right Arm (01/16/24 2:58 PM) Social History Social History Type Response Smoking Status Never smoked cigaret issac Sex Female Sex Representation Female (finding) [facility] Outpt Note * JUAN RAMON Wolfe Lynn: PERFORM Event Display: [facility] Out[facility] Note Authored Date: [id number] [facility] OUTPATIENT NOTE Name: SOREN BURGER Patient Number: [id number] : 1935 Date of Service: 01/16/2024 Chief Complaint: _Follow-up for carotid stenosis HPI: _Ms. Burger is an elderly female who presents to Dr. Camarillo's vascular surgery clinic today for a follow-up appointment after undergoing a CTA of the neck ordered by her brick offbearer after a carotid ultrasound demonstrated severe right ICA stenosis. About 2 months ago, patient had suffered some symptoms of left leg weakness which lasted a short time. She has not had any further symptomssince that time. Patient denies any other concerning symptoms as well. She is anxious to get the results of her CT scan. The CTA of the neck performed about the [facility] does confirm the ultrasound findings with over 90% stenosis of the right ICA. Current Home Meds: (Last Updated 01/15 15:29) acetaminophen (Tylenol) albuterol (Ventolin HFA 90 mcg/inh inhalation aerosol) 2 puff inhaled qid PRN: as needed for wheezing aspirin (aspirin 81 mg oral delayed release tablet) 81 mg PO Daily candesartan (Atacand 8 mg oral tablet) 8 mg PO Daily celecoxib (CeleBREX) 200 mg PO bid cholecalciferol (cholecalciferol 50 mcg (2000 intl units) oral tablet) 50 mcg PO Daily clopidogrel (Plavix 75 mg oral tablet) 75 mg PO Daily escitalopram (escitalopram 5 mg oral tablet) 5 mg PO Daily fluticasone nasal (fluticasone 50 mcg/inh nasal spray) 2 spray each nostril Daily furosemide (furosemide 40 mg oral tablet) 1.5 tab PO Daily metoprolol (metoprolol succinate 50 mg oral tablet, extended release) 50 mg PO bid omeprazole (omeprazole 20 mg oral delayed release tablet) 20 mg PO qAM potassium chloride (potassium chloride 10 mEq oral capsule, extended release) 10 mEq PO Daily pramipexole (pramipexole 0.5 mg oral tablet) 0.5 mg PO Daily pravastatin (pravastatin 20 mg oral tablet) 20 mg PO Daily verapamil (verapamil 120 mg/24 hours oral capsule, extended release) 120 mg PO Daily Allergies and Sensitivities: Percocet 5/325 codeine Past Medical History: Problems: Bilateral carotid artery stenosis Pes anserinus bursitis OA (osteoarthritis) of knee Knee pain Pain in left foot Hamstring strain Neck pain Knee pain Tenosynovitis, de Quervain S/P orthopedic surgery, follow-up exam Pre-op exam Right carpal tunnel syndrome Lumbar radiculopathy Lumbar radiculitis Neural foraminal stenosis of lumbar spine Arm numbness Heart disease CA - breast cancer Rheumatoid disease HTN (hypertension) OBJECTIVE Vitals: Last Updated 01/16/24 14:58 Date Temp BP Location Pulse RR SpO2 Pain 01/16/24 136/80 Right Arm 78 95 10/15/21 2 08/18/21 4 Vital Signs are the last 3 documented. No Orthostatic Data Available Height and Weight: Last Updated 07/15/21 09:38 Date BMI Wt(kg) Wt(lb) Method Ht(cm) (ft-in) Method 07/15/21 36.8 80.6 177 Standing Scale 148 4-10 05/12/21 36.71 80.4 177 Standing Scale 148 4-10 09/18/20 41.25 82 180 Standing Scale 141 4-7 Heights and Weights are the last 3 documented. Physical Exam Constitutional: In general patient is in a rate generally healthy-appearing well-nourished well-developed elderly female in no distress. She is alert and oriented without any focal deficits. Her right carotid does not demonstrate a bruit. ASSESSMENT: _ PLAN: _ 1 ) _severe right ICA stenosis Patient does have severe right ICA stenosis, and did have some possible TIA symptoms approximately 2 months ago. She has not had any further symptoms. She does take 81 mg aspirin as well as pravastatin daily, but does not take Plavix. We did discuss with the patient the surgical options of carotid endarterectomy versus transcarotid artery revascularization. After this discussion, patient elects to proceed with a right TCAR. The risks of the surgery, including but not limited to bleeding, infection, stroke, blood clot, nerve damage, heart attack, , or discussed with the patient by myself at Dr. Camarillo's request. Patient expresses understanding and agreement to proceed. She understands that she will need to take Plavix in addition to her regular medications for at least 1 year postoperatively. We did send a prescription for Plavix to the pharmacy for her today, she is to start takingthis tomorrow, and will undergo platelet function testing while on Plavix sometime in the next weekor 2. She is advised to call our office if she has any further questions. She is agreeable to this plan. Thank you for letting us participate in the care of this patient. I have personally spent _37__ minutes performing [id number]-[id number] and [id number]-[id number]-face activities on this date of service. Time does not include separately reported services. Activities Include: _x_ review of the medical record x__ obtaining a history _x_ physical exam/evaluation __ review labs _x_ review radiology reports _x_ counseling/educating patient/family/caregiver __ discussion/referral to other healthcare professional x__ documenting care in the medical record __ independent interpretation of results x__ communication of results to patient/family/caregiver x__ coordination of care Electronic Signature on File CC: José Kumari MD [address] [place] [id number] CC: Farhan Vega MD [facility] [address] [id number] * Electronically Reviewed/Signed by: Sara Wolfe PA-C Author Signature Dt/Tm:01/16/2024 03:48 PM [facility] [place] [address] [place] Patient Care team information Care Team Personnel Name: JUAN RAMON Wolfe Lynn Position: Physician Director Of Physical Education Exempt - Vasc Surg Member Role: Lifetime Relationship Address: [address] [place] [id number] [place] Name: MD Kumari Rodney M Position: Referring Member Role: Primary Care Provider Address: [address] [place] [address] [place] Care Team Related Persons Name: MICHAEL BURGER
--- OUTSIDE RECORDS SUMMARY | 2024-06-24 18:51 | External Medical Summary | Continuity of Care Document ---
Author Name Unknown Organization [facility] Address [address] [place] [id number] Care Team Providers Care Cafeteria Team Leader Name Role Phone FranciscobassamKim Primary Care Physician [phone] [facility] [id number] Date(s): 02/13/24 - 02/21/[address] [id number] [phone] Encounter Diagnosis ICH (intracerebral hemorrhage)(Discharge Diagnosis) - 02/13/24 Discharge Disposition: Other Type Healthcare Facility Attending Physician: MD Cameron, Simone Doran Admitting Physician: DO Leiva Kelsey Anne Referring Physician: MD Lauren, Emile Agee Allergies, Adverse Reactions, Alerts Substance Criticality Severity Reaction Reaction Severity Status codeine Active Percocet Activ e Functional Status 02/21/24 Neurological Symptoms Confusion/Disorien tation ADLs Moderate assistance Facial Symmetry Symmetric Gait Unable to assess Swallowing Difficulty None Level of Consciousness Neuro Alert Hallucinations Present None Speech Pattern Garbled 02/21/24 History of Fall in Last 3 Months Alford N o Presence of Secondary Diagnosis Alford Ye s Use of Ambulatory Aid Alford None/bedrest /nurse assist IV/Heparin Lock Fall Risk Alford Yes Gait/Transferring Fall Risk Alford Normal /bedrest/immobile Mental Status Fall Risk Alford Forgets li mitations Alford Fall Risk Score 50 Alford Fall Risk High risk Medications Anoro Ellipta 62.5 mcg-25 mcg/inh inhalation powder Start: 02/21/24 10:20:00 AM EST, 1 puff, inhaled, Daily Start Date: 02/21/24 Status: Ordered aspirin 81 mg oral delayed release tablet Start: 12/27/23 2:57:00 PM EST, 1 tab, PO, Daily Start Date: 12/27/23 Status: Ordered Bactrim Start: 02/21/24 10:19:00 AM EST, 160 mg =, PO, q12h, last dose: 02/23/23 PM dose Start Date: 02/21/24 Stop Date: 02/25/24 Status: Ordered cholecalciferol 50 mcg (2000 intl units) oral tablet Start: 12/27/23 2:58:00 PM EST, 1 tab, PO, Daily Start Date: 12/27/23 Status: Ordered escitalopram 10 mg oral tablet Start: 02/21/24 10:16:00 AM EST, 1 tab, PO, qAM Start Date: 02/21/24 Status: Ordered famotidine 10 mg oral tablet Start: 02/21/24 10:20:00 AM EST, 1 tab, PO, Daily, Disp# 30 tab, other Start Date: 02/21/24 Stop Date: 03/22/24 Status: Ordered fluticasone 50 mcg/inh nasal spray Start: 12/27/23 3:04:00 PM EST, 2 spray, each nostril, Daily Start Date: 12/27/23 Status: Ordered furosemide 40 mg oral tablet TAKE 1 TABLET BY MOUTH ONCE DAILY IN THE MORNING Start Date: 02/13/24 Status: Ordered HumaLOG Sliding Scale Low Dose Range: SSI, injection, subQ, 02/20/24 9:00:00 PM EST, 02/20/24 11:56:32 PM EST, Estimated correction need for patients using total insulin daily dose between 31 and 60 units., 02/13/24 8:31:00 EST Start Date: 02/20/24 Stop Date: 02/20/24 Status: Completed HumaLOG Sliding Scale Low Dose Range: SSI, injection, subQ, 02/19/24 9:00:00 PM EST, 02/19/24 9:35:36 PM EST, Estimated correction need for patients using total insulin daily dose between 31 and 60 units., 02/13/24 8:31:00 EST Start Date: 02/19/24 Stop Date: 02/19/24 Status: Completed HumaLOG Sliding Scale Low Dose Range: SSI, injection, subQ, 02/21/24 9:00:00 AM EST, 02/21/24 8:36:30 AM EST, Estimated correction need for patients using total insulin daily dose between 31 and 60 units., 02/13/24 8:31:00 EST Start Date: 02/21/24 Stop Date: 02/21/24 Status: Completed metoprolol succinate 50 mg oral tablet, extended release Start: 12/27/23 2:59:00 PM EST, 1 tab, PO, bid Start Date: 12/27/23 Status: Ordered metoprolol tartrate 50 mg, tablet, PO, 02/21/24 9:00:00 AM EST, 02/21/24 8:35:11 AM EST, immediate release product, 02/13/24 9:04:00 EST Start Date: 02/21/24 Stop Date: 02/21/24 Status: Completed Plavix 75 mg oral tablet Start: 01/16/24 2:56:00 PM EST, 1 tab, PO, Daily, Disp# 90 tab, Refills: 3, Pharmacy: [facility] Start Date: 01/16/24 Status: Ordered pramipexole 0.5 mg oral tablet TAKE 1 TABLET BY MOUTH AT BEDTIME for restless leg Start Date: 02/13/24 Status: Ordered rosuvastatin 20 mg oral tablet Start: 02/21/24 10:19:00 AM EST, 1 tab, PO, Daily Start Date: 02/21/24 Status: Ordered sodium chloride 1000 mg oral tablet Start: 02/21/24 10:19:00 AM EST, 1 tab, PO, tid Start Date: 02/21/24 Status: Ordered valsartan 80 mg oral tablet Start: 02/21/24 10:20:00 AM EST, 1 tab, PO, bid Start Date: 02/21/24 Status: Ordered Ventolin HFA 90 mcg/inh inhalation aerosol Start: 07/27/16 11:33:00 AM EDT, 2 puff, inhaled, qid, PRN: as needed for wheezing Start Date: 07/27/16 Status: Ordered verapamil 120 mg/24 hours oral capsule, extended release Start: 12/27/23 3:02:00 PM EST, 1 cap, PO, Daily Start Date: 12/27/23 Status: Ordered Mental Status 02/13/24 Primary Language Croatian Problem List Condition Confirmation Course Effective Dates [...] Dates Health Status Cl inical Service Informant ICH (intracerebral hemorrhage) Discharge Diagnosis 02/13/24 Non-Specified Procedures Procedure Date Related Diagnosis Body Site Status Carcinogen Completed Results Laboratory List Name Date Glucose Meter (GLUCOSE METER) 02/21/24 Glucose Meter (GLUCOSE METER) 02/21/24 Magnesium Level 02/21/24 Nephrology Panel 02/21/24 Glucose Meter (GLUCOSE METER) 02/20/24 Magnesium Level 02/20/24 Nephrology Panel 02/20/24 Magnesium Level 02/19/24 Nephrology Panel 02/19/24 Complete Blood Count (CBC w Platelets) 1 04/20/23 MRSA Surveillance (Nasal Swab) 02/17/24 Complete Blood Count (CBC w Platelets) 1 04/19/23 Complete Blood Count (CBC w Platelets) 1 04/18/23 Osmolality 02/15/24 Osmolality, Urine 02/15/24 Osmolality, Urine (Urine Osmolality) Sodium, Urine, Random (Na, Urine, Random ) 02/15/24 Specific [place], Urine (Urine Specific [place]) 02/15/24 Hemoglobin A1C 02/14/24 Urine Analysis w/ Reflexed M icroscopic. (Urinalysis w/ Reflexed Microscopic.) 02/13/24 Hemoglobin A1C (Hgb A1C) 02/13/24 Lipid Profile 02/13/24 Partial Thromboplastin Time (PTT) Prothrombin Time w/ INR (PT/INR) 4 Most recent to oldest [Reference Range]: 1 2 3 eGFR CKD-EPI [>60 mL/min/1.73 m2] 69 mL/min/1.73 m2 (02/21/24 5:32 AM) 77 mL/min/1.73 m2 (02/20/24 5:26 AM) 72 mL/min/1.73 m2 (02/19/24 5:57 AM) Blood Glucose [70-120 mg/dL] 135 mg/dL 1 *HI* (02/21/24 8:36 AM) 112 mg/dL 2 (02/20/24 11:56 PM) 99 mg/dL 3 (02/19/24 9:35 PM) Estimated Average Glucose 123 mg/dL (02/14/24 4:48 AM) 126 mg/dL (02/13/24 8:46 AM) Blood Glucose Ref Range [70 - 120 mg/dl] (02/15/24 12:08 PM) [70 - 120 mg/dl] (02/14/24 11:41 AM) Non-HDL 100 mg/dL (02/13/24 8:46 AM) Estimated CrCl 44.35 mL/min (02/21/24 6:38 AM) 48.48 mL/min (02/20/24 6:42 AM) 46.03 mL/min (02/19/24 6:40 AM) MPV [9.0-12.2 fL] 10.9 fL (02/18/24 6:01 AM) 10.9 fL (02/17/24 3:48 AM) 11.1 fL (02/16/24 4:23 AM) RDW [11.5-14.2 %] 14.6 % *HI* (02/18/24 6:01 AM) 14.3 % *HI* (02/17/24 3:48 AM) 14.2 % (02/16/24 4:23 AM) MRSA Surveillance, on Admission [MSND] IMPROPER COLLECTION CONTAINER 4 *Abnormal* (02/17/24 7:16 PM) Anion Gap [5-14 mmol/L] 12 mmol/L (02/21/24 5:32 AM) 12 mmol/L (02/20/24 5:26 AM) 11 mmol/L (02/19/24 5:57 AM) Alb [3.5-5.2 g/dL] 3.1 g/dL *LOW* (02/21/24 5:32 AM) 3.2 g/dL *LOW* (02/20/24 5:26 AM) 3.3 g/dL *LOW* (02/19/24 5:57 AM) Bili (u) [NEG] NEGATIVE (02/13/24 8:59 AM) BUN [6-23 mg/dL] 19 mg/dL (02/21/24 5:32 AM) 18 mg/dL (02/20/24 5:26 AM) 18 mg/dL (02/19/24 5:57 AM) Ca [8.4-10.2 mg/dL] 8.9 mg/dL (02/21/24 5:32 AM) 8.7 mg/dL (02/20/24 5:26 AM) 8.8 mg/dL (02/19/24 5:57 AM) Chol/HDL 4 (02/13/24 8:46 AM) Chol [<200 mg/dL] 139 mg/dL (02/13/24 8:46 AM) Cl- [98-107 mmol/L] 100 mmol/L (02/21/24 5:32 AM) 102 mmol/L (02/20/24 5:26 AM) 101 mmol/L (02/19/24 5:57 AM) HCO3 [22-29 mmol/L] 21 mmol/L *LOW* (02/21/24 5:32 AM) 20 mmol/L *LOW* (02/20/24 5:26 AM) 21 mmol/L *LOW* (02/19/24 5:57 AM) Cret [0.60-1.00 mg/dL] 0.82 mg/dL (02/21/24 5:32 AM) 0.75 mg/dL (02/20/24 5:26 AM) 0.79 mg/dL (02/19/24 5:57 AM) HbA1c [<5.7 %] 5.9 % 5 *HI* (02/14/24 4:48 AM) 6.0 % 6 *HI* (02/13/24 8:46 AM) Glu [74-109 mg/dL] 140 mg/dL 7 *HI* (02/21/24 5:32 AM) 107 mg/dL 8 (02/20/24 5:26 AM) 99 mg/dL 9 (02/19/24 5:57 AM) Gluc Meter [74-109 mg/dL] 110 mg/dL *HI* (02/21/24 12:12 PM) 135 mg/dL *HI* (02/21/24 7:34 AM) 112 mg/dL *HI* (02/20/24 10:20 PM) Hct [35-44 %] 34.6 % *LOW* (02/18/24 6:01 AM) 33.1 % *LOW* (02/17/24 3:48 AM) 32.9 % *LOW* (02/16/24 4:23 AM) HDL [>40 mg/dL] 39 mg/dL *LOW* (02/13/24 8:46 AM) Hgb [11.7-15.0 g/dL] 11.5 g/dL *LOW* (02/18/24 6:01 AM) 10.9 g/dL *LOW* (02/17/24 3:48 AM) 10.5 g/dL *LOW* (02/16/24 4:23 AM) INR [0.9-1.1] 1.1 10 (02/13/24 8:46 AM) K [3.5-5.1 mmol/L] 3.8 mmol/L 11 (02/21/24 5:32 AM) 4.2 mmol/L (02/20/24 5:26 AM) 3.8 mmol/L (02/19/24 5:57 AM) Ketones [NEG mg/dL] NEGATIVE mg/dL (02/13/24 8:59 AM) LDL Chol, Calculated [50-130 mg/dL] 84 mg/dL (02/13/24 8:46 AM) Leuk Est [NEG] NEGATIVE (02/13/24 8:59 AM) MCH [28-33 pg] 30.9 pg (02/18/24 6:01 AM) 30.3 pg (02/17/24 3:48 AM) 30.1 pg (02/16/24 4:23 AM) MCHC [32-36 g/dL] 33.2 g/dL (02/18/24 6:01 AM) 32.9 g/dL (02/17/24 3:48 AM) 31.9 g/dL *LOW* (02/16/24 4:23 AM) MCV [81-96 fL] 93.0 fL (02/18/24 6:01 AM) 91.9 fL (02/17/24 3:48 AM) 94.3 fL (02/16/24 4:23 AM) Mg [1.6-2.6 mg/dL] 2.3 mg/dL (02/21/24 5:32 AM) 2.6 mg/dL (02/20/24 5:26 AM) 2.3 mg/dL (02/19/24 5:57 AM) Na [136-145 mmol/L] 133 mmol/L *LOW* (02/21/24 5:32 AM) 134 mmol/L *LOW* (02/20/24 5:26 AM) 133 mmol/L *LOW* (02/19/24 5:57 AM) Nitrite (u) [NEG] NEGATIVE (02/13/24 8:59 AM) Osmolality [275-295 mOsm/kg] 276 mOsm/kg (02/15/24 10:22 AM) PO4 [2.5-4.5 mg/dL] 2.6 mg/dL (02/21/24 5:32 AM) 2.5 mg/dL (02/20/24 5:26 AM) 2.8 mg/dL (02/19/24 5:57 AM) Plts [150-350 K/uL] 267 K/uL (02/18/24 6:01 AM) 261 K/uL (02/17/24 3:48 AM) 206 K/uL (02/16/24 4:23 AM) PT [12.0-14.2 seconds] 14.4 seconds *HI* (02/13/24 8:46 AM) PTT [23-35 seconds] 28 seconds (02/13/24 8:46 AM) RBC [3.90-5.00 M/uL] 3.72 M/uL *LOW* (02/18/24 6:01 AM) 3.60 M/uL *LOW* (02/17/24 3:48 AM) 3.49 M/uL *LOW* (02/16/24 4:23 AM) TG [<150 mg/dL] 82 mg/dL (02/13/24 8:46 AM) Appear (u) CLEAR (02/13/24 8:59 AM) Color (u) YELLOW (02/13/24 8:59 AM) Glu (u) [NEG mg/dL] NEGATIVE mg/dL (02/13/24 8:59 AM) Hgb (u) [NEG] NEGATIVE (02/13/24 8:59 AM) Na (u) 163 mmol/L 12 (02/15/24 10:22 AM) Osmol (u) [100-1000 mOsm/kg] REQUEST CREDITED mOsm/kg 13 (02/15/24 10:23 AM) 596 mOsm/kg (02/15/24 10:22 AM) pH (u) [5.0-8.0 unit] 8.0 unit (02/13/24 8:59 AM) Prot (u) [NEG mg/dL] NEGATIVE mg/dL (02/13/24 8:59 AM) Urobili [0.1-1.0 EU/dL] 4.0 EU/dL *HI* (02/13/24 8:59 AM) SG [1.005-1.030] 1.020 (02/15/24 10:22 AM) >1.030 *HI* (02/13/24 8:59 AM) WBC [4.0-10.4 K/uL] 8.45 K/uL (02/18/24 6:01 AM) 9.05 K/uL (02/17/24 3:48 AM) 8.12 K/uL (02/16/24 4:23 AM) 1Result Comment: Performed at: [address] [place] [address] 2Result Comment: Performed at: [address] [place] [address] 3Result Comment: Performed at: [address] [place] [address] 4Result Comment: PLEASE RESUBMIT REQUEST CREDITED PLEASE COLLECT IN A WHITE CAPPED ESWAB. 5Result Comment: ADA Recommended [place] Reference Range: Normal: <5.7% Prediabetes: 5.7-6.4% Diabetes: >6.4% Hb A1c results in patients with severe anemia or recent RBC transfusion are unreliable and do not represent the patient glycemic control. 6Result Comment: ADA Recommended [place] Reference Range: Normal: <5.7% Prediabetes: 5.7-6.4% Diabetes: >6.4% Hb A1c results in patients with severe anemia or recent RBC transfusion are unreliable and do not represent the patient glycemic control. 7Result Comment: ADA recommendation for FASTING Serum/Plasma Glucose: Normal: 70-100 mg/dL Prediabetes: 100-125 mg/dL Diabetes: 126 mg/dL or higher 8Result Comment: ADA recommendation for FASTING Serum/Plasma Glucose: Normal: 70-100 mg/dL Prediabetes: 100-125 mg/dL Diabetes: 126 mg/dL or higher 9Result Comment: ADA recommendation for FASTING Serum/Plasma Glucose: Normal: 70-100 mg/dL Prediabetes: 100-125 mg/dL Diabetes: 126 mg/dL or higher 10Result Comment: Suggested therapeutic range for low-intensity Coumadin therapy for venous thromboembolism is INR 2.0-3.0 (ex: atrial fibrillation, history of TIA/stroke). For high risk patients, the suggested therapeutic range is INR 2.5-3.5 (ex: mechanical prosthetic valves). 11Result Comment: HEMOLYZED SPECIMEN 12Result Comment: Reference Range for Random Urine Not Established. 13Result Comment: DUPLICATE REQUEST Orders for Microbiology Reports Name Date Fungus Culture, Urine w Smear 02/13/24 Urine Culture 02/13/24 Microbiology Reports TEST:Fungus.Culture, Urine STATUS:Auth (Verified) BODY SITE: SOURCE:Urine COLLECTED DATE/TIME:02/13/24 8:59 AM Status FINAL 02/16/2024 TEST:Urine.Cx STATUS:Auth (Verified) BODY SITE: SOURCE:Urine COLLECTED DATE/TIME:02/13/24 8:59 AM Status FINAL 02/15/2024 ORGANISM:Escherichia coli Susceptibilty: Escherichia coli Tested Drug Broth HUMZA Dilution Broth Interpr etation Trimeth-Sulfamethoxazole <=0.5/9.5 Suscept . Tetracycline <=4 Suscept. Nitrofurantoin <=32 Suscept. Levofloxacin <=0.5 Suscept. Gentamicin <=2 Suscept. Ciprofloxacin <=0.25 Suscept. Cefazolin <=2 Suscept. Ampicillin <=8 Suscept. Radiology Reports * Exam Date Time Procedure Performing Provider Status 02/13/24 10:15 AM VL Upper Ext Venous Duplex Right Rony Etienne; Final Notes: (VL Upper Ext Venous Duplex Right) Reason For Exam: edema, ecchymosis, warm to touch VL Upper Ext Venous Duplex Right [facility] FINAL REPORT Name: SOREN BURGER : 1935 Visit: [id number] Date: 13 Feb 2024 TYPE OF TEST: Peripheral Venous Testing REASON FOR TEST Significant edema and ecchymosis right arm, s/p TCAR INTERPRETATION/FINDINGS Right upper extremity venous duplex exam reveals: 1. Loss of phasic flow in the right internal jugular of uncertain etiology. Unable to obtain compression images of the right internal jugular due to patient pain and edema. No filling defect noted on Color imaging in the right proximal, mid and distal internal jugular vein. Unable to rule out proximal obstruction versus extrinsic compression due to edema. 2. Mild loss of pulsatile flow in the right subclavian vein of uncertain etiology. Loss of pulsatility appears to be positional. 3. Acute occlusive superficial thrombosis in the cephalic vein in the proximal, mid and distal forearm. 4. No evidence of deep or superficial thrombosis in the axillary, brachial, radial, basilic and cephalic veins in the arm. 5. No abnormality found in the contralateral subclavian vein. Suboptimal visualization due to body habitus. 6. Incidental finding: Multiphasic arterial waveforms noted at the right mid subclavian, distal brachial, radial and ulnar arteries. 7. Preliminary report given to GREGG Negrete at 0940 on 12/14/2023. Read back; verified. No prior exam for comparison. IMPRESSION/COMMENTS I have personally reviewed the data relevant to the interpretation of this study. TECHNOLOGIST: Rony Colón RVT, [facility] PHYSICIAN: Girish Serrano MD Signed: 02/13/2024 12:07 PM Final Dictated by:MD Serrano John F Dictated DT/TM:02/13/2024 12:07 Signed by:MD Serrano John F Signed (Electronic Signature):02/13/2024 12:07 Transcribed by:MANUEL * Exam Date Time Procedure Performing Provider Status 02/13/24 4:[address] Angio Neck Tamica Andrea Notes: (CT Angio Neck) Reason For Exam: Concern for acute bleed CT Angio Neck EXAMINATION: CT Angio Brain/Head, CT Angio Neck CLINICAL HISTORY: Concern for acute bleed According to the electronic medical record, the patient is an 88-year-old with a history of hypertension, dyslipidemia, congestive heart failure, aortic stenosis, aortic insufficiency, breast cancer,right internal carotid artery stenosis, and transient ischemic attack. The patient underwent right t ranscarotid artery revascularization on 02/07/2024 with revision secondary to dissection on 02/09/2024 and was found to have left frontal hemorrhage. COMPARISON: Outside CT 02/12/2024 TECHNIQUE: CT head without contrast: Axial 1 mm and 5 mm thick images. 2 mm thick coronal and sagittal images. CTA head and neck with IV contrast: 1 mm thick and 3 mm thick axial images. 2 mm thick sagittal andcoronal images. 2 mm thick sagittal oblique images through the common carotid artery bifurcations bilaterally. Maximum intensity projection and 3D volumetric images. This study was analyzed with [facility] ContaCT for measurement of intracranial arterial flow for detection of large vessel occlusion. CONTRAST: Omnipaque 350 DOSE: Total Reported Dose Length Product (DLP) = 1422.79 mGy.cm FINDINGS: Head CT: Cerebral parenchyma: Normal carlisle-white differentiation. Left frontal lobe intraparenchymal hemorrhage measures roughly 14 mm in length, compared to 15 mm on 02/12/2024, likely not significantly changed in size. Extra-axial spaces: A small amount of subarachnoid hemorrhage in nearby frontal sulci does not appear significantly changed in amount. Ventricles: Enlargement of the ventricles and sulci compatible with mild cerebral volume loss. Mass effect: No other evidence abnormal intracranial soft tissue mass or significant midline shift. Basal cisterns: Preserved Posterior fossa: No tonsillar herniation. Calvarium/Skull Base: No acute abnormality Visualized paranasal sinuses, mastoids, nasopharynx: Clear Visualized orbits: Intraocular lens implants are present. Head CTA: Internal carotid artery: Calcifications are present along the cavernous to supraclinoid segments ofthe internal carotid arteries as well as the terminal segment on the right. There is mild luminal irregularity and narrowing.. CRISTINA: Patent ACOM: Grossly patent MCA: Patent ICE SKATING COACH: Normal PCOM: Hypoplastic left P-comm Vertebrobasilar arteries: Atherosclerosis of the left V4 segment with calcifications resulting in mild luminal irregularity and narrowing. The basilar artery appears predominantly patent although there is a suggestion of mild luminal irregularity, possibly representing noncalcified atherosclerosis.A tiny calcification is present just distal to its origin. Aneurysms: None are identified. Dural venous sinuses: No definite abnormal filling defects Neck CTA: Aortic arch: Three vessel arch. Atherosclerotic calcifications are present along the aortic arch and proximal supra aortic branches. The brachiocephalic artery appears patent. There is luminal irregularity with up to mild narrowing of the proximal right subclavian artery. Mild narrowing is present at the origin of the left subclavian artery as well as mild luminal irregularity along the proximal v essel. Focal mild narrowing is present along the mid left subclavian artery. Common carotid arteries: Normal Carotid bifurcations and cervical internal carotid arteries: Right-sided internal carotid artery stent appears patent. Mild atherosclerosis of the common carotid bifurcation without flow-limiting stenosis. Vertebral arteries: Approximately 3.5 cm segment of severe, near complete, stenosis of the left vertebral artery V2 segment. Osseous structures: Degenerative changes of the imaged spine. No definite destructive osseous lesions.. Visualization neck soft tissues: Likely postoperative changes in the right side of the neck. Lung apices: No concerning pulmonary nodule. IMPRESSION: Please refer to attending addendum. 1. Stable left frontal intraparenchymal and subarachnoid hemorrhage foci. 2. 3.5 segment of severe, near complete stenosis, of the left vertebral artery V2 segment with distal reconstitution, likely from collateral circulation. 3. Chronic changes as above. FINAL ATTENDING READ: Additional and modified findings: CT HEAD There is also a small amount of subarachnoid hemorrhage in the right parietal occipital sulcus and medial occipital sulci bilaterally. The subarachnoid hemorrhage in these regions appears slightly increased compared to 02/12/2024 although this could be partially secondary to low [id number] in the previous outside images. A tiny focus of subarachnoid hemorrhage in the lateral right temporal sulcus is likely not significantly changed. A small focus of hypodensity in the subcortical right frontal lobe appears relatively well-defined and in the sagittal images (series 19 sagittal image 56/79) although relatively ill-defined in the other planes. It was also appeared ill-defined on 02/12/2024 although this could be partially secondary to differences in imaging technique and image slice placement. This is nonspecific but may represent age-indeterminate infarction, possibly subacute. A tiny focus of hypodensity in the lateral portion of the right thalamus (series 4 axial image 18/37) was also present on 02/12/2024 and may represent age-indeterminate lacunar infarction. There are also other foci of relatively ill-defined hypoden sity in the subcortical left frontal lobe which may represent age-indeterminate ischemic changes. MRI brain without IV contrast may be helpful for assessing the presence of acute or recent infarction. The extra axial spaces along the left cerebellar convexity are mildly widened compared to the rightside and there is a suggestion of contouring of the adjacent left cerebellar hemisphere. A hypodense extra axial collection is not excluded. No significant change compared to 02/13/2024. CTA The right common carotid artery is not normal. A stent is present through the midportion of the right common carotid artery and proximal right internal carotid artery. No abnormal intraluminal filling defect is present in the right common carotid artery although it is relatively narrow within the stent. The tapering is most prominent along the proximal right internal carotid artery and its opening appears mildly to moderately narrowed compared to the more distal vessel. The most proximal segment of the right external carotid artery is difficult to delineate and is likely significantly stenotic. Calcification at the left common carotid artery bifurcation results in mild narrowing of the left common carotid artery terminus and mild to moderate narrowing at the origin of the left internal carotid artery. As suggested in the preliminary report, the segment of high-grade stenosis or occlusion is present along the left V2 segment. At least some of the opacification of the more distal left vertebral artery may be secondary to retrograde flow. The right posterior cerebral artery is not normal. No definite hypoplasia of the P1 segment is a common anatomic variation. The right posterior demonstrating artery appears grossly patent but does not appear particularly robust in compensation for the hypoplastic segment. The P2 and more distal segments are asymmetrically narrowed compared to the left side. This is relatively mild approximately with some mild irregularity. Focal moderate severe stenosis is present at the distal right P2 segment. More distally, the right posterior cerebral artery appears slightly irregular compared to the leftside and cannot be followed as distally. Dr. Ginette Coulter is the dictating resident. Finalized reports status indicates that the attending has reviewed the images and report, and agrees with the interpretation. Preliminary report status should be regarded as NOT interpreted by the attending radiologist. Workstation ID: [id number] Final Dictated by:MD Coulter Aroh Jamanadas Dictated DT/TM:02/13/2024 10:24 Resident:MD Yfn, Ginette Walsh Signed by:MD Gareth, Steve Feldman Signed (Electronic Signature):02/13/2024 10:23 * Exam Date Time Procedure Performing Provider Status 02/13/24 4:[address] Angio Brain/Head Tamica Andrea ; Final Notes: (CT Angio Brain/Head) Reason For Exam: Concern for acute bleed CT Angio Brain/Head EXAMINATION: CT Angio Brain/Head, CT Angio Neck CLINICAL HISTORY: Concern for acute bleed According to the electronic medical record, the patient is an 88-year-old with a history of hypertension, dyslipidemia, congestive heart failure, aortic stenosis, aortic insufficiency, breast cancer,right internal carotid artery stenosis, and transient ischemic attack. The patient underwent right t ranscarotid artery revascularization on 02/07/2024 with revision secondary to dissection on 02/09/2024 and was found to have left frontal hemorrhage. COMPARISON: Outside CT 02/12/2024 TECHNIQUE: CT head without contrast: Axial 1 mm and 5 mm thick images. 2 mm thick coronal and sagittal images. CTA head and neck with IV contrast: 1 mm thick and 3 mm thick axial images. 2 mm thick sagittal andcoronal images. 2 mm thick sagittal oblique images through the common carotid artery bifurcations bilaterally. Maximum intensity projection and 3D volumetric images. This study was analyzed with Viz ContaCT for measurement of intracranial arterial flow for detection of large vessel occlusion. CONTRAST: Omnipaque 350 DOSE: Total Reported Dose Length Product (DLP) = 1422.79 mGy.cm FINDINGS: Head CT: Cerebral parenchyma: Normal carlisle-white differentiation. Left frontal lobe intraparenchymal hemorrhage measures roughly 14 mm in length, compared to 15 mm on 02/12/2024, likely not significantly changed in size. Extra-axial spaces: A small amount of subarachnoid hemorrhage in nearby frontal sulci does not appear significantly changed in amount. Ventricles: Enlargement of the ventricles and sulci compatible with mild cerebral volume loss. Mass effect: No other evidence abnormal intracranial soft tissue mass or significant midline shift. Basal cisterns: Preserved Posterior fossa: No tonsillar herniation. Calvarium/Skull Base: No acute abnormality Visualized paranasal sinuses, mastoids, nasopharynx: Clear Visualized orbits: Intraocular lens implants are present. Head CTA: Internal carotid artery: Calcifications are present along the cavernous to supraclinoid segments ofthe internal carotid arteries as well as the terminal segment on the right. There is mild luminal irregularity and narrowing.. CRISTINA: Patent ACOM: Grossly patent MCA: Patent ICE SKATING COACH: Normal PCOM: Hypoplastic left P-comm Vertebrobasilar arteries: Atherosclerosis of the left V4 segment with calcifications resulting in mild luminal irregularity and narrowing. The basilar artery appears predominantly patent although there is a suggestion of mild luminal irregularity, possibly representing noncalcified atherosclerosis.A tiny calcification is present just distal to its origin. Aneurysms: None are identified. Dural venous sinuses: No definite abnormal filling defects Neck CTA: Aortic arch: Three vessel arch. Atherosclerotic calcifications are present along the aortic arch and proximal supra aortic branches. The brachiocephalic artery appears patent. There is luminal irregularity with up to mild narrowing of the proximal right subclavian artery. Mild narrowing is present at the origin of the left subclavian artery as well as mild luminal irregularity along the proximal v essel. Focal mild narrowing is present along the mid left subclavian artery. Common carotid arteries: Normal Carotid bifurcations and cervical internal carotid arteries: Right-sided internal carotid artery stent appears patent. Mild atherosclerosis of the common carotid bifurcation without flow-limiting stenosis. Vertebral arteries: Approximately 3.5 cm segment of severe, near complete, stenosis of the left vertebral artery V2 segment. Osseous structures: Degenerative changes of the imaged spine. No definite destructive osseous lesions.. Visualization neck soft tissues: Likely postoperative changes in the right side of the neck. Lung apices: No concerning pulmonary nodule. IMPRESSION: Please refer to attending addendum. 1. Stable left frontal intraparenchymal and subarachnoid hemorrhage foci. 2. 3.5 segment of severe, near complete stenosis, of the left vertebral artery V2 segment with distal reconstitution, likely from collateral circulation. 3. Chronic changes as above. FINAL ATTENDING READ: Additional and modified findings: CT HEAD There is also a small amount of subarachnoid hemorrhage in the right parietal occipital sulcus and medial occipital sulci bilaterally. The subarachnoid hemorrhage in these regions appears slightly increased compared to 02/12/2024 although this could be partially secondary to low [id number] in the previous outside images. A tiny focus of subarachnoid hemorrhage in the lateral right temporal sulcus is likely not significantly changed. A small focus of hypodensity in the subcortical right frontal lobe appears relatively well-defined and in the sagittal images (series 19 sagittal image 56/79) although relatively ill-defined in the other planes. It was also appeared ill-defined on 02/12/2024 although this could be partially secondary to differences in imaging technique and image slice placement. This is nonspecific but may represent age-indeterminate infarction, possibly subacute. A tiny focus of hypodensity in the lateral portion of the right thalamus (series 4 axial image 18/37) was also present on 02/12/2024 and may represent age-indeterminate lacunar infarction. There are also other foci of relatively ill-defined hypoden sity in the subcortical left frontal lobe which may represent age-indeterminate ischemic changes. MRI brain without IV contrast may be helpful for assessing the presence of acute or recent infarction. The extra axial spaces along the left cerebellar convexity are mildly widened compared to the rightside and there is a suggestion of contouring of the adjacent left cerebellar hemisphere. A hypodense extra axial collection is not excluded. No significant change compared to 02/13/2024. CTA The right common carotid artery is not normal. A stent is present through the midportion of the right common carotid artery and proximal right internal carotid artery. No abnormal intraluminal filling defect is present in the right common carotid artery although it is relatively narrow within the stent. The tapering is most prominent along the proximal right internal carotid artery and its opening appears mildly to moderately narrowed compared to the more distal vessel. The most proximal segment of the right external carotid artery is difficult to delineate and is likely significantly stenotic. Calcification at the left common carotid artery bifurcation results in mild narrowing of the left common carotid artery terminus and mild to moderate narrowing at the origin of the left internal carotid artery. As suggested in the preliminary report, the segment of high-grade stenosis or occlusion is present along the left V2 segment. At least some of the opacification of the more distal left vertebral artery may be secondary to retrograde flow. The right posterior cerebral artery is not normal. No definite hypoplasia of the P1 segment is a common anatomic variation. The right posterior demonstrating artery appears grossly patent but does not appear particularly robust in compensation for the hypoplastic segment. The P2 and more distal segments are asymmetrically narrowed compared to the left side. This is relatively mild approximately with some mild irregularity. Focal moderate severe stenosis is present at the distal right P2 segment. More distally, the right posterior cerebral artery appears slightly irregular compared to the leftside and cannot be followed as distally. Dr. Ginette Coulter is the dictating resident. Finalized reports status indicates that the attending has reviewed the images and report, and agrees with the interpretation. Preliminary report status should be regarded as NOT interpreted by the attending radiologist. Workstation ID: [id number] Final Dictated by:MD Coulter Aroh Jamanadas Dictated DT/TM:02/13/2024 10:24 Resident:MD Yfn, Ginette Walsh Signed by:MD Gareth, Steve Feldman Signed (Electronic Signature):02/13/2024 10:23 Vital Signs Most recent to oldest [Reference Range]: 1 2 3 Height 149.86 cm (02/13/24 2:00 AM) Patient Weight 76.5 kg (02/21/24 5:39 AM) 76.6 kg (02/20/24 8:15 PM) 76.9 kg (02/20/24 5:18 AM) Body Mass Index 34.64 kg/m2 (02/13/24 2:00 AM) Temperature [36.5-37.9 DegC] 36.0 DegC *LOW* (02/21/24 11:23 AM) 36.9 DegC (02/21/24 8:21 AM) 36 DegC *LOW* (02/21/24 4:03 AM) Heart Rate 78 bpm (02/21/24 11:23 AM) 88 bpm (02/21/24 8:35 AM) 88 bpm (02/21/24 8:21 AM) Respiratory Rate 18 br/min (02/21/24 11:23 AM) 18 br/min (02/21/24 8:21 AM) 18 br/min (02/21/24 4:03 AM) Blood Pressure 110/52mmHg (02/21/24 11:23 AM) 124/58mmHg (02/21/24 8:21 AM) 117/57mmHg (02/21/24 4:03 AM) Mean Blood Pressure 71 mmHg (02/21/24 11:23 AM) 75 mmHg (02/21/24 8:21 AM) 74 mmHg (02/21/24 4:03 AM) Cuff Pulse Pressure 58 mmHg (02/21/24 11:23 AM) 66 mmHg (02/21/24 8:21 AM) 60 mmHg (02/21/24 4:03 AM) BP Location # 1 Right Arm (02/21/24 11:23 AM) Right Arm (02/21/24 8:21 AM) Left Arm (02/21/24 4:03 AM) Social History Social History Type Response Smoking Status Unknown if ever smok ed Sex Female Sex Representation Female (finding) History and physical note * DO Dominguez Grant W: MODIFY DO Dominguez Grant W: MODIFY DO Leiva Kelsey Anne: MODIFY, MODIFY, PERFORM MD Wilfred, Kee: PERFORM, MODIFY MD Wilfred, Kee: MODIFY, MODIFY MD Wilfred, Kee: MODIFY, MODIFY MD Wilfred, Kee: MODIFY MD Nguyễn, Aatqa: MODIFY Event Display: H&P Authored Date: [id number] Name: SOREN BURGER Patient Number: [id number] : 1935 Date of Service: 02/13/2024 History of Present Illness Mrs. Burger is an 88-year-old right handed female with a history of Hypertension, Dyslipidemia, Chronic Diastolic CHF (HFpEF), Moderate Aortic Stenosis, Moderate Aortic Insufficiency, PSVT s/p Ablation, Asthma, Breast Cancer, Arthritis s/p TKA and MERRITT, Carotid Artery Stenosis (90%+ ION Stenosis) s/p TIA who underwent Right TCAR with Dr. 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 Patient was activated as a telestroke and decision to transfer [place] [facility] [place] [facility] for further management. Per patient and record review, patient had a suspected TIA previously and during that workup was found to have a R ICA stenosis of 90%. he had schedule surgery with Dr. Camarillo at [facility] for TCARon 02/06. Complications due to carotid dissection lead to another operation on 02/08. Since surgerypatient has had R neck pain at surgical sight as well as LUE weakness per documentation. Patient was started on aspirin and Plavix. However during her hospitalization she was found to have atrial fibrillation. Metoprolol 50mg BID was started and CT Head w/o contrast was obtained on 02/11 due to consideration of starting anticoagulation. Initial CT Head demonstrating concern for acute L ICH. Telest roke was activated. Decision was made to transfer patient to [facility] [place] [place] [facility] for further management. On arrival, BP 160/80, HR 80, on room air. NIHSS 3 (2-LUE, 1-dysarthria). Given concern of acute ICH, Neurosurgery was consulted for recommendations regrading management. : [place] [phone] (home) & , Attempted to contact x2 however home phone was busy and cellphone went straight to voicemail. Review of Systems 14-point review of systems was completed and otherwise negative unless documented above. Physical Exam Vitals & Measurements HR: 82 (Monitored) RR: 23 BP: 152/76 SpO2: 96% Oxygen Therapy: Room Air Physical Exam: General: No acute distress, vital signs as above Eyes: Irises and pupils without defect, conjunctivae slightly injected, eyelids normal Extremities: RUE forearm puncture site, erythematous, swollen, hot to touch. Skin: Right Neck ecchymosis, Left groin puncture superficial wound. Neurologic Examination: Mental status: AOx3, normal recent and remote memory, normal fund of knowledge, normal attention span, fluent language, moderate dysarthria, no aphasia, comprehension intact CN: VF intact to finger counting _ ; PERRL, EOMI, sensation in V1- V3 distributions intact bilaterally , no facial asymmetry, hearing not tested , the palate rises symmetrically, SCM power intact bilaterally, & the tongue protrudes in the midline Motor: tone and bulk in bilateral upper and lower extremities are normal unless otherwise indicated below LUE 2/5 all groups 3/5 distally RUE 5/5 all groups LLE 5/5 all groups RLE 5/5 all groups Sensory: intact bilaterally to light touch Coordination: intact [id number]-[id number] bilaterally, intact heel-gross bilaterally, there is no discernable ataxia, Alfredo normal Assessment/Plan Mrs. Burger is an 88-year-old right handed female with a history of Hypertension, Dyslipidemia, Chronic Diastolic CHF (HFpEF), Moderate Aortic Stenosis, Breast Cancer, Carotid Artery Stenosis (90%+ ION Stenosis) s/p TIA who underwent Right TCAR with Dr. Camarillo on 02/07/24 with revision due tocarotid dissection on 02/08 who was found to have left frontal lobe IPH. Patient was activated as atelestroke and decision to transfer to [facility] [place] [facility] for further management. Neurosurgery consulted for recommendations regarding acute management of IPH and recommendation regarding antiplatelet therapy in the setting of recent TCAR. Acute Left Frontal IPH in setting of recent R ICA TCAR (02/06) at OSH c/b carotid dissection s/prevision (02/08) On admission NIHSS 3, premorbid mRS 0 Diagnostics: - Outside NCCT demonstrating L IPH - Repeat NCCT: Pending - Obtain CTA: Pending Management: - Goal BP <140/80 - Blood glucose goal <180; SSI - Holding Aspirin and Plavix given acute hemorrhage - Start Rosuvastatin 20mg daily PO - PT/OT/speech - Consult: Neurosurgery Chronic Conditions: HTN: Continue Verapamil 120mg daily, holding home candesartan 8mg daily HLD: Holding home atorvastatin 80mg, starting rosuvastatin 20mg Atrial fibrillation?: Continue home metoprolol 50mg BID. Will need discussion regarding need for ACin the future HFpEF: Holding home furosemide 60mg, changed to 20mg while inpatient, continue metoprolol, holding home candesartan Asthma: PRN as needed GERD: holding home omeprazole, starting pantoprazole Mood: Continue home escitalopram continue home Pramipexole Cerebrovascular Nontraumatic cerebral hemorrhage (see note for plan)._ Cardiac acute atrial fibrillation Functional Left upper extremity monoparesis_ Body Mass Index (BMI): BMI: 34.64 kg/l8zqmjiml: BMI >30 Based on body mass index patient is obesity (BMI is 30.0 to 39.9) -Obesity is a condition that is associated with increased risk of many disease processes including but not limited to cardiovascular disease, cancer, pulmonary disease, depression, cognitive dysfunction, musculoskeletal disorders, and mortality. 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 Nutrition: -Per clinical nutritional consult patient meets indications: _ -Treatment: FEN: -diet NPO pending dysphagia screen Prophylaxis: -Chemical prophylaxis Contraindicated given acute hemorrhage -SCDs ordered bilaterally -Famotidine for GI prophylaxis Disposition: -NSICU -Plan for discharge to [facility] in next few days pending completion of work up, medical stability, and therapy recommendations Code Status: -Full Code Presumed This patient was seen and discussed with supervising physician, Dr. Vale Leiva by phone. Attending Physician's Addendum I discussed this patient with Dr. Kee Hardin overnight via telephone. I did not personally see or examine the patient. Chart and data reviewed. I have confirmed and agree with the assessment and plan above. Patient will be seen by the day team attending in the morning/daytime. Vale Leiva DO DAYTEAM ADDENDUM Subjective: patient had some agitation screw remover, frustrated with being in hospital. Refused examination this morning as upset that she is being disturbed frequently. Objective: General: No acute distress, vital signs as above Eyes: Irises and pupils without defect, conjunctivae slightly injected, eyelids normal Extremities: RUE forearm puncture site, erythematous, swollen, warm to touch (concern for phlebitis) Skin: Right Neck ecchymosis, Left groin puncture superficial wound. Neurologic Examination: Mental status: Alert and oriented to name, year, place, situation; fluent language, moderate dysarthria, moderate receptive aphasia (Difficulty following some simple commands, requiring repetition); comprehension intact CN: VF intact to blink to threat; EOMI, sensation in V1-V3 distributions intact bilaterally , no facial asymmetry, hearing intact to spoken voice Motor: tone and bulk in bilateral upper and lower extremities are normal unless otherwise indicated below LUE 4-/5 proximal, 4/5 distal RUE 5/5 all groups LLE 5/5 all groups RLE 5/5 all groups Sensory: intact bilaterally to light touch Coordination: intact [id number] bilaterally Gait: deferred due to patient safety Assessment/Plan: as above, with some changes as noted below: - Neurosurgery follow up for BP goals, right neck wound, left groin puncture - Consider wound care consultation - Obtain MRI brain w/o contrast (including SWI sequence) - NSGY BP goal <140, can be liberalized to <160 if okay with neurosurgery team - Requiring multiple pushes of labetalol, home meds anti-HTNs include metoprolol succinate 50 mg BID and candesartan 8 mg daily - Discuss transfer to neurosurgical team as primary diagnosis is Intraparenchymal Hemorrhage with further neurological concerns The patient was evaluated and discussed with attending physician, Dr. Kishan Dominguez DO. The above assessment and plan should be considered preliminary until attested by attending physician. Please see attestation for further changes and final recommendations. Attending Physician's Attestation I saw and examined the patient with Dr. Tata Adrian, and within 24 hours of initial consultation/admission. Chart and data reviewed. I have repeated the peraza portions of the history and physical exam. I have confirmed and agree with the note above. Kishan Dominguez, Problem List/Past Medical History Ongoing Arm numbness Bilateral carotid artery stenosis CA - breast cancer Hamstring strain Heart disease HTN (hypertension) Knee pain Knee pain Lumbar radiculitis Lumbar radiculopathy Neck pain Neural foraminal stenosis of lumbar spine OA (osteoarthritis) of knee Pain in left foot Pes anserinus bursitis Pre-op exam Rheumatoid disease Right carpal tunnel syndrome S/P orthopedic surgery, follow-up exam Tenosynovitis, de Quervain Procedure/Surgical History •Carcinogen Medications Inpatient acetaminophen, 650 mg= 2 tab, PO, q6h, PRN hydrALAZINE, 10 mg= 0.5 mL, IV Push, As indicated, PRN labetalol, 10 mg= 2 mL, IV Push, As indicated, PRN mupirocin topical(mupirocin 2% nasal ointment), 1 appl, each nostril, bid Home acetaminophen(Tylenol) albuterol(Ventolin HFA 90 mcg/inh inhalation aerosol), 2 puff, inhaled, qid, PRN aspirin(aspirin 81 mg oral delayed release tablet), 81 mg= 1 tab, PO, Daily candesartan(Atacand 8 mg oral tablet), 8 mg= 1 tab, PO, Daily celecoxib(CeleBREX), 200 mg, PO, bid cholecalciferol(cholecalciferol 50 mcg (2000 intl units) oral tablet), 50 mcg= 1 tab, PO, Daily clopidogrel(Plavix 75 mg oral tablet), 75 mg= 1 tab, PO, Daily, 3 refills escitalopram(escitalopram 5 mg oral tablet), 5 mg= 1 tab, PO, Daily fluticasone nasal(fluticasone 50 mcg/inh nasal spray), 2 spray, each nostril, Daily furosemide(furosemide 40 mg oral tablet), See Instructions metoprolol(metoprolol succinate 50 mg oral tablet, extended release), 50 mg= 1 tab, PO, bid omeprazole(omeprazole 20 mg oral delayed release tablet), 20 mg= 1 tab, PO, qAM potassium chloride(potassium chloride 10 mEq oral capsule, extended release), 10 mEq= 1 cap, PO, Daily pramipexole(pramipexole 0.5 mg oral tablet), 0.5 mg= 1 tab, PO, Daily pravastatin(pravastatin 20 mg oral tablet), 20 mg= 1 tab, PO, Daily verapamil(verapamil 120 mg/24 hours oral capsule, extended release), 120 mg= 1 cap, PO, Daily Allergies Percocet 5/325 codeine Social History Smoking Status Never smoked cigarettes Family History Cancer: Unknown. Heart disease: Unknown. Health Status Family Member(s) Electronic Signature on File Electronically Reviewed/Signed by: Kee Hardin MD Author Signature Dt/Tm:02/13/2024 04:43 AM Resident Department of Neurology Electronically Reviewed/Signed by: Tata Adrian MD Cosigner Signature Dt/Tm: 02/13/2024 01:18 PM Resident Department of Neurology Electronically Reviewed/Signed by: Kishan Dominguez DO Cosigner Signature Dt/Tm: 02/13/2024 10:40 PM Department of Neurology Electronically Reviewed/Signed by: Vale Leiva DO Cosigner Signature Dt/Tm: 02/18/2024 05:39 AM Department of Neurology [facility] Neurosurgery Consult * MD Cameron, Simone Doran: MODIFY MD Cameron, Simone Doran: MODIFY, PERFORM MD Mcgowan Mitchell: PERFORM, MODIFY MD Mcgowan Mitchell: MODIFY Event Display: Neurosurgery Consult Authored Date: NEUROSURGERY INPATIENT CONSULTATION REPORT Name: SOREN BURGER Patient Number: [id number] : 1935 Date of Service: 02/13/2024 REQUESTING SERVICE: _ Neurology REASON FOR CONSULTATION: IPH in the post-operative period of TCAR x2 ASSESSMENT: _ 88F s/p TCAR x2 on 02/06 and 02/08 at [facility] with 1cc left frontal IPH identified 02/11 RECOMMENDATIONS: _ ##L frontal IPH ##S/p TCAR - no acute neurosurgical intervention - SBP <140 - Would start aspirin right away - Repeat CTH on admission was stable > start plavix 3 days - Would obtain OSH records + imaging - Remainder per neurology History of Present Illness: _ 88F who had a TC[facility] at [facility] 02/[facility] for right hemisphere ischemicpathology in the setting of carotid stenosis. This procedure was complicated by right carotid dissection which was treated by re-do TCAR on 02/08. On 02/11, CTH was obtained for the purposes of initiating or increasing antiplatelets/anticoagulation, and a 1cc left frontal IPH was identified. The patient was then transferred to [facility] [place] higher level of care. Review Of Systems: _ Limited by mental status, has no complaints Past Medical History: Problems: Bilateral carotid artery stenosis Pes anserinus bursitis OA (osteoarthritis) of knee Knee pain Pain in left foot Hamstring strain Neck pain Knee pain Tenosynovitis, de Quervain S/P orthopedic surgery, follow-up exam Pre-op exam Right carpal tunnel syndrome Lumbar radiculopathy Lumbar radiculitis Neural foraminal stenosis of lumbar spine Arm numbness Heart disease CA - breast cancer Rheumatoid disease HTN (hypertension) Surgical History: Procedure History Procedure Procedure Date Comments Carcinogen Family History: Unknown: Cancer; Heart disease Social History: No qualifying data available. Support from Allergies and Sensitivities: Percocet 5/325 codeine Active Inpt Meds: aspirin 81 mg PO Daily cholecalciferol 50 mcg PO qhs docusate (Colace) 100 mg PO bid escitalopram 5 mg PO qAM fluticasone nasal (fluticasone 50 mcg/inh nasal spray) 50 mcg each nostril qPM insulin lispro (HumaLOG Sliding Scale Low) subQ q6h metoprolol (metoprolol tartrate) 25 mg PO bid mupirocin topical (mupirocin 2% nasal ointment) 1 appl each nostril bid pantoprazole (Protonix) 40 mg PO Daily pramipexole 0.5 mg PO qhs rosuvastatin 20 mg PO Daily verapamil 120 mg PO qAM Active PRN Meds: acetaminophen (Tylenol) 650 mg PO q4h albuterol (albuterol CFC free 90 mcg/inh MDI) 2 puff inhaled q6h hydrALAZINE 10 mg IV Push As indicated labetalol 10 mg IV Push As indicated lidocaine (lidocaine 1% injectable solution) 1 mL subQ As indicated One Time Meds: (Completed) iohexol (Omnipaque 350) 75 mL w/ contrast-IV ONCE Active IV Meds: None Vitals: Last Updated 02/13/24 08:00 Weights: Last Updated 02/13/24 02:00 Date Temp Pulse BP RR SpO2 FIO2 Date Wt(kg) Wt(lb) 02/12 08:00 36.2 83 146/72 17 96 02/12 02:00 77.8 171 02/12 06:00 80 136/118 22 96 02/12 02:00 77.8 171 02/12 05:00 82 151/76 17 94 02/12 04:31 135/61 02/12 04:00 36.3 80 169/82 13 96 24 Hr Tmax: 36.3 at 02/12 04:00 Initial Wt: 02/12 77.8 kg 171 lb Physical Exam: Alert and oriented x3 but with some confusion as to circumstances PERRL, EOMI Facial sensation intact in V1/V2/V3 distributions bilaterally Face symmetric, Tongue midline RUE 4+/5 proximally and 4/5 distally RLE 4+/5 proximally and 4+/5 distally LUE 4/5 proximally and 4/5 distally LLE 4+/5 proximally and 4+/5 distally Sensation symmetric and intact to light touch in all extremities Most Recent 24 Hour CBC/BMP Results No Latest CBC or BMP Found. No 24 Hour Lab Data. Studies: Pending or Completed in the Last [address] Angio Brain/Head Ordered CT Angio Neck Ordered VL Upper Ext Arterial Duplex Bilateral Ordered VL Upper Ext Venous Duplex Bilateral Ordered ATTENDING ADDENDUM I saw and examined the above patient. I agree with the above documentation. Jude Barnes MD, MS [employer] Installer of Neurosurgery Electronic Signature on File Electronically Reviewed/Signed by: Humberto Mcgowan MD Author Signature Dt/Tm:02/13/2024 08:50 AM Resident Department of Neurosurgery Electronically Reviewed/Signed by: Humberto Mcgowan MD Cosigner Signature Dt/Tm: 02/13/2024 09:07 AM Resident Department of Neurosurgery Electronically Reviewed/Signed by: MD Jesus Barron Signature Dt/Tm: 02/19/2024 08:20 AM Department of Neurosurgery MP Facility Discharge Instructions * MAHESH Cardona Sally A: MODIFY MAHESH Cardona Sally A: MODIFY, MODIFY Event Display: Facility Discharge Instructions Authored Date: [id number] SOREN BURGER :1935 Visit Date:02/13/2024 Facility Discharge Instructions [facility] For medical concerns, call: . Date of Admission: 02/13/2024 Date of Discharge: 02/21/2024 Physician: MD Cameron, Simone Doran Service: Neurosurgery Discharge Disposition: Primary Care Provider/Phone: MD TERESA, KIM Machado (Narrative) . Advance Directive: Unable to Obtain Information Reason for Hospitalization ICH (intracerebral hemorrhage) Your Diagnoses ICH (intracerebral hemorrhage) My Health Patient Portal: [facility] [employer] makes it easy for you to manage your health information online. My [facility] [employer] is a free service that provides you instant, secure access to your medical information anytime, anywhere. Sign in or set up your account today at [email or web address] Thank you for allowing us to assist you with your healthcare needs. If you need additional community resources, [facility] [employer] can help at https://www.pa211.org. 211 can assist you in connecting with social programs based on your unique needs and locations. 211 is an anonymous search that can help you locate resources for: Food, Housing, Transportation, Goods, Education and Healthcare. Hospital Course HPI: Mrs. Burger is an 88-year-old right handed female with a history of Hypertension, Dyslipidemia, Chronic Diastolic CHF (HFpEF), Moderate Aortic Stenosis, Moderate Aortic Insufficiency, PSVT s/p Ablation, Asthma, Breast Cancer, Arthritis s/p TKA and MERRITT, Carotid Artery Stenosis (90%+ ION Stenosis) s/p TIA who underwent Right TCAR with Dr. 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 Per patient and record review, patient had a suspected TIA previously and during that workup was found to have a R ICA stenosis of 90%. he had schedule surgery with Dr. Camarillo at [facility] for TCARon 02/06. Complications due to carotid dissection lead to another operation on 02/08. Since surgerypatient has had R neck pain at surgical sight as well as LUE weakness per documentation. Patient was started on aspirin and Plavix. However during her hospitalization she was found to have atrial fibrillation. Metoprolol 50mg BID was started and CT Head w/o contrast was obtained on 02/11 due to consideration of starting anticoagulation. Initial CT Head demonstrating concern for acute L ICH. Telest roke was activated. Decision was made to transfer patient to [facility] [place] stroke service for further management. On arrival, BP 160/80, HR 80, on room air. NIHSS 3 (2-LUE, 1-dysarthria). Given concern of acute ICH, Neurosurgery was consulted for recommendations regarding management. Hospital Course: Ms. Burger was transferred to [facility] to the neurology service with a neurosurgery consult. Repeat imaging showed that the left frontal IPH was stable. Her aspirin was restarted on 02/13/2024 and plavix was restarted on 02/16/2024. She was transferred to the neurosurgery service. A urine culture was positive for E. coli, she was treated with a course of Bactrim (through 02/24/2024). She remained stable but became hyponatremic. She was started on a fluid restriction and NaCl 1gm TID. Her chemistries were followed closely. She should follow up with cardiology and her TCAR surgeon, Dr. Camarillo regarding the medications started by them (metoprolol, aspirin, and plavix). PPI was switched to H2 nichole due to possible interaction with Plavix. PT/OT evaluated the patient and identified ongoing inpatient needs. Patient was evaluated by speech therapy who also identified ongoing inpatient needs. Discharged to facility on 02/21/2024. Patient was afebrile, voiding spontaneously, tolerating PO diet, and medically and neurologically stable. Follow-up with neurosurgery on 03/15/24, this is a telehealth appointment. Clinical conditions which further demonstrate and/or describe clinical severity and complexity: Acute blood loss anemia: Hemoglobin <12 in a female patient is considered anemia. Blood loss expected and with acceptable range for the surgery performed and patient is hemodynamically stable. A portion of this drop is also likely dilutional given fluids given during surgery. Asymptomatic and monitoring CBC and providing supplements when needed. Nontraumatic cerebral hemorrhage: left frontal IPH Body Mass Index (BMI): BMI: 34.64 kg/m2 Obesity (BMI 30-39.9): recommend evaluation as an outpatient for weight loss options. Hypokalemia: replace Hyponatremia: replace Hypomagnesemia: replace Hypophosphatemia: replace Hypocalcemia: replace Cardiac arrhythmia:Atrial fibrillation. Exam on Discharge Vitals & Measurements: T: 36.9 °C TMIN: 36 °C TMAX: 37.7 °C HR: 88 (Monitored) RR: 18 BP: 124/58 SpO2: 93% Oxygen Therapy: Room Air WT: 76.5 kg Neuro Exam: Alert and oriented x3 , confused intermittently, slight dysarthria PERRL, EOMI Facial sensation intact in V1/V2/V3 distributions bilaterally Face symmetric, Tongue midline RUE 4+/5 proximally and 4+/5 distally RLE 4+/5 proximally and 4+/5 distally LUE 4/5 proximally and 4/5 distally LLE 4+/5 proximally and 4+/5 distally Sensation symmetric and intact to light touch in all extremities Medications Patient is enrolled in Rx-to-Go Program New medications will be delivered from [facility] to patient's room at discharge: Mon-Sun from 9AM-5 PM. Medications MUST be PICKED UP at [facility] if patient is discharged Mon-Sun after 5 PM or anytime on holidays. Please note, the [facility] closes at 8 PM on weekdays and 5:30 PM on Saturdays, Sundays, and holidays. What How Much When Why Instructions Next Dose New famotidine (famotidine 10 mg oral tablet) 1 tab(s) by mouth Once daily Duration: 30 Days 02/21 0800 New rosuvastatin (rosuvastatin 20 mg oral tablet) 1 tab(s) by mouth Once daily 02/20 2100 New sodium chloride (sodium chloride 1000 mg oral tablet) 1 tab(s) by mouth 3 times daily 02/20 1500 New sulfamethoxazole-trimethoprim (Bactrim) 160 Milligram by mouth Every 12 hours Duration: 4 Days last dose: PM dose 02/20 1800 New umeclidinium-vilanterol (Anoro Ellipta 62.5 mcg-25 mcg/ inh inhalation powder) 1 puff(s) Inhalation Once daily 02/21 0900 New valsartan (valsartan 80 mg oral tablet) 1 tab(s) by mouth 2 times daily 12/31 2100 Changed escitalopram (escitalopram 10 mg oral tablet) 1 tab(s) by mouth Once a day (in the morning) 02/21 899 Changed furosemide (furosemide 40 mg oral tablet) TAKE 1 TABLET BY MOUTH ONCE DAILY IN THE MORNING 02/21 899 Unchanged albuterol (Ventolin HFA 90 mcg/ inh inhalation aerosol) 2 puff(s) Inhalation 4 times daily as needed for as needed for wheezing as needed Unchanged aspirin (aspirin 81 mg oral delayed release tablet) 1 tab(s) by mouth Once daily 02/21 899 Unchanged cholecalciferol (cholecalciferol 50 mcg (2000 intl units) oral tablet) 1 tab(s) by mouth Once daily 02/21 899 Unchanged clopidogrel (Plavix 75 mg oral tablet) 1 tab(s) by mouth Once daily Bilateral carotid artery stenosis 02/21 899 Unchanged fluticasone nasal (fluticasone 50 mcg/ inh nasal spray) 2 spray(s) in each nostril Once daily 02/21 899 Unchanged metoprolol (metoprolol succinate 50 mg oral tablet, extended release) 1 tab(s) by mouth 2 times daily 02/20 2100 Unchanged pramipexole (pramipexole 0.5 mg oral tablet) TAKE 1 TABLET BY MOUTH AT BEDTIME for restless leg 02/20 2100 Unchanged verapamil (verapamil 120 mg/ 24 hours oral capsule, extended release) 1 cap by mouth Once daily 02/21 899 What How Much When Comments Stop Taking atorvastatin (atorvastatin 80 mg oral tablet) TAKE 1 TABLET BY MOUTH IN THE EVENING Stop Taking candesartan (Atacand 8 mg oral tablet) 1 tab(s) by mouth Once daily Stop Taking omeprazole (omeprazole 20 mg oral delayed release tablet) 1 tab(s) by mouth Once a day (in the morning) Allergies Percocet 5/325 codeine What to do next Instructions From Your Doctor --Follow up with neurosurgery with a telehealth appointment on 03/15/2024 at 11:45. Call [phone] if you need to cancel/change an appointment. -- DVT prophylaxis per facility, not contraindicated. -- Bowel regimen per facility. -- Please review your medication reconciliation, as there have been changes. -- You were started on metoprolol 50mg twice daily for a new diagnosis of atrial fibrillation. You will need to follow up with cardiology. -- Continue aspirin and Plavix until told to stop by Dr. Camarillo (Surgeon who performed TCAR). --Follow up with your primary care physician (PCP) in 1-2 weeks following discharge. Lifestyle changes such as quitting tobacco, limiting alcohol intake, eating a diet low in salt and saturated fat, and routinely doing 30 minutes of exercise daily can help to improve your health without the addition of prescription medications. Work with your PCP to modify any of the risk factors below which are applicable to you in order to reduce your risk of having another stroke: - High blood pressure - High cholesterol - Diabetes - Obstructive sleep apnea - Being overweight - Tobacco use - Excessive alcohol use - Illicit/Illegal drug use - Atrial fibrillation - Heart disease If you notice the following symptoms Call 911 immediately if experiencing any of the warning signs and symptoms of stroke -- B.E. F.A.S.T. : Balance: Is there trouble with walking or coordination? Eyes: Is there double vision or visual loss? Face: Smile - do both sides of the face move equally? Arm: Raise arms - do both arms move equally? Speech: Is speech slurred or inappropriate? Time: Time is critical, call 911 immediately You may also reach the stroke nurse line at [facility] at [phone] (M-F 8a-5p). After hours, contact the care line at . Call for: - any activity causing shortness of breath or chest pain - a fever greater than 101 degrees F - nausea, vomiting or abdominal pain - bleeding or bruising - twitching or seizure activity - any other concerns Contact neurosurgery at [phone] with any other questions/concerns. After 5 PM and on weekends/holidays call [phone] and ask for the neurosurgery resident on-call. She was discharged in stable medical/neurological condition. Optimal future stroke prevention and risk factor modification was addressed/discussed. She and her family received a stroke information packet near the time of hospital discharge. Contact the [facility] Careline at . If unable to contact your physician and you feel it is an emergency, go to the nearest Emergency Room or call 911 Diet Instructions Speech Therapy Recommendations: Ongoing Speech/language therapy services Keep directions simple and clear Allow to process information --Resume the same diet from prior to hospitalization, as tolerated and guided by speech therapy. However, good health practices are always encouraged which include a well-balanced, heart healthy dietwith moderate restriction of salt and saturated fat. Other restrictions may be needed, including but not limited to, if you are diabetic or on Coumadin as outlined by your doctors. Activity Instructions --Follow the activities recommended by your physical, occupational, and/or speech therapist. --Gradually increase your activity level with a goal of 30 minutes most days of the week. --Please do not drive or operate heavy machinery until you are cleared by your PCP. Follow-Up Appointments Scheduled Follow-Up Appointments Date/Time: Provider/Resource: Feb 12:45 pm THEODORE Wolfe Lynn Location/Instructions: [facility] [address], [facility] [address], [address], [place] [address] . Please arrive 15 min earlier than your appointment time for Check In Process. Date/Time: Provider/Resource: Feb 11:45 am MD Barnes David A Location/Instructions: This is a virtual healthcare appointment and NOT an in- office appointment. If you have questions, please contact the office at [phone]. The Following Services Have Been Arranged for You Service: Organization: Business Address: Phone Number: [facility] [address] [place], [address] Tests Pending None Procedures Performed (02/13/2024 04:[address] Angio Brain/Head) 1. Stable left frontal intraparenchymal and subarachnoid hemorrhage foci. 2. 3.5 segment of severe, near complete stenosis, of the left vertebral artery V2 segment with distal reconstitution, likely from collateral circulation. (02/13/2024 10:15 EST VL Upper Ext Venous Duplex Right) INTERPRETATION/FINDINGS Right upper extremity venous duplex exam reveals: 1. Loss of phasic flow in the right internal jugular of uncertain etiology. Unable to obtain compression images of the right internal jugular due to patient pain and edema. No filling defect noted on Color imaging in the right proximal, mid and distal internal jugular vein. Unable to rule outproximal obstruction versus extrinsic compression due to edema. 2. Mild loss of pulsatile flow in the right subclavian vein of uncertain etiology. Loss of pulsatility appears to be positional. 3. Acute occlusive superficial thrombosis in the cephalic vein in the proximal, mid and distal forearm. 4. No evidence of deep or superficial thrombosis in the axillary, brachial, radial, basilic and cephalic veins in the arm. 5. No abnormality found in the contralateral subclavian vein. Suboptimal visualization due to body habitus. 6. Incidental finding: Multiphasic arterial waveforms noted at the right mid subclavian, distal brachial, radial and ulnar arteries. Nursing Assessment De La Vega: 02/14/2024 Female External Urinary Device Insert Date: 02/14/24 12:00 Removal Date: 02/17/24 08:00 [place]: Straight Cath Insert Date: 02/17/24 08:00 (No insertion activity documented) Removal Date: No Removal Currently Documented. SPECIAL NEEDS: Sensory Deficits: Hard of hearing Level of Consciousness Neuro: Alert Neurological Symptoms: Confusion/Disorientation ADLS: Moderate assistance Last BM: 02/13/2024 Basic Skin Assessment: [place], Warm, Dry Special Instructions Common Emergency Awareness Tips Call 911 immediately if: experiencing any of the warning signs and symptoms of stroke: B.E. F.A.S.T. Balance: is there trouble with walking or coordination Eyes: is there double vision or visual loss Face: Smile, do both sides of face move equally Arm: Raise arms, do both arms move equally Speech: Is speech slurred or inappropriate Time: Time is critical, call 911 immediately Heart Attack Signs Chest discomfort: Most heart attacks involve discomfort in the center of the chest and lasts more than a few minutes, or goes away and comes back. It can feel like uncomfortable pressure, squeezing, fullness or pain. Discomfort in upper body: Symptoms can include pain or discomfort in one or both arms, back, neck, jaw or stomach. Shortness of breath: With or without discomfort. Other signs: Breaking out in a cold sweat, nausea, or lightheaded. Remember, MINUTES DO MATTER. If you experience any of these heart attack warning signs, call to get immediate medical attention! Education Materials Intracerebral Hemorrhage An intracerebral hemorrhage stroke happens when a blood vessel in the brain leaks or bursts (ruptures). This causes bleeding in the brain (hemorrhage) and leads to the sudden of brain tissue. Ahemorrhagic stroke is a medical emergency. It can cause brain damage and . What are the causes? An intracerebral hemorrhage may be caused by: • A head injury (trauma). • Part of a weakened blood vessel wall bulging or ballooning out (aneurysm). • Thin and hardened blood vessels due to a buildup of fatty deposits (plaque). • Tangled blood vessels in the brain (arteriovenous malformation). • Protein buildup on the artery mckenna of the brain (amyloid angiopathy). • A brain tumor. Sometimes, the cause of this condition is not known. What increases the risk? The following factors may make you more likely to develop this condition: • High blood pressure (hypertension). • Abnormal blood vessels present since (congenital abnormality). • Bleeding disorders, such as hemophilia, sickle cell disease, or liver disease. • Taking blood thinners (anticoagulants). • Being an older adult. • Moderate or heavy alcohol use. • Using drugs, such as cocaine or methamphetamines. What are the signs or symptoms? Symptoms of this condition include: • The sudden onset of: ◦ Weakness or numbness in your face, arm, or leg, especially on one side of the body. ◦ Loss of balance or coordination. ◦ Slurred speech, trouble speaking, trouble understanding speech, or a mix of these. ◦ Vision changes, such as double vision, blurred vision, or loss of vision. ◦ Dizziness or confusion. ◦ Nausea and vomiting. ◦ A severe headache with no known cause. • Seizures. How is this diagnosed? An intracerebral hemorrhage may be diagnosed based on: • Your symptoms, medical history, and a physical exam. • A CT scan or MRI of the brain. • Imaging tests that scan blood flow in the brain (CT angiogram, MRI angiogram, or cerebral angiogram). How is this treated? This condition is an emergency. You must get treatment at the first sign of stroke symptoms. Your treatment will depend on the length, severity, and cause of your symptoms. The goals of treatment are to stop the bleeding, control pressure in the brain, relieve symptoms, and prevent complications. Treatment may include: • Medicines that do the following: ◦ Lower blood pressure (antihypertensives). ◦ Relieve pain (analgesics), fever, nausea, or vomiting. ◦ Stop or prevent seizures (anticonvulsants). ◦ Prevent blood vessel spasms in the brain in response to bleeding. • Use of a machine to help you breathe (ventilator). • A blood transfusion to help your blood clot. • Placement of a tube (drain) in the brain to relieve pressure. • Surgery to stop bleeding, remove a blood clot or tumor, and reduce pressure. Follow these instructions at home: Medicines • Take [id number] and prescription medicines only as told by your health care provider. • Do not take medicines, such as aspirin and ibuprofen, unless your provider tells you to take them. These medicines can thin your blood and increase the risk of bleeding. Activity • Return to your normal activities as told by your provider. Ask your provider what activities are safe for you. • Take part in rehabilitation programs as told by your provider. This may include physical therapy, occupational therapy, or speech therapy. • Use a walker or a cane as told by your provider. Lifestyle • Do not use any products that contain nicotine or tobacco. These products include cigarettes, chewing tobacco, and vaping devices, such as e-cigarettes. If you need help quitting, ask your provider. • Do not drink alcohol if your provider tells you not to drink. General instructions • Keep all follow-up visits. Your provider will need to monitor your recovery. • Follow your provider's instructions about preventing falls. Contact a health care provider if: • You develop any of the following symptoms: ◦ Headaches that keep coming back (that are chronic). ◦ Vision problems. ◦ Increased sensitivity to noise or light. ◦ Depression, mood swings, anxiety, or irritability. ◦ Memory problems, or trouble concentrating or paying attention. ◦ Sleep problems. Get help right away if: • You have a partial or total loss of consciousness. • You are taking blood thinners and you fall or have a minor injury to the head. • You have any symptoms of a stroke. "BE FAST" is an easy way to remember the main warning signs of astroke: ◦ B - Balance.Signs are dizziness, sudden trouble walking, or loss of balance. ◦ E - Eyes. Signs are trouble seeing or a sudden change in vision. ◦ F - Face. Signs are sudden weakness or numbness of the face, or the face or eyelid drooping on one side. ◦ A - Arms. Signs are weakness or numbness in an arm. This happens suddenly and usually on one side of the body. ◦ S - Speech. Signs are sudden trouble speaking, slurred speech, or trouble understanding what peoplesay. ◦ T - Time. Time to call emergency services. Write down what time symptoms started. • You have other signs of a stroke, such as: ◦ A sudden, severe headache with no known cause. ◦ Nausea or vomiting. ◦ Seizure. These symptoms may be an emergency. Get help right away. Call 911. • Do not wait to see if the symptoms will go away. • Do not drive yourself to the hospital. This information is not intended to replace advice given to you by your health care provider. Make sure you discuss any questions you have with your health care provider. Document Revised: 10/12/2022 Document Reviewed: 10/12/2022 [email or web address] Patient Education 2023 MPV. Patient Care team information Care Team Personnel Name: Chago Joseph Christine A Position: Pharmacist Member Role: Pharmacy - Lifetime Name: Chago Medrano Ann Position: Pharmacist Member Role: Pharmacy - Lifetime Name: JUAN RAMON Wolfe Lynn Position: Physician Ostomy Nurse Exempt - Vasc Surg Member Role: Lifetime Relationship Address: [address] [place] [address] Name: MD Kumari Rodney M Position: Referring Member Role: Primary Care Provider Address: [address] [place] [address] Care Team Related Persons Name: KOBE BURGER
--- OUTSIDE RECORDS SUMMARY | 2024-06-24 18:51 | External Medical Summary | Continuity of Care Document ---
Author Name Unknown Organization [facility] [address] Address [address] [place], [place] [id number] Care Team Providers Care Limousine Driver Name Role Phone Petey Kumarizachary Machado Primary Care Physician [phone] [id number] Date(s): 01/24/24 - 01/24/24 [facility] [address] [facility] [address] 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) - Discharge Disposition: Home or Self Care Attending Physician: JUAN RAMON Wolfe Lynn Referring Physician: JUAN RAMON Wolfe Lynn Allergies, Adverse Reactions, Alerts Substance Criticality Severity Reaction Reaction Severity Status codeine Active Percocet 5/325 Activ e Medications aspirin 81 mg oral delayed release [...] Active 1arm and hand numbness, B/L 2fingers Procedures Procedure Date Related Diagnosis Body Site Status Carcinogen Completed Results Laboratory List Name Date Platelet Function (P2Y12 Receptor) (PLT FUNCTION P2Y12) 01/24/24 Most recent to oldest [Reference Range]: 1 P2Y12 Platelet Function [194-418 PRU] 74 PRU 1 *LOW* (01/24/24 12:07 PM) 1Result Comment: PRU reference range is 194-418 (healthy adults, no drug treatment). Post Drug Results: Lower PRU levels are expected following treatment with antiplatelet drugs. Post-treatment values are usually below the stated reference range above. The post-drug PRU values reported in the [employer]ify[employer] P2Y12 package insert are 18-435. This broader range reflects the variability in drug response and is consistent with significant numbers of patients with decreased sensitivity to P2Y12 receptor antagonists (prasugrel or clopidogrel). Clinical studies suggest an on-treatment PRU>230 indicates less than optimal response to therapy, and PRU<208 at 12-24 hours after percutaneous intervention or during follow-up is associated with a lower risk of cardiovascular events (1). (1).Standard-vs high-dose clopidogrel based on platelet function testing after percutaneouscoronary intervention: the GRAVITAS randomized trial. Louie et al. SUMMER. 2010May 06; 305(11): 5716-4581. doi: 10.1001/summer.2011.290 Social History Social History Type Response Smoking Status Never smoked cigaret issac Sex Female Sex Representation Female (finding) Patient Care team information Care Team Personnel Name: JUAN RAMON Wolfe Lynn Position: Physician Language Tutor Exempt - Vasc Surg Member Role: Lifetime Relationship Address: [address] [place] [id number] [place] Name: MD Kumari Rodney M Position: Referring Member Role: Primary Care Provider Address: [address] [place] [address], [place] [id number] [place] Care Team Related Persons Name: MICHAEL DURAN
--- OUTSIDE RECORDS SUMMARY | 2024-06-24 18:51 | External Medical Summary | Continuity of Care Document ---
Author Name Unknown Organization [facility] [address] Address [address] [place], [place] [id number] Care Team Providers Care Product Introduction Manager Name Role Phone José Kumari Primary Care Physician [phone] Encounter [facility] [id number] Date(s): 02/12/24 - 02/12/24 [facility] [address] [place], [place] [id number] [place] Discharge Disposition: Home or Self Care Attending Physician: MD Raymundo, Cristin Referring Physician: MD Lauren, Emile D Allergies, Adverse Reactions, Alerts Substance Criticality Severity Reaction Reaction Severity Status codeine Active Percocet 5/325 Activ e Medications aspirin 81 mg oral delayed release tablet Start: 12/27/23 2:57:00 PM EST, 1 tab, PO, Daily Start Date: 12/27/23 Status: Ordered Atacand 8 mg oral tablet Start: 07/16/20 8:23:00 AM EDT, 1 tab, PO, Daily Start Date: 07/16/20 Status: Ordered atorvastatin 80 mg oral tablet TAKE 1 TABLET BY MOUTH IN THE EVENING Start Date: 02/13/24 Status: Ordered CeleBREX Start: 12/27/23 2:57:00 PM [...] Daily Start Date: 12/27/23 Status: Ordered furosemide 20 mg oral tablet TAKE 1 TABLET BY MOUTH ONCE DAILY IN THE MORNING Start Date: 02/13/24 Status: Ordered furosemide 40 mg oral tablet TAKE 1 TABLET BY MOUTH ONCE DAILY IN THE MORNING Start Date: 02/13/24 Status: Ordered metoprolol succinate 50 mg oral [...] Daily, Disp# 90 tab, Refills: 3, Pharmacy: [facility] Start Date: 01/16/24 Status: Ordered Potassium Chloride (Hjq-Nchp-Cbf 10) 10 mEq oral tablet, extended release TAKE 1 TABLET BY MOUTH ONCE DAILY IN THE MORNING Start Date: 02/13/24 Status: Ordered pramipexole 0.5 mg oral tablet TAKE 1 TABLET BY MOUTH AT BEDTIME for restless leg Start Date: 02/13/24 Status: Ordered Tylenol Start: 09/11/20 2:03:00 PM [...] Related Diagnosis Body Site Status Carcinogen Completed Social History Social History Type Response Smoking Status Unknown if ever smok ed Sex Female Sex Representation Female (finding) Patient Care team information Care Team Personnel Name: JUAN RAMON Wolfe Lynn Position: Physician Press Cleaner Exempt - Vasc Surg Member Role: Lifetime Relationship Address: [address] [place] [address] [place] Name: MD Kenyetta, José Machado Position: Referring Member Role: Primary Care Provider Address: [address] [place] [address] [place] Care Team Related Persons Name: MICHAEL DURAN
--- OUTSIDE RECORDS SUMMARY | 2024-06-24 18:51 | External Medical Summary | Continuity of Care Document ---
Author Name Unknown Organization [address] Address [address] [place], [place] [id number] Care Team Providers Care Life Insurance Salesperson Name Role Phone José Kumari Primary Care Physician [phone] [id number]23 - 12/27/23 [facility] [address], [address] [place] [phone] Encounter Diagnosis Bilateral carotid artery stenosis(Discharge Diagnosis) - 12/27/23 Discharge Disposition: Home or Self Care Attending [...] PO, qAM Start Date: 10/05/12 Status: Ordered potassium chloride 10 mEq oral [...] Status Informant Arm numbness 1 Confirmed Active CA - breast cancer Confirmed [...] Informant Bilateral carotid artery stenosis Discharge Diagnosis 12/27/23 Non-Specified Procedures Procedure Date Related Diagnosis Body Site Status Carcinogen Completed Social History Social History Type Response Smoking Status Never smoked cigaret issac Sex Female Sex Representation Female (finding) Patient Care team information Care Team Personnel Name: MD Kenyetta, José Machado Position: Referring Member Role: Primary Care Provider Address: [address] [place] [address], [address] Care Team Related Persons Name: MICHAEL DURAN
--- NOTE | 2024-06-24 19:33 | Emergency Department Note ---
Impression & Plan Closed left humeral fracture, Fall, Hard of hearing, Acute hip pain ED Provider Note NAME: SOREN DURAN AGE: 89 SEX: F : 1935 ARRIVES VIA: Ambulance INFORMANT: Patient, ED PROVIDER(S): Adonis Nation MD CHIEF COMPLAINT: Fall, arm pain, hip pain MEDICAL DECISION MAKING: Patient presents with the above. Initially deferred any blood work as the patient was amenable to pain medication and plain imaging. The patient did have plain films completed of the lumbar spine and left humerus as well as the right hip and pelvis. Patient did receive Tylenol. The patient's x-rays do show concern for proximal left humerus fracture. Patient was ordered an arm sling. As the patient already uses a walker and does have mobility issues do not believe the patient would be safe for home at this time. I did have case management call Larry Burnette who agreed. Given this IV and blood work were obtained. I did speak with the on-call hospitalist service. The patient's hip and pelvis x-ray and lumbar x-rays are negative. I did speak with Myriam Cisneros PA-C and Dr. Hughes and the patient was admitted to the medicine service. Blood work showed a normal white count hemoglobin and platelet count kidney function was unremarkable. Definitive Fracture Care note: Dx: Left humerus fracture Plan: Immobilization, r arm sling, est, ice, elevation, analgesia, orthopedic follow up. Discussion w/ other healthcare providers: Myriam Robison PA-C and Dr. Hughes inpatient medicine service Prior /Outside records reviewed: None Differential diagnosis: Fracture, sprain, strain, subluxation, dislocation, contusion, ligamentous injury, neurovascular, as well as other etiologies were considered. Diagnostics, as interpreted by me: ECG: Normal sinus rhythm, rate of 66, normal ID and QRS, prolonged QT T wave versions inferiorly. Cardiac monitoring: An order was placed for continuous cardiac monitoring. The monitor shows a rate of 67 with sinus rhythm. Patient was placed on pulse oximetry Medical decision rules: Nexus rule Imaging studies: I informally interpreted the patient's left humerus x-ray shows humerus fracture with formal report to follow. HPI: Patient presents due to concern for fall hip and arm pain. The patient states that she was visiting her at his apartment that they used to both live in but the patient currently receives some additional care at an additional place called [place] [facility]. Patient reports that she was bending over to reach into something that was attached to her walker but her walker was not locked in place and that she slid to the floor striking her right hip and her left arm. The patient was able to get up on her own. Patient denies any head strike or LOC. No head or neck pain. The patient states that she apparently has left shoulder and upper arm pain. The patient did not take anything prior to arrival. Patient thinks that she takes blood thinning medications. Review of the patient's medication list shows that the patient does not take any blood thinners with exception of baby aspirin. PAST MEDICAL HISTORY: See Below PAST SURGICAL HISTORY: See Below SOCIAL HISTORY: See Below HOME MEDICATIONS: See Below ALLERGIES: See Below VITALS: See Below PHYSICAL EXAMINATION: GENERAL: NAD, non-toxic. Wearing glasses, hard of hearing. Head: Normal cephalic atraumatic. EYE EXAM: Normal conjunctiva. PERRL, no anisocoria and EOM's grossly intact w/o pain. OROPHARYNX: Moist mucus membranes, grossly normal dentition. NECK: Trachea midline, no stridor. Supple, no nuchal rigidity, no adenopathy, non-tender. No signs of meningismus. FROM of the neck with good chin to chest and neck extension. No midline C-spine TTP. LUNGS: Clear to auscultation. Normal chest wall mechanics. HEART: NSR, no MRG. ABDOMEN: Abdomen soft, non-tender, no masses, no rebound or guarding. BACK: No CVA TTP. Midline lower back pain. SKIN: No rashes and no bruising. UPPER EXTREMITIES: Pain to palpation to the left shoulder and upper humerus. Limited mobility. Compartments are soft and well-perfused distally. LOWER EXTREMITIES: Pain to the bilateral hips with pain to the right hip that is more prominent. Able to raise both legs up off the bed without issue. No knee pain. NEURO EXAM: A&O x3, no obvious facial asymmetry, normal speech, moves all 4 extremities but limited movement of the left upper extremity secondary to pain. Past Med/Surg History Problem List (Updated 06/27/24 @ 07:52 by Adonis Nation MD) Acute hip pain (Acute) Hard of hearing (Acute) Fall (Acute) Closed left humeral fracture (Acute) Ambulatory dysfunction Left humeral fracture Ground-level fall Paroxysmal atrial fibrillation Intraparenchymal hemorrhage of brain Discharge planning issues DVT prophylaxis Dissection of right carotid artery Stenosis of right carotid artery Valvular heart disease Carotid artery stenosis Encounter for pre-operative examination DDD (degenerative disc disease), lumbar Bruit of left carotid artery Arthritis Diastolic congestive heart failure, NYHA class 3 Bilateral edema of lower extremity (Chronic) SVT (supraventricular tachycardia) (Chronic) Asthma (Chronic) Hypertension (Chronic) Dyslipidemia (Chronic) Dyspnea on exertion (Chronic) Breast cancer (Acute 05/07/16) "Status post left breast cancer 1996 treated with lumpectomy followed by radiation therapy Self detected left breast mass April 2016 Status post mammogram followed by core needle biopsy 05/07/2016 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, progesterone receptor positive, HER-2/wendy positive" Medical History Tenosynovitis, de Quervain Rheumatoid disease Pes anserinus bursitis OA (osteoarthritis) of knee Neural foraminal stenosis of lumbar spine Lumbar radiculopathy Knee pain ICH (intracerebral hemorrhage) (02/13/24) Heart disease Hamstring strain Bilateral carotid artery stenosis Chronic neck pain Poor historian Arthritis Limb alert care status left Dyspnea on exertion chronic, denies change or worsening SVT (supraventricular tachycardia) "palpitations occasionally" - follows with kumar Bilateral edema of lower extremity chronic, denies change or worsening Moderate aortic stenosis DSE 05/19/22: Moderate aortic stenosis (ROB 1.4-1.6cm2, MG 7.8mmhg) Dyslipidemia Heart failure with preserved ejection fraction History of COVID-19 (06/2022) 06/2022- "mild cold symptoms" > resolved Asthma Cystocele, midline Carpal tunnel syndrome surgery 2022-Residual right finger numbness Osteoarthritis Sciatic nerve disease Chronic back pain GERD (gastroesophageal reflux disease) Well controlled and stable Breast cancer, left (1996) "Status post left breast cancer 1996 treated with lumpectomy followed by radiation therapy Self detected left breast mass April 2016 Status post mammogram followed by core needle biopsy 05/07/2016 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, progesterone receptor positive, HER-2/wendy positive" Hearing deficit b/l hearing aids Restless leg syndrome Hyperlipidemia Hypertension controlled, stable per pt Atrial fibrillation per hx, pt unsure, Follows with EU[facility] cardio Sleep apnea CPAP (compliant) Surgical History Status post left knee replacement (12/2022) History of right hip replacement (07/02/22) Right MERRITT S/P epidural steroid injection History of carpal tunnel surgery of right wrist History of back surgery Lumbar cyst removal H/O left breast biopsy (1997) ("malignant") History of left mastectomy (2015) Left limb restriction History of lumpectomy of left breast 1997 History of tonsillectomy and adenoidectomy Social History Smoking Status: Never smoker Second Hand Exposure: No; Do You Dip or Chew Tobacco: No; Hx Alcohol Use: No Hx Substance Use: No Preferred Language: Turkmen 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 Milk Containing Products AdvReac cow milk = Verified 06/20/24 14:33 (Dairy) "gas", lactose already profiled Home Meds Home Medications Medication Instructions Recorded Confirmed acetaminophen 650 mg 325 - 650 mg PO Q6H PRN Pain 11/17/17 05/29/24 tablet,extended release albuterol sulfate 90 mcg/actuation 2 puff inhalation Q6H PRN 11/17/17 05/29/24 aerosol inhaler (Ventolin HFA) Shortness Of Breath Or Wheezing fluticasone propionate 50 1 spray intranasal QPM PRN 11/17/17 05/29/24 mcg/actuation nasal allergies spray,suspension (Flonase Allergy Relief) metoprolol succinate 50 mg 50 mg PO BID 04/02/21 05/29/24 tablet,extended release 24 hr pramipexole 0.5 mg tablet 0.5 mg PO HS 04/02/21 05/29/24 cholecalciferol (vitamin D3) 50 50 mcg PO HS 10/28/22 05/29/24 mcg (2,000 unit) capsule (Vitamin D3) aspirin 81 mg capsule 81 mg PO DAILY 01/17/24 05/29/24 clopidogrel 75 mg tablet (Plavix) 75 mg PO DAILY 02/07/24 05/29/24 bisacodyl 10 mg rectal suppository 10 mg ID DAILY PRN 03/08/24 05/29/24 (Dulcolax (bisacodyl)) escitalopram oxalate 10 mg tablet 10 mg PO DAILY 03/08/24 05/29/24 (Lexapro) famotidine 10 mg tablet 10 mg PO DAILY 03/08/24 05/29/24 furosemide 40 mg tablet 40 mg PO DAILY 03/08/24 05/29/24 rosuvastatin 20 mg tablet (Crestor) 20 mg PO DAILY 03/08/24 05/29/24 valsartan 80 mg tablet 80 mg PO BID 03/08/24 05/29/24 verapamil 120 mg 24 hr 120 mg PO DAILY 03/08/24 05/29/24 capsule,extended release Previous Rx's Medication Instructions Recorded amiodarone 200 mg tablet 200 mg PO DAILY #90 tabs 04/05/24 tramadol 50 mg tablet 50 mg PO Q4H PRN pain #10 tabs 06/25/24 Results & Data (ED) Vital Signs Vital Signs - 24 hr 06/24/24 18:55 06/24/24 18:56 06/24/24 18:56 Temperature 36.5 C Temperature Source Oral Pulse Rate 67 64 Pulse Rate [Right Finger] 64 Pulse Rhythm Regular Pulse Rhythm [Right Finger] Regular Pulse Strength Normal Pulse Strength [Right Finger] Normal Respiratory Rate 18 16 Respiratory Effort / Characteristics Non-Labored Non-Labored Respiratory Depth Normal Normal Respiratory Pattern Regular Regular Blood Pressure 154/92 H Blood Pressure [Right Arm] 132/67 Blood Pressure Mean 112 Blood Pressure Mean [Right Arm] 88 Blood Pressure Position Lying Blood Pressure Position [Right Arm] Lying Pulse Oximetry 96 95 Oxygen Delivery Method Room Air Room Air Sepsis Recent Fever Within 48 Hours No Sepsis New/Unexplained Change in Mental Status N/A Sepsis Action Taken by Nursing No Action Required 06/24/24 18:56 Temperature Temperature Source Pulse Rate Pulse Rate [Right Finger] 64 Pulse Rhythm Pulse Rhythm [Right Finger] Regular Pulse Strength Pulse Strength [Right Finger] Normal Respiratory Rate 16 Respiratory Effort / Characteristics Non-Labored Respiratory Depth Normal Respiratory Pattern Regular Blood Pressure Blood Pressure [Right Arm] 132/67 Blood Pressure Mean Blood Pressure Mean [Right Arm] 88 Blood Pressure Position Blood Pressure Position [Right Arm] Lying Pulse Oximetry 95 Oxygen Delivery Method Room Air Sepsis Recent Fever Within 48 Hours Sepsis New/Unexplained Change in Mental Status Sepsis Action Taken by [facility] Medications Current Medication List: was personally reviewed by me Laboratory Data Attestation: I reviewed the patient's lab results. 06/24/24 21:30 06/24/24 21:30 Lab Results 06/24/24 Range/Units 21:30 WBC 10.24 (4.8-10.8) K/ul RBC 4.64 (4.20-5.40) M/uL Hgb 12.2 (12.0-16.0) g/dl Hct 38.6 (37.0-47.0) % MCV 83.2 (80.0-100.0) fL MCH 26.3 (25.0-34.0) pg MCHC 31.6 L (32.0-36.0) g/dL RDW Std Deviation 49.1 H (36.4-46.3) fL RDW Coeff of Haresh 16.1 H (11.5-14.5) % Plt Count 205 (130-400) K/uL MPV 11.2 (9.4-12.4) fL Immature Gran % (Auto) 0.3 % Neut % (Auto) 74.5 % Lymph % (Auto) 16.3 % [place] % (Auto) 6.9 % Eos % (Auto) 1.6 % Baso % (Auto) 0.4 % Neut # (Auto) 7.63 H (1.40-6.50) K/uL Lymph # (Auto) 1.67 (1.20-3.40) K/uL [place] # (Auto) 0.71 H (0.11-0.59) K/uL Eos # (Auto) 0.16 (0.00-0.50) K/uL Baso # (Auto) 0.04 (0.00-0.20) K/uL Immature Gran # (Auto) 0.03 (0.01-0.20) K/uL Sodium 141 (136-145) mmol/L Potassium 3.7 (3.5-5.1) mmol/L Chloride 105 (98-107) mmol/L Carbon Dioxide 29 (21-32) mmol/L Anion Gap 7 (3-11) BUN 19 (6-23) mg/dl Creatinine 0.90 (0.6-1.2) mg/dl Est Cr Clr Drug Dosing 39.6 ml/min eGFR 61.87 BUN/Creatinine Ratio 21.1 H (10-20) Glucose 118 H (70-99(Fasting)) mg/dl Calcium 9.1 (8.6-10.3) mg/dl Total Bilirubin 0.4 (0.2-1.0) mg/dl AST 14 (13-39) U/L ALT 9 (7-52) U/L Alkaline Phosphatase 71 (34-104) U/L Total Protein 7.2 (6.0-8.3) gm/dl Albumin 3.5 (3.4-5.0) gm/dl Globulin 3.7 (2.5-4.0) gm/dl Albumin/Globulin Ratio 0.9 (0.9-2) Administered Medications Discontinued Medications Acetaminophen (Acetaminophen 500 Mg Tab) 1,000 mg PO NOW [facility] Stop: 06/24/24 19:42 Last Admin: 06/24/24 20:37 Dose: 1,000 mg Documented By: PUSHPA Acetaminophen (Acetaminophen 325 Mg Tab) 650 mg PO Q4H PRN PRN Reason: Pain or Fever Stop: 07/25/24 00:14 Last Admin: 06/25/24 12:12 Dose: 650 mg Documented By: Admin: 06/25/24 05:30 Dose: 650 mg Documented By: RADHA Amiodarone HCl (Amiodarone 200 Mg Tab) 200 mg PO DAILY [facility] Stop: 07/25/24 08:59 Last Admin: 06/25/24 09:09 Dose: 200 mg Documented By: YARED Aspirin (Aspirin 81 Mg Ectab) 81 mg PO DAILY [facility]AN[facility] Stop: 07/25/24 08:59 Last Admin: 06/25/24 09:09 Dose: 81 mg Documented By: YARED Clopidogrel Bisulfate (Clopidogrel Bisulfate 75 Mg Tab) 75 mg PO DAILY DANNY Stop: 07/25/24 08:59 Last Admin: 06/25/24 09:09 Dose: 75 mg Documented By: YARED Docusate Sodium (Docusate Sodium 100 Mg Cap) 100 mg PO BID PRN PRN Reason: Constipation Stop: 07/25/24 00:14 Last Admin: 06/25/24 08:58 Dose: 100 mg Documented By: YARED Escitalopram Oxalate (Escitalopram Oxalate 10 Mg Tab) 10 mg PO DAILY DANNY Stop: 07/25/24 08:59 Last Admin: 06/25/24 09:09 Dose: 10 mg Documented By: YARED Famotidine (Famotidine 10 Mg Tablet) 10 mg PO DAILY DANNY Stop: 07/25/24 08:59 Last Admin: 06/25/24 09:09 Dose: 10 mg Documented By: YARED Furosemide (Furosemide 40 Mg Tab) 40 mg PO DAILY DANNY Stop: 07/25/24 08:59 Last Admin: 06/25/24 09:09 Dose: 40 mg Documented By: YARED Lidocaine (Lidocaine 5% 1 Patch) 1 patch TD NOW STA Stop: 06/24/24 23:18 Last Admin: 06/24/24 23:31 Dose: 1 patch Documented By: MORE Metoprolol Succinate (Metoprolol Succ 50mg Ext Rel Tab) 50 mg PO BID DANNY Stop: 07/25/24 00:14 Last Admin: 06/25/24 09:00 Dose: Not Given Documented By: Admin: 06/25/24 00:38 Dose: 50 mg Documented By: RADHA Oxycodone HCl (Oxycodone Hcl Ir 5 Mg Tab (Immediate Release)) 2.5 mg PO NOW STA Stop: 06/24/24 21:19 Last Admin: 06/24/24 21:39 Dose: Not Given Documented By: PUSHPA Pramipexole Dihydrochloride (Pramipexole Dihydrochlo 0.5 Mg Tab) 0.5 mg PO HS DANNY Stop: 07/25/24 00:14 Last Admin: 06/25/24 00:38 Dose: 0.5 mg Documented By: RADHA Rosuvastatin Calcium (Rosuvastatin Calcium 20 Mg Tab) 20 mg PO DAILY DANNY Stop: 07/25/24 08:59 Last Admin: 06/25/24 09:09 Dose: 20 mg Documented By: YARED Tramadol HCl (Tramadol Hcl 50 Mg Tablet) 50 mg PO NOW STA Stop: 06/25/24 01:37 Last Admin: 06/25/24 01:41 Dose: 50 mg Documented By: RADHA Tramadol HCl (Tramadol Hcl 50 Mg Tablet) 50 mg PO Q4H PRN PRN Reason: Pain unrelieved by tylenol Stop: 07/25/24 07:59 Last Admin: 06/25/24 08:57 Dose: 50 mg Documented By: YARED Valsartan (Valsartan 80 Mg Tab) 80 mg PO BID [facility] Stop: 07/25/24 00:14 Last Admin: 06/25/24 09:00 Dose: 80 mg Documented By: Admin: 06/25/24 00:38 Dose: 80 mg Documented By: RADHA Verapamil HCl (Verapamil Hcl 120 Mg Tabcr) 120 mg PO DAILY [facility] Stop: 07/25/24 08:59 Last Admin: 06/25/24 09:01 Dose: Not Given Documented By: YARED Imaging Data Radiologist's Impression: Hip/Pelvis X-Ray 06/24/24 19:41 Exam(s): XR HIP + PELVIS, 2-3 views EXAM: XR Right Hip With Pelvis When Performed, 2 or 3 Views CLINICAL HISTORY: Reason for exam: R hip pain s/p fall. TECHNIQUE: Two or three views of the right hip with pelvis when performed. COMPARISON: Right hip and pelvis radiograph on 03/17/2024 FINDINGS: Bones/joints: No displaced fracture or dislocation identified. Right hip arthroplasty without evidence of hardware complication. No bony lesion. Soft tissues: Normal. No radiopaque foreign body identified. Other: Presumed phleboliths in the pelvis. IMPRESSION: No displaced fracture or dislocation identified. Electronically signed by: Brooke Gould M.D. 06/25/24 00:43 AM Humerus X-Ray 06/24/24 19:41 Exam(s): XR LEFT HUMERUS, 2+ views EXAM: XR Left Humerus, 2 or More Views CLINICAL HISTORY: Reason for exam: pain post fall. TECHNIQUE: Frontal and lateral views of the left humerus. COMPARISON: None FINDINGS: Bones/joints: Mildly displaced fractures of the proximal left humerus. Mild degenerative change of the left acromioclavicular joint. Mild to moderate degenerative change of the left glenohumeral joint. No left shoulder dislocation. Soft tissues: Unremarkable. IMPRESSION: Mildly displaced fractures of the proximal left humerus. Electronically signed by: Brooke Gould M.D. 06/25/24 00:45 AM Lumbar Spine X-Ray 06/24/24 19:41 Exam(s): XR L SPINE, 2-3 views EXAM: XR Lumbosacral Spine, 2 or 3 Views CLINICAL HISTORY: Reason for exam: midline LBP. TECHNIQUE: Frontal and lateral views of the lumbar spine and sacrum. COMPARISON: None FINDINGS: Bones: No vertebral body height loss to suggest acute fracture. Grade 1 anterolisthesis of L2 on L3 and L4 on L5 and L5 on S1. Degenerative changes of the spine. Right hip arthroplasty partially seen. Soft tissues: No acute finding. Other: Presumed phleboliths in the pelvis. IMPRESSION: No acute fracture. Electronically signed by: Brooke Gould M.D. 06/25/24 00:44 AM Shoulder X-Ray 06/24/24 19:41 Exam(s): XR LEFT SHOULDER, 2+ views EXAM: XR Left Shoulder Complete, 2 or More Views CLINICAL HISTORY: Reason for exam: pain post fall. TECHNIQUE: Two or more views of the left shoulder. COMPARISON: None FINDINGS: Bones/joints: Mildly displaced fractures of the proximal left humerus. Mild degenerative change of the left acromioclavicular joint. Mild to moderate degenerative changes of the left glenohumeral joint. No left shoulder dislocation. Soft tissues: Soft tissue swelling. IMPRESSION: Mildly displaced fractures of the proximal left humerus. Electronically signed by: Brooke Gould M.D. 06/25/24 00:47 AM Discharge Plan Visit Data Chief Complaint: Fall ED Provider: Adonis Nation Discharge Problem: Closed left humeral fracture, Fall, Hard of hearing, Acute hip pain Patient Disposition: Admitted As Inpatient Condition: Good Discharge Instructions Interventions: ED Discharge Assessment Last Done: 06/24/24 23:54 Discharge Problem: Closed left humeral fracture Qualifiers: Encounter type: initial encounter Humerus Location: proximal Fracture morphology: other fracture Fracture alignment: displaced Qualified Code(s): S 42.292A - Other displaced fracture of upper end of left humerus, initial encounter for closed fracture Fall Qualifiers: Encounter type: initial encounter Qualified Code(s): W19.XXXA - Unspecified fall, initial encounter Acute hip pain Qualifiers: Laterality: right Qualified Code(s): M25.551 - Pain in right hip
[2024-06-24] MEDS: ACETAMINOPHEN 500 MG TAB PO STA (20:37)
[2024-06-24] MEDS: oxyCODONE HCL IR 5 MG TAB (IMMEDIATE RELEASE) PO STA (21:39)
[2024-06-24 21:59] LABS: Basophils # (auto) 0.04 K/uL (0.00-0.20); Basophils % (auto) 0.4 %; Eosinophils # (auto) 0.16 K/uL (0.00-0.50); Eosinophils % (auto) 1.6 %; Hematocrit (blood only) 38.6 % (37.0-47.0); Hemoglobin 12.2 g/dl (12.0-16.0); Immature Granulocytes # (auto) 0.03 K/uL (0.01-0.20); Immature Granulocytes % (auto) 0.3 %; Lymphocytes # (auto) 1.67 K/uL (1.20-3.40); Lymphocytes % (auto) 16.3 %; Mean Corpuscular Hemoglobin 26.3 pg (25.0-34.0); Mean Corpuscular Hgb Conc 31.6 g/dL (32.0-36.0); Mean Corpuscular Volume 83.2 fL (80.0-100.0); Mean Platelet Volume 11.2 fL (9.4-12.4); Monocytes # (auto) 0.71 K/uL (0.11-0.59); Monocytes % (auto) 6.9 %; Neutrophils # (auto) 7.63 K/uL (1.40-6.50); Neutrophils % (auto) 74.5 %; Platelet Count 205 K/uL (130-400); RDW Coefficient of Variation 16.1 % (11.5-14.5); RDW Standard Deviation 49.1 fL (36.4-46.3); Red Blood Count 4.64 M/uL (4.20-5.40); White Blood Count 10.24 K/ul (4.8-10.8)
[2024-06-24 22:16] LABS: Albumin Globulin Ratio 0.9 (0.9-2); Albumin Level 3.5 gm/dl (3.4-5.0); BUN Creatinine Ratio 21.1 (10-20); Bilirubin,Total 0.4 mg/dl (0.2-1.0); Calcium 9.1 mg/dl (8.6-10.3); Creatinine Clr Calc Pharmacy 39.6 ml/min; Globulin 3.7 gm/dl (2.5-4.0); Potassium 3.7 mmol/L (3.5-5.1); Total Protein 7.2 gm/dl (6.0-8.3)
--- NOTE | 2024-06-24 22:54 | History & Physical Report ---
Date of Service June 24, 2024 Assessment & Plan (1) Ground-level fall: (2) Left humeral fracture: (3) Ambulatory dysfunction: Plan Patient is an 89-year-old female with past medical history of asthma, HFpEF, breast cancer, GERD, ILD, CAD s/p right TCAR 2016 in 2018, paroxysmal A-fib, MADAN, intraparenchymal hemorrhage of brain. Patient presented from [facility] after a mechanical ground-level fall resulting in a left upper extremity humerus fracture, she denies head strike or loss of consciousness, she is not on blood thinners but is on aspirin and Plavix. She uses a walker at baseline and there is concern about ambulation, PT/OT consulted. #Fall/left humerus fracture - s/p mechanical ground-level fall. Diagnostic imaging revealed mildly displaced left proximal humerus fracture. Patient uses walker at baseline, concern regarding ambulation. - Pain control with Tylenol as needed, oxycodone 2.5/5 mg for breakthrough pain - Lidocaine patch - Ice as needed - PT/OT consulted - orthopedics team consulted - Left upper extremity sling ordered - CXR ordered #MADAN - CPAP HS #HFpEF most recent EF 65 to 70%. Stable, no acute exacerbation at this time. - Continue metoprolol and lasix #CAD s/p right TCAR in 2016 and 2018 on aspirin and Plavix - Continue aspirin, Plavix, statin #paroxysmal A-fib stable, in sinus rhythm at time of admission. Electrolytes stable. - Continue metoprolol and amiodarone - no anticoagulation given recent history of brain hemorrhage #HTN mildly elevated at time of admission suspect 2/2 missing evening medications and pain - continue metoprolol, Lasix, verapamil VTE ppx: SCDs, defer chemical PPx with history of recent brain hemorrhage Dispo: med/surg Admission and Anticipated Discharge Date Admission Date: 06/24/24 History of Present Illness Chief Complaint: fall Primary Care Provider: José Kumari MD Patient is an 89-year-old female with past medical history of asthma, HFpEF, breast cancer, GERD, ILD, CAD s/p right TCAR 2016 in 2018, paroxysmal A-fib, MADAN, intraparenchymal hemorrhage of brain. Patient presented from [facility] after a mechanical ground-level fall resulting in a left upper extremity humerus fracture, she denies head strike or loss of consciousness, she is not on blood thinners but is on aspirin and Plavix. She uses a walker at baseline and there is concerned about ambulation, PT/OT consulted. Patient seen at bedside. she stated that she forgot to put the brakes on her walker and the walker slid out from under her and she slipped with it to the ground. She is complaining of left arm and right hip pain, 6/10 at time of admission. She denies any headaches or dizziness, chest pain, shortness of breath, numbness, tingling, abdominal pain. She believes she is on a blood thinner but is unsure, stated that she was on aspirin or Xarelto. She has not yet received treatment. She uses CPAP at baseline. She wishes to be full code. She is agreeable to admission and PT/OT consultations as recommended by Edwar Simon prior to return. Allergies Allergy/AdvReac Type Severity Reaction Status Date / Time codeine Allergy Intermediate Temperature Verified 06/20/24 14:33 rise oxycodone AdvReac Severe "Became Verified 06/20/24 14:33 addicted to it" lactose AdvReac gas to cow Verified 06/20/24 14:33 milk. Milk Containing Products AdvReac cow milk = Verified 06/20/24 14:33 (Dairy) "gas", lactose already profiled Home Medications Medication Instructions Recorded Confirmed Type acetaminophen 650 mg 325 - 650 mg PO Q6H PRN Pain 11/17/17 05/29/24 History tablet,extended release albuterol sulfate 90 mcg/actuation 2 puff inhalation Q6H PRN 11/17/17 05/29/24 History aerosol inhaler (Ventolin HFA) Shortness Of Breath Or Wheezing fluticasone propionate 50 1 spray intranasal QPM PRN 11/17/17 05/29/24 History mcg/actuation nasal allergies spray,suspension (Flonase Allergy Relief) metoprolol succinate 50 mg 50 mg PO BID 04/02/21 05/29/24 History tablet,extended release 24 hr pramipexole 0.5 mg tablet 0.5 mg PO HS 04/02/21 05/29/24 History cholecalciferol (vitamin D3) 50 50 mcg PO HS 10/28/22 05/29/24 History mcg (2,000 unit) capsule (Vitamin D3) aspirin 81 mg capsule 81 mg PO DAILY 01/17/24 05/29/24 History clopidogrel 75 mg tablet (Plavix) 75 mg PO DAILY 02/07/24 05/29/24 History bisacodyl 10 mg rectal suppository 10 mg ND DAILY PRN 03/08/24 05/29/24 History (Dulcolax (bisacodyl)) escitalopram oxalate 10 mg tablet 10 mg PO DAILY 03/08/24 05/29/24 History (Lexapro) famotidine 10 mg tablet 10 mg PO DAILY 03/08/24 05/29/24 History furosemide 40 mg tablet 40 mg PO DAILY 03/08/24 05/29/24 History rosuvastatin 20 mg tablet (Crestor) 20 mg PO DAILY 03/08/24 05/29/24 History valsartan 80 mg tablet 80 mg PO BID 03/08/24 05/29/24 History verapamil 120 mg 24 hr 120 mg PO DAILY 03/08/24 05/29/24 History capsule,extended release amiodarone 200 mg tablet 200 mg PO DAILY #90 tabs 04/05/24 05/29/24 Rx Past Med/Surg History Problem List (Updated 06/25/24 @ 00:54 by Myriam Robison PA-C) Ambulatory dysfunction Left humeral fracture Ground-level fall Paroxysmal atrial fibrillation Intraparenchymal hemorrhage of brain Discharge planning issues DVT prophylaxis Dissection of right carotid artery Stenosis of right carotid artery Valvular heart disease Carotid artery stenosis Encounter for pre-operative examination DDD (degenerative disc disease), lumbar Bruit of left carotid artery Arthritis Diastolic congestive heart failure, NYHA class 3 Bilateral edema of lower extremity (Chronic) SVT (supraventricular tachycardia) (Chronic) Asthma (Chronic) Hypertension (Chronic) Dyslipidemia (Chronic) Dyspnea on exertion (Chronic) Breast cancer (Acute 05/07/16) "Status post left breast cancer 1996 treated with lumpectomy followed by radiation therapy Self detected left breast mass April 2016 Status post mammogram followed by core needle biopsy 05/07/2016 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, progesterone receptor positive, HER-2/wendy positive" Medical History Chronic neck pain Poor historian Arthritis Limb alert care status Dyspnea on exertion SVT (supraventricular tachycardia) Bilateral edema of lower extremity Moderate aortic stenosis Dyslipidemia Heart failure with preserved ejection fraction History of COVID-19 (06/2022) Asthma Cystocele, midline Carpal tunnel syndrome Osteoarthritis Sciatic nerve disease Chronic back pain GERD (gastroesophageal reflux disease) Breast cancer, left (1996) Hearing deficit Restless leg syndrome Hyperlipidemia Hypertension Atrial fibrillation Sleep apnea Surgical History Status post left knee replacement (12/2022) History of right hip replacement (07/02/22) S/P epidural steroid injection History of carpal tunnel surgery of right wrist History of back surgery H/O left breast biopsy (1997) History of left mastectomy (2015) History of lumpectomy of left breast History of tonsillectomy and adenoidectomy Social History (System 06/20/24 @ 14:33 by Monica Coffman) Smoking Status: Never smoker Second Hand Exposure: No; Do You Dip or Chew Tobacco: No; Hx Alcohol Use: Yes Alcohol type: wine Hx Substance Use: No Preferred Language: Venezuelan Communication Ability: Effective Looper Fixer Required: No Beliefs That Will Affect Care: None Current Living Situation: Spouse Current Living Situation Comment: assisted living at [facility] Feels Safe at Home: Yes Assistive Devices: CPAP and Walker Review of Systems Review of Systems: see HPI Physical Exam Physical Exam: The patient is awake, alert and oriented 3, well developed and well nourished, normocephalic and atraumatic, in no acute distress. Non-toxic appearing. HEENT- EOMI, mucous membranes dry. Hearing grossly intact. Heart-normal S1 and S2. No murmurs, rubs or gallops. Lungs-clear bilaterally, no respiratory distress, no accessory muscle use. Abdomen-normal bowel sounds and soft. No ascites noted. Non-tender. Extremities- no clubbing, cyanosis, or edema. Psychiatric-normal affect. Neurologic: Motor/Sensory: no sensory deficit Results & Data Results & Data Vital Signs (Past 12 Hours) Vital Signs Temp Pulse Pulse Resp BP BP Pulse Ox 06/24/24 22:52 67 06/24/24 22:13 67 15 148/68 H 96 06/24/24 22:13 65 15 148/68 H 95 06/24/24 21:38 97 06/24/24 21:07 61 16 106/64 97 06/24/24 20:39 67 19 156/76 H 96 06/24/24 20:38 66 19 156/76 H 96 06/24/24 18:56 64 16 132/67 95 06/24/24 18:56 64 16 132/67 95 06/24/24 18:56 36.5 C 64 18 154/92 H 96 06/24/24 18:55 67 O2 Del Method 06/24/24 22:52 06/24/24 22:13 Room Air 06/24/24 22:13 Room Air 06/24/24 21:38 Room Air 06/24/24 21:07 Room Air 06/24/24 20:39 Room Air 06/24/24 20:38 Room Air 06/24/24 18:56 Room Air 06/24/24 18:56 Room Air 06/24/24 18:56 Room Air 06/24/24 18:55 Laboratory Results reviewed CBC and CMP Diagnostic Findings reviewed shoulder xr, humerus xr, lumbar spine xr, hip xr Medications Administered ed - Tylenol 1g PO admission - Lidoderm patch and home evening medications ECG Additional Comments: NSR qtc 511 RATE 66 Code Status & VTE Plan Code Status FULL VTE Prophylaxis Plan VTE Prophylaxis will be ordered: Yes PG Care Time/CCT Total # of Minutes Spent Total Time Spent with Patient: Total time spent is greater than 50% in coordination of care (as documented) at patient's floor/unit and/or counseling patient: Coding Level of Care Code 93546 INT INP/OBS CARE 3/75MIN Diagnoses Ground-level fall W18.30XA Left humeral fracture S42.302A Ambulatory dysfunction R26.2
[2024-06-24] MEDS: LIDOCAINE 5% 1 PATCH TD STA (23:31)
[2024-06-25] MEDS ORDERED: oxyCODONE HCL IR 5 MG TAB (IMMEDIATE RELEASE) PO PRN ×4 (00:15→00:29)
[2024-06-25] MEDS ORDERED: ALBUTEROL HFA 8 GM INHALER INH PRN (00:15)
[2024-06-25] MEDS ORDERED: FLUTICASONE PROPIONATE NA SPR 16 GM BTL PRN (00:15)
[2024-06-25] MEDS ORDERED: MELATONIN 3 MG TAB PO PRN (00:15)
[2024-06-25] MEDS: VALSARTAN 80 MG TAB PO SCH (00:38)
[2024-06-25] MEDS: METOPROLOL SUCC 50MG EXT REL TAB PO SCH (00:38)
[2024-06-25] MEDS: PRAMIPEXOLE DIHYDROCHLO 0.5 MG TAB PO SCH (00:38)
--- NOTE | 2024-06-25 00:44 | XRay Report ---
Exam(s): XR HIP + PELVIS, 2-3 views EXAM: XR Right Hip With Pelvis When Performed, 2 or 3 Views CLINICAL HISTORY: Reason for exam: R hip pain s/p fall. TECHNIQUE: Two or three views of the right hip with pelvis when performed. COMPARISON: Right hip and pelvis radiograph on 03/17/2024 FINDINGS: Bones/joints: No displaced fracture or dislocation identified. Right hip arthroplasty without evidence of hardware complication. No bony lesion. Soft tissues: Normal. No radiopaque foreign body identified. Other: Presumed phleboliths in the pelvis. IMPRESSION: No displaced fracture or dislocation identified. Electronically signed by: Brooke Gould M.D. 06/25/24 00:43 AM
--- NOTE | 2024-06-25 00:45 | XRay Report ---
Exam(s): XR L SPINE, 2-3 views EXAM: XR Lumbosacral Spine, 2 or 3 Views CLINICAL HISTORY: Reason for exam: midline LBP. TECHNIQUE: Frontal and lateral views of the lumbar spine and sacrum. COMPARISON: None FINDINGS: Bones: No vertebral body height loss to suggest acute fracture. Grade 1 anterolisthesis of L2 on L3 and L4 on L5 and L5 on S1. Degenerative changes of the spine. Right hip arthroplasty partially seen. Soft tissues: No acute finding. Other: Presumed phleboliths in the pelvis. IMPRESSION: No acute fracture. Electronically signed by: Brooke Gould M.D. 06/25/24 00:44 AM
--- NOTE | 2024-06-25 00:46 | XRay Report ---
Exam(s): XR LEFT HUMERUS, 2+ views EXAM: XR Left Humerus, 2 or More Views CLINICAL HISTORY: Reason for exam: pain post fall. TECHNIQUE: Frontal and lateral views of the left humerus. COMPARISON: None FINDINGS: Bones/joints: Mildly displaced fractures of the proximal left humerus. Mild degenerative change of the left acromioclavicular joint. Mild to moderate degenerative change of the left glenohumeral joint. No left shoulder dislocation. Soft tissues: Unremarkable. IMPRESSION: Mildly displaced fractures of the proximal left humerus. Electronically signed by: Brooke Gould M.D. 06/25/24 00:45 AM
--- NOTE | 2024-06-25 00:48 | XRay Report ---
Exam(s): XR LEFT SHOULDER, 2+ views EXAM: XR Left Shoulder Complete, 2 or More Views CLINICAL HISTORY: Reason for exam: pain post fall. TECHNIQUE: Two or more views of the left shoulder. COMPARISON: None FINDINGS: Bones/joints: Mildly displaced fractures of the proximal left humerus. Mild degenerative change of the left acromioclavicular joint. Mild to moderate degenerative changes of the left glenohumeral joint. No left shoulder dislocation. Soft tissues: Soft tissue swelling. IMPRESSION: Mildly displaced fractures of the proximal left humerus. Electronically signed by: Brooke Gould M.D. 06/25/24 00:47 AM
[2024-06-25] MEDS: traMADol HCL 50 MG TABLET PO STA (01:41)
--- NOTE | 2024-06-25 02:50 | XRay Report ---
EXAM: XR chest 1V portable CLINICAL HISTORY: Fall. TECHNIQUE: An X-ray image of the chest is obtained in AP projection. COMPARISON: 03/17/2024. FINDINGS: Pulmonary Parenchyma: Chronic interstitial lung markings No evidence of pleural effusion or pleural thickening. Heart and Mediastinum: Mild Cardiomegaly. No mediastinal widening or masses. No hilar or mediastinal lymphadenopathy. Bony Thorax: Left humeral neck acute minimally displaced oblique fracture. Soft Tissues: Soft tissues overlying the chest wall are unremarkable. IMPRESSION: 1. Left humeral neck acute minimally displaced oblique fracture. New finding. 2. Chronic interstitial lung markings. Unchanged. 3. Mild Cardiomegaly. Unchanged. Electronically signed by Robert Castaneda 06-25-2024 02:50 AM
[2024-06-25] MEDS: ACETAMINOPHEN 325 MG TAB PO PRN (05:30)
[2024-06-25 07:44] VITALS: RESP 17
--- NOTE | 2024-06-25 08:37 | Orthopedic Consultation ---
Date of Service June 25, 2024 Assessment & Plan (1) Left humeral fracture: Patient has sustained a left proximal humerus fracture as a result of a fall yesterday on 06/24/2024. I did review this case with Dr. Jackson. Her n.p.o. order may be lifted at this time and she can eat. No surgical intervention indicated at this time. She should remain in her sling and be nonweightbearing in the left upper extremity. She should follow-up with Dr. Jackson in 2 weeks time for repeat images. Did encourage her to reach out with any question concerns the meantime. Please reach out to orthopedics if you have any other questions or concerns. History of Present Illness Reason for Consultation: left shoulder fracture Requesting Physician: . Attending Physician: Layo Amaro MD Patient is an 89-year-old female who is being consulted today for a left proximal humerus fracture that was found in the emergency department yesterday on 06/24/2024. As per the ED note, the patient had a fall. She states she was visiting her as apartment that they used to live with that, unfortunately she was bending over to reach something that was attached to her walker. Walker was not locked in place and she slid to the floor. States that she hit her hip and her arm. Patient was able to get up on her own. She did report to the emergency department due to the pain in her left hip and her left arm. She currently resides at [facility]. She was found to have a left proximal humerus fracture at the emergency department. She is currently n.p.o. pending orthopedic consultation. Allergies Allergy/AdvReac Type Severity Reaction Status Date / Time codeine Allergy Intermediate Temperature Verified 06/20/24 14:33 rise oxycodone AdvReac Severe "Became Verified 06/20/24 14:33 addicted to it" lactose AdvReac gas to cow Verified 06/20/24 14:33 milk. Milk Containing Products AdvReac cow milk = Verified 06/20/24 14:33 (Dairy) "gas", lactose already profiled Home Medications Medication Instructions Recorded Confirmed Type acetaminophen 650 mg 325 - 650 mg PO Q6H PRN Pain 11/17/17 05/29/24 History tablet,extended release albuterol sulfate 90 mcg/actuation 2 puff inhalation Q6H PRN 11/17/17 05/29/24 History aerosol inhaler (Ventolin HFA) Shortness Of Breath Or Wheezing fluticasone propionate 50 1 spray intranasal QPM PRN 11/17/17 05/29/24 History mcg/actuation nasal allergies spray,suspension (Flonase Allergy Relief) metoprolol succinate 50 mg 50 mg PO BID 04/02/21 05/29/24 History tablet,extended release 24 hr pramipexole 0.5 mg tablet 0.5 mg PO HS 04/02/21 05/29/24 History cholecalciferol (vitamin D3) 50 50 mcg PO HS 10/28/22 05/29/24 History mcg (2,000 unit) capsule (Vitamin D3) aspirin 81 mg capsule 81 mg PO DAILY 01/17/24 05/29/24 History clopidogrel 75 mg tablet (Plavix) 75 mg PO DAILY 02/07/24 05/29/24 History bisacodyl 10 mg rectal suppository 10 mg CO DAILY PRN 03/08/24 05/29/24 History (Dulcolax (bisacodyl)) escitalopram oxalate 10 mg tablet 10 mg PO DAILY 03/08/24 05/29/24 History (Lexapro) famotidine 10 mg tablet 10 mg PO DAILY 03/08/24 05/29/24 History furosemide 40 mg tablet 40 mg PO DAILY 03/08/24 05/29/24 History rosuvastatin 20 mg tablet (Crestor) 20 mg PO DAILY 03/08/24 05/29/24 History valsartan 80 mg tablet 80 mg PO BID 03/08/24 05/29/24 History verapamil 120 mg 24 hr 120 mg PO DAILY 03/08/24 05/29/24 History capsule,extended release amiodarone 200 mg tablet 200 mg PO DAILY #90 tabs 04/05/24 05/29/24 Rx tramadol 50 mg tablet 50 mg PO Q4H PRN pain #10 tabs 06/25/24 Rx Past Med/Surg History Problem List (Updated 06/26/24 @ 08:37 by Farhan Vega MD) Ambulatory dysfunction Left humeral fracture Ground-level fall Paroxysmal atrial fibrillation Intraparenchymal hemorrhage of brain Discharge planning issues DVT prophylaxis Dissection of right carotid artery Stenosis of right carotid artery Valvular heart disease Carotid artery stenosis Encounter for pre-operative examination DDD (degenerative disc disease), lumbar Bruit of left carotid artery Arthritis Diastolic congestive heart failure, NYHA class 3 Bilateral edema of lower extremity (Chronic) SVT (supraventricular tachycardia) (Chronic) Asthma (Chronic) Hypertension (Chronic) Dyslipidemia (Chronic) Dyspnea on exertion (Chronic) Breast cancer (Acute 05/07/16) "Status post left breast cancer 1996 treated with lumpectomy followed by radiation therapy Self detected left breast mass April 2016 Status post mammogram followed by core needle biopsy 05/07/2016 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, progesterone receptor positive, HER-2/wendy positive" Medical History (Updated 06/26/24 @ 08:37 by Farhan Vega MD) Tenosynovitis, de Quervain Rheumatoid disease Pes anserinus bursitis OA (osteoarthritis) of knee Neural foraminal stenosis of lumbar spine Lumbar radiculopathy Knee pain ICH (intracerebral hemorrhage) (02/13/24) Heart disease Hamstring strain Bilateral carotid artery stenosis Chronic neck pain Poor historian Arthritis Limb alert care status left Dyspnea on exertion chronic, denies change or worsening SVT (supraventricular tachycardia) "palpitations occasionally" - follows with kumar Bilateral edema of lower extremity chronic, denies change or worsening Moderate aortic stenosis DSE 05/19/22: Moderate aortic stenosis (ROB 1.4-1.6cm2, MG 7.8mmhg) Dyslipidemia Heart failure with preserved ejection fraction History of COVID-19 (06/2022) 06/2022- "mild cold symptoms" > resolved Asthma Cystocele, midline Carpal tunnel syndrome surgery 2022-Residual right finger numbness Osteoarthritis Sciatic nerve disease Chronic back pain GERD (gastroesophageal reflux disease) Well controlled and stable Breast cancer, left (1996) "Status post left breast cancer 1996 treated with lumpectomy followed by radiation therapy Self detected left breast mass April 2016 Status post mammogram followed by core needle biopsy 05/07/2016 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, progesterone receptor positive, HER-2/wendy positive" Hearing deficit b/l hearing aids Restless leg syndrome Hyperlipidemia Hypertension controlled, stable per pt Atrial fibrillation per hx, pt unsure, Follows with EUGENIA Vega cardio Sleep apnea CPAP (compliant) Surgical History (System 06/20/24 @ 14:33 by Monica Coffman) Status post left knee replacement (12/2022) History of right hip replacement (07/02/22) Right MERRITT S/P epidural steroid injection History of carpal tunnel surgery of right wrist History of back surgery Lumbar cyst removal H/O left breast biopsy (1997) ("malignant") History of left mastectomy (2015) Left limb restriction History of lumpectomy of left breast 1997 History of tonsillectomy and adenoidectomy Social History (System 06/20/24 @ 14:33 by Monica Coffman) Smoking Status: Never smoker Second Hand Exposure: No; Do You Dip or Chew Tobacco: No; Hx Alcohol Use: No Hx Substance Use: No Preferred Language: Kazakh Communication Ability: Effective Property Insurance Agent Required: No Beliefs That Will Affect Care: None Current Living Situation: Spouse Current Living Situation Comment: assisted living at [facility] Feels Safe at Home: Yes Assistive Devices: CPAP and Walker Review of Systems All systems reviewed & are unremarkable except as noted in HPI & below. Physical Exam General: Patient is alert at today's visit. She is hard of hearing. Her hearing aids are out, however she is able to hear me when I speak loudly. She is resting comfortably in her hospital bed. Constitutional WD/WN, vitals as above Cardiovascular Extremities: normal capillary refill Musculoskeletal Left shoulder: She does have some swelling of the left shoulder. No significant ecchymosis at this point. Her arm is in a sling. She has full range of motion of the left fingers, wrist and elbow. She is neuro vastly intact in the left upper extremity. Skin no rashes, warm and dry Results & Data Results & Data Laboratory Results . Diagnostic Findings X-ray images of the left humerus and shoulder on 06/24/2024: I independently reviewed the imaging below. I agree with the impression below. FINDINGS: Bones/joints: Mildly displaced fractures of the proximal left humerus. Mild degenerative change of the left acromioclavicular joint. Mild to moderate degenerative changes of the left glenohumeral joint. No left shoulder dislocation. Soft tissues: Soft tissue swelling. IMPRESSION: Mildly displaced fractures of the proximal left humerus. PG Care Time/CCT Total # of Minutes Spent Total Time Spent with Patient: Total time spent is greater than 50% in coordination of care (as documented) at patient's floor/unit and/or counseling patient: Coding Level of Care Code 73264 IN/OBS CONSULT LVL 4,60M Diagnoses Left humeral fracture S42.302A
[2024-06-25] MEDS: traMADol HCL 50 MG TABLET PO PRN (08:57)
[2024-06-25] MEDS: DOCUSATE SODIUM 100 MG CAP PO PRN (08:58)
--- NOTE | 2024-06-25 08:59 | Electrocardiogram Report ---
Test Reason : Blood Pressure : */* mmHG Vent. Rate : 66 BPM Atrial Rate : 66 BPM P-R Int : 160 ms QRS Dur : 90 ms QT Int : 488 ms P-R-T Axes : 82 -8 33 degrees QTcB Int : 511 ms Normal sinus rhythm Prolonged QT Abnormal ECG When compared with ECG of 10-Feb-2024 10:57, Sinus rhythm has replaced Atrial fibrillation Vent. rate has decreased by 68 bpm T wave amplitude has decreased in Anterior leads Confirmed by Neena Han ([id number]) on 06/25/2024 8:59:22 AM Referred By: REFERRED SELF Confirmed By: Neena Han
[2024-06-25] MEDS: VERAPAMIL HCL 120 MG TABCR PO SCH (09:01)
[2024-06-25] MEDS: ESCITALOPRAM OXALATE 10 MG TAB PO SCH (09:09)
[2024-06-25] MEDS: FUROSEMIDE 40 MG TAB PO SCH (09:09)
[2024-06-25] MEDS: AMIODARONE 200 MG TAB PO SCH (09:09)
[2024-06-25] MEDS: ASPIRIN 81 MG ECTAB PO SCH (09:09)
[2024-06-25] MEDS: CLOPIDOGREL BISULFATE 75 MG TAB PO SCH (09:09)
[2024-06-25] MEDS: FAMOTIDINE 10 MG TABLET PO SCH (09:09)
[2024-06-25] MEDS: ROSUVASTATIN CALCIUM 20 MG TAB PO SCH (09:09)
[2024-06-25 12:16] VITALS: BP 120/64; PULSE 64; TEMP 98.1; O2SAT 97
--- NOTE | 2024-06-25 12:24 | Discharge Summary ---
Discharge Summary Date of Service June 25, 2024 Principal Dx & Hospital Course #1 = Principal Diagnosis (1) Ground-level fall: (2) Left humeral fracture: (3) Ambulatory dysfunction: Plan #Fall/left humerus fracture - Patient is an 89-year-old female with past medical history of asthma, HFpEF, breast cancer, GERD, ILD, CAD s/p right TCAR 2017 in 2019, paroxysmal A-fib, MADAN, intraparenchymal hemorrhage of brain. Patient presented from [facility] after a mechanical ground-level fall resulting in a left upper extremity humerus fracture, she denies head strike or loss of consciousness, she is not on blood thinners but is on aspirin and Plavix. Orthopedics was consulted and nonoperative mangement recommended, continue sling and repeat xrays outpatient in [address] Jackson. Pain control: prn PO tylenol and tramadol, ice. Evaluated by PT/OT safe for return to [facility] with therapy and hemiwalker. #MADAN - CPAP HS #HFpEF most recent EF 65 to 70%. Continue metoprolol and lasix #CAD s/p right TCAR in 2017 and 2019 on aspirin and Plavix. contnue statin. #paroxysmal A-fib Continue metoprolol and amiodarone, no anticoagulation given recent history of brain hemorrhage #HTN continue metoprolol, Lasix, verapamil Dispo: discharge to [facility] today Attempted to call to updated 06/25 but no answer, unable to leave voicemail Notes For Next Care Provider ortho f/u in 2 weeks Admission HPI Per Admitting Provider Patient is an 89-year-old female with past medical history of asthma, HFpEF, breast cancer, GERD, ILD, CAD s/p right TCAR 2017 in 2019, paroxysmal A-fib, MADAN, intraparenchymal hemorrhage of brain. Patient presented from [facility] after a mechanical ground-level fall resulting in a left upper extremity humerus fracture, she denies head strike or loss of consciousness, she is not on blood thinners but is on aspirin and Plavix. She uses a walker at baseline and there is concerned about ambulation, PT/OT consulted. Patient seen at bedside. she stated that she forgot to put the brakes on her walker and the walker slid out from under her and she slipped with it to the ground. She is complaining of left arm and right hip pain, 6/10 at time of admission. She denies any headaches or dizziness, chest pain, shortness of breath, numbness, tingling, abdominal pain. She believes she is on a blood thinner but is unsure, stated that she was on aspirin or Xarelto. She has not yet received treatment. She uses CPAP at baseline. She wishes to be full code. She is agreeable to admission and PT/OT consultations as recommended by Edwar Simon prior to return. Discharge Exam General: NAD, VS as above Resp: normal respiratory effort, lungs clear to auscultation CV: RRR, no murmur, Abd: normal bowel sounds, non tender, no hepatosplenomegaly Extremities: left UE in sling, good pulses, able to wiggle fingers Discharge Plan Discharge Items Patient Disposition: Personal [facility] Reason For Visit: FALL,LEFT HUMERUS FRACTURE,AMBULATORY DYSFUNCTIO Discharge Diagnosis: left humerus fracture Activity: As commented below Activity Comment: Non weight bearing to left upper extremity Lifting Comment: none with left arm Non-emergency contact: Primary Care Provider and Specialist Call non-emergency contact if: you have any medication questions, your symptoms worsen, your pain is worsening and your temperature is above 101 Follow-up/Referrals: Scot Jackson MD [Physician] - (follow up in 2 weeks for repeat xrays ) José Kumari MD [Primary Care Provider] - (Follow up within one week ) Diet: Heart Healthy and Low Sodium (2gm) Addtl Attending Provider Instructions: Ms. Burger, Baldomero were hospitalized after a fall resulting in a left humeral fracture. You were seen by the orthopedics team who did not recommend surgery. You should remain in your sling and not put weight on or lift with that left hand. You will need to follow up in the orthopedic office in 2 weeks for repeat xrays. Their information is listed above. Pain control: tylenol and as needed tramadol No changes to home medications. Thanks for allowing us to participate in your care! Pending Studies at Discharge: No Stand-Alone Forms: Enjoyor, Smoking Cessation Skilled Items Patient informed of condition?: Yes DNR: No Discharge Level of Care: Other Communicable Disease: No Discharge Prognosis: Stable Lines: None Urinary Catheter: No Medications and DC Order Prescriptions: New tramadol 50 mg Tablet 50 mg PO Q4H PRN (Reason: pain) Qty: 10 0RF Continued metoprolol succinate 50 mg tablet extended release 24 hr 50 mg PO BID rosuvastatin [Crestor] 20 mg tablet 20 mg PO DAILY bisacodyl [Dulcolax (bisacodyl)] 10 mg suppository 10 mg [place] DAILY PRN escitalopram oxalate [Lexapro] 10 mg tablet 10 mg PO DAILY famotidine 10 mg tablet 10 mg PO DAILY furosemide 40 mg tablet 40 mg PO DAILY valsartan 80 mg tablet 80 mg PO BID verapamil 120 mg capsule,ext rel. pellets 24 hr 120 mg PO DAILY amiodarone 200 mg tablet 200 mg PO DAILY Qty: 90 3RF acetaminophen 650 mg Tablet Extended Release 325 - 650 mg PO Q6H PRN (Reason: Pain) albuterol sulfate [Ventolin HFA] 90 mcg/actuation Hfa Aerosol Inhaler 2 puff INHALATION Q6H PRN (Reason: Shortness Of Breath Or Wheezing) fluticasone propionate [Flonase Allergy Relief] 50 mcg/actuation [place],Suspension 1 spray INTRANASAL QPM PRN (Reason: allergies) pramipexole 0.5 mg tablet 0.5 mg PO HS cholecalciferol (vitamin D3) [Vitamin D3] 50 mcg (2,000 unit) Capsule 50 mcg PO HS aspirin 81 mg Capsule 81 mg PO DAILY Hold Instructions: Resume on 02/22/24. hold until cleared by neurology/vascular clopidogrel [Plavix] 75 mg Tablet 75 mg PO DAILY Hold Instructions: Resume on 02/22/24. hold until cleared by neurology/vascular Discharge Orders: Discharge Order (Routine); Ordered 06/25/24 Ordered By: Mandy Varghese/Other Patient Handouts: Understanding a Humerus Fracture Admission Data Admit Date/Time: 06/24/24 23:23 Attending Provider: Layo Amaro Admit Provider: Demetris Hughes Primary Care Provider: José Kumari Other Providers: Demetris Hughes; Scot Jackson; Edwar Simon Other Interventions: Discharge Summary Assessment (RN) Last Done: 06/25/24 13:14 Hospital Stay Data Consultations 06/24/24 21:12 ED Decision to Admit Stat 06/25/24 00:15 Consult Orthopedic Surgery Routine Diagnostic Imagining Performed Hip/Pelvis X-Ray 06/24/24 19:41 Exam(s): XR HIP + PELVIS, 2-3 views EXAM: XR Right Hip With Pelvis When Performed, 2 or 3 Views CLINICAL HISTORY: Reason for exam: R hip pain s/p fall. TECHNIQUE: Two or three views of the right hip with pelvis when performed. COMPARISON: Right hip and pelvis radiograph on 03/17/2024 FINDINGS: Bones/joints: No displaced fracture or dislocation identified. Right hip arthroplasty without evidence of hardware complication. No bony lesion. Soft tissues: Normal. No radiopaque foreign body identified. Other: Presumed phleboliths in the pelvis. IMPRESSION: No displaced fracture or dislocation identified. Electronically signed by: Brooke Gould M.D. 06/25/24 00:43 AM Humerus X-Ray 06/24/24 19:41 Exam(s): XR LEFT HUMERUS, 2+ views EXAM: XR Left Humerus, 2 or More Views CLINICAL HISTORY: Reason for exam: pain post fall. TECHNIQUE: Frontal and lateral views of the left humerus. COMPARISON: None FINDINGS: Bones/joints: Mildly displaced fractures of the proximal left humerus. Mild degenerative change of the left acromioclavicular joint. Mild to moderate degenerative change of the left glenohumeral joint. No left shoulder dislocation. Soft tissues: Unremarkable. IMPRESSION: Mildly displaced fractures of the proximal left humerus. Electronically signed by: Brooke Gould M.D. 06/25/24 00:45 AM Lumbar Spine X-Ray 06/24/24 19:41 Exam(s): XR L SPINE, 2-3 views EXAM: XR Lumbosacral Spine, 2 or 3 Views CLINICAL HISTORY: Reason for exam: midline LBP. TECHNIQUE: Frontal and lateral views of the lumbar spine and sacrum. COMPARISON: None FINDINGS: Bones: No vertebral body height loss to suggest acute fracture. Grade 1 anterolisthesis of L2 on L3 and L4 on L5 and L5 on S1. Degenerative changes of the spine. Right hip arthroplasty partially seen. Soft tissues: No acute finding. Other: Presumed phleboliths in the pelvis. IMPRESSION: No acute fracture. Electronically signed by: Brooke Gould M.D. 06/25/24 00:44 AM Shoulder X-Ray 06/24/24 19:41 Exam(s): XR LEFT SHOULDER, 2+ views EXAM: XR Left Shoulder Complete, 2 or More Views CLINICAL HISTORY: Reason for exam: pain post fall. TECHNIQUE: Two or more views of the left shoulder. COMPARISON: None FINDINGS: Bones/joints: Mildly displaced fractures of the proximal left humerus. Mild degenerative change of the left acromioclavicular joint. Mild to moderate degenerative changes of the left glenohumeral joint. No left shoulder dislocation. Soft tissues: Soft tissue swelling. IMPRESSION: Mildly displaced fractures of the proximal left humerus. Electronically signed by: Brooke Gould M.D. 06/25/24 00:47 AM Chest X-Ray 06/25/24 00:57 EXAM: XR chest 1V portable CLINICAL HISTORY: Fall. TECHNIQUE: An X-ray image of the chest is obtained in AP projection. COMPARISON: 03/17/2024. FINDINGS: Pulmonary Parenchyma: Chronic interstitial lung markings No evidence of pleural effusion or pleural thickening. Heart and Mediastinum: Mild Cardiomegaly. No mediastinal widening or masses. No hilar or mediastinal lymphadenopathy. Bony Thorax: Left humeral neck acute minimally displaced oblique fracture. Soft Tissues: Soft tissues overlying the chest wall are unremarkable. IMPRESSION: 1. Left humeral neck acute minimally displaced oblique fracture. New finding. 2. Chronic interstitial lung markings. Unchanged. 3. Mild Cardiomegaly. Unchanged. Electronically signed by Robert Castaneda 06-25-2024 02:50 AM Pending Results Patient Have Any Pending Studies at Discharge: No Discharge Instructions Given to Patient (Per Discharging Provider) Ms. Burger, Baldomero were hospitalized after a fall resulting in a left humeral fracture. You were seen by the orthopedics team who did not recommend surgery. You should remain in your sling and not put weight on or lift with that left hand. You will need to follow up in the orthopedic office in 2 weeks for repeat xrays. Their information is listed above. Pain control: tylenol and as needed tramadol No changes to home medications. Thanks for allowing us to participate in your care! Total Time Total Time Spent Total Time Spent (In Minutes): Time spent day of discharge 36 minutes including direct patient care, medication reconciliation, documentation, review of labs and images, and coordination of care. discussed with case management Coding Level of Care Code 03420 INP/OBS DISCH >30 MIN Diagnoses Ground-level fall W18.30XA Left humeral fracture S42.302A Ambulatory dysfunction R26.2
[2024-06-25] MEDS ORDERED: LIDOCAINE 5% 1 PATCH TD SCH (21:00)
== END 2024-06-25 15:21 | disposition home or self-care (01) | DRG 563 ==
LOC: 3E 23:23

== ENCOUNTER 2024-06-28 20:59 | Inpatient (IN) ==
[2024-06-28] MEDS: OPTIRAY 320 125ml IV ONE (21:18)
[2024-06-28 21:42] LABS: Albumin Level 3.3 gm/dl (3.4-5.0); BUN Creatinine Ratio 24.1 (10-20); Bilirubin Direct 0.1 mg/dl (0-0.2); Bilirubin,Total 0.8 mg/dl (0.2-1.0); Calcium 9.1 mg/dl (8.6-10.3); Potassium 4.3 mmol/L (3.5-5.1)
[2024-06-28 21:42] LABS: Appearance Urine Cloudy (Clear); Bacteria Urine Automated 4+ (None Seen); Bilirubin Urine Negative (Negative); Blood Urine Negative (Negative); Cast Urine Automated >20 /lpf (0-2); Color Urine Yellow; Epithelial Cell Urine Auto 0-2 /hpf (0-2); Glucose Urine UA Negative (Negative); Ketones Urine Negative (Negative); Leukocyte Esterase Urine 1+ (Negative); Nitrite Urine Positive (Negative); Protein Urine 1+ (Negative); RBC Urine Automated 0-2 /hpf (0-2); Specific Gravity Urine 1.018 (1.000-1.030); Urobilinogen Urine Negative (Negative); WBC Urine Automated 21-50 /hpf (0-5); pH Urine 5.5 (4.5-7.5)
[2024-06-28 21:48] LABS: Basophils # (auto) 0.04 K/uL (0.00-0.20); Basophils % (auto) 0.4 %; Eosinophils # (auto) 0.13 K/uL (0.00-0.50); Eosinophils % (auto) 1.4 %; Hematocrit (blood only) 31.4 % (37.0-47.0); Hemoglobin 9.7 g/dl (12.0-16.0); Immature Granulocytes # (auto) 0.03 K/uL (0.01-0.20); Immature Granulocytes % (auto) 0.3 %; Lymphocytes # (auto) 1.07 K/uL (1.20-3.40); Lymphocytes % (auto) 11.5 %; Mean Corpuscular Hgb Conc 30.9 g/dL (32.0-36.0); Mean Corpuscular Volume 84.2 fL (80.0-100.0); Mean Platelet Volume 11.4 fL (9.4-12.4); Monocytes % (auto) 7.5 %; Neutrophils # (auto) 7.32 K/uL (1.40-6.50); Neutrophils % (auto) 78.9 %; Platelet Count 241 K/uL (130-400); RDW Standard Deviation 51.2 fL (36.4-46.3); Red Blood Count 3.73 M/uL (4.20-5.40); White Blood Count 9.29 K/ul (4.8-10.8)
[2024-06-28 21:55] LABS: Prothrombin Time 11.2 Seconds (9.0-12.0)
--- NOTE | 2024-06-28 22:35 | CT Scan Report ---
Exam(s): CT HEAD Without Contrast EXAM: CT Head Without Intravenous Contrast CLINICAL HISTORY: Reason for exam: sudden confusion, previous head trauma, SAH?. TECHNIQUE: Axial computed tomography images of the head/brain without intravenous contrast. CTDI is 20.76 mGy and DLP is 418.61 mGy-cm. Automated exposure control was utilized for the study. A dose lowering technique was utilized adhering to the principles of ALARA. COMPARISON: Head CT 03/17/2024 FINDINGS: Brain: No intracranial hemorrhage, mass-effect, or cerebral edema. Atrophy and chronic microvascular ischemic changes. Ventricles: Unremarkable. Bones/joints: Unremarkable. No fracture. Soft tissues: Unremarkable. Sinuses: No acute sinusitis. Mastoid air cells: Unremarkable as visualized. IMPRESSION: 1. No acute intracranial abnormality. Electronically signed by: Diego Zamna MD 06/28/24 22:34 PM
--- NOTE | 2024-06-28 22:47 | CT Scan Report ---
Exam(s): CTA NECK With Contrast IV Amt: 115 ml optiray 320 EXAM: CT Angiography Neck With Intravenous Contrast CLINICAL HISTORY: Reason for exam: sudden onset AMS, unresponsive. TECHNIQUE: Routine carotid CT angiography protocol was performed with intravenous contrast. NASCET criteria using the distal ICAs for comparison were used for evaluation of stenoses. CTDI is 65.86 mGy and DLP is 961.59 mGy-cm. Automated exposure control was utilized for the study. A dose lowering technique was utilized adhering to the principles of ALARA. MIP reconstructed images were created and reviewed. CONTRAST: Patient received 115 ml optiray 320 of IV contrast COMPARISON: None. FINDINGS: VASCULATURE: Right common carotid artery: No occlusion or significant stenosis. No dissection. Right internal carotid artery: Patent stent within the right internal carotid artery. Right vertebral artery: No occlusion or significant stenosis. No dissection. Left common carotid artery: Moderate stenosis in the left common carotid artery secondary to a kink. Left internal carotid artery: Atheromatous plaque in the proximal left ICA causing 50% stenosis. Left vertebral artery: No flow-limiting stenosis, occlusion, or dissection.. 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 NECK: Bones/joints: Unremarkable. No acute fracture. Soft tissues: Unremarkable. Lung apices: Clear. CAROTID STENOSIS REFERENCE USING NASCET CRITERIA: % ICA stenosis = (1 - narrowest ICA diameter/diameter of distal cervical ICA) x 100. Mild - <50% stenosis. Moderate - 50-69% stenosis. Severe - 70-94% stenosis. Near occlusion - 95-99% stenosis. Occluded - 100% stenosis. IMPRESSION: 1. 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 2. Patent stent within the right internal carotid artery. 3. Atheromatous plaque in the proximal left ICA causing 50% stenosis. Electronically signed by: Diego Zaman MD 06/28/24 22:46 PM
[2024-06-28] MEDS: cefTRIAXone SODIUM 2,000 MG/50 ML BAG IV STA (22:52)
--- NOTE | 2024-06-28 23:00 | CT Scan Report ---
Exam(s): CT C SPINE EXAM: CT Cervical Spine Without Intravenous Contrast CLINICAL HISTORY: Reason for exam: fall, confusion. TECHNIQUE: Axial computed tomography images of the cervical spine without intravenous contrast. CTDI is 65.86 mGy and DLP is 961.59 mGy-cm. Automated exposure control was utilized for the study. A dose lowering technique was utilized adhering to the principles of ALARA. COMPARISON: No relevant prior studies available. FINDINGS: Vertebrae: No acute fracture. Ankylosis from C4-C6. Discs/spinal canal/neural foramina: Anterolisthesis at C3-4. Degenerative disc disease most pronounced at C6-7. Multilevel facet and uncovertebral hypertrophy. Soft tissues: Unremarkable. IMPRESSION: No traumatic injury identified. Electronically signed by: Diego Zaman MD 06/28/24 22:59 PM
--- NOTE | 2024-06-28 23:04 | CT Scan Report ---
Exam(s): CT CHEST With Contrast IV Amt: 115 ml optiray 320 EXAM: CT Chest With Intravenous Contrast CLINICAL HISTORY: Reason for exam: fall 3 days ago, rib fx, flank hematoma. TECHNIQUE: Axial computed tomography images of the chest with intravenous contrast. CTDI is 20.76 mGy and DLP is 418.61 mGy-cm. Automated exposure control was utilized for the study. A dose lowering technique was utilized adhering to the principles of ALARA. CONTRAST: Patient received 115 ml optiray 320 of IV contrast COMPARISON: No relevant prior studies available. FINDINGS: Lungs: No pulmonary contusion. No consolidation or interstitial edema. Dependent atelectasis in the right upper lobe. Pleural space: No pleural effusion or pneumothorax. Heart: Cardiomegaly. Moderate to severe coronary artery calcifications. Bones/joints: Nondisplaced fracture of the left humeral neck. Soft tissues: Unremarkable. Vasculature: Unremarkable. Lymph nodes: Unremarkable. IMPRESSION: 1. Nondisplaced fracture of the left humeral neck. 2. Cardiomegaly. Moderate to severe coronary artery calcifications. Electronically signed by: Diego Zaman MD 06/28/24 23:03 PM
--- NOTE | 2024-06-28 23:07 | CT Scan Report ---
Exam(s): CT ABDOMEN + PELVIS With Contrast IV Amt: 115 ml optiray 320 EXAM: CT Abdomen and Pelvis With Intravenous Contrast CLINICAL HISTORY: Reason for exam: fall 3 days ago, flank hematoma. TECHNIQUE: Axial computed tomography images of the abdomen and pelvis with intravenous contrast. CTDI is 20.76 mGy and DLP is 444.34 mGy-cm. Automated exposure control was utilized for the study. A dose lowering technique was utilized adhering to the principles of ALARA. CONTRAST: Patient received 115 ml optiray 320 of IV contrast COMPARISON: No relevant prior studies available. FINDINGS: ABDOMEN: Liver: No traumatic injury to the liver. Gallbladder and bile ducts: Unremarkable. Pancreas: Unremarkable. Spleen: No traumatic injury to the spleen. Adrenals: Unremarkable. Kidneys and ureters: Unremarkable. No obstructing stones. No hydronephrosis. Stomach and bowel: Unremarkable. PELVIS: Appendix: No findings to suggest acute appendicitis. Bladder: Unremarkable. Reproductive: Unremarkable as visualized. ABDOMEN and PELVIS: Intraperitoneal space: Unremarkable. No free air. No significant fluid collection. Bones/joints: No fracture or malalignment. Right hip arthroplasty. Degenerative changes in the spine. Soft tissues: Hematoma within the right gluteal subcutaneous fat. Vasculature: Unremarkable. Lymph nodes: Unremarkable. IMPRESSION: Hematoma within the right gluteal subcutaneous fat. Otherwise no traumatic injury identified. Electronically signed by: Diego Zaman MD 06/28/24 23:05 PM
--- NOTE | 2024-06-28 23:53 | History & Physical Report ---
Date of Service June 28, 2024 Assessment & Plan (1) Metabolic encephalopathy: (2) UTI (urinary tract infection): (3) Hematoma of right hip: (4) Subclavian artery stenosis, left: Plan Patient is an 89-year-old female with past medical history of asthma, HFpEF, breast cancer, GERD, ILD, CAD s/p right TCAR 2017 in 2019, paroxysmal A-fib, MADAN, intraparenchymal hemorrhage of brain. Patient was recently admitted after a ground-level fall resulting in a left humerus fracture. Patient has returned to the ED "unresponsive" found to have a UTI. She is being admitted for metabolic encephalopathy secondary to UTI. #metabolic encephalopathy/UTI - Reported acute onset confusion. UA appears positive for infection given nitrates, 1+ LE, 21-50 WBC, >20 hyaline cast, 4+ bacteria. - continue Rocephin - follow urine cultures - no previous cultures on file - blood cultures ordered; however one-time dose Rocephin already given in the ED - Lactate 2.3 -> 2.2 in ED; LR 500 mL ordered, repeat lactate with a.m. labs - OOB as tolerated - promote good sleep wake cycles - melatonin prn - hold tramadol prn - TSH ordered for encephalopathy workup however suspect secondary to UTI given symptoms improving after 1 dose IV antibiotics - CVA was within differential however patient on Eliquis, CT and CTAs negative for acute changes other than stenosis noted below. If patient clinically fails to improve, could consider MRI. #hematoma - AP CT no acute abnormality within the right gluteal subcutaneous fat. Suspect 2/2 recent fall. Patient denies any pain. Hgb decreased from 12.2 to 9.7. - warm compress prn - trend CBC - not on any anticoagulation how is on DAPT; continue #left humerus fracture - s/p fall and admission /. Stable. - continue sling - ice prn - Lidoderm patch, Tylenol prn - had previous PT/OT evals and was safe to return to [facility] #Left subclavian stenosis - CT noted severe stenosis of left subclavian artery 2/2 kink prior to takeoff of left vertebral artery. Doubt this is contributory to confusion. - lipid panel with AM labs - could consider vascular consult #MADAN - CPAP HS #HFpEF most recent EF 65 to 70%. Continue metoprolol and lasix #CAD s/p right TCAR in 2017 and 2019 on aspirin and Plavix. continue statin. #paroxysmal A-fib Continue metoprolol and amiodarone, no anticoagulation given recent history of brain hemorrhage #HTN continue metoprolol, Lasix, verapamil #Asthma - continue home inhalers VTE ppx: SCDs, defer chemical ppx with recent brain hemorrhage and hematoma Dispo: med/tele Of note- patient stated it is unsafe for her at home on admission due to something occurring with her however patient oriented x0 and hallucinating. Please follow up when encephalopathy resolved. Admission and Anticipated Discharge Date Admission Date: 06/28/24 History of Present Illness Chief Complaint: confusion Primary Care Provider: José Kumari MD Patient is an 89-year-old female with past medical history of asthma, HFpEF, breast cancer, GERD, ILD, CAD s/p right TCAR 2017 in 2018, paroxysmal A-fib, MADAN, intraparenchymal hemorrhage of brain. Patient was recently admitted after a ground-level fall resulting in a left humerus fracture. Patient has returned to the ED "unresponsive" found to have a UTI. She is being admitted for metabolic encephalopathy secondary to UTI. Patient seen at bedside. She is completely disoriented, which is not baseline for her. She stated she has left arm pain however is otherwise feeling well. She just feels confused. She stated she was seeing her father and around who is expected to be disease given she is 89 years old. Patient stated it is unsafe for her to go home with her however would not further evaluate, credi bility unsure at this time given hallucinating. Allergies Allergy/AdvReac Type Severity Reaction Status Date / Time codeine Allergy Intermediate Temperature Verified 06/28/24 21:45 rise oxycodone AdvReac Severe "Became Verified 06/28/24 21:45 addicted to it" lactose AdvReac gas to cow Verified 06/20/24 14:33 milk. Milk Containing Products AdvReac cow milk = Verified 06/20/24 14:33 (Dairy) "gas", lactose already profiled Home Medications Medication Instructions Recorded Confirmed Type albuterol sulfate 90 mcg/actuation 2 puff inhalation Q6H PRN Wheezing 11/17/17 06/28/24 History aerosol inhaler (Ventolin HFA) fluticasone propionate 50 2 spray intranasal QAM 11/17/17 06/28/24 History mcg/actuation nasal spray,suspension (Flonase Allergy Relief) metoprolol succinate 50 mg 50 mg PO BID 04/02/21 06/28/24 History tablet,extended release 24 hr pramipexole 0.5 mg tablet 0.5 mg PO HS 04/02/21 06/28/24 History cholecalciferol (vitamin D3) 50 50 mcg PO QAM 10/28/22 06/28/24 History mcg (2,000 unit) capsule (Vitamin D3) clopidogrel 75 mg tablet (Plavix) 75 mg PO DAILY 02/07/24 06/28/24 History bisacodyl 10 mg rectal suppository 10 mg WI DAILY PRN Constipation 03/08/24 06/28/24 History (Dulcolax (bisacodyl)) escitalopram oxalate 10 mg tablet 10 mg PO QAM 03/08/24 06/28/24 History (Lexapro) famotidine 10 mg tablet 10 mg PO QAM 03/08/24 06/28/24 History furosemide 40 mg tablet 40 mg PO QAM 03/08/24 06/28/24 History rosuvastatin 20 mg tablet (Crestor) 20 mg PO DAILY 03/08/24 06/28/24 History valsartan 80 mg tablet 80 mg PO BID 03/08/24 06/28/24 History verapamil 120 mg 24 hr 120 mg PO DAILY 03/08/24 06/28/24 History capsule,extended release amiodarone 200 mg tablet 200 mg PO DAILY #90 tabs 04/05/24 06/28/24 Rx tramadol 50 mg tablet 50 mg PO Q4H PRN pain #10 tabs 06/25/24 06/28/24 Rx acetaminophen 325 mg tablet 325 mg PO Q4 PRN Pain 06/28/24 06/28/24 History acetaminophen 325 mg tablet 650 mg PO Q4 PRN ELEVATED 06/28/24 06/28/24 History TEMPERATURE amoxicillin 500 mg capsule 2,000 mg PO UD PRN Prophylaxis 06/28/24 06/28/24 History aspirin 81 mg tablet,delayed 81 mg PO DAILY 06/28/24 06/28/24 History release lidocaine 4 % topical patch 1 - 2 patch topical DAILY PRN Pain 06/28/24 06/28/24 History nystatin 100,000 unit/gram topical 1 applic topical Q12 PRN 06/28/24 06/28/24 History powder EXCORIATION polyethylene glycol 3350 17 17 g PO .EVERY 24 HOURS PRN 06/28/24 06/28/24 History gram/dose oral powder (Miralax) Constipation sodium chloride 1,000 mg soluble 1,000 mg PO TID 06/28/24 06/28/24 History tablet umeclidinium 62.5 mcg-vilanterol 1 inh inhalation DAILY 06/28/24 06/28/24 History 25 mcg/actuation powdr for inhalation Past Med/Surg History Problem List (Updated 06/29/24 @ 02:17 by Background Daemon) Acute confusion (Acute) Episode of unresponsiveness (Acute) UTI (urinary tract infection) (Acute) Subclavian artery stenosis, left Hematoma of right hip UTI (urinary tract infection) Metabolic encephalopathy Acute hip pain (Acute) Hard of hearing (Acute) Fall (Acute) Closed left humeral fracture (Acute) Paroxysmal atrial fibrillation Intraparenchymal hemorrhage of brain Discharge planning issues DVT prophylaxis Dissection of right carotid artery Stenosis of right carotid artery Valvular heart disease Carotid artery stenosis Encounter for pre-operative examination DDD (degenerative disc disease), lumbar Bruit of left carotid artery Arthritis Diastolic congestive heart failure, NYHA class 3 Bilateral edema of lower extremity (Chronic) SVT (supraventricular tachycardia) (Chronic) Asthma (Chronic) Hypertension (Chronic) Dyslipidemia (Chronic) Dyspnea on exertion (Chronic) Breast cancer (Acute 05/07/16) "Status post left breast cancer 1996 treated with lumpectomy followed by radiation therapy Self detected left breast mass April 2016 Status post mammogram followed by core needle biopsy 05/07/2016 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, progesterone receptor positive, HER-2/wendy positive" Medical History Tenosynovitis, de Quervain Rheumatoid disease Pes anserinus bursitis OA (osteoarthritis) of knee Neural foraminal stenosis of lumbar spine Lumbar radiculopathy Knee pain ICH (intracerebral hemorrhage) (02/13/24) Heart disease Hamstring strain Bilateral carotid artery stenosis Chronic neck pain Poor historian Arthritis Limb alert care status left Dyspnea on exertion chronic, denies change or worsening SVT (supraventricular tachycardia) "palpitations occasionally" - follows with kumar Bilateral edema of lower extremity chronic, denies change or worsening Moderate aortic stenosis DSE 05/19/22: Moderate aortic stenosis (ROB 1.4-1.6cm2, MG 7.8mmhg) Dyslipidemia Heart failure with preserved ejection fraction History of COVID-19 (06/2022) 06/2022- "mild cold symptoms" > resolved Asthma Cystocele, midline Carpal tunnel syndrome surgery 2022-Residual right finger numbness Osteoarthritis Sciatic nerve disease Chronic back pain GERD (gastroesophageal reflux disease) Well controlled and stable Breast cancer, left (1996) "Status post left breast cancer 1996 treated with lumpectomy followed by radiation therapy Self detected left breast mass April 2016 Status post mammogram followed by core needle biopsy 05/07/2016 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, progesterone receptor positive, HER-2/wendy positive" Hearing deficit b/l hearing aids Restless leg syndrome Hyperlipidemia Hypertension controlled, stable per pt Atrial fibrillation per hx, pt unsure, Follows with EUGENIA [facility] cardio Sleep apnea CPAP (compliant) Surgical History Status post left knee replacement (12/2022) History of right hip replacement (07/02/22) Right MERRITT S/P epidural steroid injection History of carpal tunnel surgery of right wrist History of back surgery Lumbar cyst removal H/O left breast biopsy (1997) ("malignant") History of left mastectomy (2015) Left limb restriction History of lumpectomy of left breast 1997 History of tonsillectomy and adenoidectomy Social History Smoking Status: Unknown if ever smoked Second Hand Exposure: No; Do You Dip or Chew Tobacco: No; Hx Alcohol Use: No Hx Substance Use: No Preferred Language: Yoruba Communication Ability: Impaired Undercoat Sprayer Required: No Beliefs That Will Affect Care: None Current Living Situation: Spouse Current Living Situation Comment: [place] Feels Safe at Home: Yes Assistive Devices: CPAP and Walker Review of Systems Review of Systems: see HPI Physical Exam Physical Exam: The patient is confused. HEENT- EOMI, mucous membranes dry. Hearing grossly intact. Heart-normal S1 and S2. No murmurs, rubs or gallops. Lungs-clear bilaterally, no respiratory distress, no accessory muscle use. Abdomen-normal bowel sounds and soft. No ascites noted. Non-tender. Extremities- no clubbing, cyanosis. Significant ecchymosis to left upper extremity. Ecchymosis to right hip. Results & Data Results & Data Vital Signs (Past 12 Hours) Vital Signs Temp Pulse Pulse Resp BP BP Pulse Ox 06/28/24 23:00 76 24 107/67 94 06/28/24 22:52 72 18 136/77 99 06/28/24 21:07 67 06/28/24 21:01 36.8 C 69 16 123/68 96 O2 Del Method 06/28/24 23:00 Room Air 06/28/24 22:52 Room Air 06/28/24 21:07 06/28/24 21:01 Room Air Laboratory Results reviewed cbc, cmp, lactate, ua Diagnostic Findings reviewed head CT, cervical spine CT, abdomen/pelvis CT, head CT, head CTA, neck CT Medications Administered EDRocephin 2G IV AdmissionLR at 150 mL/hour at 500 mL ECG Additional Comments: ordered Code Status & VTE Plan Code Status full VTE Prophylaxis Plan VTE Prophylaxis will be ordered: Yes Supervising Physician Co-Signing Physician Notes patient seen and examined, chart reviewed, case discussed with JUAN RAMON Robison and I agree with the assessment and plan as document above. In brief, patient is a 84-year-old female presenting with acute metabolic encephalopathy secondary to UTI On exam patient is afebrile, hemodynamically stable, nontoxic in appearance Delirious, inattentive, at times displays agitation Skin intact, heart + S1, S2, regular Lungs CTA Abdomen soft, nontender, nondistended Assessment/plan Follow cultures Supportive care continue gentle IV fluids Continue ceftriaxone Remainder as above PG Care Time/CCT Total # of Minutes Spent Total Time Spent with Patient: Total time spent is greater than 50% in coordination of care (as documented) at patient's floor/unit and/or counseling patient: Coding Level of Care Code 59033 INT INP/OBS CARE MIN Diagnoses Metabolic encephalopathy G93.41 UTI (urinary tract infection) N39.0 Hematoma of right hip S70.01XA Subclavian artery stenosis, left I77.1
--- NOTE | 2024-06-29 00:13 | Emergency Department Note ---
Impression & Plan UTI (urinary tract infection), Episode of unresponsiveness, Acute confusion ED Provider Note NAME: SOREN DURAN AGE: 89 SEX: F : 1935 ARRIVES VIA: Ambulance INFORMANT: Patient, ED PROVIDER(S): Kelly Harris MD CHIEF COMPLAINT: Confusion, sudden onset HPI: This is an 89-year-old female presenting from nursing facility for confusion of sudden onset. Patient reportedly fell about 4 days ago. Was admitted with a humeral fracture. Was discharged. Today had sudden onset of confusion and lethargy. Patient arrives unable to tell a story. She is moaning. She opens eyes to pain. She does groan and react to pain. She does follow some commands including squeezing arms and wiggling toes. ROS: See above HPI for pertinent positives & negatives. A total of 10 systems reviewed and were otherwise negative. PAST MEDICAL HISTORY: See Below PAST SURGICAL HISTORY: See Below FAMILY HISTORY: See Below SOCIAL HISTORY: See Below HOME MEDICATIONS: See Below ALLERGIES: See Below VITALS: See Below PHYSICAL EXAMINATION: General: Eyes closed, moaning, chronically ill-appearing Head: Normocephalic and atraumatic Eyes: Normal inspection, extraocular muscles intact Ear, nose, throat: Normal external exam Neck: Normal range of motion Respiratory: lungs clear to auscultation bilaterally Cardiovascular: Regular rate/rhythm, no murmur GI: soft, nontender Extremities: nontender, moves all extremities Neuro: Awake, not alert, no focal deficits, symmetric face Skin: Extensive left-sided ecchymosis to the arm, flank shoulder, MEDICAL DECISION MAKING: This is an 89-year-old female presenting for confusion. Patient was seen here about 4 days ago for humeral fracture and admitted. Unclear if patient has trauma of the head at the time. Will do trauma workup at this time as she does have ecchymosis to the left side of her body including arm, flank and shoulder. - While low concern, will do CT of the head as well as CTA head and neck to rule out trauma versus stroke - Her symptoms do not appear to consistent with stroke as she has nonfocal neurologic exam and is arousable. - Blood work reviewed, hemoglobin is 9.7, downtrending. Otherwise no severe electrolyte disturbances. Normal creatinine. Lactic acid 2.3. - Urinalysis shows signs of UTI, will give ceftriaxone at this time. This likely explains patient's current symptoms. - CT imaging of the chest, abdomen, pelvis reveals a hematoma to the right gluteal subcutaneous fat. Otherwise no rib fractures. Nondisplaced fracture of the left humeral neck is redemonstrated. - Otherwise no intracranial or cervical spine injury - CTA of the neck reveals severe stenosis secondary to a kink in the vessel. -Reevaluated the patient, at bedside. States that she is generally shy but not this confused. My reexamination of the patient, she is now more awake, delirious, does not recognize her which is unusual for her. She moves all extremities and does follow commands otherwise - Discussed care with Dr. Jackson for admission as patient has UTI and confusion. Differential diagnosis: Intracranial hemorrhage, cervical spine fracture, rib fracture, splenic laceration, liver laceration, stroke, LVO, UTI Independent History obtained from: Diagnostics interpreted by me: ECG: None Cardiac Monitoring: An order was placed for continuous cardiac monitoring. The monitor shows a rate of 76 with sinus rhythm. Critical Care Note: I have personally spent 34 minutes of critical care time in the direct management of this patient. This includes bedside care, interpretation of diagnostic studies, and testing, discussion with consultants, patient, and family members, and other required patient management activities. This 34 minutes is in excess of all separately billable procedures. Past Med/Surg History Problem List (Updated 06/29/24 @ 02:02 by Kelly Harris MD) Acute confusion (Acute) Episode of unresponsiveness (Acute) UTI (urinary tract infection) (Acute) Subclavian artery stenosis, left Hematoma of right hip UTI (urinary tract infection) Metabolic encephalopathy Acute hip pain (Acute) Hard of hearing (Acute) Fall (Acute) Closed left humeral fracture (Acute) Paroxysmal atrial fibrillation Intraparenchymal hemorrhage of brain Discharge planning issues DVT prophylaxis Dissection of right carotid artery Stenosis of right carotid artery Valvular heart disease Carotid artery stenosis Encounter for pre-operative examination DDD (degenerative disc disease), lumbar Bruit of left carotid artery Arthritis Diastolic congestive heart failure, NYHA class 3 Bilateral edema of lower extremity (Chronic) SVT (supraventricular tachycardia) (Chronic) Asthma (Chronic) Hypertension (Chronic) Dyslipidemia (Chronic) Dyspnea on exertion (Chronic) Breast cancer (Acute 05/07/16) "Status post left breast cancer 1996 treated with lumpectomy followed by radiation therapy Self detected left breast mass April 2016 Status post mammogram followed by core needle biopsy 05/07/2016 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, progesterone receptor positive, HER-2/wendy positive" Medical History Tenosynovitis, de Quervain Rheumatoid disease Pes anserinus bursitis OA (osteoarthritis) of knee Neural foraminal stenosis of lumbar spine Lumbar radiculopathy Knee pain ICH (intracerebral hemorrhage) (02/13/24) Heart disease Hamstring strain Bilateral carotid artery stenosis Chronic neck pain Poor historian Arthritis Limb alert care status left Dyspnea on exertion chronic, denies change or worsening SVT (supraventricular tachycardia) "palpitations occasionally" - follows with kumar Bilateral edema of lower extremity chronic, denies change or worsening Moderate aortic stenosis DSE 05/19/22: Moderate aortic stenosis (ROB 1.4-1.6cm2, MG 7.8mmhg) Dyslipidemia Heart failure with preserved ejection fraction History of COVID-19 (06/2022) 06/2022- "mild cold symptoms" > resolved Asthma Cystocele, midline Carpal tunnel syndrome surgery 2022-Residual right finger numbness Osteoarthritis Sciatic nerve disease Chronic back pain GERD (gastroesophageal reflux disease) Well controlled and stable Breast cancer, left (1996) "Status post left breast cancer 1996 treated with lumpectomy followed by radiation therapy Self detected left breast mass April 2016 Status post mammogram followed by core needle biopsy 05/07/2016 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, progesterone receptor positive, HER-2/wendy positive" Hearing deficit b/l hearing aids Restless leg syndrome Hyperlipidemia Hypertension controlled, stable per pt Atrial fibrillation per hx, pt unsure, Follows with [facility] cardio Sleep apnea CPAP (compliant) Surgical History Status post left knee replacement (12/2022) History of right hip replacement (07/02/22) Right MERRITT S/P epidural steroid injection History of carpal tunnel surgery of right wrist History of back surgery Lumbar cyst removal H/O left breast biopsy (1997) ("malignant") History of left mastectomy (2015) Left limb restriction History of lumpectomy of left breast 1997 History of tonsillectomy and adenoidectomy Social History Smoking Status: Never smoker Second Hand Exposure: No; Do You Dip or Chew Tobacco: No; Hx Alcohol Use: No Hx Substance Use: No Preferred Language: Portuguese Communication Ability: Effective Infection Prevention Coordinator Required: No Beliefs That Will Affect Care: None Current Living Situation: Spouse Current Living Situation Comment: assisted living at [facility] Feels Safe at Home: Yes Assistive Devices: CPAP and Walker Allergies Allergies Allergy/AdvReac Type Severity Reaction Status Date / Time codeine Allergy Intermediate Temperature Verified 06/28/24 21:45 rise oxycodone AdvReac Severe "Became Verified 06/28/24 21:45 addicted to it" lactose AdvReac gas to cow Verified 06/20/24 14:33 milk. Milk Containing Products AdvReac cow milk = Verified 06/20/24 14:33 (Dairy) "gas", lactose already profiled Home Meds Home Medications Medication Instructions Recorded Confirmed albuterol sulfate 90 mcg/actuation 2 puff inhalation Q6H PRN Wheezing 11/17/17 06/28/24 aerosol inhaler (Ventolin HFA) fluticasone propionate 50 2 spray intranasal QAM 11/17/17 06/28/24 mcg/actuation nasal spray,suspension (Flonase Allergy Relief) metoprolol succinate 50 mg 50 mg PO BID 04/02/21 06/28/24 tablet,extended release 24 hr pramipexole 0.5 mg tablet 0.5 mg PO HS 04/02/21 06/28/24 cholecalciferol (vitamin D3) 50 50 mcg PO QAM 10/28/22 06/28/24 mcg (2,000 unit) capsule (Vitamin D3) clopidogrel 75 mg tablet (Plavix) 75 mg PO DAILY 02/07/24 06/28/24 bisacodyl 10 mg rectal suppository 10 mg GA DAILY PRN Constipation 03/08/24 06/28/24 (Dulcolax (bisacodyl)) escitalopram oxalate 10 mg tablet 10 mg PO QAM 03/08/24 06/28/24 (Lexapro) famotidine 10 mg tablet 10 mg PO QAM 03/08/24 06/28/24 furosemide 40 mg tablet 40 mg PO QAM 03/08/24 06/28/24 rosuvastatin 20 mg tablet (Crestor) 20 mg PO DAILY 03/08/24 06/28/24 valsartan 80 mg tablet 80 mg PO BID 03/08/24 06/28/24 verapamil 120 mg 24 hr 120 mg PO DAILY 03/08/24 06/28/24 capsule,extended release acetaminophen 325 mg tablet 325 mg PO Q4 PRN Pain 06/28/24 06/28/24 acetaminophen 325 mg tablet 650 mg PO Q4 PRN ELEVATED 06/28/24 06/28/24 TEMPERATURE amoxicillin 500 mg capsule 2,000 mg PO UD PRN Prophylaxis 06/28/24 06/28/24 aspirin 81 mg tablet,delayed 81 mg PO DAILY 06/28/24 06/28/24 release lidocaine 4 % topical patch 1 - 2 patch topical DAILY PRN Pain 06/28/24 06/28/24 nystatin 100,000 unit/gram topical 1 applic topical Q12 PRN 06/28/24 06/28/24 powder EXCORIATION polyethylene glycol 3350 17 17 g PO .EVERY 24 HOURS PRN 06/28/24 06/28/24 gram/dose oral powder (Miralax) Constipation sodium chloride 1,000 mg soluble 1,000 mg PO TID 06/28/24 06/28/24 tablet umeclidinium 62.5 mcg-vilanterol 1 inh inhalation DAILY 06/28/24 06/28/24 25 mcg/actuation powdr for inhalation Previous Rx's Medication Instructions Recorded amiodarone 200 mg tablet 200 mg PO DAILY #90 tabs 04/05/24 tramadol 50 mg tablet 50 mg PO Q4H PRN pain #10 tabs 06/25/24 Results & Data (ED) Vital Signs Vital Signs - 24 hr 06/28/24 21:01 06/28/24 21:07 06/28/24 22:52 Temperature 36.8 C Temperature Source Oral Pulse Rate 69 67 Pulse Rate [Apical] 72 Pulse Rate from SpO2 Sensor Pulse Rhythm [Apical] Regular Pulse Strength [Apical] Normal Respiratory Rate 16 18 Respiratory Effort / Characteristics Non-Labored Spontaneous Non-Labored Spontaneous Respiratory Depth Normal Normal Blood Pressure 123/68 Blood Pressure [Right Arm] 136/77 Blood Pressure Mean 86 Blood Pressure Mean [Right Arm] 96 Blood Pressure Position Right Lateral Pulse Oximetry 96 99 Oxygen Delivery Method Room Air Room Air Sepsis Recent Fever Within 48 Hours No Sepsis New/Unexplained Change in Mental Status N/A Sepsis Action Taken by Nursing No Action Required 06/28/24 23:00 06/29/24 00:06 06/29/24 01:06 Temperature Temperature Source Pulse Rate 76 75 80 Pulse Rate [Apical] Pulse Rate from SpO2 Sensor 71 74 Pulse Rhythm [Apical] Pulse Strength [Apical] Respiratory Rate 24 20 Respiratory Effort / Characteristics Respiratory Depth Blood Pressure 107/67 142/111 H Blood Pressure [Right Arm] Blood Pressure Mean 80 121 Blood Pressure Mean [Right Arm] Blood Pressure Position Pulse Oximetry 94 94 Oxygen Delivery Method Room Air Room Air Sepsis Recent Fever Within 48 Hours Sepsis New/Unexplained Change in Mental Status Sepsis Action Taken by Nursing Laboratory Data 06/28/24 21:11 06/28/24 21:11 Lab Results 06/28/24 06/28/24 06/28/24 Range/Units 21:10 21:10 21:10 WBC (4.8-10.8) K/ul RBC (4.20-5.40) M/uL Hgb (12.0-16.0) g/dl Hct (37.0-47.0) % MCV (80.0-100.0) fL MCH (25.0-34.0) pg MCHC (32.0-36.0) g/dL RDW Std Deviation (36.4-46.3) fL RDW Coeff of Haresh (11.5-14.5) % Plt Count (130-400) K/uL MPV (9.4-12.4) fL Immature Gran % (Auto) % Neut % (Auto) % Lymph % (Auto) % [place] % (Auto) % Eos % (Auto) % Baso % (Auto) % Neut # (Auto) (1.40-6.50) K/uL Lymph # (Auto) (1.20-3.40) K/uL [place] # (Auto) (0.11-0.59) K/uL Eos # (Auto) (0.00-0.50) K/uL Baso # (Auto) (0.00-0.20) K/uL Immature Gran # (Auto) (0.01-0.20) K/uL PT (9.0-12.0) Seconds INR (0.9-1.1) Sodium (136-145) mmol/L Potassium (3.5-5.1) mmol/L Chloride (98-107) mmol/L Carbon Dioxide (21-32) mmol/L Anion Gap (3-11) BUN (6-23) mg/dl Creatinine (0.6-1.2) mg/dl Est Cr Clr Drug Dosing ml/min eGFR BUN/Creatinine Ratio (10-20) Glucose (70-99(Fasting)) mg/dl Lactate (0.4-2.0) mmol/L Calcium (8.6-10.3) mg/dl Total Bilirubin (0.2-1.0) mg/dl Direct Bilirubin (0-0.2) mg/dl AST (13-39) U/L ALT (7-52) U/L Alkaline Phosphatase (34-104) U/L Total Protein (6.0-8.3) gm/dl Albumin (3.4-5.0) gm/dl TSH (0.300-4.500) uIu/ml Urine Color Urine Appearance (Clear) Urine pH (4.5-7.5) Ur Specific [place] (1.000-1.030) Urine Protein (Negative) Urine Glucose (UA) (Negative) Urine Ketones (Negative) Urine Blood (Negative) Urine Nitrite (Negative) Urine Bilirubin (Negative) Urine Urobilinogen (Negative) Ur Leukocyte Esterase (Negative) Urine WBC (Auto) (0-5) /hpf Urine RBC (Auto) (0-2) /hpf U Hyaline Cast (Auto) (0-2) /lpf U Epithel Cells (Auto) (0-2) /hpf Urine Bacteria (Auto) (None Seen) Blood Type AB Positive Cancelled Antibody Screen NEGATIVE Cancelled 06/28/24 06/28/24 06/28/24 Range/Units 21:11 21:13 21:16 WBC 9.29 (4.8-10.8) K/ul RBC 3.73 L (4.20-5.40) M/uL Hgb 9.7 L (12.0-16.0) g/dl Hct 31.4 L (37.0-47.0) % MCV 84.2 (80.0-100.0) fL MCH 26.0 (25.0-34.0) pg MCHC 30.9 L (32.0-36.0) g/dL RDW Std Deviation 51.2 H (36.4-46.3) fL RDW Coeff of Haresh 17.0 H (11.5-14.5) % Plt Count 241 (130-400) K/uL MPV 11.4 (9.4-12.4) fL Immature Gran % (Auto) 0.3 % Neut % (Auto) 78.9 % Lymph % (Auto) 11.5 % [place] % (Auto) 7.5 % Eos % (Auto) 1.4 % Baso % (Auto) 0.4 % Neut # (Auto) 7.32 H (1.40-6.50) K/uL Lymph # (Auto) 1.07 L (1.20-3.40) K/uL [place] # (Auto) 0.70 H (0.11-0.59) K/uL Eos # (Auto) 0.13 (0.00-0.50) K/uL Baso # (Auto) 0.04 (0.00-0.20) K/uL Immature Gran # (Auto) 0.03 (0.01-0.20) K/uL PT 11.2 (9.0-12.0) Seconds INR 1.0 (0.9-1.1) Sodium 136 (136-145) mmol/L Potassium 4.3 (3.5-5.1) mmol/L Chloride 101 (98-107) mmol/L Carbon Dioxide 30 (21-32) mmol/L Anion Gap 5 (3-11) BUN 21 (6-23) mg/dl Creatinine 0.87 (0.6-1.2) mg/dl Est Cr Clr Drug Dosing 49.0 ml/min eGFR 64.44 BUN/Creatinine Ratio 24.1 H (10-20) Glucose 137 H (70-99(Fasting)) mg/dl Lactate 2.3 H* (0.4-2.0) mmol/L Calcium 9.1 (8.6-10.3) mg/dl Total Bilirubin 0.8 (0.2-1.0) mg/dl Direct Bilirubin 0.1 (0-0.2) mg/dl AST 13 (13-39) U/L ALT 9 (7-52) U/L Alkaline Phosphatase 60 (34-104) U/L Total Protein 7.0 (6.0-8.3) gm/dl Albumin 3.3 L (3.4-5.0) gm/dl TSH 4.546 H (0.300-4.500) uIu/ml Urine Color Yellow Urine Appearance Cloudy A (Clear) Urine pH 5.5 (4.5-7.5) Ur Specific [place] 1.018 (1.000-1.030) Urine Protein 1+ H (Negative) Urine Glucose (UA) Negative (Negative) Urine Ketones Negative (Negative) Urine Blood Negative (Negative) Urine Nitrite Positive A (Negative) Urine Bilirubin Negative (Negative) Urine Urobilinogen Negative (Negative) Ur Leukocyte Esterase 1+ H (Negative) Urine WBC (Auto) 21-50 H (0-5) /hpf Urine RBC (Auto) 0-2 (0-2) /hpf U Hyaline Cast (Auto) >20 H (0-2) /lpf U Epithel Cells (Auto) 0-2 (0-2) /hpf Urine Bacteria (Auto) 4+ H (None Seen) Blood Type Antibody Screen 06/28/24 Range/Units 23:18 WBC (4.8-10.8) K/ul RBC (4.20-5.40) M/uL Hgb (12.0-16.0) g/dl Hct (37.0-47.0) % MCV (80.0-100.0) fL MCH (25.0-34.0) pg MCHC (32.0-36.0) g/dL RDW Std Deviation (36.4-46.3) fL RDW Coeff of Haresh (11.5-14.5) % Plt Count (130-400) K/uL MPV (9.4-12.4) fL Immature Gran % (Auto) % Neut % (Auto) % Lymph % (Auto) % [place] % (Auto) % Eos % (Auto) % Baso % (Auto) % Neut # (Auto) (1.40-6.50) K/uL Lymph # (Auto) (1.20-3.40) K/uL [place] # (Auto) (0.11-0.59) K/uL Eos # (Auto) (0.00-0.50) K/uL Baso # (Auto) (0.00-0.20) K/uL Immature Gran # (Auto) (0.01-0.20) K/uL PT (9.0-12.0) Seconds INR (0.9-1.1) Sodium (136-145) mmol/L Potassium (3.5-5.1) mmol/L Chloride (98-107) mmol/L Carbon Dioxide (21-32) mmol/L Anion Gap (3-11) BUN (6-23) mg/dl Creatinine (0.6-1.2) mg/dl Est Cr Clr Drug Dosing ml/min eGFR BUN/Creatinine Ratio (10-20) Glucose (70-99(Fasting)) mg/dl Lactate 2.2 H* (0.4-2.0) mmol/L Calcium (8.6-10.3) mg/dl Total Bilirubin (0.2-1.0) mg/dl Direct Bilirubin (0-0.2) mg/dl AST (13-39) U/L ALT (7-52) U/L Alkaline Phosphatase (34-104) U/L Total Protein (6.0-8.3) gm/dl Albumin (3.4-5.0) gm/dl TSH (0.300-4.500) uIu/ml Urine Color Urine Appearance (Clear) Urine pH (4.5-7.5) Ur Specific [place] (1.000-1.030) Urine Protein (Negative) Urine Glucose (UA) (Negative) Urine Ketones (Negative) Urine Blood (Negative) Urine Nitrite (Negative) Urine Bilirubin (Negative) Urine Urobilinogen (Negative) Ur Leukocyte Esterase (Negative) Urine WBC (Auto) (0-5) /hpf Urine RBC (Auto) (0-2) /hpf U Hyaline Cast (Auto) (0-2) /lpf U Epithel Cells (Auto) (0-2) /hpf Urine Bacteria (Auto) (None Seen) Blood Type Antibody Screen Administered Medications Lactated Ringer's (Lr) 500 mls @ 150 mls/hr IV .Q3H20M DANNY Stop: 06/29/24 03:04 Last Admin: 06/29/24 00:39 Dose: 150 mls/hr Documented By: KMF Discontinued Medications Ceftriaxone Sodium (Rocephin) 2,000 mg in 50 mls @ 100 mls/hr IV NOW STA Stop: 06/28/24 22:56 Last Infusion: 06/29/24 00:31 Dose: Infused Documented By: Admin: 06/28/24 22:52 Dose: 100 mls/hr Documented By: LOLLY Ioversol (Optiray 320 125ml) 115 ml IV ONCE ONE Stop: 06/28/24 21:19 Last Admin: 06/28/24 21:18 Dose: 115 ml Documented By: NASRIN Imaging Data Radiologist's Impression: Head CT 06/28/24 21:01 Exam(s): CT HEAD Without Contrast EXAM: CT Head Without Intravenous Contrast CLINICAL HISTORY: Reason for exam: sudden confusion, previous head trauma, SAH?. TECHNIQUE: Axial computed tomography images of the head/brain without intravenous contrast. CTDI is 20.76 mGy and DLP is 418.61 mGy-cm. Automated exposure control was utilized for the study. A dose lowering technique was utilized adhering to the principles of ALARA. COMPARISON: Head CT 03/17/2024 FINDINGS: Brain: No intracranial hemorrhage, mass-effect, or cerebral edema. Atrophy and chronic microvascular ischemic changes. Ventricles: Unremarkable. Bones/joints: Unremarkable. No fracture. Soft tissues: Unremarkable. Sinuses: No acute sinusitis. Mastoid air cells: Unremarkable as visualized. IMPRESSION: 1. No acute intracranial abnormality. Electronically signed by: Diego Zaman MD 06/28/24 22:[address] 06/28/24 21:11 Exam(s): CT C SPINE EXAM: CT Cervical Spine Without Intravenous Contrast CLINICAL HISTORY: Reason for exam: fall, confusion. TECHNIQUE: Axial computed tomography images of the cervical spine without intravenous contrast. CTDI is 65.86 mGy and DLP is 961.59 mGy-cm. Automated exposure control was utilized for the study. A dose lowering technique was utilized adhering to the principles of ALARA. COMPARISON: No relevant prior studies available. FINDINGS: Vertebrae: No acute fracture. Ankylosis from C4-C6. Discs/spinal canal/neural foramina: Anterolisthesis at C3-4. Degenerative disc disease most pronounced at C6-7. Multilevel facet and uncovertebral hypertrophy. Soft tissues: Unremarkable. IMPRESSION: No traumatic injury identified. Electronically signed by: Diego Zaman MD 06/28/24 22:59 PM Abdomen/Pelvis CT 06/28/24 21:12 Exam(s): CT ABDOMEN + PELVIS With Contrast IV Amt: 115 ml optiray 320 EXAM: CT Abdomen and Pelvis With Intravenous Contrast CLINICAL HISTORY: Reason for exam: fall 3 days ago, flank hematoma. TECHNIQUE: Axial computed tomography images of the abdomen and pelvis with intravenous contrast. CTDI is 20.76 mGy and DLP is 444.34 mGy-cm. Automated exposure control was utilized for the study. A dose lowering technique was utilized adhering to the principles of ALARA. CONTRAST: Patient received 115 ml optiray 320 of IV contrast COMPARISON: No relevant prior studies available. FINDINGS: ABDOMEN: Liver: No traumatic injury to the liver. Gallbladder and bile ducts: Unremarkable. Pancreas: Unremarkable. Spleen: No traumatic injury to the spleen. Adrenals: Unremarkable. Kidneys and ureters: Unremarkable. No obstructing stones. No hydronephrosis. Stomach and bowel: Unremarkable. PELVIS: Appendix: No findings to suggest acute appendicitis. Bladder: Unremarkable. Reproductive: Unremarkable as visualized. ABDOMEN and PELVIS: Intraperitoneal space: Unremarkable. No free air. No significant fluid collection. Bones/joints: No fracture or malalignment. Right hip arthroplasty. Degenerative changes in the spine. Soft tissues: Hematoma within the right gluteal subcutaneous fat. Vasculature: Unremarkable. Lymph nodes: Unremarkable. IMPRESSION: Hematoma within the right gluteal subcutaneous fat. Otherwise no traumatic injury identified. Electronically signed by: Diego Zaman MD 06/28/24 23:[address] 06/28/24 21:12 Exam(s): CT CHEST With Contrast IV Amt: 115 ml optiray 320 EXAM: CT Chest With Intravenous Contrast CLINICAL HISTORY: Reason for exam: fall 3 days ago, rib fx, flank hematoma. TECHNIQUE: Axial computed tomography images of the chest with intravenous contrast. CTDI is 20.76 mGy and DLP is 418.61 mGy-cm. Automated exposure control was utilized for the study. A dose lowering technique was utilized adhering to the principles of ALARA. CONTRAST: Patient received 115 ml optiray 320 of IV contrast COMPARISON: No relevant prior studies available. FINDINGS: Lungs: No pulmonary contusion. No consolidation or interstitial edema. Dependent atelectasis in the right upper lobe. Pleural space: No pleural effusion or pneumothorax. Heart: Cardiomegaly. Moderate to severe coronary artery calcifications. Bones/joints: Nondisplaced fracture of the left humeral neck. Soft tissues: Unremarkable. Vasculature: Unremarkable. Lymph nodes: Unremarkable. IMPRESSION: 1. Nondisplaced fracture of the left humeral neck. 2. Cardiomegaly. Moderate to severe coronary artery calcifications. Electronically signed by: Diego Zaman MD 06/28/24 23:03 PM Head CTA 06/28/24 21:14 Exam(s): CTA HEAD With Contrast IV Amt: 115 cc opti 320 EXAM: CT Angiography Head With Intravenous Contrast CLINICAL HISTORY: Reason for exam: sudden onset AMS, unresponsive. TECHNIQUE: Axial computed tomographic angiography images of the head with intravenous contrast. CTDI is 26.92 mGy and DLP is 1219.32 mGy-cm. Automated exposure control was utilized for the study. A dose lowering technique was utilized adhering to the principles of ALARA. MIP reconstructed images were created and reviewed. CONTRAST: Patient received 115 cc opti 320 of IV contrast COMPARISON: No relevant prior studies available. FINDINGS: The dural venous sinuses are patent. Right internal carotid artery: No acute findings. Intracranial segment is patent with no significant stenosis. No aneurysm. Right anterior cerebral artery: Unremarkable. No occlusion or significant stenosis. No aneurysm. Right middle cerebral artery: Unremarkable. No occlusion or significant stenosis. No aneurysm. Right posterior cerebral artery: Unremarkable. No occlusion or significant stenosis. No aneurysm. Right vertebral artery: Unremarkable as visualized. Left internal carotid artery: No acute findings. Intracranial segment is patent with no significant stenosis. No aneurysm. Left anterior cerebral artery: Unremarkable. No occlusion or significant stenosis. No aneurysm. Left middle cerebral artery: Unremarkable. No occlusion or significant stenosis. No aneurysm. Left posterior cerebral artery: Unremarkable. No occlusion or significant stenosis. No aneurysm. Left vertebral artery: Unremarkable as visualized. Basilar artery: Unremarkable. No occlusion or significant stenosis. No aneurysm. IMPRESSION: Negative CT angiogram of the head. Electronically signed by: Patsy Bauer MD 06/29/24 01:35 AM Neck CTA 06/28/24 21:14 Exam(s): CTA NECK With Contrast IV Amt: 115 ml optiray 320 EXAM: CT Angiography Neck With Intravenous Contrast CLINICAL HISTORY: Reason for exam: sudden onset AMS, unresponsive. TECHNIQUE: Routine carotid CT angiography protocol was performed with intravenous contrast. NASCET criteria using the distal ICAs for comparison were used for evaluation of stenoses. CTDI is 65.86 mGy and DLP is 961.59 mGy-cm. Automated exposure control was utilized for the study. A dose lowering technique was utilized adhering to the principles of ALARA. MIP reconstructed images were created and reviewed. CONTRAST: Patient received 115 ml optiray 320 of IV contrast COMPARISON: None. FINDINGS: VASCULATURE: Right common carotid artery: No occlusion or significant stenosis. No dissection. Right internal carotid artery: Patent stent within the right internal carotid artery. Right vertebral artery: No occlusion or significant stenosis. No dissection. Left common carotid artery: Moderate stenosis in the left common carotid artery secondary to a kink. Left internal carotid artery: Atheromatous plaque in the proximal left ICA causing 50% stenosis. Left vertebral artery: No flow-limiting stenosis, occlusion, or dissection.. 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 NECK: Bones/joints: Unremarkable. No acute fracture. Soft tissues: Unremarkable. Lung apices: Clear. CAROTID STENOSIS REFERENCE USING NASCET CRITERIA: % ICA stenosis = (1 - narrowest ICA diameter/diameter of distal cervical ICA) x 100. Mild - <50% stenosis. Moderate - 50-69% stenosis. Severe - 70-94% stenosis. Near occlusion - 95-99% stenosis. Occluded - 100% stenosis. IMPRESSION: 1. 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 2. Patent stent within the right internal carotid artery. 3. Atheromatous plaque in the proximal left ICA causing 50% stenosis. Electronically signed by: Diego Zaman MD 06/28/24 22:46 PM Discharge Plan Visit Data Chief Complaint: Confusion Stated Complaint: AMS, Fall ED Provider: Kelly Harris Discharge Problem: UTI (urinary tract infection), Episode of unresponsiveness, Acute confusion Patient Disposition: Admitted As Inpatient Condition: Serious Forms Stand Alone Forms: My [facility] [place] Medical Prescriptions Prescriptions: No Action metoprolol succinate 50 mg tablet extended release 24 hr 50 mg PO BID rosuvastatin [Crestor] 20 mg tablet 20 mg PO DAILY bisacodyl [Dulcolax (bisacodyl)] 10 mg suppository 10 mg GA DAILY PRN (Reason: Constipation) escitalopram oxalate [Lexapro] 10 mg tablet 10 mg PO QAM famotidine 10 mg tablet 10 mg PO QAM furosemide 40 mg tablet 40 mg PO QAM valsartan 80 mg tablet 80 mg PO BID verapamil 120 mg capsule,ext rel. pellets 24 hr 120 mg PO DAILY amiodarone 200 mg tablet 200 mg PO DAILY Qty: 90 3RF albuterol sulfate [Ventolin HFA] 90 mcg/actuation Hfa Aerosol Inhaler 2 puff INHALATION Q6H PRN (Reason: Wheezing) fluticasone propionate [Flonase Allergy Relief] 50 mcg/actuation [place],Suspension 2 spray INTRANASAL QAM pramipexole 0.5 mg tablet 0.5 mg PO HS cholecalciferol (vitamin D3) [Vitamin D3] 50 mcg (2,000 unit) Capsule 50 mcg PO QAM clopidogrel [Plavix] 75 mg Tablet 75 mg PO DAILY Hold Instructions: Resume on 02/22/24. hold until cleared by neurology/vascular tramadol 50 mg Tablet 50 mg PO Q4H PRN (Reason: pain) Qty: 10 0RF aspirin [Aspirin Low-Strength] 81 mg Tablet,Delayed Release (Dr/Ec) 81 mg PO DAILY amoxicillin 500 mg capsule 2,000 mg PO UD PRN (Reason: Prophylaxis) Rx Instructions: 1 HOUR PRIOR TO DENTAL PROCEDURE/WORK acetaminophen 325 mg Tablet 650 mg PO Q4 MDD 3G PRN (Reason: ELEVATED TEMPERATURE) acetaminophen 325 mg Tablet 325 mg PO Q4 MDD 3G PRN (Reason: Pain) sodium chloride 1,000 mg Tablet,Soluble 1,000 mg PO TID umeclidinium-vilanterol 62.5-25 mcg/actuation Blister With Device 1 inh INHALATION DAILY nystatin 100,000 unit/gram powder 1 applic TOPICAL Q12 PRN (Reason: EXCORIATION) Rx Instructions: APPLY TO ABDOMINAL/BREAST FOLDS lidocaine 4 % Adhesive Patch,Medicated 1 - 2 patch TOPICAL DAILY PRN (Reason: Pain) Rx Instructions: REMOVE AFTER 10-12 HOURS polyethylene glycol 3350 [Miralax] 17 gram/dose Powder 17 g PO .EVERY 24 HOURS PRN (Reason: Constipation) Referrals Referrals: José Kumari MD [Primary Care Provider] - Discharge Problem: UTI (urinary tract infection) Qualifiers: Urinary tract infection type: acute cystitis Hematuria presence: without hematuria Qualified Code(s): N30.00 - Acute cystitis without hematuria
[2024-06-29] MEDS: LACTATED RINGER'S 500 ML IV SCH (00:39)
[2024-06-29 01:31] LABS: Thyroid Stimulating Hormone 4.546 uIu/ml (0.300-4.500)
--- NOTE | 2024-06-29 01:37 | CT Scan Report ---
Exam(s): CTA HEAD With Contrast IV Amt: 115 cc opti 320 EXAM: CT Angiography Head With Intravenous Contrast CLINICAL HISTORY: Reason for exam: sudden onset AMS, unresponsive. TECHNIQUE: Axial computed tomographic angiography images of the head with intravenous contrast. CTDI is 26.92 mGy and DLP is 1219.32 mGy-cm. Automated exposure control was utilized for the study. A dose lowering technique was utilized adhering to the principles of ALARA. MIP reconstructed images were created and reviewed. CONTRAST: Patient received 115 cc opti 320 of IV contrast COMPARISON: No relevant prior studies available. FINDINGS: The dural venous sinuses are patent. Right internal carotid artery: No acute findings. Intracranial segment is patent with no significant stenosis. No aneurysm. Right anterior cerebral artery: Unremarkable. No occlusion or significant stenosis. No aneurysm. Right middle cerebral artery: Unremarkable. No occlusion or significant stenosis. No aneurysm. Right posterior cerebral artery: Unremarkable. No occlusion or significant stenosis. No aneurysm. Right vertebral artery: Unremarkable as visualized. Left internal carotid artery: No acute findings. Intracranial segment is patent with no significant stenosis. No aneurysm. Left anterior cerebral artery: Unremarkable. No occlusion or significant stenosis. No aneurysm. Left middle cerebral artery: Unremarkable. No occlusion or significant stenosis. No aneurysm. Left posterior cerebral artery: Unremarkable. No occlusion or significant stenosis. No aneurysm. Left vertebral artery: Unremarkable as visualized. Basilar artery: Unremarkable. No occlusion or significant stenosis. No aneurysm. IMPRESSION: Negative CT angiogram of the head. Electronically signed by: Patsy Bauer MD 06/29/24 01:35 AM
[2024-06-29 02:08] LABS: T4 Free Thyroxine 1.13 ng/dl (0.61-1.60)
[2024-06-29] MEDS: ACETAMINOPHEN 325 MG TAB PO STA (02:27)
[2024-06-29] MEDS ORDERED: ALBUTEROL HFA 8 GM INHALER INH PRN (02:32)
[2024-06-29] MEDS ORDERED: ONDANSETRON INJ 2 MG/ML 2 ML VIAL IV PRN (02:32)
[2024-06-29 04:04] LABS: Basophils # (auto) 0.02 K/uL (0.00-0.20); Basophils % (auto) 0.3 %; Eosinophils # (auto) 0.03 K/uL (0.00-0.50); Eosinophils % (auto) 0.4 %; Hematocrit (blood only) 26.9 % (37.0-47.0); Hemoglobin 8.4 g/dl (12.0-16.0); Immature Granulocytes # (auto) 0.02 K/uL (0.01-0.20); Immature Granulocytes % (auto) 0.3 %; Lymphocytes # (auto) 0.91 K/uL (1.20-3.40); Lymphocytes % (auto) 12.3 %; Mean Corpuscular Hemoglobin 25.9 pg (25.0-34.0); Mean Corpuscular Hgb Conc 31.2 g/dL (32.0-36.0); Mean Platelet Volume 11.3 fL (9.4-12.4); Monocytes # (auto) 0.61 K/uL (0.11-0.59); Monocytes % (auto) 8.2 %; Neutrophils # (auto) 5.83 K/uL (1.40-6.50); Neutrophils % (auto) 78.5 %; Platelet Count 183 K/uL (130-400); RDW Coefficient of Variation 16.7 % (11.5-14.5); Red Blood Count 3.24 M/uL (4.20-5.40); White Blood Count 7.42 K/ul (4.8-10.8)
[2024-06-29 04:20] LABS: BUN Creatinine Ratio 23.4 (10-20); Calcium 8.3 mg/dl (8.6-10.3); Chol HDL Ratio 2.4 (0-5); Creatinine Clr Calc Pharmacy 55.4 ml/min; Magnesium 1.9 mg/dl (1.7-2.4); Potassium 4.1 mmol/L (3.5-5.1)
[2024-06-29 07:13] LABS: iSTAT Creatinine 0.9 mg/dl (0.6-1.3); iSTAT Hemoglobin 10.2 g/dl (12.0-16.0); iSTAT Ionized Calcium 1.13 mmol/l (1.12-1.32); iSTAT Potassium 4.3 mmol/L (3.3-5.0)
[2024-06-29] MEDS: AMIODARONE 200 MG TAB PO SCH (09:16)
[2024-06-29] MEDS: ASPIRIN 81 MG ECTAB PO SCH (09:16)
[2024-06-29] MEDS: CLOPIDOGREL BISULFATE 75 MG TAB PO SCH (09:17)
[2024-06-29] MEDS: ESCITALOPRAM OXALATE 10 MG TAB PO SCH (09:17)
[2024-06-29] MEDS: VALSARTAN 80 MG TAB PO SCH (09:18)
[2024-06-29] MEDS: VERAPAMIL HCL 120 MG TABCR PO SCH (09:18)
[2024-06-29] MEDS: FAMOTIDINE 10 MG TABLET PO SCH (09:18)
[2024-06-29] MEDS: METOPROLOL SUCC 50MG EXT REL TAB PO SCH (09:19)
[2024-06-29] MEDS: FUROSEMIDE 40 MG TAB PO SCH (09:19)
[2024-06-29] MEDS: ROSUVASTATIN CALCIUM 20 MG TAB PO SCH (09:19)
[2024-06-29] MEDS: SODIUM CHLORIDE 1 GM TABLET PO SCH (09:19)
[2024-06-29] MEDS: UMECLIDINIUM/VILANTEROL 62.5/25MCG 7 PUFFS/INHALER INH SCH (09:20)
[2024-06-29] MEDS: FLUTICASONE PROPIONATE NA SPR 16 GM BTL SCH (09:20)
[2024-06-29] MEDS: LIDOCAINE 5% 1 PATCH TD SCH (09:20)
[2024-06-29] MEDS: OLANZapine 10 MG/2.1 ML SDV IM STA ×2 (10:26→23:50)
--- NOTE | 2024-06-29 15:36 | Hospitalist Progress Note ---
Date of Service June 29, 2024 Assessment & Plan (1) Metabolic encephalopathy: (2) UTI (urinary tract infection): (3) Hematoma of right hip: (4) Subclavian artery stenosis, left: Plan Patient is an 89-year-old female with past medical history of asthma, HFpEF, breast cancer, GERD, ILD, CAD s/p right TCAR 2017 in 2019, paroxysmal A-fib, MADAN, intraparenchymal hemorrhage of brain. Patient was recently admitted after a ground-level fall resulting in a left humerus fracture. Patient has returned to the ED "unresponsive" found to have a UTI. She was admitted for metabolic encephalopathy secondary to UTI. CVA was within differential however patient on Eliquis, CT and CTAs negative for acute changes other than stenosis noted below. If patient clinically fails to improve, could consider MRI. #Metabolic encephalopathy/UTI - Reported acute onset confusion. UA appears positive for infection given nitrates, 1+ LE, 21-50 WBC, >20 hyaline cast, 4+ bacteria Urine culture prelim growing Klebsiella oxytoc/[place] ornith. Blood culture pending (one-time dose Rocephin already given in the ED) Continue IV Ceftriaxone 2 g Q24H until urine sensitives result Elevated lactate resolved following IV fluids TSH elevated but Free T4 WNL OOB as tolerated, promote good sleep wake cycles - melatonin prn Hold tramadol prn Agitated and combative with staff 5/9 AM - received 2.5 mg IM Zyprexa with improvement #Hematoma - AP CT noted hematoma within the right gluteal subcutaneous fat, otherwise no traumatic injury identified. Suspect 2/2 recent fall. Patient denies any pain. - warm compress prn - Hgb decreased from 12.2 to 8.4. Trend CBC - not on any anticoagulation how is on DAPT; Will hold Plavix and aspirin until hemoglobin has stabilized. Last TCAR 6 years ago and no history of heart stents #Left humerus fracture - s/p fall and admission 06/24. Stable. - continue sling, ice prn - Lidoderm patch, Tylenol prn - PT/OT consulted #Left subclavian stenosis - CT noted severe stenosis of left subclavian artery 2/2 kink prior to takeoff of left vertebral artery. Doubt this is contributory to confusion. - lipid panel WNL - could consider vascular consult #MADAN - CPAP HS #HFpEF most recent EF 65 to 70%. Continue metoprolol and lasix #CAD s/p right TCAR in 2017 and 2019 on aspirin and Plavix outpatient. Continue statin. #paroxysmal A-fib Continue metoprolol and amiodarone, no anticoagulation given recent history of brain hemorrhage #HTN continue metoprolol, Lasix, verapamil #Asthma - continue home inhalers VTE ppx: SCDs, defer chemical ppx with recent brain hemorrhage and hematoma CODE STATUS: DNR/DNI Of note- patient stated it is unsafe for her at home on admission due to something occurring with her however patient oriented x0 and hallucinating. Please follow up when encephalopathy resolved. Held Plavix and aspirin Ordered IM Zyprexa Admission and Anticipated Discharge Date Admission Date: June 28, 2024 Supervising Physician Co-Signing Physician Notes Attending Attestation - Chart reviewed, care plan d/w THEODORE Johnson. I agree w/ the peraza components of her documentation. Of note - I did not perform a bedside visit or examination of the patient today. Demetris Garcia MD Subjective Patient seen and evaluated at bedside. She reports "I am tired, hungry, and disoriented." She became slightly agitated with further ROS questions. Overal l, she denied acute complaints or concerns - only asking for a snack at this time. She was agitated and combative this morning, requiring IM Zyprexa, but has been redirectable since then. Physical Exam Physical Exam: General: No acute distress, nondiaphoretic, well-developed, well-nourished. Skin: Significant bruising throughout body - most prominent in LUE and R hip/buttock. Cardiac: Regular rate and rhythm without murmurs gallops or rubs. Pulm: Clear to auscultation bilaterally without wheezes, rales or rhonchi. Normal respiratory effort. 99% on room air. Abdominal: Soft, nontender, nondistended. Bowel sounds present. Neuro: A&O x1 (self). No focal neurological deficits. Results & Data Results & Data Vital Signs (Past 12 Hours) Vital Signs Temp Pulse Pulse Resp BP Pulse Ox O2 Del Method 06/29/24 12:59 74 06/29/24 12:52 Room Air 06/29/24 12:52 99.1 F 65 22 128/85 99 Room Air 06/29/24 10:00 72 29 H 120/68 06/29/24 09:00 72 15 130/62 95 Room Air 06/29/24 07:17 77 06/29/24 07:00 77 23 125/75 95 Room Air Laboratory Results Reviewed CBC with differential Reviewed CMP, chemistries Reviewed UA, urine culture Diagnostic Findings Reviewed head CT, C-spine CT, CT A/P, Chest CT, head CTA, neck CTA PG Care Time/CCT Total # of Minutes Spent Total Time Spent with Patient: Total time spent is greater than 50% in coordination of care (as documented) at patient's floor/unit and/or counseling patient: Coding Level of Care Code 66627 SUB INP/OBS CARE 3/50MIN Diagnoses Metabolic encephalopathy G93.41 UTI (urinary tract infection) N39.0 Hematoma of right hip S70.01XA Subclavian artery stenosis, left I77.1
[2024-06-29] MEDS: PRAMIPEXOLE DIHYDROCHLO 0.5 MG TAB PO SCH (21:13)
[2024-06-29] MEDS: cefTRIAXone SODIUM 2,000 MG/50 ML BAG IV SCH (21:36)
--- NOTE | 2024-06-30 03:34 | Electrocardiogram Report ---
Test Reason : Blood Pressure : */* mmHG Vent. Rate : 68 BPM Atrial Rate : 68 BPM P-R Int : 170 ms QRS Dur : 96 ms QT Int : 464 ms P-R-T Axes : 23 -3 12 degrees QTcB Int : 493 ms Normal sinus rhythm Nonspecific ST and T wave abnormality Prolonged QT Abnormal ECG When compared with ECG of 24-Jun-2024 21:35, ST now depressed in Anterior leads Confirmed by Jose Angel Almanzar ([id number]) on 06/30/2024 3:34:07 AM Referred By: Edwar Simon Confirmed By: Jose Angel Almanzar
[2024-06-30 07:46] LABS: Hematocrit (blood only) 32.5 % (37.0-47.0); Mean Corpuscular Hemoglobin 25.6 pg (25.0-34.0); Mean Corpuscular Hgb Conc 30.8 g/dL (32.0-36.0); Mean Corpuscular Volume 83.3 fL (80.0-100.0); Mean Platelet Volume 11.2 fL (9.4-12.4); Platelet Count 209 K/uL (130-400); RDW Coefficient of Variation 17.7 % (11.5-14.5); RDW Standard Deviation 51.6 fL (36.4-46.3); White Blood Count 7.41 K/ul (4.8-10.8)
[2024-06-30 08:08] LABS: BUN Creatinine Ratio 20.8 (10-20); Calcium 8.8 mg/dl (8.6-10.3); Creatinine Clr Calc Pharmacy 50.1 ml/min; Potassium 3.7 mmol/L (3.5-5.1)
--- NOTE | 2024-06-30 12:22 | Hospitalist Progress Note ---
Date of Service June 30, 2024 Assessment & Plan (1) Metabolic encephalopathy: (2) UTI (urinary tract infection): (3) Hematoma of right hip: (4) Subclavian artery stenosis, left: Plan Patient is an 89-year-old female with past medical history of asthma, HFpEF, breast cancer, GERD, ILD, CAD s/p right TCAR 2017 in 2019, paroxysmal A-fib, MADAN, intraparenchymal hemorrhage of brain. Patient was recently admitted after a ground-level fall resulting in a left humerus fracture. Patient has returned to the ED "unresponsive" found to have a UTI. She was admitted for metabolic encephalopathy secondary to UTI. CVA was within differential however patient on DAPT, CT and CTAs negative for acute changes other than stenosis noted below. If patient clinically fails to improve, could consider MRI. #Metabolic encephalopathy/UTI - Reported acute onset confusion. UA appears positive for infection given nitrates, 1+ LE, 21-50 WBC, >20 hyaline cast, 4+ bacteria Urine culture prelim growing Klebsiella oxytoc/[place] ornith. Blood culture negative x 24 hours (one-time dose Rocephin already given in the ED) Continue IV Ceftriaxone 2 g Q24H Elevated lactate resolved following IV fluids TSH elevated but Free T4 WNL OOB as tolerated, promote good sleep wake cycles - melatonin prn Hold tramadol prn Received IM Zyprexa 5/9 AM and 5/10 overnight due to agitation/combativeness with staff. Consider low dose Haldol if needed #Hematoma - AP CT noted hematoma within the right gluteal subcutaneous fat, otherwise no traumatic injury identified. Suspect 2/2 recent fall. Patient denies any pain. - warm compress prn - Hgb decreased from 12.2 to 8.4, now up to 10.0 - continue to trend CBC - not on any anticoagulation how is on DAPT; Will hold Plavix and aspirin until hemoglobin has stabilized. Last TCAR 6 years ago and no history of heart stents #Left humerus fracture - s/p fall and admission 06/24. Stable. - continue sling (though noncompliant with wearing it), ice prn - Lidoderm patch, Tylenol prn - PT/OT consulted #Left subclavian stenosis - CT noted severe stenosis of left subclavian artery 2/2 kink prior to takeoff of left vertebral artery. Doubt this is contributory to confusion. - lipid panel WNL - could consider vascular consult #MADAN - CPAP HS #HFpEF most recent EF 65 to 70%. Continue metoprolol and lasix #CAD s/p right TCAR in 2017 and 2019 on aspirin and Plavix outpatient. Continue statin. #paroxysmal A-fib Continue metoprolol and amiodarone, no anticoagulation given recent history of brain hemorrhage #HTN continue metoprolol, Lasix, verapamil #Asthma - continue home inhalers VTE ppx: SCDs, defer chemical ppx with recent brain hemorrhage and hematoma CODE STATUS: DNR/DNI Of note- patient stated it is unsafe for her at home on admission due to some thing occurring with her however patient oriented x0 and hallucinating. Please follow up when encephalopathy resolved. Updated at bedside Ordered 1 g IV Tylenol Admission and Anticipated Discharge Date Admission Date: June 28, 2024 Supervising Physician Co-Signing Physician Notes Attending Attestation - Chart reviewed, care plan d/w THEODORE Johnson. I agree w/ the peraza components of her documentation with the following addition - * acute blood loss anemia - 2nd to gluteal hematoma Of note - I did not perform a bedside visit or examination of the patient today. In light of recent humerus fracture check 25-OH vit D level. Previous B12 level was borderline low in 2023; recheck level in am. Could be contributing to fall risk, confusion, etc. Cont abx for UTI. Demetris Garcia MD Subjective Patient seen and evaluated at bedside with her present. She received IM Zyprexa overnight due to agitation, combativeness, and unable to be redirected by staff. Today she has been fairly cooperative with staff. She has garbled speech that improves after drinking water. Otherwise she is confused and only oriented to self. Physical Exam Physical Exam: General: No acute distress, nondiaphoretic, well-developed, well-nourished. Skin: Significant bruising throughout body - most prominent in LUE and R hip/buttock. Cardiac: Regular rate and rhythm without murmurs gallops or rubs. Pulm: Clear to auscultation bilaterally without wheezes, rales or rhonchi. Normal respiratory effort. 96% on room air. Abdominal: Soft, nontender, nondistended. Bowel sounds present. Neuro: A&O x1 (self). No focal neurological deficits. Results & Data Results & Data Vital Signs (Past 12 Hours) Vital Signs Temp Pulse Pulse Resp BP Pulse Ox O2 Del Method 06/30/24 11:00 98 F 85 20 121/73 96 Room Air 06/30/24 07:38 Room Air 06/30/24 07:38 98.6 F 84 22 135/79 96 Room Air 06/30/24 05:40 90 Laboratory Results Reviewed CBC Reviewed BMP Reviewed urine culture PG Care Time/CCT Total # of Minutes Spent Total Time Spent with Patient: Total time spent is greater than 50% in coordination of care (as documented) at patient's floor/unit and/or counseling patient: Coding Level of Care Code 76536 SUB INP/OBS CARE 3/50MIN Diagnoses Metabolic encephalopathy G93.41 UTI (urinary tract infection) N39.0 Hematoma of right hip S70.01XA Subclavian artery stenosis, left I77.1
[2024-06-30] MEDS: ACETAMINOPHEN 1,000 MG/100 ML VIAL IV STA (16:55)
[2024-07-01 06:30] LABS: Hematocrit (blood only) 30.5 % (37.0-47.0); Hemoglobin 9.6 g/dl (12.0-16.0); Mean Corpuscular Hemoglobin 26.1 pg (25.0-34.0); Mean Corpuscular Hgb Conc 31.5 g/dL (32.0-36.0); Mean Corpuscular Volume 82.9 fL (80.0-100.0); Mean Platelet Volume 11.3 fL (9.4-12.4); Platelet Count 225 K/uL (130-400); RDW Coefficient of Variation 17.2 % (11.5-14.5); Red Blood Count 3.68 M/uL (4.20-5.40)
--- NOTE | 2024-07-01 08:33 | Hospitalist Progress Note ---
Date of Service July 01, 2024 Assessment & Plan (1) Metabolic encephalopathy: (2) UTI (urinary tract infection): (3) Hematoma of right hip: (4) Subclavian artery stenosis, left: (5) Acute blood loss anemia: Plan Patient is an 89-year-old female with past medical history of asthma, HFpEF, breast cancer, GERD, ILD, CAD s/p right TCAR 2017 in 2019, paroxysmal A-fib, MADAN, intraparenchymal hemorrhage of brain. Patient was recently admitted after a ground-level fall resulting in a left humerus fracture. Patient has returned to the ED "unresponsive" found to have a UTI. She was admitted for metabolic encephalopathy secondary to UTI. CVA was within differential however patient on DAPT, CT and CTAs negative for acute changes other than stenosis noted below. Elevated lactate resolved following IV fluids. TSH elevated but Free T4 WNL. Vit B12 WNL at 616. #Metabolic encephalopathy/UTI - Reported acute onset confusion, now improving Urine culture grew Klebsiella oxytoc/[place] ornith. Blood culture negative x 48 hours (one-time dose Rocephin already given in the ED) Continue IV Ceftriaxone 2 g Q24H OOB as tolerated, promote good sleep wake cycles - melatonin prn Hold tramadol prn Received IM Zyprexa 5/9 AM and 06/30 overnight due to agitation/combativeness with staff. Consider low dose Haldol if needed but suspect behavioral emergencies will not occur now that encephalopathy is resolving #Hematoma/Acute blood loss anemia - AP CT noted hematoma within the right gluteal subcutaneous fat, otherwise no traumatic injury identified. Suspect 2/2 recent fall. Patient denies any pain. - warm compress prn - Hgb decreased from 12.2 to 8.4, now up to 9.6 - continue to trend CBC - Not on any anticoagulation however is on DAPT; Will hold Plavix and aspirin until hemoglobin has stabilized - suspect can resume 07/02. Last TCAR 6 years ago and no history of heart stents #Left humerus fracture - s/p fall and admission 06/24. Stable. - continue sling (though noncompliant with wearing it), ice prn - Lidoderm patch, Tylenol prn - PT/OT consulted - Vit D 38.0 #Left subclavian stenosis - CT noted severe stenosis of left subclavian artery 2/2 kink prior to takeoff of left vertebral artery. Doubt this is contributory to confusion. - lipid panel WNL - could consider vascular consult #MADAN - CPAP HS #HFpEF most recent EF 65 to 70%. Continue metoprolol and lasix #CAD s/p right TCAR in 2017 and 2019 on aspirin and Plavix outpatient. Continue statin. #paroxysmal A-fib Continue metoprolol and amiodarone, no anticoagulation given recent history of brain hemorrhage #HTN continue metoprolol, Lasix, verapamil #Asthma - continue home inhalers VTE ppx: SCDs, defer chemical ppx with recent brain hemorrhage and hematoma CODE STATUS: DNR/DNI Of note- patient stated it is unsafe for her at home on admission due to something occurring with her however patient oriented x0 and hallucinating. Please follow up when encephalopathy resolved. Updated at bedside Admission and Anticipated Discharge Date Admission Date: June 28, 2024 Supervising Physician Co-Signing Physician Notes Attending Attestation - Chart reviewed, care plan d/w PA Tova Johnson. I agree w/ the peraza components of her documentation. Of note - I did not perform a bedside visit or examination of the patient today. Demetris Garcia MD Subjective Patient seen and evaluated at bedside with her present. Her encephalopathy is resolving and she is more oriented today with clearer speech. She reports she felt confused for a couple days - we discussed her present illness and treatment course. She denies any complaints or concerns. Still awaiting PT/OT evals. She did not require any emergency medications for agitation or combativeness overnight (last IM Zyprexa was 06/29 around 2300). She is sleeping well overnight but her appetite is still reduced. She states the food here "doesn't entice" her. No additional complaints or concerns at this time. Physical Exam Physical Exam: General: No acute distress, nondiaphoretic, well-developed, well-nourished. Skin: Significant bruising throughout body - most prominent in LUE and R hip/buttock. Cardiac: Regular rate and rhythm without murmurs gallops or rubs. Pulm: Clear to auscultation bilaterally without wheezes, rales or rhonchi. Normal respiratory effort. 97% on room air. Abdominal: Soft, nontender, nondistended. Bowel sounds present. Neuro: A&O x 3 (person, place, time - not event). No focal neurological deficits. Results & Data Results & Data Vital Signs (Past 12 Hours) Vital Signs Temp Pulse Pulse Resp BP Pulse Ox O2 Del Method 07/01/24 07:48 91 H 19 132/65 92 Room Air 07/01/24 07:34 Room Air 07/01/24 06:01 86 06/30/24 23:41 97.5 F L 75 20 118/64 95 Room Air 06/30/24 22:18 Room Air 06/30/24 22:10 86 Laboratory Results Reviewed CBC Reviewed B12, Vit D Reviewed cultures PG Care Time/CCT Total # of Minutes Spent Total Time Spent with Patient: Total time spent is greater than 50% in coordination of care (as documented) at patient's floor/unit and/or counseling patient: Coding Level of Care Code 21997 SUB INP/OBS CARE 2/35MIN Diagnoses Metabolic encephalopathy G93.41 UTI (urinary tract infection) N39.0 Hematoma of right hip S70.01XA Subclavian artery stenosis, left I77.1 Acute blood loss anemia D62
[2024-07-01] MEDS: ACETAMINOPHEN 325 MG TAB PO PRN (10:40)
[2024-07-01] MEDS: MELATONIN 3 MG TAB PO PRN (20:58)
[2024-07-02 06:55] LABS: Hematocrit (blood only) 29.9 % (37.0-47.0); Hemoglobin 9.5 g/dl (12.0-16.0); Mean Corpuscular Hemoglobin 26.6 pg (25.0-34.0); Mean Corpuscular Hgb Conc 31.8 g/dL (32.0-36.0); Mean Corpuscular Volume 83.8 fL (80.0-100.0); Mean Platelet Volume 11.2 fL (9.4-12.4); Platelet Count 244 K/uL (130-400); RDW Coefficient of Variation 18.2 % (11.5-14.5); RDW Standard Deviation 52.4 fL (36.4-46.3); Red Blood Count 3.57 M/uL (4.20-5.40); White Blood Count 8.67 K/ul (4.8-10.8)
[2024-07-02 07:23] LABS: BUN Creatinine Ratio 32.5 (10-20); Calcium 8.5 mg/dl (8.6-10.3); Creatinine Clr Calc Pharmacy 50.1 ml/min; Potassium 3.3 mmol/L (3.5-5.1)
--- NOTE | 2024-07-02 08:58 | Hospitalist Progress Note ---
Date of Service July 02, 2024 Assessment & Plan (1) Metabolic encephalopathy: (2) UTI (urinary tract infection): (3) Hematoma of right hip: (4) Subclavian artery stenosis, left: (5) Acute blood loss anemia: Plan Patient is an 89-year-old female with past medical history of asthma, HFpEF, breast cancer, GERD, ILD, CAD s/p right TCAR 2017 in 2019, paroxysmal A-fib, MADAN, intraparenchymal hemorrhage of brain. Patient was recently admitted after a ground-level fall resulting in a left humerus fracture. Patient has returned to the ED "unresponsive" found to have a UTI. She was admitted for metabolic encephalopathy secondary to UTI. CVA was within differential however patient on DAPT, CT and CTAs negative for acute changes other than stenosis noted below. Elevated lactate resolved following IV fluids. TSH elevated but Free T4 WNL. Vit B12 WNL at 616. #Metabolic encephalopathy/UTI - Reported acute onset confusion, now improving Urine culture grew Klebsiella oxytoc/Archie ornith. Blood culture negative x 48 hours (one-time dose Rocephin already given in the ED) Continue IV Ceftriaxone 2 g Q24H OOB as tolerated, promote good sleep wake cycles - melatonin prn Hold tramadol prn Received IM Zyprexa 5/9 AM and 06/30 overnight due to agitation/combativeness with staff. Consider low dose Haldol if needed but suspect behavioral emergencies will not occur now that encephalopathy is resolving #Hematoma/Acute blood loss anemia - AP CT noted hematoma within the right gluteal subcutaneous fat, otherwise no traumatic injury identified. Suspect 2/2 recent fall. Patient denies any pain. - Hgb decreased from 12.2 to 8.4, now up to 9.6 - - Not on any anticoagulation however is on DAPT; Will hold Plavix and aspirin until hemoglobin has stabilized - resume 07/02. Last TCAR 6 years ago and no history of heart stents #Left humerus fracture - s/p fall and admission 06/24. Stable. - continue sling (though noncompliant with wearing it), ice prn - Lidoderm patch, Tylenol prn - PT/OT consulted - Vit D 38.0 #Left subclavian stenosis - CT noted severe stenosis of left subclavian artery 2/2 kink prior to takeoff of left vertebral artery. Doubt this is contributory to confusion. - #MADAN - CPAP HS #HFpEF most recent EF 65 to 70%. Continue metoprolol and lasix #CAD s/p right TCAR in 2017 and 2019 on aspirin and Plavix outpatient. Continue statin. #paroxysmal A-fib Continue metoprolol and amiodarone, no anticoagulation given recent history of brain hemorrhage #HTN continue metoprolol, Lasix, verapamil #Asthma - continue home inhalers VTE ppx: SCDs, defer chemical ppx with recent brain hemorrhage and hematoma CODE STATUS: DNR/DNI called on preferred home number did not go to [employer] Admission and Anticipated Discharge Date Admission Date: June 28, 2024 Subjective Pt knows she is in the hospital and knows its 2024 still weak voiced and fatigued Physical Exam Physical Exam: awake and oriented today eating lunch cardiac is regular with murmur lungs are diminished at bases but clear abd is soft and non tender Results & Data Results & Data Vital Signs (Past 12 Hours) Vital Signs Temp Pulse Pulse Resp BP Pulse Ox O2 Del Method 07/02/24 07:54 97.5 F L 80 19 145/81 H 95 Room Air 07/02/24 07:00 73 07/02/24 02:33 97.5 F L 78 18 114/69 94 Room Air 07/01/24 22:31 Room Air 07/01/24 22:01 84 07/01/24 22:00 100.9 F H 85 18 104/43 L 96 Room Air Laboratory Results reviewed cbc reviewed chemistry augmented potassium PG Care Time/CCT Total # of Minutes Spent Total Time Spent with Patient: Total time spent is greater than 50% in coordination of care (as documented) at patient's floor/unit and/or counseling patient: Coding Level of Care Code 38313 SUB INP/OBS CARE 3/50MIN Diagnoses Metabolic encephalopathy G93.41 UTI (urinary tract infection) N39.0 Hematoma of right hip S70.01XA Subclavian artery stenosis, left I77.1 Acute blood loss anemia D62
[2024-07-02] MEDS: MAGNESIUM SULFATE / D5W 1 GM/100 ML BAG IV ONE (09:57)
[2024-07-02] MEDS: POTASSIUM CHLORIDE CRTAB 20 MEQ TABCR PO SCH (10:02)
--- NOTE | 2024-07-03 07:19 | Hospitalist Progress Note ---
Date of Service July 03, 2024 Assessment & Plan (1) Metabolic encephalopathy: (2) UTI (urinary tract infection): (3) Hematoma of right hip: (4) Subclavian artery stenosis, left: (5) Acute blood loss anemia: Plan Patient is an 89-year-old female with past medical history of asthma, HFpEF, breast cancer, GERD, ILD, CAD s/p right TCAR 2017 in 2019, paroxysmal A-fib, MADAN, intraparenchymal hemorrhage of brain. Patient was recently admitted after a ground-level fall resulting in a left humerus fracture. Patient has returned to the ED "unresponsive" found to have a UTI. She was admitted for metabolic encephalopathy secondary to UTI. CVA was within differential however patient on DAPT, CT and CTAs negative for acute changes other than stenosis noted below. Elevated lactate resolved following IV fluids. TSH elevated but Free T4 WNL. Vit B12 WNL at 616. #Metabolic encephalopathy/UTI - Reported acute onset confusion, now improving Urine culture grew Klebsiella oxytoc/Archie ornith. Blood culture negative x 48 hours (one-time dose Rocephin already given in the ED) Continue IV Ceftriaxone 2 g Q24H OOB as tolerated, promote good sleep wake cycles - melatonin prn Hold tramadol prn Received IM Zyprexa 5/9 AM and 06/30 overnight due to agitation/combativeness with staff. no recent meds as encephalopathy is resolving #Hematoma/Acute blood loss anemia - AP CT noted hematoma within the right gluteal subcutaneous fat, otherwise no traumatic injury identified. Suspect 2/2 recent fall. Patient denies any pain. - Hgb decreased from 12.2 to 8.4, now up to 9.6 - - Not on any anticoagulation - resume 07/02. Last TCAR 6 years ago and no history of heart stents, plavix as monotherapy #Left humerus fracture - s/p fall and admission 06/24. Stable. - continue sling (though noncompliant with wearing it), ice prn - Lidoderm patch, Tylenol prn - PT/OT consulted - Vit D 38.0 #Left subclavian stenosis - CT noted severe stenosis of left subclavian artery 2/2 kink prior to takeoff of left vertebral artery. Doubt this is contributory to confusion. - #MADAN - CPAP HS #HFpEF most recent EF 65 to 70%. Continue metoprolol and lasix #CAD s/p right TCAR in 2017 and 2019 on aspirin and Plavix outpatient. Continue statin. #paroxysmal A-fib Continue metoprolol and amiodarone, no anticoagulation given recent history of brain hemorrhage #HTN continue metoprolol, Lasix, verapamil #Asthma - continue home inhalers VTE ppx: SCDs, defer chemical ppx with recent brain hemorrhage and hematoma CODE STATUS: DNR/DNI called on preferred home number did not go to [employer] Admission and Anticipated Discharge Date Admission Date: June 28, 2024 Subjective Pt knows she is in the hospital and knows its 2024 still weak voiced and fatigued Physical Exam Physical Exam: awake and oriented looks improved 07/03/24 eating lunch cardiac is regular with murmur lungs are diminished at bases but clear abd is soft and non tender Results & Data Results & Data Vital Signs (Past 12 Hours) Vital Signs Temp Pulse Pulse Resp BP Pulse Ox O2 Del Method 07/03/24 02:35 98.2 F 80 16 121/70 98 Room Air 07/02/24 23:28 98.2 F 59 L 18 105/63 95 Room Air 07/02/24 21:35 77 07/02/24 21:04 80 114/67 07/02/24 20:21 97.9 F 49 L 16 94/57 L 95 Room Air Laboratory Results review cbc review chemistry PG Care Time/CCT Total # of Minutes Spent Total Time Spent with Patient: Total time spent is greater than 50% in coordination of care (as documented) at patient's floor/unit and/or counseling patient: Coding Level of Care Code 68639 SUB INP/OBS CARE 3/50MIN Diagnoses Metabolic encephalopathy G93.41 UTI (urinary tract infection) N39.0 Hematoma of right hip S70.01XA Subclavian artery stenosis, left I77.1 Acute blood loss anemia D62
[2024-07-03 07:59] LABS: Hematocrit (blood only) 32.2 % (37.0-47.0); Mean Corpuscular Hemoglobin 26.5 pg (25.0-34.0); Mean Corpuscular Hgb Conc 31.1 g/dL (32.0-36.0); Mean Corpuscular Volume 85.4 fL (80.0-100.0); Platelet Count 309 K/uL (130-400); RDW Standard Deviation 55.8 fL (36.4-46.3); Red Blood Count 3.77 M/uL (4.20-5.40); White Blood Count 9.63 K/ul (4.8-10.8)
[2024-07-03 08:24] LABS: Calcium 8.9 mg/dl (8.6-10.3); Creatinine Clr Calc Pharmacy 38.5 ml/min; Potassium 3.7 mmol/L (3.5-5.1)
[2024-07-03] MEDS: DOCUSATE SODIUM 100 MG CAP PO PRN (08:43)
[2024-07-04 07:57] VITALS: TEMP 97.9
[2024-07-04 08:40] LABS: Hematocrit (blood only) 30.8 % (37.0-47.0); Hemoglobin 9.6 g/dl (12.0-16.0); Mean Corpuscular Hemoglobin 26.4 pg (25.0-34.0); Mean Corpuscular Hgb Conc 31.2 g/dL (32.0-36.0); Mean Corpuscular Volume 84.8 fL (80.0-100.0); Mean Platelet Volume 11.1 fL (9.4-12.4); Platelet Count 242 K/uL (130-400); RDW Coefficient of Variation 19.3 % (11.5-14.5); RDW Standard Deviation 54.8 fL (36.4-46.3); Red Blood Count 3.63 M/uL (4.20-5.40); White Blood Count 6.33 K/ul (4.8-10.8)
[2024-07-04 08:58] LABS: BUN Creatinine Ratio 32.5 (10-20); Calcium 8.7 mg/dl (8.6-10.3); Creatinine Clr Calc Pharmacy 50.1 ml/min
[2024-07-04 11:21] VITALS: BP 100/60; RESP 24; O2SAT 97
[2024-07-04 15:01] VITALS: PULSE 76
--- NOTE | 2024-07-04 15:39 | Discharge Summary ---
Discharge Summary Date of Service July 04, 2024 Principal Dx & Hospital Course #1 = Principal Diagnosis (1) Metabolic encephalopathy: (2) UTI (urinary tract infection): (3) Hematoma of right hip: (4) Subclavian artery stenosis, left: (5) Acute blood loss anemia: Plan Patient is an 89-year-old female with past medical history of asthma, HFpEF, breast cancer, GERD, ILD, CAD s/p right TCAR 2017 in 2019, paroxysmal A-fib, MADAN, intraparenchymal hemorrhage of brain. Patient was recently admitted after a ground-level fall resulting in a left humerus fracture. Patient has returned to the ED "unresponsive" found to have a UTI. She was admitted for metabolic encephalopathy secondary to UTI. CVA was within differential however patient on DAPT, CT and CTAs negative for acute changes other than stenosis noted below. Elevated lactate resolved following IV fluids. TSH elevated but Free T4 WNL. Vit B12 WNL at 616. #Metabolic encephalopathy/UTI - Reported acute onset confusion, now improving Urine culture grew Klebsiella oxytoc/[place] ornith. Blood culture negative x 48 hours (one-time dose Rocephin already given in the ED) Much improved continue outpatient antibiotics for completion of Cipro p.o. no recent meds as encephalopathy is resolving #Hematoma/Acute blood loss anemia - AP CT noted hematoma within the right gluteal subcutaneous fat, otherwise no traumatic injury identified. Suspect 2/2 recent fall. Patient denies any pain. - Hgb decreased from 12.2 to 8.4, now up to 9.6 - - Not on any anticoagulation - resumed 07/02. Last TCAR 6 years ago and no history of heart stents, plavix as monotherapy #Left humerus fracture - s/p fall and admission 06/24. Stable. - continue sling (though noncompliant with wearing it), ice prn - Lidoderm patch, Tylenol prn - Vit D 38.0 #Left subclavian stenosis - CT noted severe stenosis of left subclavian artery 2/2 kink prior to takeoff of left vertebral artery. Doubt this is contributory to confusion. - #MADAN - CPAP HS #HFpEF most recent EF 65 to 70%. Continue metoprolol and lasix #CAD s/p right TCAR in 2016 and 2018 on aspirin and Plavix outpatient. Continue statin. #paroxysmal A-fib Continue metoprolol and amiodarone, no anticoagulation given recent history of brain hemorrhage #HTN continue metoprolol, Lasix, verapamil #Asthma - continue home inhalers CODE STATUS: DNR/DNI Notes For Next Care Provider Short duration of Cipro should not affect other medications Admission HPI Per Admitting Provider Patient is an 89-year-old female with past medical history of asthma, HFpEF, breast cancer, GERD, ILD, CAD s/p right TCAR 2017 in 2019, paroxysmal A-fib, O SA, intraparenchymal hemorrhage of brain. Patient was recently admitted after a ground-level fall resulting in a left humerus fracture. Patient has returned to the ED "unresponsive" found to have a UTI. She is being admitted for metabolic encephalopathy secondary to UTI. Patient seen at bedside. She is completely disoriented, which is not baseline for her. She stated she has left arm pain however is otherwise feeling well. She just feels confused. She stated she was seeing her father and around who is expected to be disease given she is 89 years old. Patient stated it is unsafe for her to go home with her however would not further evaluate, credibility unsure at this time given hallucinating. Discharge Exam Awake alert and pleasant. Cardiac exam is rate controlled lungs are clear Discharge Plan Discharge Items Patient Disposition: Transfer [facility] Reason For Visit: METABOLIC ENCEPHALOPATHY, UTI Discharge Diagnosis: metabolic encephalopathy resolved Klebsiella UTI poa treated pre hospital humerus fracture acute blood loss anemia stable right hip hematoma from fall stable Condition on Discharge: Serious Activity: Resume your previous activity Non-emergency contact: Primary Care Provider Call non-emergency contact if: your symptoms worsen Follow-up/Referrals: José Kumari MD [Primary Care Provider] - Diet: Regular Addtl Attending Provider Instructions: pt was found to have klebsiella uti poa and began treatment 06/28, complete antibiotics thru 07/05 PT was encouraged to wear sling for humeral fracture and is a fall risk, consider PT/OT therapy as she heals Pending Studies at Discharge: No Stand-Alone Forms: [facility] Skilled Items Patient informed of condition?: Yes DNR: Yes Discharge Level of Care: Skilled Communicable Disease: No Discharge Prognosis: Stable Lines: None Urinary Catheter: No Medications and DC Order Prescriptions: New ciprofloxacin HCl [Cipro] 500 mg tablet 500 mg PO BID Qty: 4 0RF Continued metoprolol succinate 50 mg tablet extended release 24 hr 50 mg PO BID rosuvastatin [Crestor] 20 mg tablet 20 mg PO DAILY bisacodyl [Dulcolax (bisacodyl)] 10 mg suppository 10 mg MD DAILY PRN (Reason: Constipation) escitalopram oxalate [Lexapro] 10 mg tablet 10 mg PO QAM famotidine 10 mg tablet 10 mg PO QAM furosemide 40 mg tablet 40 mg PO QAM valsartan 80 mg tablet 80 mg PO BID verapamil 120 mg capsule,ext rel. pellets 24 hr 120 mg PO DAILY amiodarone 200 mg tablet 200 mg PO DAILY Qty: 90 3RF albuterol sulfate [Ventolin HFA] 90 mcg/actuation Hfa Aerosol Inhaler 2 puff INHALATION Q6H PRN (Reason: Wheezing) fluticasone propionate [Flonase Allergy Relief] 50 mcg/actuation [place],Suspension 2 spray INTRANASAL QAM pramipexole 0.5 mg tablet 0.5 mg PO HS cholecalciferol (vitamin D3) [Vitamin D3] 50 mcg (2,000 unit) Capsule 50 mcg PO QAM clopidogrel [Plavix] 75 mg Tablet 75 mg PO DAILY Hold Instructions: Resume on 02/22/24. hold until cleared by neurology/vascular tramadol 50 mg Tablet 50 mg PO Q4H PRN (Reason: pain) Qty: 10 0RF aspirin 81 mg Tablet,Delayed Release (Dr/Ec) 81 mg PO DAILY amoxicillin 500 mg capsule 2,000 mg PO UD PRN (Reason: Prophylaxis) Rx Instructions: 1 HOUR PRIOR TO DENTAL PROCEDURE/WORK acetaminophen 325 mg Tablet 650 mg PO Q4 MDD 3G PRN (Reason: ELEVATED TEMPERATURE) acetaminophen 325 mg Tablet 325 mg PO Q4 MDD 3G PRN (Reason: Pain) sodium chloride 1,000 mg Tablet,Soluble 1,000 mg PO TID umeclidinium-vilanterol 62.5-25 mcg/actuation Blister With Device 1 inh INHALATION DAILY nystatin 100,000 unit/gram powder 1 applic TOPICAL Q12 PRN (Reason: EXCORIATION) Rx Instructions: APPLY TO ABDOMINAL/BREAST FOLDS lidocaine 4 % Adhesive Patch,Medicated 1 - 2 patch TOPICAL DAILY PRN (Reason: Pain) Rx Instructions: REMOVE AFTER 10-12 HOURS polyethylene glycol 3350 [Miralax] 17 gram/dose Powder 17 g PO .EVERY 24 HOURS PRN (Reason: Constipation) Discharge Orders: Discharge Order (Routine); Ordered 07/04/24 Ordered By: Layo Amaro Admission Data Admit Date/Time: 06/28/24 23:58 Attending Provider: Layo Amaro Admit Provider: Nanda Jackson Primary Care Provider: José Kumari Other Providers: Nanda Jackson Other Interventions: Discharge Summary Assessment (RN) Last Done: 07/04/24 12:14 Hospital Stay Data Consultations 06/28/24 23:54 ED Decision to Admit Stat Diagnostic Imagining Performed 06/28/24 21:01 CT head/brain wo con Stat 06/28/24 21:11 CT cervical spine wo con Stat 06/28/24 21:12 CT abd pelvis IV con only Stat CT chest diagnostic w con Stat 06/28/24 21:14 CTA head w con [CT angio head w con] Stat CTA neck with con [CT angio neck with con] Stat Pending Results Patient Have Any Pending Studies at Discharge: No Discharge Instructions Given to Patient (Per Discharging Provider) pt was found to have klebsiella uti poa and began treatment 06/28, complete antibiotics thru 07/05 PT was encouraged to wear sling for humeral fracture and is a fall risk, consider PT/OT therapy as she heals Total Time Total Time Spent Total Time Spent (In Minutes): It required greater than 30 minutes to prepare this patient for discharge. Coding Level of Care Code 04525 INP/OBS DISCH >30 MIN Diagnoses Metabolic encephalopathy G93.41 UTI (urinary tract infection) N39.0 Hematoma of right hip S70.01XA Subclavian artery stenosis, left I77.1 Acute blood loss anemia D62
== END 2024-07-04 15:48 | DRG 689 ==
LOC: ED 20:59 → SUATTDRO 23:58 → EDINP 23:58 → 2W 06-29 02:32

== ENCOUNTER 2024-09-08 23:23 | Inpatient (IN) ==
--- NOTE | 2024-09-09 00:03 | Emergency Department Note ---
Impression & Plan Acute hypoxic respiratory failure, Pneumonia, URI (upper respiratory infection) ED Provider Note NAME: SOREN DURAN AGE: 89 SEX: F : 1935 ARRIVES VIA: Ambulance INFORMANT: Patient ED PROVIDER(S): Manfred Ayers DO CHIEF COMPLAINT: Cough, congestion and shortness of breath HPI: Patient is an 89-year-old female who presents to the ER with a past medical history of carotid dissection, valvular heart disease, CAD, diastolic heart failure and asthma for shortness of breath. She notes cough and congestion started earlier today with a runny nose and sore throat. This is progressed and she became short of breath just prior to arrival. EMS was called. She was found to be 70% at [facility]. Patient was transported via EMS and was placed on 2 L nasal cannula. She is feeling much better now. Patient denies any belly pain, nausea, vomiting or diarrhea. No dysuria, urgency, or frequency. No other exacerbating or remitting factors. ADDITIONAL HISTORY OBTAINED: Per HPI Chronic Medical/Social Conditions Affecting Care: Per HPI PAST MEDICAL HISTORY:See Below PAST SURGICAL HISTORY:See Below FAMILY HISTORY:See Below SOCIAL HISTORY:See Below HOME MEDICATIONS:See Below ALLERGIES:See Below VITALS:See Below PHYSICAL EXAMINATION: GENERAL: Sitting up in bed, alert, on nasal cannula, intermittent cough EYE EXAM: normal conjunctiva. OROPHARYNX: no exudate, no erythema, lips, buccal mucosa, and tongue normal and mucous membranes are moist NECK: supple, no nuchal rigidity, no adenopathy, non-tender LUNGS: Clear to auscultation. Normal chest wall mechanics HEART: no murmurs, S1 normal and S2 normal ABDOMEN: abdomen soft, non-tender, normo-active bowel sounds, no masses, no rebound or guarding. BACK: Back is symmetrical on inspection and there is no deformity, no midline tenderness, no CVA tenderness. SKIN: no rashes and no bruising UPPER EXTREMITIES: upper extremities are grossly normal. LOWER EXTREMITIES: No pitting edema. Calves are equal bilaterally NEURO EXAM: Normal sensorium, cranial nerves II-XII grossly intact, normal speech, no gross weakness of arms, no gross weakness of legs. MEDICAL DECISION MAKING: Patient is an 89-year-old female who presents ER for above-stated complaint. IV was established and blood work is obtained. Upon arrival she found to be hypoxic at 88%. She placed on 2 L nasal cannula. She remained on 2 L nasal cannula throughout her stay in the ER. Chest x-ray was obtained and shows pneumonia. Labs show no significant leukocytosis. Multiple people are sick at [facility] with the same symptoms. Mild anemia 10.8. BMP with slightly elevated glucose at 143. Troponin was elevated at 107 likely secondary to the hypoxia from pneumonia. Lipase was normal. Viral panel was pending upon admission. Case was discus with Dr. Pena for further evaluation and management. Consults/Care Managements Discussions: Per [facility] Triage Nursing notes reviewed. Limited review of prior medical records performed Vital Signs: reviewed and remarkable for hypoxic Differential diagnosis: Differential diagnoses includes but is not limited to pneumonia, bronchitis, COPD/Asthma exacerbation, pneumothorax, pulmonary embolism, congestive heart failure, acute coronary syndrome ER treatment provided: See below Diagnostics interpreted by me include EKG and cardiac monitoring as listed below: -Cardiac Monitoring: An order was placed for continuous cardiac monitoring. The monitor shows a rate of 78 with sinus rhythm. -ECG: Sinus rhythm rate of 76 Normal axis Poor baseline QTc 488 -Laboratory studies:Interpreted by me as stated above in MDM and shown below. Imaging studies: Xrays: As interpreted by me: Portable AP upright 1 view the chest shows bilateral infiltrates CTs show: None Procedures:none Critical Care: I have personally spent 33 minutes of critical care time in the direct management of this patient. This includes bedside care, interpretation of diagnostic studies, and testing, discussion with consultants, patient, and family members, and other required patient management activities. This 33 minutes is in excess of all separately billable procedures. Past Med/Surg History Problem List (Updated 09/09/24 @ 00:47 by Manfred Ayers DO) URI (upper respiratory infection) (Acute) Pneumonia (Acute) Acute hypoxic respiratory failure (Acute) Acute hip pain (Acute) Hard of hearing (Acute) Fall (Acute) Closed left humeral fracture (Acute) Paroxysmal atrial fibrillation Intraparenchymal hemorrhage of brain Discharge planning issues DVT prophylaxis Dissection of right carotid artery Stenosis of right carotid artery Valvular heart disease Carotid artery stenosis Encounter for pre-operative examination DDD (degenerative disc disease), lumbar Bruit of left carotid artery Arthritis Diastolic congestive heart failure, NYHA class 3 Bilateral edema of lower extremity (Chronic) SVT (supraventricular tachycardia) (Chronic) Asthma (Chronic) Hypertension (Chronic) Dyslipidemia (Chronic) Dyspnea on exertion (Chronic) Breast cancer (Acute 05/07/16) "Status post left breast cancer 1996 treated with lumpectomy followed by radiation therapy Self detected left breast mass April 2016 Status post mammogram followed by core needle biopsy 05/07/2016 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, progesterone receptor positive, HER-2/wendy positive" Medical History Acute blood loss anemia Subclavian artery stenosis, left Hematoma of right hip Metabolic encephalopathy Tenosynovitis, de Quervain Rheumatoid disease Pes anserinus bursitis OA (osteoarthritis) of knee Neural foraminal stenosis of lumbar spine Lumbar radiculopathy Knee pain ICH (intracerebral hemorrhage) (02/13/24) Heart disease Hamstring strain Bilateral carotid artery stenosis Left humeral fracture Chronic neck pain Poor historian Arthritis Limb alert care status Dyspnea on exertion SVT (supraventricular tachycardia) Bilateral edema of lower extremity Moderate aortic stenosis Dyslipidemia Heart failure with preserved ejection fraction History of COVID-19 (06/2022) Asthma Cystocele, midline Carpal tunnel syndrome Osteoarthritis Sciatic nerve disease Chronic back pain GERD (gastroesophageal reflux disease) Breast cancer, left (1996) Hearing deficit Restless leg syndrome Hyperlipidemia Hypertension Atrial fibrillation Sleep apnea Surgical History Status post left knee replacement (12/2022) History of right hip replacement (07/02/22) S/P epidural steroid injection History of carpal tunnel surgery of right wrist History of back surgery H/O left breast biopsy (1997) History of left mastectomy (2015) History of lumpectomy of left breast History of tonsillectomy and adenoidectomy Social History Smoking Status: Never smoker Second Hand Exposure: No; Do You Dip or Chew Tobacco: No; Hx Alcohol Use: No Hx Substance Use: No Preferred Language: Dominican Communication Ability: Unable Spinning Operator Required: No Beliefs That Will Affect Care: None Current Living Situation: Spouse Current Living Situation Comment: [place] Feels Safe at Home: Yes Assistive Devices: Walker Allergies Allergies Allergy/AdvReac Type Severity Reaction Status Date / Time codeine Allergy Intermediate Temperature Verified 09/09/24 00:30 rise oxycodone AdvReac Severe "Became Verified 09/09/24 00:30 addicted to it" lactose AdvReac gas to cow Verified 09/09/24 00:30 milk. Milk Containing Products AdvReac cow milk = Verified 09/09/24 00:30 (Dairy) "gas", lactose already profiled Home Meds Home Medications Medication Instructions Recorded Confirmed albuterol sulfate 90 mcg/actuation 2 puff inhalation Q6H PRN Wheezing 11/17/17 06/28/24 aerosol inhaler (Ventolin HFA) fluticasone propionate 50 2 spray intranasal QAM 11/17/17 09/09/24 mcg/actuation nasal spray,suspension (Flonase Allergy Relief) metoprolol succinate 50 mg 50 mg PO BID 04/02/21 06/28/24 tablet,extended release 24 hr pramipexole 0.5 mg tablet 0.5 mg PO HS 04/02/21 06/28/24 cholecalciferol (vitamin D3) 50 50 mcg PO QAM 10/28/22 09/09/24 mcg (2,000 unit) capsule (Vitamin D3) clopidogrel 75 mg tablet (Plavix) 75 mg PO DAILY 02/07/24 06/28/24 escitalopram oxalate 10 mg tablet 10 mg PO QAM 03/08/24 06/28/24 (Lexapro) famotidine 10 mg tablet 10 mg PO QAM 03/08/24 09/09/24 furosemide 40 mg tablet 40 mg PO QAM 03/08/24 09/09/24 rosuvastatin 20 mg tablet (Crestor) 20 mg PO DAILY 03/08/24 09/09/24 valsartan 80 mg tablet 80 mg PO BID 03/08/24 06/28/24 verapamil 120 mg 24 hr 120 mg PO DAILY 03/08/24 06/28/24 capsule,extended release acetaminophen 325 mg tablet 650 mg PO Q4 PRN ELEVATED 06/28/24 09/09/24 TEMPERATURE acetaminophen 325 mg tablet 650 mg PO Q4 PRN Pain 06/28/24 09/09/24 amoxicillin 500 mg capsule 2,000 mg PO UD PRN Prophylaxis 06/28/24 09/09/24 aspirin 81 mg tablet,delayed 81 mg PO DAILY 06/28/24 09/09/24 release lidocaine 4 % topical patch 1 - 2 patch topical DAILY PRN Pain 06/28/24 06/28/24 nystatin 100,000 unit/gram topical 1 applic topical Q12 PRN 06/28/24 06/28/24 powder EXCORIATION polyethylene glycol 3350 17 17 g PO .EVERY 24 HOURS PRN 06/28/24 06/28/24 gram/dose oral powder (Miralax) Constipation sodium chloride 1,000 mg soluble 1,000 mg PO TID 06/28/24 06/28/24 tablet umeclidinium 62.5 mcg-vilanterol 1 inh inhalation DAILY 06/28/24 06/28/24 25 mcg/actuation powdr for inhalation Previous Rx's Medication Instructions Recorded amiodarone 200 mg tablet 200 mg PO DAILY #90 tabs 04/05/24 tramadol 50 mg tablet 50 mg PO Q4H PRN pain #10 tabs 06/25/24 ciprofloxacin HCl 500 mg tablet 500 mg PO BID #4 tabs 07/04/24 (Cipro) Results & Data (ED) Vital Signs Vital Signs - 24 hr 09/08/24 23:20 09/08/24 23:29 09/08/24 23:39 Temperature 36.7 C Temperature Source Axillary Pulse Rate 77 77 Respiratory Rate 18 Respiratory Effort / Characteristics Non-Labored Non-Labored Respiratory Depth Normal Normal Respiratory Pattern Regular Regular Blood Pressure 108/55 L Blood Pressure Mean 72 Blood Pressure Position Sitting Pulse Oximetry 93 Oxygen Delivery Method Nasal Cannula Nasal Cannula Oxygen Flow Rate 2 2 Sepsis Recent Fever Within 48 Hours No Sepsis New/Unexplained Change in Mental Status No Sepsis Action Taken by Nursing No Action Required Oxygen Flow Rate - Titration Pulse Oximetry Post Tiitration 09/08/24 23:52 09/08/24 23:57 Temperature Temperature Source Pulse Rate Respiratory Rate Respiratory Effort / Characteristics Respiratory Depth Respiratory Pattern Blood Pressure Blood Pressure Mean Blood Pressure Position Pulse Oximetry 88 L 97 Oxygen Delivery Method Room Air Nasal Cannula Nasal Cannula Oxygen Flow Rate 2 Sepsis Recent Fever Within 48 Hours Sepsis New/Unexplained Change in Mental Status Sepsis Action Taken by Nursing Oxygen Flow Rate - Titration 2 Pulse Oximetry Post Tiitration 93 Laboratory Data 09/08/24 23:55 09/08/24 23:55 Lab Results 09/08/24 Range/Units 23:55 WBC 6.19 (4.8-10.8) K/ul RBC 4.23 (4.20-5.40) M/uL Hgb 10.8 L (12.0-16.0) g/dl Hct 36.0 L (37.0-47.0) % MCV 85.1 (80.0-100.0) fL MCH 25.5 (25.0-34.0) pg MCHC 30.0 L (32.0-36.0) g/dL RDW Std Deviation 56.8 H (36.4-46.3) fL RDW Coeff of Haresh 18.2 H (11.5-14.5) % Plt Count 242 (130-400) K/uL MPV 11.3 (9.4-12.4) fL Immature Gran % (Auto) 0.2 % Neut % (Auto) 73.6 % Lymph % (Auto) 17.9 % [place] % (Auto) 5.7 % Eos % (Auto) 2.1 % Baso % (Auto) 0.5 % Neut # (Auto) 4.56 (1.40-6.50) K/uL Lymph # (Auto) 1.11 L (1.20-3.40) K/uL [place] # (Auto) 0.35 (0.11-0.59) K/uL Eos # (Auto) 0.13 (0.00-0.50) K/uL Baso # (Auto) 0.03 (0.00-0.20) K/uL Immature Gran # (Auto) 0.01 (0.01-0.20) K/uL Sodium 138 (136-145) mmol/L Potassium 4.5 (3.5-5.1) mmol/L Chloride 104 (98-107) mmol/L Carbon Dioxide 28 (21-32) mmol/L Anion Gap 6 (3-11) BUN 24 H (6-23) mg/dl Creatinine 0.95 (0.6-1.2) mg/dl Est Cr Clr Drug Dosing 37.0 ml/min eGFR 57.99 BUN/Creatinine Ratio 25.3 H (10-20) Glucose 143 H (70-99(Fasting)) mg/dl Calcium 9.0 (8.6-10.3) mg/dl Total Bilirubin 0.3 (0.2-1.0) mg/dl AST 23 (13-39) U/L ALT 23 (7-52) U/L Alkaline Phosphatase 92 (34-104) U/L Troponin I High Sens 107.6 H* (0-14) pg/ml Total Protein 7.6 (6.0-8.3) gm/dl Albumin 3.5 (3.4-5.0) gm/dl Globulin 4.1 H (2.5-4.0) gm/dl Albumin/Globulin Ratio 0.9 (0.9-2) Lipase 17 (11-82) U/L Administered Medications Vancomycin HCl 1,500 mg/ (Sodium Chloride) 530 mls @ 200 mls/hr IV NOW ONE Stop: 09/09/24 02:46 Last Admin: 09/09/24 00:27 Dose: 200 mls/hr Documented By: DOROTHEA Miscellaneous Information (Vancomycin Consult Active) 1 each N/A UD PRN PRN Reason: Consult Stop: 10/09/24 00:07 Last Admin: 09/09/24 00:28 Dose: 1 each Documented By: DOROTHEA Discontinued Medications Cefepime HCl (Maxipime 2000mg) 2,000 mg in 20 mls @ 5 mls/min IV NOW STA; Protocol Stop: 09/09/24 00:11 Last Admin: 09/09/24 00:27 Dose: 5 mls/min Documented By: DOROTHEA Discharge Plan Visit Data Chief Complaint: Shortness of Breath/Dyspnea Stated Complaint: SHORTNESS OF BREATH, HYPOXIA ED Provider: Manfred Ayers Discharge Problem: Acute hypoxic respiratory failure, Pneumonia, URI (upper respiratory infection) Condition: Serious Forms Stand Alone Forms: My [facility] Prescriptions Prescriptions: No Action metoprolol succinate 50 mg tablet extended release 24 hr 50 mg PO BID rosuvastatin [Crestor] 20 mg tablet 20 mg PO DAILY escitalopram oxalate [Lexapro] 10 mg tablet 10 mg PO QAM famotidine 10 mg tablet 10 mg PO QAM furosemide 40 mg tablet 40 mg PO QAM valsartan 80 mg tablet 80 mg PO BID verapamil 120 mg capsule,ext rel. pellets 24 hr 120 mg PO DAILY amiodarone 200 mg tablet 200 mg PO DAILY Qty: 90 3RF albuterol sulfate [Ventolin HFA] 90 mcg/actuation Hfa Aerosol Inhaler 2 puff INHALATION Q6H PRN (Reason: Wheezing) fluticasone propionate [Flonase Allergy Relief] 50 mcg/actuation [place],Suspension 2 spray INTRANASAL QAM pramipexole 0.5 mg tablet 0.5 mg PO HS cholecalciferol (vitamin D3) [Vitamin D3] 50 mcg (2,000 unit) Capsule 50 mcg PO QAM clopidogrel [Plavix] 75 mg Tablet 75 mg PO DAILY Hold Instructions: Resume on 02/22/24. hold until cleared by neurology/vascular tramadol 50 mg Tablet 50 mg PO Q4H PRN (Reason: pain) Qty: 10 0RF aspirin 81 mg Tablet,Delayed Release (Dr/Ec) 81 mg PO DAILY amoxicillin 500 mg capsule 2,000 mg PO UD PRN (Reason: Prophylaxis) Rx Instructions: 1 HOUR PRIOR TO DENTAL PROCEDURE/WORK acetaminophen 325 mg Tablet 650 mg PO Q4 MDD 3G PRN (Reason: ELEVATED TEMPERATURE) acetaminophen 325 mg Tablet 650 mg PO Q4 MDD 3G PRN (Reason: Pain) sodium chloride 1,000 mg Tablet,Soluble 1,000 mg PO TID umeclidinium-vilanterol 62.5-25 mcg/actuation Blister With Device 1 inh INHALATION DAILY nystatin 100,000 unit/gram powder 1 applic TOPICAL Q12 PRN (Reason: EXCORIATION) Rx Instructions: APPLY TO ABDOMINAL/BREAST FOLDS lidocaine 4 % Adhesive Patch,Medicated 1 - 2 patch TOPICAL DAILY PRN (Reason: Pain) Rx Instructions: REMOVE AFTER 10-12 HOURS polyethylene glycol 3350 [Miralax] 17 gram/dose Powder 17 g PO .EVERY 24 HOURS PRN (Reason: Constipation) ciprofloxacin HCl [Cipro] 500 mg tablet 500 mg PO BID Qty: 4 0RF Referrals Referrals: José Kumari MD [Primary Care Provider] - Discharge Problem: Pneumonia Qualifiers: Pneumonia type: due to unspecified organism Laterality: unspecified laterality Lung location: unspecified part of lung Qualified Code(s): J18.9 - Pneumonia, unspecified organism URI (upper respiratory infection) Qualifiers: URI type: unspecified URI Qualified Code(s): J06.9 - Acute upper respiratory infection, unspecified
[2024-09-09 00:08] LABS: Hematocrit (blood only) 36.0 % (37.0-47.0); Hemoglobin 10.8 g/dl (12.0-16.0); Immature Granulocytes # (auto) 0.01 K/uL (0.01-0.20); Immature Granulocytes % (auto) 0.2 %; Mean Corpuscular Hemoglobin 25.5 pg (25.0-34.0); Mean Corpuscular Volume 85.1 fL (80.0-100.0); Platelet Count 242 K/uL (130-400); RDW Standard Deviation 56.8 fL (36.4-46.3); Red Blood Count 4.23 M/uL (4.20-5.40); White Blood Count 6.19 K/ul (4.8-10.8)
[2024-09-09 00:16] LABS: Alanine Aminotransferase 23.0 U/L (7-52); Albumin Globulin Ratio 0.9 (0.9-2); Alkaline Phosphatase 92.0 U/L (34-104); Anion Gap 6.0 (3-11); Bilirubin,Total 0.3 mg/dl (0.2-1.0); Blood Urea Nitrogen 24.0 mg/dl (6-23); Calcium 9.0 mg/dl (8.6-10.3); Carbon Dioxide 28.0 mmol/L (21-32); Chloride 104.0 mmol/L (98-107); Creatinine Clr Calc Pharmacy 37.0 ml/min; Globulin 4.1 gm/dl (2.5-4.0); Glucose 143.0 mg/dl (70-99(Fasting)); Lipase 17.0 U/L (11-82); Potassium 4.5 mmol/L (3.5-5.1); Sodium 138.0 mmol/L (136-145); Total Protein 7.6 gm/dl (6.0-8.3)
[2024-09-09] MEDS: CEFEPIME 2000MG 2,000 MG/20 ML SYR IV STA (00:27)
[2024-09-09] MEDS: VANCOMYCIN HCL 1,500 MG in SODIUM CHLORIDE 0.9% 500 ML IV ONE (00:27)
[2024-09-09] MEDS: VANCOMYCIN CONSULT ACTIVE PRN (00:28)
--- NOTE | 2024-09-09 01:19 | History & Physical Report ---
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 #AHRF secondary to pneumonia - symptoms started the morning of 09/08 and by the afternoon/evening progressed to hypoxia at [facility] - COVID negative on admission - satting well on 2L NC on admission, pt does not seem to be in an asthma exac on admission so will defer scheduled duonebs/steriods for now, continue albuterol prn - will do MRSA swab; if negative can discontinue vancomycin - will continue cefepime - will do speech eval due to how quickly symptoms progressed to evaluate for signs of aspiration (she does have prior hx CVA) #Troponin elevation - on admission was 107, will trend to peak, especially given vascular hx - suspect demand due to AHRF/CHF #HFrEF in exac on admission - given leg edema and lung exam, I do suspect this pt has some component of overload contributing to respiratory status as well - will do lasix 20 mg IV on top of daily 40 mg po dose - slight asymmetry noted of LE edema on admission so will do LE US duplex to r/o DVT - daily intake/output and weights #HTN - continue routine meds as tolerated #Hx afib - noted in cardio notes to have been brief episodes about 1 min so anticoagulation was deferred, particularly in the setting at that time of intracranial bleed - continue home amiodarone VTE ppx: SCDs, will continue aspirin + Plavix, defer chemical prophylaxis on admission given intracranial bleed in Jan and cardio note of deferring anticoag for afib until reduced down from DAPT History of Present Illness Chief Complaint: Pneumonia Primary Care Provider: José Kumari MD Pt is a pleasant 89 yo female with a past medical history of SVT s/p ablation, HFrEF with moderate aortic stenosis, 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 Pt seen at bedside. She is quite hard fo hearing and states she left her hearing aids at [facility], she thinks. She is at times difficult to converse with, partly due to difficulty hearing and intermittent pleasant confusion. She states when she woke up this past morning she had a cough and would occasionally cough stuff but but did not look at it. She states she also had runny nose and some shortness of breath that comes and goes. She also notes some substernal chest pressure. She denies nausea or vomiting. She states the day before she woke up with symptoms she felt well. She denies diarrhea, last BM was this past morning and was wnl and without blood per pt. Per ED note, while pt was at [facility] she was reportedly saturating 70%. Saturdations improved with 2L NC on EMS transport. She states she gets physical therapy at [facility] daily. She is oriented to self and place but not time or event on admission. I discussed code status with patient and she became confused over the questions about what she would want, states "I'm not sure..." even after prompting options multiple times. Chart reviewed; pt has POLST that was signed in Jan 2024 that indicated DNR/DNI, will go by this for code status as pt unable to clearly make decision at this time. Allergies Allergy/AdvReac Type Severity Reaction Status Date / Time codeine Allergy Intermediate Temperature Verified 09/09/24 00:30 rise oxycodone AdvReac Severe "Became Verified 09/09/24 00:30 addicted to it" lactose AdvReac gas to cow Verified 09/09/24 00:30 milk. Milk Containing Products AdvReac cow milk = Verified 09/09/24 00:30 (Dairy) "gas", lactose already profiled Home Medications Medication Instructions Recorded Confirmed Type albuterol sulfate 90 mcg/actuation 2 puff inhalation Q6H PRN Wheezing 11/17/17 09/09/24 History aerosol inhaler (Ventolin HFA) fluticasone propionate 50 2 spray intranasal QAM 11/17/17 09/09/24 History mcg/actuation nasal spray,suspension (Flonase Allergy Relief) metoprolol succinate 50 mg 50 mg PO BID 04/02/21 09/09/24 History tablet,extended release 24 hr pramipexole 0.5 mg tablet 0.5 mg PO HS 04/02/21 09/09/24 History cholecalciferol (vitamin D3) 50 50 mcg PO QAM 10/28/22 09/09/24 History mcg (2,000 unit) capsule (Vitamin D3) clopidogrel 75 mg tablet (Plavix) 75 mg PO DAILY 02/07/24 09/09/24 History famotidine 10 mg tablet 10 mg PO QAM 03/08/24 09/09/24 History furosemide 40 mg tablet 40 mg PO QAM 03/08/24 09/09/24 History rosuvastatin 20 mg tablet (Crestor) 20 mg PO DAILY 03/08/24 09/09/24 History valsartan 80 mg tablet 80 mg PO QPM 03/08/24 09/09/24 History verapamil 120 mg 24 hr 120 mg PO DAILY 03/08/24 09/09/24 History capsule,extended release amiodarone 200 mg tablet 200 mg PO DAILY #90 tabs 04/05/24 09/09/24 Rx acetaminophen 325 mg tablet 650 mg PO Q4 PRN ELEVATED 06/28/24 09/09/24 History TEMPERATURE acetaminophen 325 mg tablet 650 mg PO Q4 PRN Pain 06/28/24 09/09/24 History amoxicillin 500 mg capsule 2,000 mg PO UD PRN Prophylaxis 06/28/24 09/09/24 History aspirin 81 mg tablet,delayed 81 mg PO DAILY 06/28/24 09/09/24 History release nystatin 100,000 unit/gram topical 1 applic topical Q12 PRN 06/28/24 09/09/24 History powder EXCORIATION polyethylene glycol 3350 17 17 g PO QAM Constipation 06/28/24 09/09/24 History gram/dose oral powder (Miralax) umeclidinium 62.5 mcg-vilanterol 1 inh inhalation DAILY 06/28/24 09/09/24 History 25 mcg/actuation powdr for inhalation cyanocobalamin (vitamin B-12) 1,000 mcg IM UD 09/09/24 09/09/24 History 1,000 mcg/mL injection kit cyanocobalamin (vitamin B-12) 1,000 mcg IM WK 09/09/24 09/09/24 History 1,000 mcg/mL injection kit escitalopram oxalate 20 mg tablet 20 mg PO DAILY 09/09/24 09/09/24 History potassium chloride 10 mEq 10 meq PO DAILY 09/09/24 09/09/24 History capsule,extended release Past Med/Surg History Problem List (Updated 09/09/24 @ 02:04 by Miesha Villalobos DO) Acute exacerbation of chronic heart failure HFrEF (heart failure with reduced ejection fraction) Elevated troponin URI (upper respiratory infection) (Acute) Pneumonia (Acute) Acute hypoxic respiratory failure (Acute) Acute hip pain (Acute) Hard of hearing (Acute) Fall (Acute) Closed left humeral fracture (Acute) Paroxysmal atrial fibrillation Intraparenchymal hemorrhage of brain Discharge planning issues DVT prophylaxis Dissection of right carotid artery Stenosis of right carotid artery Valvular heart disease Carotid artery stenosis Encounter for pre-operative examination DDD (degenerative disc disease), lumbar Bruit of left carotid artery Arthritis Diastolic congestive heart failure, NYHA class 3 Bilateral edema of lower extremity (Chronic) SVT (supraventricular tachycardia) (Chronic) Asthma (Chronic) Hypertension (Chronic) Dyslipidemia (Chronic) Dyspnea on exertion (Chronic) Breast cancer (Acute 05/07/16) "Status post left breast cancer 1996 treated with lumpectomy followed by radiation therapy Self detected left breast mass April 2016 Status post mammogram followed by core needle biopsy 05/07/2016 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, progesterone receptor positive, HER-2/wendy positive" Medical History Acute blood loss anemia Subclavian artery stenosis, left Hematoma of right hip Metabolic encephalopathy Tenosynovitis, de Quervain Rheumatoid disease Pes anserinus bursitis OA (osteoarthritis) of knee Neural foraminal stenosis of lumbar spine Lumbar radiculopathy Knee pain ICH (intracerebral hemorrhage) (02/13/24) Heart disease Hamstring strain Bilateral carotid artery stenosis Left humeral fracture Chronic neck pain Poor historian Arthritis Limb alert care status Dyspnea on exertion SVT (supraventricular tachycardia) Bilateral edema of lower extremity Moderate aortic stenosis Dyslipidemia Heart failure with preserved ejection fraction History of COVID-19 (06/2022) Asthma Cystocele, midline Carpal tunnel syndrome Osteoarthritis Sciatic nerve disease Chronic back pain GERD (gastroesophageal reflux disease) Breast cancer, left (1996) Hearing deficit Restless leg syndrome Hyperlipidemia Hypertension Atrial fibrillation Sleep apnea Surgical History Status post left knee replacement (12/2022) History of right hip replacement (07/02/22) S/P epidural steroid injection History of carpal tunnel surgery of right wrist History of back surgery H/O left breast biopsy (1997) History of left mastectomy (2015) History of lumpectomy of left breast History of tonsillectomy and adenoidectomy Social History Smoking Status: Never smoker Second Hand Exposure: No; Do You Dip or Chew Tobacco: No; Hx Alcohol Use: No Hx Substance Use: No Preferred Language: Gabonese Communication Ability: Unable Operations General Agent Required: No Beliefs That Will Affect Care: None Current Living Situation: Spouse Current Living Situation Comment: [place] Feels Safe at Home: Yes Assistive Devices: Walker Review of Systems Review of Systems: Per HPI. Physical Exam Physical Exam: General: Alert and oriented, no acute distress, HEENT: Normocephalic, Cardio: Regular rate and rhythm, + murmur, lower extremity 2+ pitting edema noted, slightly more of the L leg Resp: Lungs with crackles throughout lower/middle [place] GI: Soft and nontender, nondistended, bowel sounds active Skin: Warm, pink, dry, Neuro: moves all extremities spontaneously, globally weak, CN II-XII grossly intact, no facial droop Results & Data Results & Data Vital Signs (Past 12 Hours) Vital Signs Temp Pulse Resp BP Pulse Ox O2 Del Method O2 Flow Rate 09/08/24 23:57 97 Nasal Cannula 2 09/08/24 23:52 88 L Room Air, Nasal Cannula 09/08/24 23:39 36.7 C 77 18 108/55 L 93 Nasal Cannula 2 09/08/24 23:29 77 09/08/24 23:20 Nasal Cannula 2 Supervising Physician Co-Signing Physician Notes Attending addendum: I have physically seen this patient, have supervised the medical residents activities, and agree with the H&P unless as otherwise noted. Assessment and Plan: The patient is an 89-year-old female resident of [facility] with past medical history including SVT status post ablation, HFrEF, moderate aortic stenosis, history of CVA without residual symptoms, right carotid stenosis stat us post TCAR on , with TCAR redo on 02/09/2024 due to carotid dissection, intracranial hemorrhage, atrial fibrillation, asthma, and ambulatory dysfunction. Most recent hospitalizations from 06/24-06/25/2024 for left upper extremity humeral fracture with nonoperative medical management, and metabolic encephalopathy due to urinary tract infection during admission from 06/28- 07/04/2024. She presented to the emergency department with symptoms of cough, congestion, runny nose and sore throat. [facility] staff reported an oxygen saturation today in the high 70s, and systolic blood pressure in the 190s. Upon arrival EMS noted pulse ox to be 90% and blood pressure 124/75. En route she received a DuoNeb and was placed on 2 L nasal cannula. Upon arrival to the ED she was 88% on 2 L. Acute respiratory failure with hypoxia/pneumonia/HFrEF exacerbation- Initial symptoms began 09/08, and relatively quickly progressed throughout the day. COVID-19 testing negative on admission She did receive a DuoNeb and was placed on 2 L nasal cannula en route via EMS. Patient did receive vancomycin IV and cefepime IV from the ED Order MRSA swab, and if negative discontinue vancomycin Continue cefepime Speech evaluation to assess for possible aspiration HFrEF exacerbation/hypertension/atrial fibrillation/troponin elevation- The patient will be admitted to telemetry for serial cardiac enzymes, serial EKG's, cardiac rhythm monitoring and a 2-D echocardiogram with Dopplers. Give Lasix 20 mg IV this evening, and then resume 40 mg oral dose in the a.m. Lower extremity edema noted, and chest x-ray showed combination of pneumonia and CHF Initial troponin level 107, follow serially Continue amiodarone, aspirin, clopidogrel, metoprolol succinate, valsartan and potassium chloride Follow serial CBC with differential, chemistry profile, troponin and magnesium levels Resident Activity Tracking Resident Involvement: Resident Care Provided Care Provided: Adult [facility] (2) Pneumonia Laterality: unspecified laterality Lung location: unspecified part of lung Pneumonia type: due to unspecified organism Qualified Code(s): J18.9 - Pneumonia, unspecified organism
[2024-09-09] MEDS: FUROSEMIDE INJ 20 MG/2 ML VIAL IV ONE (02:40)
--- NOTE | 2024-09-09 02:44 | Billing Data ---
Date of Service September 09, 2024 Coding Level of Care Code 40905 INT INP/OBS CARE
--- NOTE | 2024-09-09 03:05 | Ultrasound Report ---
EXAM: US venous doppler LE BI CLINICAL HISTORY: leg edema, L leg slightly more edematous prior 12/31/2022 14:57:11 POWER CHISEL OPERATOR TECHNIQUE: Grayscale ultrasound, with and without compression, and color Doppler spectral waveform analysis were performed of the deep veins of the bilateral lower extremities from the level of the common femoral veins to the level of the popliteal veins. The posterior tibial and peroneal veins were also scanned. COMPARISON: US, 12/31/2022 14:57:11 POWER CHISEL OPERATOR FINDINGS: Bilateral external iliac, common femoral veins, superficial and femoral veins and popliteal veins are compressible and opacify at color Doppler evaluation with no evidence of deep vein thrombosis. There is no evidence of DVT in the visualized portions of the posterior tibial and peroneal veins. IMPRESSION: 1. Negative for deep vein thrombosis. 2. Subcutaneous edema seen in bilateral lower limb. Electronically signed by Satnam Mcnamara 09-09-2024 03:05 AM
[2024-09-09] MEDS ORDERED: NYSTATIN POWDER 15GM BTL EXT PRN (04:30)
[2024-09-09] MEDS ORDERED: ALBUTEROL HFA 8 GM INHALER INH PRN (04:30)
[2024-09-09] MEDS ORDERED: ONDANSETRON INJ 2 MG/ML 2 ML VIAL IV PRN (04:30)
[2024-09-09] MEDS ORDERED: ACETAMINOPHEN 325 MG TAB PO PRN (04:30)
[2024-09-09 06:16] LABS: Hematocrit (blood only) 30.0 % (37.0-47.0); Hemoglobin 9.5 g/dl (12.0-16.0); Immature Granulocytes # (auto) 0.01 K/uL (0.01-0.20); Immature Granulocytes % (auto) 0.2 %; Mean Corpuscular Hemoglobin 26.2 pg (25.0-34.0); Mean Corpuscular Volume 82.6 fL (80.0-100.0); Platelet Count 203 K/uL (130-400); RDW Standard Deviation 53.9 fL (36.4-46.3); Red Blood Count 3.63 M/uL (4.20-5.40); White Blood Count 5.48 K/ul (4.8-10.8)
--- NOTE | 2024-09-09 06:43 | XRay Report ---
EXAM: XR chest 1V portable CLINICAL HISTORY: Chest pain, nonspecific TECHNIQUE: An X-ray image of the chest is obtained in AP projection. COMPARISON: 06/25/2024 FINDINGS: Pulmonary Parenchyma: Diffuse bilateral interstitial reticulation (interval increase) . Bilateral lower zones with atelectatic bands. No evidence of consolidation, collapse, or focal opacities. No pulmonary nodules are identified. No evidence of pleural effusion or pleural thickening. Heart and Mediastinum: Mild cardiomegaly ( unchanged ) No mediastinal widening or masses. No hilar or mediastinal lymphadenopathy. Bony Thorax: Bony thorax appears intact without fractures or deformities. Healed malunited left humeral neck fracture . Soft Tissues: Soft tissues overlying the chest wall are unremarkable. IMPRESSION: 1. Diffuse bilateral interstitial reticulation (Interval increase ). 2. Bilateral lower zone heterogeneous airspace opacities with atelectatic bands (progressed). 3. Mild cardiomegaly (Unchanged). 4. Healed malunited left humeral neck fracture. Electronically signed by Robert Castaneda 09-09-2024 06:43 AM
[2024-09-09 07:15] LABS: Alanine Aminotransferase 17.0 U/L (7-52); Albumin Globulin Ratio 0.9 (0.9-2); Alkaline Phosphatase 78.0 U/L (34-104); Anion Gap 6.0 (3-11); Bilirubin,Total 0.3 mg/dl (0.2-1.0); Blood Urea Nitrogen 22.0 mg/dl (6-23); Calcium 8.3 mg/dl (8.6-10.3); Carbon Dioxide 28.0 mmol/L (21-32); Chloride 106.0 mmol/L (98-107); Creatinine Clr Calc Pharmacy 48.2 ml/min; Globulin 3.4 gm/dl (2.5-4.0); Glucose 91.0 mg/dl (70-99(Fasting)); Potassium 3.6 mmol/L (3.5-5.1); Sodium 140.0 mmol/L (136-145); Total Protein 6.4 gm/dl (6.0-8.3)
--- NOTE | 2024-09-09 08:20 | Hospitalist Progress Note ---
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 #AHRF secondary to pneumonia - symptoms started the morning of 09/08 and by the afternoon/evening progressed to hypoxia at [facility] - COVID negative on admission - satting well on 2L NC on admission, pt does not seem to be in an asthma exac on admission so will defer scheduled duonebs/steriods for now, continue albuterol prn - MRSA neg, d/c Vanc - will continue cefepime (09/08 - TBD) - VENDING SERVICE TECHNICIAN recs appreciated- no diet modification, cont aspiration precautions #Troponin elevation - on admission was 107, will trend to peak, especially given vascular hx - suspect demand due to AHRF/CHF #HFrEF in exac on admission - given leg edema and lung exam, I do suspect this pt has some component of overload contributing to respiratory status as well - will do lasix 20 mg IV on top of daily 40 mg po dose - LE duplex (09/09): neg for DVT - daily intake/output and weights #HTN - continue routine meds as tolerated #Hx afib - noted in cardio notes to have been brief episodes about 1 min so anticoagulation was deferred, particularly in the setting at that time of intracranial bleed - continue home amiodarone #GERD - initiate PPI VTE ppx: SCDs, will continue aspirin + Plavix, defer chemical prophylaxis on admission given intracranial bleed in Jan and cardio note of deferring anticoag for afib until reduced down from DAPT Admission and Anticipated Discharge Date Admission Date: September 09, 2024 Subjective No acute events overnight Currently no new complaints Review of Systems Review of Systems: Comprehensive ROS neg Physical Exam Physical Exam: Gen: no acute distress, lying in bed comfortable HEENT: NC/AT, MMM Lungs: nonlabored breathing, CTAB CVS: s1s2nl, RRR Abd: nl bowel sounds, soft, NT / ND : no mullen Ext: no edema Neuro: AAOx3 Psych: calm cooperative Results & Data Results & Data Vital Signs (Past 12 Hours) Vital Signs Temp Pulse Pulse Resp BP BP Pulse Ox 09/09/24 07:58 36.4 C L 68 18 113/67 91 09/09/24 05:49 61 09/09/24 05:00 60 09/09/24 04:35 09/09/24 04:35 36.2 C L 63 19 110/67 95 09/09/24 04:06 36.7 C 59 L 20 104/59 L 97 09/09/24 03:10 60 09/09/24 03:00 36.8 C 66 21 114/60 97 09/09/24 01:20 62 17 112/64 94 09/08/24 23:57 97 09/08/24 23:52 88 L 09/08/24 23:39 36.7 C 77 18 108/55 L 93 09/08/24 23:29 77 09/08/24 23:20 O2 Del Method O2 Flow Rate 09/09/24 07:58 Room Air 09/09/24 05:49 09/09/24 05:00 09/09/24 04:35 Nasal Cannula 2 09/09/24 04:35 Nasal Cannula 2 09/09/24 04:06 Nasal Cannula 2 09/09/24 03:10 09/09/24 03:00 Nasal Cannula 2 09/09/24 01:20 Nasal Cannula 2 09/08/24 23:57 Nasal Cannula 2 09/08/24 23:52 Room Air, Nasal Cannula 09/08/24 23:39 Nasal Cannula 2 09/08/24 23:29 09/08/24 23:20 Nasal Cannula 2 PG Care Time/CCT Total # of Minutes Spent Total Time Spent with Patient: Total time spent is greater than 50% in coordination of care (as documented) at patient's floor/unit and/or counseling patient: Coding Level of Care Code 18759 SUB INP/OBS CARE 2/35MIN Diagnoses Acute hypoxic respiratory failure J96.01 Pneumonia J18.9 Laterality: unspecified laterality Lung location: unspecified part of lung Pneumonia type: due to unspecified organism Paroxysmal atrial fibrillation I48.0 Elevated troponin R79.89 HFrEF (heart failure with reduced ejection fraction) I50.20 Acute exacerbation of chronic heart failure I50.9 Asthma J45.909 (2) Pneumonia Laterality: unspecified laterality Lung location: unspecified part of lung Pneumonia type: due to unspecified organism Qualified Code(s): J18.9 - Pneumonia, unspecified organism
[2024-09-09] MEDS: ASPIRIN 81 MG ECTAB PO SCH (08:37)
[2024-09-09] MEDS: CLOPIDOGREL BISULFATE 75 MG TAB PO SCH (08:37)
[2024-09-09] MEDS: ESCITALOPRAM OXALATE 20 MG TAB PO SCH (08:37)
[2024-09-09] MEDS: AMIODARONE 200 MG TAB PO SCH (08:37)
[2024-09-09] MEDS: METOPROLOL SUCC 50MG EXT REL TAB PO SCH (08:37)
[2024-09-09] MEDS: ROSUVASTATIN CALCIUM 20 MG TAB PO SCH (08:37)
[2024-09-09] MEDS: FAMOTIDINE 10 MG TABLET PO SCH (08:37)
[2024-09-09] MEDS: FUROSEMIDE 40 MG TAB PO SCH (08:37)
[2024-09-09] MEDS: VERAPAMIL HCL 120 MG TABCR PO SCH (08:38)
[2024-09-09] MEDS: FLUTICASONE PROPIONATE NA SPR 16 GM BTL SCH (08:38)
[2024-09-09] MEDS: POTASSIUM CHLORIDE 10 MEQ TABCR PO SCH (08:41)
[2024-09-09] MEDS: POLYETHYLENE (MIRALAX) 17 GM PACK PO SCH (08:41)
[2024-09-09] MEDS: CEFEPIME 2000MG 2,000 MG/20 ML SYR IV SCH (12:31)
--- NOTE | 2024-09-09 16:56 | Electrocardiogram Report ---
Test Reason : Blood Pressure : */* mmHG Vent. Rate : 76 BPM Atrial Rate : 76 BPM P-R Int : 172 ms QRS Dur : 104 ms QT Int : 434 ms P-R-T Axes : 54 -3 13 degrees QTcB Int : 488 ms Poor data quality, interpretation may be adversely affected Normal sinus rhythm Minimal voltage criteria for LVH, may be normal variant ( Candido product ) Nonspecific ST and T wave abnormality Abnormal ECG When compared with ECG of 28-Jun-2024 21:35, Probably no significant change Confirmed by Teo Patino ([id number]) on 09/09/2024 4:55:52 PM Referred By: REFERRED SELF Confirmed By: Teo Patino
[2024-09-09] MEDS ORDERED: VANCOMYCIN HCL 1,000 MG/270 ML BAG IV SCH (20:00)
[2024-09-09] MEDS: MELATONIN 3 MG TAB PO PRN (20:23)
[2024-09-09] MEDS: VALSARTAN 80 MG TAB PO SCH (20:24)
[2024-09-09] MEDS: PRAMIPEXOLE DIHYDROCHLO 0.5 MG TAB PO SCH (20:24)
[2024-09-10 07:19] LABS: Hematocrit (blood only) 32.7 % (37.0-47.0); Hemoglobin 9.8 g/dl (12.0-16.0); Mean Corpuscular Hemoglobin 25.5 pg (25.0-34.0); Mean Corpuscular Volume 84.9 fL (80.0-100.0); Platelet Count 182 K/uL (130-400); RDW Standard Deviation 55.3 fL (36.4-46.3); Red Blood Count 3.85 M/uL (4.20-5.40); White Blood Count 5.39 K/ul (4.8-10.8)
[2024-09-10 07:44] LABS: Anion Gap 4.0 (3-11); Blood Urea Nitrogen 21.0 mg/dl (6-23); Calcium 8.4 mg/dl (8.6-10.3); Carbon Dioxide 29.0 mmol/L (21-32); Chloride 106.0 mmol/L (98-107); Creatinine Clr Calc Pharmacy 51.0 ml/min; Glucose 87.0 mg/dl (70-99(Fasting)); Magnesium 2.1 mg/dl (1.7-2.4); Potassium 3.8 mmol/L (3.5-5.1); Sodium 139.0 mmol/L (136-145)
--- NOTE | 2024-09-10 14:40 | Hospitalist Progress Note ---
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 for AHRF due to pneumonia. #AHRF secondary to pneumonia - symptoms started the morning of 09/08 and by the afternoon/evening progressed to hypoxia at [facility] - COVID negative on admission - satting well on 2L NC on admission, pt does not seem to be in an asthma exac on admission so will defer scheduled duonebs/steriods for now, continue albuterol prn - MRSA neg, d/c Vanc - Currently on cefepime (09/08 - TBD) Switch to Augmentin - FRENCH FOLDER recs appreciated- no diet modification, cont aspiration precautions #Troponin elevation - on admission was 107, peaked at 443 - suspect demand due to AHRF/CHF #HFpEF in exac on admission - given leg edema and lung exam, I do suspect this pt has some component of overload contributing to respiratory status as well - She was given 20 mg of IV Lasix on top of the 40 mg of p.o. Lasix Now back on her home regimen No leg swelling today. - LE duplex (09/09): neg for DVT - daily intake/output and weights #HTN - continue routine meds as tolerated #Hx afib - noted in cardio notes to have been brief episodes about 1 min so anticoagulation was deferred, particularly in the setting at that time of intracranial bleed - continue home amiodarone #GERD - initiate PPI VTE ppx: SCDs, will continue aspirin + Plavix, defer chemical prophylaxis on admission given intracranial bleed in Jan and cardio note of deferring anticoag for afib until reduced down from DAPT Admission and Anticipated Discharge Date Admission Date: September 09, 2024 Subjective Patient says she feels better overall. She says that she is breathing well. Review of Systems Review of Systems: All systems reviewed & are unremarkable except as noted in Subjective Physical Exam Physical Exam: General: Awake, conversant. Elderly frail looking woman. Heart: S1, S2/regular rate and rhythm, no murmur rubs or gallops Lungs: Clear to auscultation bilaterally. Normal effort Abdomen: Soft/nontender/nondistended. No hepatosplenomegaly Extremities: No clubbing/cyanosis. No edema Behavior: Appropriate, cooperative Results & Data Results & Data Vital Signs (Past 12 Hours) Vital Signs Temp Pulse Pulse Resp BP Pulse Ox Pulse Ox 09/10/24 12:10 36.8 C 67 18 133/77 93 09/10/24 11:46 09/10/24 11:22 09/10/24 08:37 36.8 C 64 18 130/74 97 09/10/24 07:58 62 09/10/24 04:30 96 09/10/24 04:18 36.6 C 64 16 112/63 96 Pulse Ox O2 Del Method O2 Del Method O2 Flow Rate O2 Flow Rate O2 Flow Rate 09/10/24 12:10 Room Air 09/10/24 11:46 Nasal Cannula 2 09/10/24 11:22 93 0 09/10/24 08:37 Nasal Cannula 3 09/10/24 07:58 09/10/24 04:30 Nasal Cannula 2 09/10/24 04:18 Nasal Cannula 2 Laboratory Results Abnormal lab results 09/09/24 09/09/24 09/10/24 Range/Units 16:23 22:42 06:35 RBC 3.85 L (4.20-5.40) M/uL Hgb 9.8 L (12.0-16.0) g/dl Hct 32.7 L (37.0-47.0) % MCHC 30.0 L (32.0-36.0) g/dL RDW Std Deviation 55.3 H (36.4-46.3) fL RDW Coeff of Haresh 18.1 H (11.5-14.5) % BUN/Creatinine Ratio 29.6 H (10-20) Calcium 8.4 L (8.6-10.3) mg/dl Troponin I High Sens 443.9 H* D 241.4 H* D (0-14) pg/ml PG Care Time/CCT Total # of Minutes Spent Total Time Spent with Patient: Total time spent is greater than 50% in coordination of care (as documented) at patient's floor/unit and/or counseling patient: Coding Level of Care Code 97873 SUB INP/OBS CARE 2/35MIN Diagnoses Acute hypoxic respiratory failure J96.01 Pneumonia J18.9 Laterality: unspecified laterality Lung location: unspecified part of lung Pneumonia type: due to unspecified organism Paroxysmal atrial fibrillation I48.0 Elevated troponin R79.89 HFrEF (heart failure with reduced ejection fraction) I50.20 Acute exacerbation of chronic heart failure I50.9 Asthma J45.909 (2) Pneumonia Laterality: unspecified laterality Lung location: unspecified part of lung Pneumonia type: due to unspecified organism Qualified Code(s): J18.9 - Pneumonia, unspecified organism
[2024-09-10] MEDS: AMOXICILLIN/CLAVULANATE 875 MG TAB PO SCH (17:34)
[2024-09-11 12:21] VITALS: BP 110/66; PULSE 64; RESP 16; TEMP 98.3; O2SAT 92
--- NOTE | 2024-09-11 14:22 | Discharge Summary ---
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 Pt seen at bedside. She is quite hard fo hearing and states she left her hearing aids at [facility], she thinks. She is at times difficult to converse with, partly due to difficulty hearing and intermittent pleasant confusion. She states when she woke up this past morning she had a cough and would occasionally cough stuff but but did not look at it. She states she also had runny nose and some shortness of breath that comes and goes. She also notes some substernal chest pressure. She denies nausea or vomiting. She states the day before she woke up with symptoms she felt well. She denies diarrhea, last BM was this past morning and was wnl and without blood per pt. Per ED note, while pt was at [facility] she was reportedly saturating 70%. Saturdations improved with 2L NC on EMS transport. She states she gets physical therapy at [facility] daily. She is oriented to self and place but not time or event on admission. I discussed code status with patient and she became confused over the questions about what she would want, states "I'm not sure..." even after prompting options multiple times. Chart r robert; pt has POLST that was signed in Jan 2024 that indicated DNR/DNI, will go by this for code status as pt unable to clearly make decision at this time. Principal Diagnosis Acute hypoxic respiratory failure due to pneumonia Bilateral lower lobe interstitial community-acquired pneumonia Demand ischemia Mild acute on chronic diastolic congestive heart failure Discharge Exam General: Awake, conversant. Elderly frail looking woman. Heart: S1, S2/regular rate and rhythm, no murmur rubs or gallops Lungs: Clear to auscultation bilaterally. Normal effort Abdomen: Soft/nontender/nondistended. No hepatosplenomegaly Extremities: No clubbing/cyanosis. No edema Behavior: Appropriate, cooperative Discharge Data Allergies Allergy/AdvReac Type Severity Reaction Status Date / Time codeine Allergy Intermediate Temperature Verified 09/09/24 00:30 rise oxycodone AdvReac Severe "Became Verified 09/09/24 00:30 addicted to it" lactose AdvReac gas to cow Verified 09/09/24 00:30 milk. Milk Containing Products AdvReac cow milk = Verified 09/09/24 00:30 (Dairy) "gas", lactose already profiled Consultations 09/09/24 00:10 ED Decision to Admit Stat Ordered Studies Chest X-Ray 09/08/24 23:55 EXAM: XR chest 1V portable CLINICAL HISTORY: Chest pain, nonspecific TECHNIQUE: An X-ray image of the chest is obtained in AP projection. COMPARISON: CR 06/25/2024 FINDINGS: Pulmonary Parenchyma: Diffuse bilateral interstitial reticulation (interval increase) . Bilateral lower zones with atelectatic bands. No evidence of consolidation, collapse, or focal opacities. No pulmonary nodules are identified. No evidence of pleural effusion or pleural thickening. Heart and Mediastinum: Mild cardiomegaly ( unchanged ) No mediastinal widening or masses. No hilar or mediastinal lymphadenopathy. Bony Thorax: Bony thorax appears intact without fractures or deformities. Healed malunited left humeral neck fracture . Soft Tissues: Soft tissues overlying the chest wall are unremarkable. IMPRESSION: 1. Diffuse bilateral interstitial reticulation (Interval increase ). 2. Bilateral lower zone heterogeneous airspace opacities with atelectatic bands (progressed). 3. Mild cardiomegaly (Unchanged). 4. Healed malunited left humeral neck fracture. Electronically signed by Robert Castaneda 09-09-2024 06:43 AM Venous Doppler Study 09/09/24 01:08 EXAM: US venous doppler LE BI CLINICAL HISTORY: leg edema, L leg slightly more edematous prior 12/31/2022 14:57:11 MOTORCYCLE SERVICE TECHNICIAN TECHNIQUE: Grayscale ultrasound, with and without compression, and color Doppler spectral waveform analysis were performed of the deep veins of the bilateral lower extremities from the level of the common femoral veins to the level of the popliteal veins. The posterior tibial and peroneal veins were also scanned. COMPARISON: US, 12/31/2022 14:57:11 MOTORCYCLE SERVICE TECHNICIAN FINDINGS: Bilateral external iliac, common femoral veins, superficial and femoral veins and popliteal veins are compressible and opacify at color Doppler evaluation with no evidence of deep vein thrombosis. There is no evidence of DVT in the visualized portions of the posterior tibial and peroneal veins. IMPRESSION: 1. Negative for deep vein thrombosis. 2. Subcutaneous edema seen in bilateral lower limb. Electronically signed by Satnam Mcnamara 09-09-2024 03:05 AM 09/09/24 01:08 US venous duplex leg [US venous doppler LE BI] Stat Hospital Course (1) Acute hypoxic respiratory failure: (2) Pneumonia: (3) Paroxysmal atrial fibrillation: (4) Elevated troponin: (5) HFrEF (heart failure with reduced ejection fraction): (6) Acute exacerbation of chronic heart failure: (7) Asthma: Plan 89 yo female with a past medical history of SVT s/p ablation, HFrEF with moderate aortic stenosis, hx CVA (without residual symptoms) with R carotid stenosis in Jan 2024 that required TCAR and then revision for carotid dissection two days later with subsequent intracranial hemorrhage at which time she had a fib and was not anticoagulated due to intracranial bleed, asthma, and ambulatory dysfunction with use of walker who presents to the hospital on 09/08 from [facility] for AHRF due to pneumonia. #AHRF secondary to pneumonia - symptoms started the morning of 09/08 and by the afternoon/evening progressed to hypoxia at [facility] - COVID negative on admission - satting well on 2L NC on admission, pt does not seem to be in an asthma exac on admission. Continue albuterol prn - MRSA neg, vancomycin discontinued Initially on cefepime Switched to Augmentin - SUPERINTENDENT LOCAL recs appreciated- no diet modification, cont aspiration precautions Will be discharged on Augmentin to complete the course Rest and exercise completed. Patient is not needing oxygen PT/OT cleared her for discharge #Troponin elevation - on admission was 107, peaked at 443 - suspect demand due to AHRF/CHF #HFpEF in exac on admission - given leg edema and lung exam, I do suspect this pt has some component of overload contributing to respiratory status as well - She was given 20 mg of IV Lasix on top of the 40 mg of p.o. Lasix Now back on her home regimen No leg swelling today. - LE duplex (09/09): neg for DVT - daily intake/output and weights #HTN - continue routine meds as tolerated #Hx afib - noted in cardio notes to have been brief episodes about 1 min so anticoagulation was deferred, particularly in the setting at that time of in tracranial bleed - continue home amiodarone #GERD - initiate PPI Discharge to home today Total Time Total Time Spent Total Time Spent (In Minutes): 35 Discharge Plan Discharge Items Patient Disposition: Personal [facility] Reason For Visit: AHRF, PNA Discharge Diagnosis: Acute hypoxic respiratory failure due to pneumonia Bilateral lower lobe interstitial community-acquired pneumonia Demand ischemia Mild acute on chronic diastolic congestive heart failure Condition on Discharge: Serious Activity: Resume your previous activity Non-emergency contact: Primary Care Provider Call non-emergency contact if: you have any medication questions and your symptoms worsen Follow-up/Referrals: José Kumari MD [Primary Care Provider] - Diet: Heart Healthy and Low Sodium (2gm) Addtl Attending Provider Instructions: Advised to follow-up with PCP in 1 week Pending Studies at Discharge: No Stand-Alone Forms: My [facility] [place] [employer] Skilled Items Patient informed of condition?: Yes DNR: No Discharge Level of Care: Other Communicable Disease: No Discharge Prognosis: Stable Lines: None Urinary Catheter: No Medications and DC Order Prescriptions: New amoxicillin-pot clavulanate 875-125 mg Tablet 1 tab PO BIDM 4 Days Qty: 8 0RF Continued metoprolol succinate 50 mg tablet extended release 24 hr 50 mg PO BID Rx Instructions: HOLD FOR SBP <100 OR HR<50 rosuvastatin [Crestor] 20 mg tablet 20 mg PO DAILY famotidine 10 mg tablet 10 mg PO QAM furosemide 40 mg tablet 40 mg PO QAM valsartan 80 mg tablet 80 mg PO QPM Rx Instructions: HOLD FOR SBP <100 verapamil 120 mg capsule,ext rel. pellets 24 hr 120 mg PO DAILY amiodarone 200 mg tablet 200 mg PO DAILY Qty: 90 3RF albuterol sulfate [Ventolin HFA] 90 mcg/actuation Hfa Aerosol Inhaler 2 puff INHALATION Q6H PRN (Reason: Wheezing) fluticasone propionate [Flonase Allergy Relief] 50 mcg/actuation [place],Suspension 2 spray INTRANASAL QAM pramipexole 0.5 mg tablet 0.5 mg PO HS cholecalciferol (vitamin D3) [Vitamin D3] 50 mcg (2,000 unit) Capsule 50 mcg PO QAM clopidogrel [Plavix] 75 mg Tablet 75 mg PO DAILY Hold Instructions: Resume on 02/22/24. hold until cleared by neurology/vascular aspirin 81 mg Tablet,Delayed Release (Dr/Ec) 81 mg PO DAILY amoxicillin 500 mg capsule 2,000 mg PO UD PRN (Reason: Prophylaxis) Rx Instructions: 1 HOUR PRIOR TO DENTAL PROCEDURE/WORK acetaminophen 325 mg Tablet 650 mg PO Q4 MDD 3G PRN (Reason: ELEVATED TEMPERATURE) acetaminophen 325 mg Tablet 650 mg PO Q4 MDD 3G PRN (Reason: Pain) umeclidinium-vilanterol 62.5-25 mcg/actuation Blister With Device 1 inh INHALATION DAILY nystatin 100,000 unit/gram powder 1 applic TOPICAL Q12 PRN (Reason: EXCORIATION) Rx Instructions: APPLY TO ABDOMINAL/BREAST FOLDS polyethylene glycol 3350 [Miralax] 17 gram/dose Powder 17 g PO QAM escitalopram oxalate 20 mg tablet 20 mg PO DAILY potassium chloride 10 mEq capsule, extended release 10 meq PO DAILY cyanocobalamin (vitamin B-12) 1,000 mcg/mL Kit 1,000 mcg IM WK Rx Instructions: one time a day every 7 days for 4 weeks start 08/14/24 cyanocobalamin (vitamin B-12) 1,000 mcg/mL Kit 1,000 mcg IM UD Rx Instructions: 1 time a day every 1 month starting on the 12th for 1 day START 10/02/24 Discharge Orders: Discharge Order (Routine); Ordered 09/11/24 Ordered By: Rayray Christensen Admission Data Admit Date/Time: 09/09/24 01:58 Attending Provider: Rayray Christensen Admit Provider: Miesha Villalobos Primary Care Provider: José Kumari Other Providers: Emile Aguilar; Edwar Simon; José Kumari
--- NOTE | 2024-09-14 13:14 | Coding Query ---
CODING QUERY To promote full compliance with coding requirements relating to patient care, provider participation is requested in all cases of senior java software developer uncertainty. Please assist us with the question(s) below: Coding Question(s): There is documentation of Acute on Chronic CHF, however, it is not clear if this his HFpEF or HFrEF or if it's combined due to conflicting documentation in the record. HFrEF (Systolic CHF) is documented as well as HFpEF (Diasolic CHF). Please specify below, in your clinical opinion, regarding the acute exacerbaion/acute on chronic CHF type: ( ) HFrEF - Systolic CHF ( x ) HFpEF - Diastolic CHF ( ) Combined Systolic and Diastolic CHF Physician's Response(s): Thank you Emma Holbrook Principal Diagnosis: "that condition established after study, to be chiefly responsible for occasioning the admission of the patient to the hospital for care." Co-Existing Principal Diagnosis: "when two or more diagnoses equally meet the criteria for principal diagnosis as determined by the circumstances of admission, diagnostic work up, and/or therapy provided, and the Alphabetic Index, Tabular List, or another coding guideline does not provide sequencing direction, any one of the diagnoses may be sequenced first." "When the physician has documented what appears to be a current diagnosis in the body of the record, but has not included the diagnosis in the final diagnostic statement, the physician should be asked whether the diagnosis should be added." (Source [facility]oding [facility] 2 QTR90. p3-4) YOANNA
== END 2024-09-11 14:01 | disposition home or self-care (01) | DRG 193 ==
LOC: ED 23:23 → 2W 09-09 01:58 → SUATTDRO 09-09 01:58 → 2W 09-09 04:06

== ENCOUNTER 2024-12-30 18:37 | Inpatient (IN) ==
[2024-12-30 19:17] LABS: Hematocrit (blood only) 41.3 % (37.0-47.0); Hemoglobin 12.6 g/dl (12.0-16.0); Immature Granulocytes # (auto) 0.01 K/uL (0.01-0.20); Immature Granulocytes % (auto) 0.2 %; Mean Corpuscular Hemoglobin 26.9 pg (25.0-34.0); Mean Corpuscular Volume 88.1 fL (80.0-100.0); Platelet Count 155 K/uL (130-400); RDW Standard Deviation 76.2 fL (36.4-46.3); Red Blood Count 4.69 M/uL (4.20-5.40); White Blood Count 5.48 K/ul (4.8-10.8)
--- NOTE | 2024-12-30 19:32 | CT Scan Report ---
CT head without contrast History: Trauma Comparison: None Technique: Using multidetector thin collimation helical acquisition technique, axial, coronal and sagittal CT images from the skull base to the vertex were obtained without intravenous contrast. Dose reduction techniques were achieved by using automatic exposure control and/or adjustment of mA and/or kV according to patient size and/or use of iterative reconstruction technique. Findings: No intracranial hemorrhage, mass-effect, or midline shift. The ventricles are proportionate to the cerebral sulci. The carlisle to white matter differentiation of the cerebral hemispheres is preserved. The basal cisterns are patent. There is moderate cerebral atrophy. Moderate, patchy low-attenuation changes in the white matter, most suggestive of sequelae of chronic small vessel ischemic disease. The visualized paranasal sinuses are clear. Mastoid air cells are clear. Impression: No acute intracranial pathology. Electronically signed by Dinh Richard 12-30-2024 7:32 PM
[2024-12-30 19:46] LABS: Alanine Aminotransferase 22 U/L (7-52); Albumin Globulin Ratio 0.8 (0.9-2); Albumin Level 3.3 gm/dl (3.4-5.0); Alkaline Phosphatase 67 U/L (34-104); Bilirubin,Total 0.6 mg/dl (0.2-1.0); Blood Urea Nitrogen 18 mg/dl (6-23); Calcium 9.1 mg/dl (8.6-10.3); Carbon Dioxide 26 mmol/L (21-32); Chloride 105 mmol/L (98-107); Creatinine Clr Calc Pharmacy 33.3 ml/min; Globulin 4.1 gm/dl (2.5-4.0); Glucose 127 mg/dl (70-99(Fasting)); Lipase 12 U/L (11-82); Total Protein 7.4 gm/dl (6.0-8.3)
[2024-12-30 19:48] LABS: Anisocytosis Present; Ovalocytes 1+
[2024-12-30] MEDS: OPTIRAY 320 125ml IV ONE (20:44)
[2024-12-30] MEDS: LORazepam 1 MG/1 ML SYR ED Inj Use IV STA (21:05)
--- NOTE | 2024-12-30 21:12 | Emergency Department Note ---
Impression & Plan Neurocognitive disorder, Ambulatory dysfunction, Generalized weakness, Frequent falls, Hypoalbuminemia, Soft tissue injury, Abrasion of left leg ED Provider Note NAME: SOREN DURAN AGE: 89 SEX: F : 1935 ARRIVES VIA: Ambulance INFORMANT: Patient, EMS, ED PROVIDER(S): Jaron Coleman DO CHIEF COMPLAINT: fall HPI: This was prehospital trauma/injury alert by EMS. This is a 89-year-old female with the PMHx of dementia, HTN, HLD, asthma, CHF, DDD, pAfib and GERD presenting to [facility] for further evaluation of fall. Patient is accompanied by EMS who provide additional history. EMS states the patient fell at her living facility. The patient reports that this was when she was trying to get on the bus. She has been mildly confused. They noticed an obvious left lower extremity deformity. They are not on blood thinners but she does take DAPT. They deny head strike or LOC. They deny neck or back pain. They deny fever or chills. No cough or congestion. Denies chest pain or palpitations. No shortness of breath. They deny abdominal pain, nausea and vomiting. No urinary complaints. No recent changes in bowel movements. Patient denies recent changes in medications or OTC supplements. Patient offers no other complaints, today. ADDITIONAL HISTORY OBTAINED: Per HPI Chronic Medical/Social Conditions Affecting Care: Per HPI PAST MEDICAL HISTORY: See Below PAST SURGICAL HISTORY: See Below FAMILY HISTORY: See Below SOCIAL HISTORY: See Below HOME MEDICATIONS: See Below ALLERGIES: See Below VITALS: See Below PHYSICAL EXAMINATION: Primary Survey Airway: Intact Breathing: Normal, breath sounds equal bilaterally Circulation: Skin warm, distal pulses 2+, capillary refill less than 2 seconds Disability Pupils: Equal and reactive to light, 4mm, brisk GCS: 15, E = 4, V=4, M= 6 Motor Function: Moves all extremities. Sensory: No deficits Secondary Survey GEN: Well developed and well-nourished HENT: Head: No external signs of trauma. No obvious contusions, abrasions, or laceration. No raccoon eyes or boo sign. Mouth/Throat: No blood within the oral cavity. No malocclusion. Eyes: EOMI. Pupils are 4 mm, round and reactive bilaterally. Ears: TMs are intact bilaterally. No hematomas. No hemotympanum. Nose: No nasal septal hematoma. [No] gross deformity. Neck: C-collar deferred as no significant head or neck trauma and reassuring mechanism. No midline C-spine tenderness. No step-offs. Cardiovascular: RRR. Pulses present in all 4 extremities. Pulmonary/Chest: BS equal bilaterally. No tenderness or ecchymosis. Abdomen: No tenderness or ecchymosis. Musculoskeletal: Pelvis: No instability. Back: No midline tenderness. No step-offs or deformities. Extremities: Obvious deformity of the left lower extremity. Slight abrasion. Significant ecchymoses and swelling of the distal left lower extremity. This is mostly involving the tibia/fibula. No real swelling or ecchymoses at the ankle. Extremity is neurovascularly intact. Skin: No laceration. No abrasion. Neuro: No focal neurological deficits. GCS as above. Only mildly confused. Psych: Normal mood and affect. MEDICAL DECISION MAKING: Vitals: The patient is mildly hypertensive but otherwise afebrile and HDS. An order was placed for continuous cardiorespiratory monitoring. I reviewed and this shows a rate of 60s with regular rhythm. Differential diagnoses include but not limited to multi-system trauma, ICH, skull fracture, spine / spinal cord injury, fracture, dislocation, traumatic abdominal injuries, solid / visceral organ injuries, MSK sprain / strain, contusion, whiplash, concussion In summary, this is an 89yoF who presented as an injury alert. Patient was brought into the emergency/resuscitation room by EMS. Full ATLS protocol was initiated under direction of the ED team. The history was concerning for multi- system trauma. Airway intact and self maintained, breath sounds bilateral and equal along with normal effort, circulation intact with pp in 4 extremities, GCS 14 with normal speech and sensorium and CHEN. Patient was removed from the EMS stretcher with in-line stabilization technique and patient is back examined. Full physical examination as above. History and secondary survey as above. Labs drawn. Patient has isolated trauma to the left lower extremity. She did not hit her head. Appears to be an isolated injury. This is reassuring from EMS's report as well as bystanders. Patient's collar was deferred at this time as she has no evidence of trauma and mechanism is reassuring. Given that she is on dual antiplatelet therapy, we will obtain a screening CT head. Please note that the patient had whole-body CT scans in the prior day and they were normal. She presents now with recurrent falls. There is a concern for her safety at her living facility and she will likely need to be admitted. Pt was given tetanus. Initial/stabilizing treatments include IVP Fentanyl for pain control. Imaging performed and reviewed as above. Patient was taken to the CT suite for CTH and dedicated extremity films. Labs were independently interpreted by me as no leukocytosis or anemia. There is no significant electrolyte derangements or significant kidney dysfunction from baseline. No changes in LFTs. CXR independently interpreted by me reveals no evidence of focal consolidation to suggest pna. No large pneumothorax or pleural effusion. No obvious displaced rib fracture. CTH independently interpreted by me reveals no evidence of ICH. No significant hydrocephalus. No major skull fractures. CTH does not demonstrate findings to suggest an etiology of the patient's symptoms or presentation, today. While in the emergency department, the patient did have an acute mental status change. Do feel this is likely neurocognitive and some component of sundowning. Patient did have some right-sided weakness noted by nursing staff. Patient sent for CTA imaging of the head and neck. CTA imaging of the head and neck was negative for acute stroke. Patient does have significant swelling with an abrasion of the left lower extremity. I independently interpreted the patient's plain films of this area that showed no acute fracture or dislocation. She has significant ambulatory dysfunction and pain secondary to her fall today. This is complicated by her neurocognitive disorder. Do not feel the patient is safe for discharge given recurrent falls at this point. Patient will require admission for pain control as well as PT/OT evaluations. Unclear of her living situation at this time. Does appear to be assisted living rather than full skilled facility. Patient may benefit from inpatient rehab or possible skilled facility at this time. The patient's complex injuries include generalized weakness with frequent falls c/b dementia and LLE injury that appears to be soft tissue only. Based on the patient's age, code existing illnesses, exam and lab findings, the decision to treat as an inpatient was made. They received the medications, treatments, interventions indicated above and their condition remained guarded. I discussed my findings with the patient and their family and they understand and agree with the treatment plan. All patient / family questions were answered to their satisfaction. Consults/Care Managements Discussions: Per MDM ER treatment provided: See above Procedures: None Critical Care: None The chart was completed utilizing [email or web address] Speech voice recognition software. Grammatical errors, random word insertions, pronoun errors, and incomplete sentences are an occasional consequence of this system due to software limitations, ambient noise, and hardware issues. Any formal questions or concerns about the content, text, or information contained within the body of this dictation should be directly addressed to the physician for clarification. Past Med/Surg History Problem List (Updated 01/01/25 @ 12:05 by Jaron Coleman DO) Abrasion of left leg (Acute) Soft tissue injury (Acute) Hypoalbuminemia (Acute) Frequent falls (Acute) Generalized weakness (Acute) Ambulatory dysfunction (Acute) Neurocognitive disorder (Acute) Contusion of leg, left Dementia with behavioral disturbance Recurrent falls Ambulatory dysfunction Contusion of rib (Acute) Contusion of hip (Acute) Fall (Acute) Acute exacerbation of chronic heart failure HFrEF (heart failure with reduced ejection fraction) Elevated troponin Pneumonia (Acute) Acute hypoxic respiratory failure (Acute) Acute hip pain (Acute) Hard of hearing (Acute) Fall (Acute) Closed left humeral fracture (Acute) Paroxysmal atrial fibrillation Intraparenchymal hemorrhage of brain Discharge planning issues DVT prophylaxis Dissection of right carotid artery Stenosis of right carotid artery Valvular heart disease Carotid artery stenosis Encounter for pre-operative examination DDD (degenerative disc disease), lumbar Bruit of left carotid artery Arthritis Diastolic congestive heart failure, NYHA class 3 Bilateral edema of lower extremity (Chronic) SVT (supraventricular tachycardia) (Chronic) Asthma (Chronic) Hypertension (Chronic) Dyslipidemia (Chronic) Dyspnea on exertion (Chronic) Breast cancer (Acute 05/07/16) "Status post left breast cancer 1996 treated with lumpectomy followed by radiation therapy Self detected left breast mass April 2016 Status post mammogram followed by core needle biopsy 05/07/2016 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, progesterone receptor positive, HER-2/wendy positive" Medical History Acute blood loss anemia Subclavian artery stenosis, left Hematoma of right hip Metabolic encephalopathy Tenosynovitis, de Quervain Rheumatoid disease Pes anserinus bursitis OA (osteoarthritis) of knee Neural foraminal stenosis of lumbar spine Lumbar radiculopathy Knee pain ICH (intracerebral hemorrhage) (02/13/24) Heart disease Hamstring strain Bilateral carotid artery stenosis Left humeral fracture Chronic neck pain Poor historian Arthritis Limb alert care status Dyspnea on exertion SVT (supraventricular tachycardia) Bilateral edema of lower extremity Moderate aortic stenosis Dyslipidemia Heart failure with preserved ejection fraction History of COVID-19 (06/2022) Asthma Cystocele, midline Carpal tunnel syndrome Osteoarthritis Sciatic nerve disease Chronic back pain GERD (gastroesophageal reflux disease) Breast cancer, left (1996) Hearing deficit Restless leg syndrome Hyperlipidemia Hypertension Atrial fibrillation Sleep apnea Surgical History Status post left knee replacement (12/2022) History of right hip replacement (07/02/22) S/P epidural steroid injection History of carpal tunnel surgery of right wrist History of back surgery H/O left breast biopsy (1997) History of left mastectomy (2015) History of lumpectomy of left breast History of tonsillectomy and adenoidectomy Social History Smoking Status: Never smoker Tobacco Type: Cigarettes Second Hand Exposure: No; Do You Dip or Chew Tobacco: No; Hx Alcohol Use: Yes Alcohol type: other Hx Substance Use: No Preferred Language: Tamazight Communication Ability: Impaired Manager Of Financial Planning Required: No Beliefs That Will Affect Care: None Current Living Situation: Senior Living Current Living Situation Comment: [facility] Feels Safe at Home: Declines to Answer Assistive Devices: Walker Allergies Allergies Allergy/AdvReac Type Severity Reaction Status Date / Time codeine Allergy Intermediate Temperature Verified 09/18/24 11:48 rise oxycodone AdvReac Severe "Became Verified 09/18/24 11:48 addicted to it" lactose AdvReac gas to cow Verified 09/18/24 11:48 milk. Milk Containing Products AdvReac cow milk = Verified 09/18/24 11:48 (Dairy) "gas", lactose already profiled Home Meds Home Medications Medication Instructions Recorded Confirmed albuterol sulfate 90 mcg/actuation 2 puff inhalation Q6H PRN Wheezing 11/17/17 12/31/24 aerosol inhaler (Ventolin HFA) fluticasone propionate 50 2 spray intranasal QAM 11/17/17 12/31/24 mcg/actuation nasal spray,suspension (Flonase Allergy Relief) metoprolol succinate 50 mg 50 mg PO BID 04/02/21 12/31/24 tablet,extended release 24 hr pramipexole 0.5 mg tablet 0.5 mg PO HS 04/02/21 12/31/24 cholecalciferol (vitamin D3) 50 50 mcg PO QAM 10/28/22 12/31/24 mcg (2,000 unit) capsule (Vitamin D3) clopidogrel 75 mg tablet (Plavix) 75 mg PO DAILY 02/07/24 12/31/24 famotidine 10 mg tablet 10 mg PO QAM 03/08/24 12/31/24 furosemide 40 mg tablet 40 mg PO QAM 03/08/24 12/31/24 rosuvastatin 20 mg tablet (Crestor) 20 mg PO DAILY 03/08/24 12/31/24 valsartan 80 mg tablet 80 mg PO QPM 03/08/24 12/31/24 verapamil 120 mg 24 hr 120 mg PO DAILY 03/08/24 12/31/24 capsule,extended release acetaminophen 325 mg tablet 650 mg PO Q4 PRN ELEVATED 06/28/24 12/31/24 TEMPERATURE acetaminophen 325 mg tablet 650 mg PO Q4 PRN Pain 06/28/24 12/31/24 aspirin 81 mg tablet,delayed 81 mg PO DAILY 06/28/24 12/31/24 release nystatin 100,000 unit/gram topical 1 applic topical Q12 PRN 06/28/24 12/31/24 powder EXCORIATION polyethylene glycol 3350 17 17 g PO QAM Constipation 06/28/24 12/31/24 gram/dose oral powder (Miralax) umeclidinium 62.5 mcg-vilanterol 1 inh inhalation DAILY 06/28/24 12/31/24 25 mcg/actuation powdr for inhalation cyanocobalamin (vitamin B-12) 1,000 mcg IM DIRECTED 09/09/24 12/31/24 1,000 mcg/mL injection kit escitalopram oxalate 20 mg tablet 20 mg PO DAILY 09/09/24 12/31/24 potassium chloride 10 mEq 10 meq PO DAILY 09/09/24 12/31/24 capsule,extended release benzonatate 200 mg capsule 200 mg PO DIRECTED PRN Cough 12/31/24 12/31/24 bisacodyl 10 mg rectal suppository 10 mg MA DAILY PRN Constipation 12/31/24 12/31/24 (Dulcolax (bisacodyl)) ferrous sulfate 325 mg (65 mg 325 mg PO DAILY 12/31/24 12/31/24 iron) tablet magnesium hydroxide 400 mg/5 mL 30 ml PO DAILY PRN Constipation 12/31/24 12/31/24 oral suspension (Milk of Magnesia) sodium phosphates 19 gram-7 118 ml MA Q72H PRN Constipation 12/31/24 12/31/24 gram/118 mL enema (Fleet Enema) Previous Rx's Medication Instructions Recorded amiodarone 200 mg tablet 200 mg PO DAILY #90 tabs 04/05/24 Results & Data (ED) Vital Signs Vital Signs - 24 hr 12/30/24 18:49 12/30/24 18:49 12/30/24 18:49 Temperature 36.8 C 36.8 C 36.8 C Temperature Source Oral Oral Oral Pulse Rate 62 Pulse Rate [Apical] 62 62 Pulse Rate from SpO2 Sensor Pulse Rhythm [Apical] Regular Respiratory Rate 17 17 17 Respiratory Effort / Characteristics Non-Labored Spontaneous Non-Labored Spontaneous Non-Labored Spontaneous Respiratory Depth Normal Normal Normal Respiratory Pattern Blood Pressure 145/65 H Blood Pressure [Left Arm] 145/65 H 145/65 H Blood Pressure Mean 91 Blood Pressure Mean [Left Arm] 91 91 Blood Pressure Position [Left Arm] Lying Lying Pulse Oximetry 97 97 97 Oxygen Delivery Method Room Air Room Air Room Air Sepsis Recent Fever Within 48 Hours No Sepsis New/Unexplained Change in Mental Status N/A Sepsis Action Taken by Nursing No Action Required 12/30/24 18:49 12/30/24 19:00 12/30/24 20:26 Temperature Temperature Source Pulse Rate 62 61 68 Pulse Rate [Apical] Pulse Rate from SpO2 Sensor Pulse Rhythm [Apical] Respiratory Rate 17 22 15 Respiratory Effort / Characteristics Respiratory Depth Respiratory Pattern Blood Pressure 148/62 H 178/89 H Blood Pressure [Left Arm] Blood Pressure Mean 90 123 Blood Pressure Mean [Left Arm] Blood Pressure Position [Left Arm] Pulse Oximetry 97 98 91 Oxygen Delivery Method Room Air Sepsis Recent Fever Within 48 Hours Sepsis New/Unexplained Change in Mental Status Sepsis Action Taken by Nursing 12/30/24 20:30 12/30/24 20:45 12/30/24 21:00 Temperature Temperature Source Pulse Rate 64 66 65 Pulse Rate [Apical] Pulse Rate from SpO2 Sensor Pulse Rhythm [Apical] Respiratory Rate 17 20 16 Respiratory Effort / Characteristics Respiratory Depth Respiratory Pattern Blood Pressure 177/86 H 175/90 H 172/74 H Blood Pressure [Left Arm] Blood Pressure Mean 116 118 106 Blood Pressure Mean [Left Arm] Blood Pressure Position [Left Arm] Pulse Oximetry 90 92 94 Oxygen Delivery Method Sepsis Recent Fever Within 48 Hours Sepsis New/Unexplained Change in Mental Status Sepsis Action Taken by Nursing 12/30/24 22:12 12/30/24 22:21 12/30/24 22:30 Temperature Temperature Source Pulse Rate 64 60 Pulse Rate [Apical] Pulse Rate from SpO2 Sensor 60 60 Pulse Rhythm [Apical] Respiratory Rate 26 H 17 Respiratory Effort / Characteristics Respiratory Depth Respiratory Pattern Blood Pressure 144/65 H Blood Pressure [Left Arm] Blood Pressure Mean 91 Blood Pressure Mean [Left Arm] Blood Pressure Position [Left Arm] Pulse Oximetry 90 96 Oxygen Delivery Method Sepsis Recent Fever Within 48 Hours Sepsis New/Unexplained Change in Mental Status Sepsis Action Taken by Nursing 12/30/24 22:30 12/30/24 22:30 12/30/24 22:30 Temperature Temperature Source Pulse Rate Pulse Rate [Apical] Pulse Rate from SpO2 Sensor Pulse Rhythm [Apical] Respiratory Rate Respiratory Effort / Characteristics Respiratory Depth Respiratory Pattern Blood Pressure 144/65 H 144/65 H 144/65 H Blood Pressure [Left Arm] Blood Pressure Mean 91 91 91 Blood Pressure Mean [Left Arm] Blood Pressure Position [Left Arm] Pulse Oximetry Oxygen Delivery Method Sepsis Recent Fever Within 48 Hours Sepsis New/Unexplained Change in Mental Status Sepsis Action Taken by Nursing 12/30/24 22:30 12/30/24 22:30 12/30/24 22:37 Temperature Temperature Source Pulse Rate 59 L Pulse Rate [Apical] 63 Pulse Rate from SpO2 Sensor 59 L Pulse Rhythm [Apical] Respiratory Rate 15 21 Respiratory Effort / Characteristics Non-Labored Spontaneous Respiratory Depth Normal Respiratory Pattern Regular Blood Pressure 144/65 H Blood Pressure [Left Arm] 144/65 H Blood Pressure Mean 91 Blood Pressure Mean [Left Arm] 91 Blood Pressure Position [Left Arm] Pulse Oximetry 91 96 Oxygen Delivery Method Room Air Sepsis Recent Fever Within 48 Hours Sepsis New/Unexplained Change in Mental Status Sepsis Action Taken by Nursing 12/30/24 22:37 12/30/24 22:42 12/30/24 22:51 Temperature Temperature Source Pulse Rate 60 63 Pulse Rate [Apical] 63 Pulse Rate from SpO2 Sensor 61 61 Pulse Rhythm [Apical] Respiratory Rate 21 20 24 Respiratory Effort / Characteristics Non-Labored Spontaneous Respiratory Depth Normal Respiratory Pattern Regular Blood Pressure Blood Pressure [Left Arm] 144/65 H Blood Pressure Mean Blood Pressure Mean [Left Arm] 91 Blood Pressure Position [Left Arm] Pulse Oximetry 96 91 89 L Oxygen Delivery Method Room Air Sepsis Recent Fever Within 48 Hours Sepsis New/Unexplained Change in Mental Status Sepsis Action Taken by Nursing 12/30/24 23:00 12/30/24 23:00 12/30/24 23:00 Temperature Temperature Source Pulse Rate 61 Pulse Rate [Apical] Pulse Rate from SpO2 Sensor 59 L Pulse Rhythm [Apical] Respiratory Rate 27 H Respiratory Effort / Characteristics Respiratory Depth Respiratory Pattern Blood Pressure 151/69 H 151/69 H Blood Pressure [Left Arm] Blood Pressure Mean 83 83 Blood Pressure Mean [Left Arm] Blood Pressure Position [Left Arm] Pulse Oximetry 90 Oxygen Delivery Method Sepsis Recent Fever Within 48 Hours Sepsis New/Unexplained Change in Mental Status Sepsis Action Taken by Nursing 12/30/24 23:00 12/30/24 23:00 12/30/24 23:00 Temperature Temperature Source Pulse Rate Pulse Rate [Apical] Pulse Rate from SpO2 Sensor Pulse Rhythm [Apical] Respiratory Rate Respiratory Effort / Characteristics Respiratory Depth Respiratory Pattern Blood Pressure 151/69 H 151/69 H 151/69 H Blood Pressure [Left Arm] Blood Pressure Mean 83 83 83 Blood Pressure Mean [Left Arm] Blood Pressure Position [Left Arm] Pulse Oximetry Oxygen Delivery Method Sepsis Recent Fever Within 48 Hours Sepsis New/Unexplained Change in Mental Status Sepsis Action Taken by Nursing 12/30/24 23:12 12/30/24 23:21 12/30/24 23:30 Temperature Temperature Source Pulse Rate 56 L 59 L Pulse Rate [Apical] Pulse Rate from SpO2 Sensor 56 L 58 L Pulse Rhythm [Apical] Respiratory Rate 18 16 Respiratory Effort / Characteristics Respiratory Depth Respiratory Pattern Blood Pressure 146/76 H Blood Pressure [Left Arm] Blood Pressure Mean 97 Blood Pressure Mean [Left Arm] Blood Pressure Position [Left Arm] Pulse Oximetry 94 92 Oxygen Delivery Method Sepsis Recent Fever Within 48 Hours Sepsis New/Unexplained Change in Mental Status Sepsis Action Taken by Nursing 12/30/24 23:30 12/30/24 23:30 12/30/24 23:30 Temperature Temperature Source Pulse Rate Pulse Rate [Apical] Pulse Rate from SpO2 Sensor Pulse Rhythm [Apical] Respiratory Rate Respiratory Effort / Characteristics Respiratory Depth Respiratory Pattern Blood Pressure 146/76 H 146/76 H 146/76 H Blood Pressure [Left Arm] Blood Pressure Mean 97 97 97 Blood Pressure Mean [Left Arm] Blood Pressure Position [Left Arm] Pulse Oximetry Oxygen Delivery Method Sepsis Recent Fever Within 48 Hours Sepsis New/Unexplained Change in Mental Status Sepsis Action Taken by Nursing 12/30/24 23:30 12/30/24 23:30 12/30/24 23:42 Temperature Temperature Source Pulse Rate 60 57 L Pulse Rate [Apical] Pulse Rate from SpO2 Sensor 60 59 L Pulse Rhythm [Apical] Respiratory Rate 17 15 Respiratory Effort / Characteristics Respiratory Depth Respiratory Pattern Blood Pressure 146/76 H Blood Pressure [Left Arm] Blood Pressure Mean 97 Blood Pressure Mean [Left Arm] Blood Pressure Position [Left Arm] Pulse Oximetry 95 95 Oxygen Delivery Method Sepsis Recent Fever Within 48 Hours Sepsis New/Unexplained Change in Mental Status Sepsis Action Taken by Nursing Laboratory Data 01/01/25 07:42 01/01/25 07:42 Lab Results 12/30/24 12/30/24 12/30/24 Range/Units 18:57 19:02 20:28 WBC 5.48 (4.8-10.8) K/ul RBC 4.69 (4.20-5.40) M/uL Hgb 12.6 (12.0-16.0) g/dl POC Hgb 13.9 (12.0-16.0) g/dl Hct 41.3 (37.0-47.0) % POC Hct 41 (37-47) % MCV 88.1 (80.0-100.0) fL MCH 26.9 (25.0-34.0) pg MCHC 30.5 L (32.0-36.0) g/dL RDW Std Deviation 76.2 H (36.4-46.3) fL RDW Coeff of Haresh 24.0 H (11.5-14.5) % Plt Count 155 (130-400) K/uL MPV 11.4 (9.4-12.4) fL Immature Gran % (Auto) 0.2 % Neut % (Auto) 67.4 % Lymph % (Auto) 19.7 % [place] % (Auto) 8.0 % Eos % (Auto) 4.2 % Baso % (Auto) 0.5 % Neut # (Auto) 3.69 (1.40-6.50) K/uL Lymph # (Auto) 1.08 L (1.20-3.40) K/uL [place] # (Auto) 0.44 (0.11-0.59) K/uL Eos # (Auto) 0.23 (0.00-0.50) K/uL Baso # (Auto) 0.03 (0.00-0.20) K/uL Immature Gran # (Auto) 0.01 (0.01-0.20) K/uL Anisocytosis Present Ovalocytes 1+ PT Cancelled INR Cancelled APTT Cancelled PTT Ratio Cancelled POC Sodium 140 (135-144) mmol/L Sodium TNP POC Potassium 4.8 (3.3-5.0) mmol/L Potassium TNP POC Chloride 105 (101-112) mmol/L Chloride 105 (98-107) mmol/L Carbon Dioxide 26 (21-32) mmol/L POC Total CO2 26 (24-31) mmol/L Anion Gap TNP POC Anion Gap 15.0 L (16-25) mmol/L POC BUN 23 H (7-18) mg/dl BUN 18 (6-23) mg/dl Creatinine 1.03 (0.6-1.2) mg/dl POC Creatinine 1.1 (0.6-1.3) mg/dl Est Cr Clr Drug Dosing 33.3 ml/min eGFR 52.63 BUN/Creatinine Ratio 17.5 (10-20) Glucose 127 H (70-99(Fasting)) mg/dl POC Glucose 86 (70-99) mg/dl POC Glucose (other) 125 H (70-99) mg/dl Calcium 9.1 (8.6-10.3) mg/dl POC Ioniz Calcium Raad 1.05 L (1.12-1.32) mmol/l Total Bilirubin 0.6 (0.2-1.0) mg/dl AST TNP ALT 22 (7-52) U/L Alkaline Phosphatase 67 (34-104) U/L Total Protein 7.4 (6.0-8.3) gm/dl Albumin 3.3 L (3.4-5.0) gm/dl Globulin 4.1 H (2.5-4.0) gm/dl Albumin/Globulin Ratio 0.8 L (0.9-2) Lipase 12 (11-82) U/L 12/30/24 12/30/24 Range/Units 20:58 21:19 WBC (4.8-10.8) K/ul RBC (4.20-5.40) M/uL Hgb (12.0-16.0) g/dl POC Hgb (12.0-16.0) g/dl Hct (37.0-47.0) % POC Hct (37-47) % MCV (80.0-100.0) fL MCH (25.0-34.0) pg MCHC (32.0-36.0) g/dL RDW Std Deviation (36.4-46.3) fL RDW Coeff of Haresh (11.5-14.5) % Plt Count (130-400) K/uL MPV (9.4-12.4) fL Immature Gran % (Auto) % Neut % (Auto) % Lymph % (Auto) % [place] % (Auto) % Eos % (Auto) % Baso % (Auto) % Neut # (Auto) (1.40-6.50) K/uL Lymph # (Auto) (1.20-3.40) K/uL [place] # (Auto) (0.11-0.59) K/uL Eos # (Auto) (0.00-0.50) K/uL Baso # (Auto) (0.00-0.20) K/uL Immature Gran # (Auto) (0.01-0.20) K/uL Anisocytosis Ovalocytes PT 11.4 INR 1.1 APTT 27 PTT Ratio 1.0 POC Sodium (135-144) mmol/L Sodium 138 POC Potassium (3.3-5.0) mmol/L Potassium 3.5 POC Chloride (101-112) mmol/L Chloride (98-107) mmol/L Carbon Dioxide (21-32) mmol/L POC Total CO2 (24-31) mmol/L Anion Gap POC Anion Gap (16-25) mmol/L POC BUN (7-18) mg/dl BUN (6-23) mg/dl Creatinine (0.6-1.2) mg/dl POC Creatinine (0.6-1.3) mg/dl Est Cr Clr Drug Dosing ml/min eGFR BUN/Creatinine Ratio (10-20) Glucose (70-99(Fasting)) mg/dl POC Glucose 99 (70-99) mg/dl POC Glucose (other) (70-99) mg/dl Calcium (8.6-10.3) mg/dl POC Ioniz Calcium Raad (1.12-1.32) mmol/l Total Bilirubin (0.2-1.0) mg/dl AST 23 ALT (7-52) U/L Alkaline Phosphatase (34-104) U/L Total Protein (6.0-8.3) gm/dl Albumin (3.4-5.0) gm/dl Globulin (2.5-4.0) gm/dl Albumin/Globulin Ratio (0.9-2) Lipase (11-82) U/L Administered Medications Acetaminophen (Acetaminophen 325 Mg Tab) 650 mg PO Q4H PRN PRN Reason: Pain or Fever Stop: 01/30/25 02:06 Last Admin: 12/31/24 05:11 Dose: 650 mg Documented By: PILI Amiodarone HCl (Amiodarone 200 Mg Tab) 200 mg PO DAILY [facility] Stop: 01/30/25 08:59 Last Admin: 01/01/25 08:53 Dose: 200 mg Documented By: Admin: 12/31/24 08:56 Dose: 200 mg Documented By: MICHAEL Clopidogrel Bisulfate (Clopidogrel Bisulfate 75 Mg Tab) 75 mg PO DAILY [facility] Stop: 01/30/25 08:59 Last Admin: 01/01/25 08:52 Dose: 75 mg Documented By: Admin: 12/31/24 08:57 Dose: 75 mg Documented By: MICHAEL Escitalopram Oxalate (Escitalopram Oxalate 20 Mg Tab) 20 mg PO DAILY [facility] Stop: 01/30/25 08:59 Last Admin: 01/01/25 08:53 Dose: 20 mg Documented By: Admin: 12/31/24 08:56 Dose: 20 mg Documented By: MICHAEL Famotidine (Famotidine 10 Mg Tablet) 10 mg PO QAM [facility] Stop: 01/30/25 08:59 Last Admin: 01/01/25 08:53 Dose: 10 mg Documented By: Admin: 12/31/24 08:56 Dose: 10 mg Documented By: MICHAEL Fluticasone Propionate (Fluticasone Propionate Na Spr 16 Gm Btl) 2 sprays NA QAM [facility] Stop: 01/30/25 08:59 Last Admin: 01/01/25 08:52 Dose: 2 sprays Documented By: Admin: 12/31/24 08:57 Dose: 2 sprays Documented By: MICHAEL Furosemide (Furosemide 40 Mg Tab) 40 mg PO QAM DANNY Stop: 01/30/25 08:59 Last Admin: 01/01/25 08:52 Dose: 40 mg Documented By: Admin: 12/31/24 08:57 Dose: 40 mg Documented By: MICHAEL Metoprolol Succinate (Metoprolol Succ 50mg Ext Rel Tab) 50 mg PO BID DANNY Stop: 01/30/25 08:59 Last Admin: 01/01/25 08:52 Dose: 50 mg Documented By: Admin: 12/31/24 20:21 Dose: 50 mg Documented By: lindsey Admin: 12/31/24 08:57 Dose: 50 mg Documented By: MICHAEL Potassium Chloride (Potassium Chloride 10 Meq Tabcr) 10 meq PO DAILY DANNY Stop: 01/30/25 08:59 Last Admin: 01/01/25 08:52 Dose: 10 meq Documented By: Admin: 12/31/24 08:57 Dose: 10 meq Documented By: MICHAEL Pramipexole Dihydrochloride (Pramipexole Dihydrochlo 0.5 Mg Tab) 0.5 mg PO HS DANNY Stop: 01/30/25 02:06 Last Admin: 12/31/24 20:21 Dose: 0.5 mg Documented By: lindsey Admin: 12/31/24 02:36 Dose: 0.5 mg Documented By: PILI Rosuvastatin Calcium (Rosuvastatin Calcium 20 Mg Tab) 20 mg PO DAILY DANNY Stop: 01/30/25 08:59 Last Admin: 01/01/25 08:53 Dose: 20 mg Documented By: Admin: 12/31/24 08:56 Dose: 20 mg Documented By: MICHAEL Umeclidinium/Vilanterol (Umeclidinium/Vilanterol 62.5/25mcg 7 Puffs/Inhaler) 1 puffs INH DAILY DANNY Stop: 01/30/25 08:59 Last Admin: 01/01/25 08:52 Dose: 1 puffs Documented By: Admin: 12/31/24 08:57 Dose: 1 puffs Documented By: MICHAEL Valsartan (Valsartan 80 Mg Tab) 80 mg PO QPM DANNY Stop: 01/30/25 20:59 Last Admin: 12/31/24 20:21 Dose: 80 mg Documented By: lindsey Verapamil HCl (Verapamil Hcl 120 Mg Tabcr) 120 mg PO DAILY DANNY Stop: 01/30/25 08:59 Last Admin: 01/01/25 08:53 Dose: 120 mg Documented By: Admin: 12/31/24 08:56 Dose: 120 mg Documented By: MICHAEL Discontinued Medications Diphtheria/Pertussis/Tetanus Vacc (Diphther/Tetan/Pertus Vaccine (Tdap, Adol/Adult) 0.5ml) 0.5 ml IM .ONCE ONE Stop: 12/30/24 22:45 Last Admin: 12/30/24 23:52 Dose: 0.5 ml Documented By: STACY Fentanyl Citrate (Fentanyl Citrate Pf 100 Mcg/2 Ml Vial) 50 mcg IV NOW STA Stop: 12/30/24 18:45 Last Admin: 12/30/24 18:52 Dose: 50 mcg Documented By: mlana laura Ioversol (Optiray 320 125ml) 119 ml IV ONCE ONE Stop: 12/30/24 20:44 Last Admin: 12/30/24 20:44 Dose: 119 ml Documented By: JESSICAK Lorazepam (Lorazepam 1 Mg/1 Ml Syr Ed Inj Use) 0.5 mg IV ONE STA Stop: 12/30/24 21:02 Last Admin: 12/30/24 21:05 Dose: 0.5 mg Documented By: mls Imaging Data Radiologist's Impression: Chest X-Ray 12/30/24 18:44 Exam(s): XR CXR 1 VIEW EXAM: XR Chest, 1 View CLINICAL HISTORY: Reason for exam: Trauma. TECHNIQUE: Frontal view of the chest. COMPARISON: 12/29/2024 FINDINGS: Lungs: No airspace consolidation. Prominent interstitial lung markings, similar to prior, favored chronic. A component of edema is not excluded. Pleural space: No significant pleural effusion. No pneumothorax. Heart: Cardiomegaly. Bones/joints: No acute fracture. No dislocation. IMPRESSION: Prominent interstitial lung markings, similar to prior, favored chronic. A component of edema is not excluded. Electronically signed by: Cassidy Ayers M.D. 12/30/24 22:[address] 12/30/24 18:44 CT head without contrast History: Trauma Comparison: None Technique: Using multidetector thin collimation helical acquisition technique, axial, coronal and sagittal CT images from the skull base to the vertex were obtained without intravenous contrast. Dose reduction techniques were achieved by using automatic exposure control and/or adjustment of mA and/or kV according to patient size and/or use of iterative reconstruction technique. Findings: No intracranial hemorrhage, mass-effect, or midline shift. The ventricles are proportionate to the cerebral sulci. The carlisle to white matter differentiation of the cerebral hemispheres is preserved. The basal cisterns are patent. There is moderate cerebral atrophy. Moderate, patchy low-attenuation changes in the white matter, most suggestive of sequelae of chronic small vessel ischemic disease. The visualized paranasal sinuses are clear. Mastoid air cells are clear. Impression: No acute intracranial pathology. Electronically signed by Dinh Richard 12-30-2024 7:32 PM Hip/Pelvis X-Ray 12/30/24 18:44 Exam(s): XR HIP + PELVIS, 1 view EXAM: XR Left Hip With Pelvis When Performed, 2 or 3 Views CLINICAL HISTORY: Reason for exam: fall. TECHNIQUE: Two or three views of the left hip with pelvis when performed. COMPARISON: No relevant prior studies available. FINDINGS: Bones/joints: No acute fracture or dislocation. Uncomplicated right total hip arthroplasty. Degenerative change of the sacroiliac joints and pubic symphysis. Left hip joint spaces maintained. Mild degenerative change in the visualized lumbar spine. Soft tissues: Unremarkable. Vasculature: Multiple pelvic phleboliths. IMPRESSION: No acute findings in the left hip. Electronically signed by: Cassidy Ayers M.D. 12/30/24 22:17 PM Knee X-Ray 12/30/24 18:44 Exam(s): XR LEFT KNEE, 1-2 views EXAM: XR Left Knee, 1 or 2 Views CLINICAL HISTORY: Reason for exam: fall. TECHNIQUE: Frontal and/or lateral views of the left knee. COMPARISON: No relevant prior studies available. FINDINGS: Bones/joints: Uncomplicated total knee arthroplasty. No acute fracture or dislocation. Soft tissues: Unremarkable. IMPRESSION: No acute findings in the left knee. Electronically signed by: Cassidy Ayers M.D. 12/30/24 23:01 PM Tibia/Fibula X-Ray 12/30/24 18:44 Exam(s): XR LEFT TIB/FIB, 2 views EXAM: XR Left Tibia and Fibula, 2 Views CLINICAL HISTORY: Reason for exam: fall. TECHNIQUE: Frontal and lateral views of the left tibia and fibula. COMPARISON: 03/17/2024 FINDINGS: Bones/joints: Left total knee arthroplasty. No acute fracture or dislocation. Soft tissues: Focal anterior lower leg soft tissue swelling. No radiopaque foreign body. IMPRESSION: Focal anterior lower leg soft tissue swelling. Electronically signed by: Cassidy Ayers M.D. 12/30/24 22:20 PM Head CTA 12/30/24 20:28 Exam(s): CTA HEAD With Contrast IV Amt: 119 ml optiray 320 EXAM: CT Angiography Head With Intravenous Contrast CLINICAL HISTORY: Reason for exam: acute mental status change. OTHER: Other Notes: ACUTE MENTAL STATUS CHANGE RT SIDED WEAKNESS NO F/U HWO SCAN PER DR COLEMAN OPTIRAY 320 119ML EK/JMP TECHNIQUE: Axial computed tomographic angiography images of the head with intravenous contrast. CTDI is 22 mGy and DLP is 392 mGy-cm. Automated exposure control was utilized for the study. A dose lowering technique was utilized adhering to the principles of ALARA. MIP reconstructed images were created and reviewed. CONTRAST: Patient received 119 ml optiray 320 of IV contrast COMPARISON: No relevant prior studies available. FINDINGS: Right internal carotid artery: 70% stenosis of the cavernous portions of the distal right internal carotid artery. No aneurysm. Right anterior cerebral artery: Unremarkable. No occlusion or significant stenosis. No aneurysm. Right middle cerebral artery: Unremarkable. No occlusion or significant stenosis. No aneurysm. Right posterior cerebral artery: Unremarkable. No occlusion or significant stenosis. No aneurysm. Right vertebral artery: Unremarkable as visualized. Left internal carotid artery: 50-60% stenosis of the distal left internal carotid artery. No aneurysm. Left anterior cerebral artery: Unremarkable. No occlusion or significant stenosis. No aneurysm. Left middle cerebral artery: Unremarkable. No occlusion or significant stenosis. No aneurysm. Left posterior cerebral artery: Unremarkable. No occlusion or significant stenosis. No aneurysm. Left vertebral artery: 40% stenosis of the distal left vertebral artery. Basilar artery: Unremarkable. No occlusion or significant stenosis. No aneurysm. IMPRESSION: 1. 70% stenosis of the cavernous portions of the distal right internal carotid artery. 2. 50-60% stenosis of the distal left internal carotid artery. 3. 40% stenosis of the distal left vertebral artery. 4. The anterior, middle, and posterior cerebral arteries appear within normal limits. No aneurysm, vascular malformation, or large vessel occlusion is identified. Electronically signed by: Mendel Jackson MD 12/30/24 22:38 PM Neck CTA 12/30/24 20:28 Exam(s): CTA NECK With Contrast IV Amt: 119 ml optiray 320 EXAM: CT Angiography Neck With Intravenous Contrast CLINICAL HISTORY: Reason for exam: acute mental status change, r sided weakness. OTHER: Other Notes: ACUTE MENTAL STATUS CHANGE RT SIDED WEAKNESS NO F/U HWO SCAN PER DR COLEMAN OPTIRAY 320 119ML EK/JMP TECHNIQUE: Routine carotid CT angiography protocol was performed with intravenous contrast. NASCET criteria using the distal ICAs for comparison were used for evaluation of stenoses. CTDI is 22 mGy and DLP is 392 mGy-cm. Automated exposure control was utilized for the study. A dose lowering technique was utilized adhering to the principles of ALARA. MIP reconstructed images were created and reviewed. CONTRAST: Patient received 119 ml optiray 320 of IV contrast COMPARISON: None. FINDINGS: VASCULATURE: Right common carotid artery: Unremarkable. No occlusion or significant stenosis. No dissection. Right internal carotid artery: There is a widely patent stent extending through the right carotid bifurcation. No in stent restenosis is identified. The distal right internal carotid artery is tortuous but widely patent. No dissection. Right external carotid artery: Unremarkable. No occlusion. Right vertebral artery: Unremarkable. No occlusion or significant stenosis. No dissection. Left common carotid artery: The left common carotid artery is tortuous but widely patent. No occlusion or significant stenosis. No dissection. Left internal carotid artery: Calcified plaque causing 30-40% stenosis of the proximal left internal carotid artery. No dissection. Left external carotid artery: Unremarkable. No occlusion. Left vertebral artery: Unremarkable. No occlusion or significant stenosis. No dissection. Brachiocephalic and subclavian arteries: 40% stenosis of the proximal left subclavian artery. Right brachiocephalic artery is tortuous but widely patent. Aorta: The aortic arch is mildly calcified but nondilated. There is no aneurysm or dissection. NECK: Bones/joints: Moderate multilevel degenerative changes throughout the spine. No acute fracture or subluxation is seen. Soft tissues: Unremarkable. Lung apices: Clear. CAROTID STENOSIS REFERENCE USING NASCET CRITERIA: % ICA stenosis = (1 - narrowest ICA diameter/diameter of distal cervical ICA) x 100. Mild - <50% stenosis. Moderate - 50-69% stenosis. Severe - 70-94% stenosis. Near occlusion - 95-99% stenosis. Occluded - 100% stenosis. IMPRESSION: 1. Calcified plaque causing 30-40% stenosis of the proximal left internal carotid artery. 2. There is a widely patent stent extending through the right carotid bifurcation. No in stent restenosis is identified. The distal right internal carotid artery is tortuous but widely patent. Electronically signed by: Mendel Jackson MD 12/30/24 22:36 PM Discharge Plan Visit Data Chief Complaint: Fall Stated Complaint: FALL, L ANKLE INJURY ED Provider: Jaron Coleman Discharge Problem: Neurocognitive disorder, Ambulatory dysfunction, Generalized weakness, Frequent falls, Hypoalbuminemia, Soft tissue injury, Abrasion of left leg Patient Disposition: Admitted As Inpatient Condition: Serious Discharge Instructions Interventions: ED Discharge Assessment Last Done: 12/31/24 02:15
[2024-12-30 22:13] LABS: Potassium 3.5 mmol/L (3.5-5.1); Sodium 138.0 mmol/L (136-145)
--- NOTE | 2024-12-30 22:18 | XRay Report ---
Exam(s): XR HIP + PELVIS, 1 view EXAM: XR Left Hip With Pelvis When Performed, 2 or 3 Views CLINICAL HISTORY: Reason for exam: fall. TECHNIQUE: Two or three views of the left hip with pelvis when performed. COMPARISON: No relevant prior studies available. FINDINGS: Bones/joints: No acute fracture or dislocation. Uncomplicated right total hip arthroplasty. Degenerative change of the sacroiliac joints and pubic symphysis. Left hip joint spaces maintained. Mild degenerative change in the visualized lumbar spine. Soft tissues: Unremarkable. Vasculature: Multiple pelvic phleboliths. IMPRESSION: No acute findings in the left hip. Electronically signed by: Cassidy Ayers M.D. 12/30/24 22:17 PM
--- NOTE | 2024-12-30 22:20 | XRay Report ---
Exam(s): XR CXR 1 VIEW EXAM: XR Chest, 1 View CLINICAL HISTORY: Reason for exam: Trauma. TECHNIQUE: Frontal view of the chest. COMPARISON: 12/29/2024 FINDINGS: Lungs: No airspace consolidation. Prominent interstitial lung markings, similar to prior, favored chronic. A component of edema is not excluded. Pleural space: No significant pleural effusion. No pneumothorax. Heart: Cardiomegaly. Bones/joints: No acute fracture. No dislocation. IMPRESSION: Prominent interstitial lung markings, similar to prior, favored chronic. A component of edema is not excluded. Electronically signed by: Cassidy Ayers M.D. 12/30/24 22:19 PM
--- NOTE | 2024-12-30 22:21 | XRay Report ---
Exam(s): XR LEFT TIB/FIB, 2 views EXAM: XR Left Tibia and Fibula, 2 Views CLINICAL HISTORY: Reason for exam: fall. TECHNIQUE: Frontal and lateral views of the left tibia and fibula. COMPARISON: 03/17/2024 FINDINGS: Bones/joints: Left total knee arthroplasty. No acute fracture or dislocation. Soft tissues: Focal anterior lower leg soft tissue swelling. No radiopaque foreign body. IMPRESSION: Focal anterior lower leg soft tissue swelling. Electronically signed by: Cassidy Ayers M.D. 12/30/24 22:20 PM
[2024-12-30 22:24] LABS: INR 1.1 (0.9-1.1); Partial Thromboplastin Time 27 Seconds (21-31); Prothrombin Time 11.4 Seconds (9.0-12.0)
--- NOTE | 2024-12-30 22:37 | CT Scan Report ---
Exam(s): CTA NECK With Contrast IV Amt: 119 ml optiray 320 EXAM: CT Angiography Neck With Intravenous Contrast CLINICAL HISTORY: Reason for exam: acute mental status change, r sided weakness. OTHER: Other Notes: ACUTE MENTAL STATUS CHANGE RT SIDED WEAKNESS NO F/U HWO SCAN PER DR BROWNLEE OPTIRAY 320 119ML EK/JMP TECHNIQUE: Routine carotid CT angiography protocol was performed with intravenous contrast. NASCET criteria using the distal ICAs for comparison were used for evaluation of stenoses. CTDI is 22 mGy and DLP is 392 mGy-cm. Automated exposure control was utilized for the study. A dose lowering technique was utilized adhering to the principles of ALARA. MIP reconstructed images were created and reviewed. CONTRAST: Patient received 119 ml optiray 320 of IV contrast COMPARISON: None. FINDINGS: VASCULATURE: Right common carotid artery: Unremarkable. No occlusion or significant stenosis. No dissection. Right internal carotid artery: There is a widely patent stent extending through the right carotid bifurcation. No in stent restenosis is identified. The distal right internal carotid artery is tortuous but widely patent. No dissection. Right external carotid artery: Unremarkable. No occlusion. Right vertebral artery: Unremarkable. No occlusion or significant stenosis. No dissection. Left common carotid artery: The left common carotid artery is tortuous but widely patent. No occlusion or significant stenosis. No dissection. Left internal carotid artery: Calcified plaque causing 30-40% stenosis of the proximal left internal carotid artery. No dissection. Left external carotid artery: Unremarkable. No occlusion. Left vertebral artery: Unremarkable. No occlusion or significant stenosis. No dissection. Brachiocephalic and subclavian arteries: 40% stenosis of the proximal left subclavian artery. Right brachiocephalic artery is tortuous but widely patent. Aorta: The aortic arch is mildly calcified but nondilated. There is no aneurysm or dissection. NECK: Bones/joints: Moderate multilevel degenerative changes throughout the spine. No acute fracture or subluxation is seen. Soft tissues: Unremarkable. Lung apices: Clear. CAROTID STENOSIS REFERENCE USING NASCET CRITERIA: % ICA stenosis = (1 - narrowest ICA diameter/diameter of distal cervical ICA) x 100. Mild - <50% stenosis. Moderate - 50-69% stenosis. Severe - 70-94% stenosis. Near occlusion - 95-99% stenosis. Occluded - 100% stenosis. IMPRESSION: 1. Calcified plaque causing 30-40% stenosis of the proximal left internal carotid artery. 2. There is a widely patent stent extending through the right carotid bifurcation. No in stent restenosis is identified. The distal right internal carotid artery is tortuous but widely patent. Electronically signed by: Mendel Jackson MD 12/30/24 22:36 PM
--- NOTE | 2024-12-30 22:38 | CT Scan Report ---
Exam(s): CTA HEAD With Contrast IV Amt: 119 ml optiray 320 EXAM: CT Angiography Head With Intravenous Contrast CLINICAL HISTORY: Reason for exam: acute mental status change. OTHER: Other Notes: ACUTE MENTAL STATUS CHANGE RT SIDED WEAKNESS NO F/U HWO SCAN PER DR BROWNLEE OPTIRAY 320 119ML EK/JMP TECHNIQUE: Axial computed tomographic angiography images of the head with intravenous contrast. CTDI is 22 mGy and DLP is 392 mGy-cm. Automated exposure control was utilized for the study. A dose lowering technique was utilized adhering to the principles of ALARA. MIP reconstructed images were created and reviewed. CONTRAST: Patient received 119 ml optiray 320 of IV contrast COMPARISON: No relevant prior studies available. FINDINGS: Right internal carotid artery: 70% stenosis of the cavernous portions of the distal right internal carotid artery. No aneurysm. Right anterior cerebral artery: Unremarkable. No occlusion or significant stenosis. No aneurysm. Right middle cerebral artery: Unremarkable. No occlusion or significant stenosis. No aneurysm. Right posterior cerebral artery: Unremarkable. No occlusion or significant stenosis. No aneurysm. Right vertebral artery: Unremarkable as visualized. Left internal carotid artery: 50-60% stenosis of the distal left internal carotid artery. No aneurysm. Left anterior cerebral artery: Unremarkable. No occlusion or significant stenosis. No aneurysm. Left middle cerebral artery: Unremarkable. No occlusion or significant stenosis. No aneurysm. Left posterior cerebral artery: Unremarkable. No occlusion or significant stenosis. No aneurysm. Left vertebral artery: 40% stenosis of the distal left vertebral artery. Basilar artery: Unremarkable. No occlusion or significant stenosis. No aneurysm. IMPRESSION: 1. 70% stenosis of the cavernous portions of the distal right internal carotid artery. 2. 50-60% stenosis of the distal left internal carotid artery. 3. 40% stenosis of the distal left vertebral artery. 4. The anterior, middle, and posterior cerebral arteries appear within normal limits. No aneurysm, vascular malformation, or large vessel occlusion is identified. Electronically signed by: Mendel Jackson MD 12/30/24 22:38 PM
--- NOTE | 2024-12-30 23:02 | XRay Report ---
Exam(s): XR LEFT KNEE, 1-2 views EXAM: XR Left Knee, 1 or 2 Views CLINICAL HISTORY: Reason for exam: fall. TECHNIQUE: Frontal and/or lateral views of the left knee. COMPARISON: No relevant prior studies available. FINDINGS: Bones/joints: Uncomplicated total knee arthroplasty. No acute fracture or dislocation. Soft tissues: Unremarkable. IMPRESSION: No acute findings in the left knee. Electronically signed by: Cassidy Ayers M.D. 12/30/24 23:01 PM
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
[2024-12-30] MEDS: DIPHTHER/TETAN/PERTUS Vaccine (Tdap, Adol/Adult) 0.5mL IM ONE (23:52)
[2024-12-31] MEDS ORDERED: ONDANSETRON INJ 2 MG/ML 2 ML VIAL IV PRN (02:07)
[2024-12-31] MEDS ORDERED: LORazepam Inj 0.5 MG in SYRINGE 0.25 ML IV PRN (02:07)
[2024-12-31] MEDS ORDERED: MoRPHine SULFATE 4 MG/ML 1 ML CARP\\VIAL IV PRN ×2 (02:07→02:29)
[2024-12-31] MEDS ORDERED: POLYETHYLENE (MIRALAX) 17 GM PACK PO PRN (02:07)
[2024-12-31] MEDS ORDERED: ALBUTEROL HFA 8 GM INHALER INH PRN (02:07)
[2024-12-31] MEDS: PRAMIPEXOLE DIHYDROCHLO 0.5 MG TAB PO SCH (02:36)
[2024-12-31] MEDS: ACETAMINOPHEN 325 MG TAB PO PRN (05:11)
[2024-12-31 05:50] LABS: Appearance Urine Clear (Clear); Bacteria Urine Automated None Seen (None Seen); Cast Urine Automated 0-2 /lpf (0-2); Epithelial Cell Urine Auto 0-2 /hpf (0-2); Glucose Urine UA Negative (Negative); RBC Urine Automated 0-2 /hpf (0-2); WBC Urine Automated 0-5 /hpf (0-5)
--- NOTE | 2024-12-31 07:34 | XRay Report ---
EXAM: XR ankle LT min 3V routine CLINICAL HISTORY: fall TECHNIQUE: X-ray images of the left ankle were obtained in anteroposterior (AP), lateral, and oblique projections. COMPARISON: No prior studies are available for comparison. FINDINGS: Bone Structure: Bone structure is normal and aligned. There is no evidence of fracture or dislocation. There is no osteolytic or sclerotic lesion. Diffuse reduced bone density is present. Posterior and inferior calcaneal spurs are noted. Joint Spaces: Joint spaces are normal. There is no evidence of joint effusion or subluxation. There are degenerative changes of the intertarsal joints. Soft Tissues: There is soft tissue swelling around the ankle joint, likely representing edema. IMPRESSION: 1. No evidence of acute fracture or dislocation. 2. Soft tissue swelling around the ankle joint, likely representing edema. 3. Diffuse reduced bone density, likely reflecting osteoporotic changes. 4. Posterior and inferior calcaneal spurs are noted. Disclaimer: A subtle bone abnormality or fracture may not be readily apparent on X-rays; thus, clinical correlation and further imaging, including follow-up CT, MRI, or follow-up X-rays, are advised as needed. Electronically signed by Robert Castaneda 12-31-2024 07:34 AM
[2024-12-31] MEDS: ESCITALOPRAM OXALATE 20 MG TAB PO SCH (08:56)
[2024-12-31] MEDS: FAMOTIDINE 10 MG TABLET PO SCH (08:56)
[2024-12-31] MEDS: ROSUVASTATIN CALCIUM 20 MG TAB PO SCH (08:56)
[2024-12-31] MEDS: AMIODARONE 200 MG TAB PO SCH (08:56)
[2024-12-31] MEDS: VERAPAMIL HCL 120 MG TABCR PO SCH (08:56)
[2024-12-31] MEDS: CLOPIDOGREL BISULFATE 75 MG TAB PO SCH (08:57)
[2024-12-31] MEDS: METOPROLOL SUCC 50MG EXT REL TAB PO SCH (08:57)
[2024-12-31] MEDS: FUROSEMIDE 40 MG TAB PO SCH (08:57)
[2024-12-31] MEDS: POTASSIUM CHLORIDE 10 MEQ TABCR PO SCH (08:57)
[2024-12-31] MEDS: UMECLIDINIUM/VILANTEROL 62.5/25MCG 7 PUFFS/INHALER INH SCH (08:57)
[2024-12-31] MEDS: FLUTICASONE PROPIONATE NA SPR 16 GM BTL SCH (08:57)
[2024-12-31 09:19] LABS: Hematocrit (blood only) 37.1 % (37.0-47.0); Hemoglobin 11.7 g/dl (12.0-16.0); Immature Granulocytes # (auto) 0.01 K/uL (0.01-0.20); Immature Granulocytes % (auto) 0.2 %; Mean Corpuscular Hemoglobin 27.4 pg (25.0-34.0); Mean Corpuscular Volume 86.9 fL (80.0-100.0); Platelet Count 154 K/uL (130-400); RDW Standard Deviation 74.8 fL (36.4-46.3); Red Blood Count 4.27 M/uL (4.20-5.40); White Blood Count 5.28 K/ul (4.8-10.8)
[2024-12-31 09:41] LABS: Anion Gap 8.0 (3-11); Blood Urea Nitrogen 16.0 mg/dl (6-23); Calcium 9.2 mg/dl (8.6-10.3); Carbon Dioxide 27.0 mmol/L (21-32); Chloride 106.0 mmol/L (98-107); Creatinine Clr Calc Pharmacy 43.7 ml/min; Glucose 109.0 mg/dl (70-99(Fasting)); Magnesium 2.0 mg/dl (1.7-2.4); Potassium 3.7 mmol/L (3.5-5.1); Sodium 141.0 mmol/L (136-145)
[2024-12-31 09:58] LABS: Anisocytosis Present
--- NOTE | 2024-12-31 16:41 | Hospitalist Progress Note ---
Date of Service December 31, 2024 Assessment & Plan (1) Ambulatory dysfunction: (2) Recurrent falls: (3) Contusion of leg, left: (4) Dementia with behavioral disturbance: Plan Patient is an 89-year-old female with past medical history of asthma, HFpEF, breast cancer, GERD, CAD, paroxysmal A-fib, SVT s/p ablation, CVA (without residual symptoms), intracranial hemorrhage, recurrent falls, dementia. Patient presented via EMS 12/29 after a unwitnessed fall at [facility]; workup in the ED was negative and patient was discharged home. She returned 11/01 via EMS after she fell getting off the [employer] bus and hit her left ankle and leg. Again workup in the ED did not reveal any acute traumatic changes however patient's cognition changed and she became aggressive and with some right sided deficits. Stroke workup including head CTA and neck CTA were obtained which just showed b ilateral carotid artery stenosis and patient is now back to her baseline. She is being admitted for ambulatory dysfunction. #Ambulatory dysfunction/left lower extremity bruising recurrent falls x 2 days, left tib/fib x-ray on arrival to ED with focal anterior lower leg soft tissue swelling -Fall and aspiration precautions -PT/OT consulted -Pain control with Tylenol as needed, morphine 1/2 mg for breakthrough pain -Demarcated swelling noted to LLE with marked ecchymosis (on Plavix), faint pedal pulses on exam, nursing appreciated pedal pulses via Doppler, order CT s can L tib/fib, CK lab #Dementia with behavioral disturbance patient became aggressive and with reported right sided deficits in the ED. Note that this was after she was given fentanyl 50 mcg IV. Head CTA revealed bilateral carotid artery stenosis (greatest 70% at distal R ICA), neck CTA revealed patent stent of right carotid bifurcation. Patient has dementia and is frequently confused at baseline -Given patient at baseline at time of admission, will defer for further stroke workup -no other acute indication of mental status change on admission electrolytes stable, no infectious origin noted (however UA to be obtained) Received Ativan 0.5 mg IV x 1 in the ED, continue as needed for any aggressive behaviors -promote frequent orientation and good sleep-wake cycles melatonin as needed -continue pramipexole and escitalopram #MADAN -CPAP HS #HFpEF most recent EF 65 to 70% 12/2023. -GDMT: continue metoprolol and lasix -heart healthy, low sodium diet #CADs/p right TCAR -continue plavix and statin #paroxysmal A-fib -continue metoprolol and amiodarone, no anticoagulation given recent history of brain hemorrhage #HTN -continue metoprolol, Lasix, verapamil, valsartan #Asthma -continue home inhalers VTE ppx: SCDs, low risk Dispo: med surg Admission and Anticipated Discharge Date Admission Date: December 30, 2024 Supervising Physician Co-Signing Physician Notes Attending Attestation - Chart reviewed, care plan d/w GREGG Mares. I agree with the peraza components of her documentation. Left Leg hematoma -- ice for 2-3 days, then switch to heat to promote healing. Demetris Garcia MD Subjective Patient lying in bed this am with no complaints. States she came into hospital due to a fall where she sustained an injury to her left lower leg while walking into a transport van for [employer]. Reports her appetite as being good. She has no complaints related to her bowel or bladder function. Review of Systems Review of Systems: All systems reviewed & are unremarkable except as noted in Subjective Physical Exam Physical Exam: GENERAL APPEARANCE: A&O. Lying in bed. NAD. SKIN: Normal color without rashes or lesions. Normal turgor. HEENT: Head AT/NC. Buccal mucosa is moist and pink. NECK: No jugular venous distention. No thyroid enlargement. There is no lymphadenopathy. HEART: RRR without m/g/r LUNGS: Normal inspiratory effort. CTA without w/r/r ABDOMEN: No guarding or rigidity. Normoactive BS in all four quadrants. Abdomen soft and NT. MSK: No bony gross/deformities throughout. ROM intact. EXTREMITIES: No edema, No peripheral cyanosis. Noted ecchymosis left lower extremity with demarcated 3 in X 3 in area of swelling. + sensation intact to left foot/left lower leg. Faint posterior tibialis/dorsalis pedis pulse present. Neuro: CN 2-12 grossly intact. No focal neuro deficits PSYCHIATRIC: Normal affect. Eye contact is good. Speech is normal rate and content. Responses are appropriate. Results & Data Results & Data Vital Signs (Past 12 Hours) Vital Signs Temp Pulse Resp BP Pulse Ox O2 Del Method 12/31/24 10:13 Room Air 12/31/24 08:56 67 12/31/24 07:45 36.4 C L 59 L 18 131/74 94 Room Air PG Care Time/CCT Total # of Minutes Spent Total Time Spent with Patient: Total time spent is greater than 50% in coordination of care (as documented) at patient's floor/unit and/or counseling patient: Coding Level of Care Code 46996 SUB INP/OBS CARE 3/50MIN Diagnoses Ambulatory dysfunction R26.2 Recurrent falls R29.6 Contusion of leg, left S80.12XA Dementia with behavioral disturbance F03.918
--- NOTE | 2024-12-31 17:00 | CT Scan Report ---
CT left lower extremity without contrast History: Pain/weakness Comparison: Radiograph 12/30/2024 Technique: CT performed of the extremity without IV contrast. Dose reduction techniques were achieved by using automatic exposure control and/or adjustment of mA and/or kV according to patient size and/or use of iterative reconstruction technique. Findings: No fracture or dislocation. Joint spaces are normally aligned. Pretibial, subcutaneous hematoma, extending 14 cm in the craniocaudal dimension, and 2.6 cm AP diameter, is grossly similar from the prior day radiograph. No aggressive osseous lesion. Impression: Similar-appearing pretibial soft tissue hematoma without associated bony abnormality. Generalized subcutaneous edema of the left lower leg and ankle region. Electronically signed by Dinh Richard 12-31-2024 5:00 PM
[2024-12-31] MEDS: VALSARTAN 80 MG TAB PO SCH (20:21)
[2025-01-01 08:35] LABS: Hematocrit (blood only) 35.2 % (37.0-47.0); Hemoglobin 11.2 g/dl (12.0-16.0); Immature Granulocytes # (auto) 0.01 K/uL (0.01-0.20); Immature Granulocytes % (auto) 0.2 %; Mean Corpuscular Hemoglobin 27.7 pg (25.0-34.0); Mean Corpuscular Volume 86.9 fL (80.0-100.0); Platelet Count 154 K/uL (130-400); RDW Standard Deviation 74.1 fL (36.4-46.3); Red Blood Count 4.05 M/uL (4.20-5.40); White Blood Count 5.33 K/ul (4.8-10.8)
[2025-01-01 08:54] LABS: Anion Gap 6.0 (3-11); Blood Urea Nitrogen 15.0 mg/dl (6-23); Calcium 9.2 mg/dl (8.6-10.3); Carbon Dioxide 29.0 mmol/L (21-32); Chloride 105.0 mmol/L (98-107); Creatinine Clr Calc Pharmacy 44.2 ml/min; Glucose 92.0 mg/dl (70-99(Fasting)); Potassium 3.7 mmol/L (3.5-5.1); Sodium 140.0 mmol/L (136-145)
[2025-01-01 08:59] LABS: Anisocytosis Present; Ovalocytes 1+
--- NOTE | 2025-01-01 15:04 | Hospitalist Progress Note ---
Date of Service January 01, 2025 Assessment & Plan (1) Ambulatory dysfunction: (2) Recurrent falls: (3) Contusion of leg, left: (4) Dementia with behavioral disturbance: Plan Patient is an 89-year-old female with past medical history of asthma, HFpEF, breast cancer, GERD, CAD, paroxysmal A-fib, SVT s/p ablation, CVA (without residual symptoms), intracranial hemorrhage, recurrent falls, dementia. Patient presented via EMS 12/29 after a unwitnessed fall at [facility]; workup in the ED was negative and patient was discharged home. She returned 11/01 via EMS after she fell getting off the [employer] bus and hit her left ankle and leg. Again workup in the ED did not reveal any acute traumatic changes however patient's cognition changed and she became aggressive and with some right sided deficits. Stroke workup including head CTA and neck CTA were obtained which just showed b ilateral carotid artery stenosis and patient is now back to her baseline. She is being admitted for ambulatory dysfunction. #Ambulatory dysfunction/left lower extremity bruising recurrent falls x 2 days, left tib/fib x-ray on arrival to ED with focal anterior lower leg soft tissue swelling -Fall and aspiration precautions -PT/OT consulted -Pain control with Tylenol as needed, morphine 1/2 mg for breakthrough pain -Demarcated swelling noted to LLE with marked ecchymosis (on Plavix), CT tib /fib with pretibial, subcutaneous hematoma extending 14cm in craniocaudal dim ension, and 2.6cm AP diameter -nursing to doppler pulses in left foot, ice to left lower leg with transition to heat in a few days, continued monitoring of skin integrity to left lower extremity #Dementia with behavioral disturbance patient became aggressive and with reported right sided deficits in the ED. Note that this was after she was given fentanyl 50 mcg IV. Head CTA revealed bilateral carotid artery stenosis (greatest 70% at distal R ICA), neck CTA revealed patent stent of right carotid bifurcation. Patient has dementia and is frequently confused at baseline. -Given patient at baseline at time of admission, will defer for further stroke workup -no other acute indication of mental status change on admission electrolytes stable, no infectious origin noted, UA negative Received Ativan 0.5 mg IV x 1 in the ED, continue as needed for any aggressive behaviors -promote frequent orientation and good sleep-wake cycles melatonin as needed -continue pramipexole and escitalopram #MADAN -CPAP HS #HFpEF most recent EF 65 to 70% 12/2023. -GDMT: continue metoprolol and lasix -heart healthy, low sodium diet #CADs/p right TCAR -continue plavix and statin #paroxysmal A-fib -continue metoprolol and amiodarone, no anticoagulation given recent history of brain hemorrhage #HTN -continue metoprolol, Lasix, verapamil, valsartan #Asthma -continue home inhalers VTE ppx: SCDs, low risk Dispo: med surg, transfer to long-term at [facility] Admission and Anticipated Discharge Date Admission Date: December 30, 2024 Supervising Physician Co-Signing Physician Notes Attending Attestation - Chart reviewed, care plan d/w GREGG Mares. I agree with the peraza components of her documentation. Demetris Garcia MD Subjective Patient sitting up eating lunch. Reports mild pain to left lower leg. States she is willing to go to long-term at [facility] upon discharge. Review of Systems Review of Systems: All systems reviewed & are unremarkable except as noted in Subjective Physical Exam Physical Exam: GENERAL APPEARANCE: A&O. Sitting up in chair. NAD. SKIN: Normal color without rashes or lesions. Normal turgor. HEENT: Head AT/NC. Buccal mucosa is moist and pink. NECK: No jugular venous distention. No thyroid enlargement. There is no lymphadenopathy. HEART: RRR without m/g/r LUNGS: Normal inspiratory effort. CTA without w/r/r ABDOMEN: No guarding or rigidity. Normoactive BS in all four quadrants. Abdomen soft and NT. MSK: No bony gross/deformities throughout. ROM intact. EXTREMITIES: No edema, No peripheral cyanosis. Noted ecchymosis left lower extremity with demarcated 3 in X 3 in area of swelling. + sensation intact to left foot/left lower leg. posterior tibialis/dorsalis pedis pulses present. Neuro: CN 2-12 grossly intact. No focal neuro deficits PSYCHIATRIC: Normal affect. Eye contact is good. Speech is normal rate and content. Responses are appropriate. Results & Data Results & Data Vital Signs (Past 12 Hours) Vital Signs Temp Pulse Resp BP Pulse Ox O2 Del Method 01/01/25 12:00 36.6 C 69 16 102/58 L 98 Room Air 01/01/25 11:33 36.2 C L 64 20 135/71 Room Air 01/01/25 07:43 36.5 C 61 18 145/70 H 96 Room Air 01/01/25 07:15 Room Air PG Care Time/CCT Total # of Minutes Spent Total Time Spent with Patient: Total time spent is greater than 50% in coordination of care (as documented) at patient's floor/unit and/or counseling patient: Coding Level of Care Code 09033 SUB INP/OBS CARE 2/35MIN Diagnoses Ambulatory dysfunction R26.2 Recurrent falls R29.6 Contusion of leg, left S80.12XA Dementia with behavioral disturbance F03.918
--- NOTE | 2025-01-02 13:13 | Hospitalist Progress Note ---
Date of Service January 02, 2025 Assessment & Plan (1) Ambulatory dysfunction: (2) Recurrent falls: (3) Contusion of leg, left: (4) Dementia with behavioral disturbance: Plan Patient is an 89-year-old female with past medical history of asthma, HFpEF, breast cancer, GERD, CAD, paroxysmal A-fib, SVT s/p ablation, CVA (without residual symptoms), intracranial hemorrhage, recurrent falls, dementia. Patient presented via EMS 12/29 after a unwitnessed fall at [facility], [place]; workup in the ED was negative and patient was discharged home. She returned 11/01 via EMS after she fell getting off the [employer] bus and hit her left ankle and leg. Again workup in the ED did not reveal any acute traumatic changes however patient's cognition changed and she became aggressive and with some right sided deficits. Stroke workup including head CTA and neck CTA were obtained which just showed b ilateral carotid artery stenosis and patient is now back to her baseline. She is being admitted for ambulatory dysfunction. #Ambulatory dysfunction/left lower extremity bruising recurrent falls x 2 days, left tib/fib x-ray on arrival to ED with focal anterior lower leg soft tissue swelling -Fall and aspiration precautions -PT/OT consulted -Pain control with Tylenol as needed, morphine 1/2 mg for breakthrough pain -Demarcated swelling noted to LLE with marked ecchymosis (on Plavix), CT tib /fib with pretibial, subcutaneous hematoma extending 14cm in craniocaudal dim ension, and 2.6cm AP diameter -nursing to doppler pulses in left foot, ice to left lower leg with transition to heat in a few days, continued monitoring of skin integrity to left lower extremity -she is s/p right TCAR 02/09/[address] Camarillo, currently on DAPT-->spoke with Dr. Camarillo and in setting of marked hematoma and potentiation for worsening bleeding ok to hold Plavix until symptoms improve from hematoma -corresponding with orthopedics for potential consult for eval of hematoma #Dementia with behavioral disturbance patient became aggressive and with reported right sided deficits in the ED. Note that this was after she was given fentanyl 50 mcg IV. Head CTA revealed bilateral carotid artery stenosis (greatest 70% at distal R ICA), neck CTA revealed patent stent of right carotid bifurcation. Patient has dementia and is frequently confused at baseline. -Given patient at baseline at time of admission, will defer for further stroke workup -no other acute indication of mental status change on admission electrolytes stable, no infectious origin noted, UA negative Received Ativan 0.5 mg IV x 1 in the ED, continue as needed for any aggressive behaviors -promote frequent orientation and good sleep-wake cycles melatonin as needed -continue pramipexole and escitalopram #MADAN -CPAP HS #HFpEF most recent EF 65 to 70% 12/2023. -GDMT: continue metoprolol and lasix -heart healthy, low sodium diet #CADs/p right TCAR -hold plavix, on statin #paroxysmal A-fib -continue metoprolol and amiodarone, no anticoagulation given recent history of brain hemorrhage #HTN -continue metoprolol, Lasix, verapamil, valsartan #Asthma -continue home inhalers VTE ppx: SCDs, low risk Dispo: med surg, [facility] [place] [facility] Admission and Anticipated Discharge Date Admission Date: December 30, 2024 Subjective Patient pleasant this am with mild complaints of left lower leg discomfort secondary to hematoma. She reports intact sensation to left foot with demonstrated +ROM of left toes with <2second cap refill. States she is urinating and moved bowels this am. Review of Systems Review of Systems: All systems reviewed & are unremarkable except as noted in Subjective Physical Exam Physical Exam: GENERAL APPEARANCE: A&O to person and place. Sitting up in chair. NAD. SKIN: Normal color without rashes or lesions. Normal turgor. HEENT: Head AT/NC. Buccal mucosa is moist and pink. NECK: No jugular venous distention. No thyroid enlargement. There is no lymphadenopathy. HEART: RRR without m/g/r LUNGS: Normal inspiratory effort. CTA without w/r/r ABDOMEN: No guarding or rigidity. Normoactive BS in all four quadrants. Abdomen soft and NT. MSK: No bony gross/deformities throughout. ROM intact. EXTREMITIES: No edema, No peripheral cyanosis. Noted ecchymosis left lower extremity with demarcated 3 in X 3 in area of swelling. + sensation intact to left foot/left lower leg. posterior tibialis/dorsalis pedis pulses present. Neuro: CN 2-12 grossly intact. No focal neuro deficits PSYCHIATRIC: Normal affect. Eye contact is good. Speech is normal rate and content. Responses are appropriate. Results & Data Results & Data Vital Signs (Past 12 Hours) Vital Signs Temp Pulse Resp BP Pulse Ox O2 Del Method 01/02/25 07:30 Room Air 01/02/25 07:21 36.3 C L 64 16 162/71 H 94 Room Air PG Care Time/CCT Total # of Minutes Spent Total Time Spent with Patient: Total time spent is greater than 50% in coordination of care (as documented) at patient's floor/unit and/or counseling patient: Coding Level of Care Code 04086 SUB INP/OBS CARE 2/35MIN Diagnoses Ambulatory dysfunction R26.2 Recurrent falls R29.6 Contusion of leg, left S80.12XA Dementia with behavioral disturbance F03.918
[2025-01-03 07:41] LABS: Hematocrit (blood only) 35.2 % (37.0-47.0); Hemoglobin 11.2 g/dL (12.0-16.0); Mean Corpuscular Hemoglobin 27.6 pg (25.0-34.0); Mean Corpuscular Volume 86.7 fL (80.0-100.0); Platelet Count 155 K/uL (130-400); RDW Standard Deviation 73.4 fL (36.4-46.3); Red Blood Count 4.06 M/uL (4.20-5.40); White Blood Count 6.44 K/ul (4.8-10.8)
[2025-01-03 07:59] LABS: Anion Gap 7.0 (3-11); Blood Urea Nitrogen 14.0 mg/dl (6-23); Calcium 9.0 mg/dl (8.6-10.3); Carbon Dioxide 26.0 mmol/L (21-32); Chloride 107.0 mmol/L (98-107); Creatinine Clr Calc Pharmacy 44.2 ml/min; Glucose 105.0 mg/dl (70-99(Fasting)); Potassium 3.8 mmol/L (3.5-5.1); Sodium 140.0 mmol/L (136-145)
--- NOTE | 2025-01-03 08:23 | Orthopedic Consultation ---
Date of Service January 03, 2025 Assessment & Plan (1) Contusion of leg, left: * Case/imaging reviewed and discussed with Dr Jameson * Recommend continued closed management of LLE hematoma * No evidence of infection or soft tissue necrosis, I&D not indicated * No fracture * Ok to hold Plavix per vascular surgery recommendation * Weight bearing status: Activity as tolerated * Daily treatment: Physical Therapy/ Occupational Therapy per protocol * Pain control, ice, gentle compression to the hematoma site * Disposition: TBD * Remainder care per primary team * Will follow peripherally, please contact with further concerns History of Present Illness Reason for Consultation: LLE hematoma Requesting Physician: . Attending Physician: Chris Knutson . Patient is a 89 y/o female with LLE hematoma. Per H&P: "PMH including asthma, HFpEF, breast cancer, GERD, CAD, paroxysmal A-fib, SVT s/p ablation, CVA (without residual symptoms), intracranial hemorrhage, recurrent falls, dementia. Patient presented via EMS 12/29 after a unwitnessed fall at [facility]; workup in the ED was negative and patient was discharged home. She returned 12/30 via EMS after she fell getting off the bus and hit her left ankle and leg. Again workup in the ED did not reveal any acute traumatic changes however patient's cognition changed and she became aggressive and with some right sided deficits. Stroke workup including head CTA and neck CTA were obtained which just showed bilateral carotid artery stenosis and patient is now back to her baseline. She is being admitted for ambulatory dysfunction." Current workup regarding left leg including XR and CT L tib/fib demonstrating anterior pretibial swelling/hematoma. Orthopedics consulted for management recommendations. At time of exam patient lying comfortably in bed, no acute distress. Pleasantly demented, agrees that she had a fall but otherwise unable to provide meaningful history regarding the event. Reports pain of the left lower leg. Denies tingling or numbness. Spontaneous movements throughout the left leg during our discussion. Allergies Allergy/AdvReac Type Severity Reaction Status Date / Time codeine Allergy Intermediate Temperature Verified 09/18/24 11:48 rise oxycodone AdvReac Severe "Became Verified 09/18/24 11:48 addicted to it" lactose AdvReac gas to cow Verified 09/18/24 11:48 milk. Milk Containing Products AdvReac cow milk = Verified 09/18/24 11:48 (Dairy) "gas", lactose already profiled Home Medications Medication Instructions Recorded Confirmed Type albuterol sulfate 90 mcg/actuation 2 puff inhalation Q6H PRN Wheezing 11/17/17 12/31/24 History aerosol inhaler (Ventolin HFA) fluticasone propionate 50 2 spray intranasal QAM 11/17/17 12/31/24 History mcg/actuation nasal spray,suspension (Flonase Allergy Relief) metoprolol succinate 50 mg 50 mg PO BID 04/02/21 12/31/24 History tablet,extended release 24 hr pramipexole 0.5 mg tablet 0.5 mg PO HS 04/02/21 12/31/24 History cholecalciferol (vitamin D3) 50 50 mcg PO QAM 10/28/22 12/31/24 History mcg (2,000 unit) capsule (Vitamin D3) clopidogrel 75 mg tablet (Plavix) 75 mg PO DAILY 02/07/24 12/31/24 History famotidine 10 mg tablet 10 mg PO QAM 03/08/24 12/31/24 History furosemide 40 mg tablet 40 mg PO QAM 03/08/24 12/31/24 History rosuvastatin 20 mg tablet (Crestor) 20 mg PO DAILY 03/08/24 12/31/24 History valsartan 80 mg tablet 80 mg PO QPM 03/08/24 12/31/24 History verapamil 120 mg 24 hr 120 mg PO DAILY 03/08/24 12/31/24 History capsule,extended release amiodarone 200 mg tablet 200 mg PO DAILY #90 tabs 04/05/24 12/31/24 Rx acetaminophen 325 mg tablet 650 mg PO Q4 PRN ELEVATED 06/28/24 12/31/24 History TEMPERATURE acetaminophen 325 mg tablet 650 mg PO Q4 PRN Pain 06/28/24 12/31/24 History aspirin 81 mg tablet,delayed 81 mg PO DAILY 06/28/24 12/31/24 History release nystatin 100,000 unit/gram topical 1 applic topical Q12 PRN 06/28/24 12/31/24 History powder EXCORIATION polyethylene glycol 3350 17 17 g PO QAM Constipation 06/28/24 12/31/24 History gram/dose oral powder (Miralax) umeclidinium 62.5 mcg-vilanterol 1 inh inhalation DAILY 06/28/24 12/31/24 History 25 mcg/actuation powdr for inhalation cyanocobalamin (vitamin B-12) 1,000 mcg IM DIRECTED 09/09/24 12/31/24 History 1,000 mcg/mL injection kit escitalopram oxalate 20 mg tablet 20 mg PO DAILY 09/09/24 12/31/24 History potassium chloride 10 mEq 10 meq PO DAILY 09/09/24 12/31/24 History capsule,extended release benzonatate 200 mg capsule 200 mg PO DIRECTED PRN Cough 12/31/24 12/31/24 History bisacodyl 10 mg rectal suppository 10 mg CA DAILY PRN Constipation 12/31/24 12/31/24 History (Dulcolax (bisacodyl)) ferrous sulfate 325 mg (65 mg 325 mg PO DAILY 12/31/24 12/31/24 History iron) tablet magnesium hydroxide 400 mg/5 mL 30 ml PO DAILY PRN Constipation 12/31/24 12/31/24 History oral suspension (Milk of Magnesia) sodium phosphates 19 gram-7 118 ml CA Q72H PRN Constipation 12/31/24 12/31/24 History gram/118 mL enema (Fleet Enema) Past Med/Surg History Problem List (Updated 01/01/25 @ 12:05 by Jaron Coleman DO) Abrasion of left leg (Acute) Soft tissue injury (Acute) Hypoalbuminemia (Acute) Frequent falls (Acute) Generalized weakness (Acute) Ambulatory dysfunction (Acute) Neurocognitive disorder (Acute) Contusion of leg, left Dementia with behavioral disturbance Recurrent falls Ambulatory dysfunction Contusion of rib (Acute) Contusion of hip (Acute) Fall (Acute) Acute exacerbation of chronic heart failure HFrEF (heart failure with reduced ejection fraction) Elevated troponin Pneumonia (Acute) Acute hypoxic respiratory failure (Acute) Acute hip pain (Acute) Hard of hearing (Acute) Fall (Acute) Closed left humeral fracture (Acute) Paroxysmal atrial fibrillation Intraparenchymal hemorrhage of brain Discharge planning issues DVT prophylaxis Dissection of right carotid artery Stenosis of right carotid artery Valvular heart disease Carotid artery stenosis Encounter for pre-operative examination DDD (degenerative disc disease), lumbar Bruit of left carotid artery Arthritis Diastolic congestive heart failure, NYHA class 3 Bilateral edema of lower extremity (Chronic) SVT (supraventricular tachycardia) (Chronic) Asthma (Chronic) Hypertension (Chronic) Dyslipidemia (Chronic) Dyspnea on exertion (Chronic) Breast cancer (Acute 05/07/16) "Status post left breast cancer 1996 treated with lumpectomy followed by radiation therapy Self detected left breast mass April 2016 Status post mammogram followed by core needle biopsy 05/07/2016 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, progesterone receptor positive, HER-2/wendy positive" Medical History Acute blood loss anemia Subclavian artery stenosis, left Hematoma of right hip Metabolic encephalopathy Tenosynovitis, de Quervain Rheumatoid disease Pes anserinus bursitis OA (osteoarthritis) of knee Neural foraminal stenosis of lumbar spine Lumbar radiculopathy Knee pain ICH (intracerebral hemorrhage) (02/13/24) Heart disease Hamstring strain Bilateral carotid artery stenosis Left humeral fracture Chronic neck pain Poor historian Arthritis Limb alert care status Dyspnea on exertion SVT (supraventricular tachycardia) Bilateral edema of lower extremity Moderate aortic stenosis Dyslipidemia Heart failure with preserved ejection fraction History of COVID-19 (06/2022) Asthma Cystocele, midline Carpal tunnel syndrome Osteoarthritis Sciatic nerve disease Chronic back pain GERD (gastroesophageal reflux disease) Breast cancer, left (1996) Hearing deficit Restless leg syndrome Hyperlipidemia Hypertension Atrial fibrillation Sleep apnea Surgical History Status post left knee replacement (12/2022) History of right hip replacement (07/02/22) S/P epidural steroid injection History of carpal tunnel surgery of right wrist History of back surgery H/O left breast biopsy (1997) History of left mastectomy (2015) History of lumpectomy of left breast History of tonsillectomy and adenoidectomy Social History Smoking Status: Never smoker Tobacco Type: Cigarettes Second Hand Exposure: No; Do You Dip or Chew Tobacco: No; Hx Alcohol Use: Yes Alcohol type: other Hx Substance Use: No Preferred Language: Bhutanese Communication Ability: Impaired Basket Braider Required: No Beliefs That Will Affect Care: None Current Living Situation: Snf Current Living Situation Comment: [place] Feels Safe at Home: Declines to Answer Assistive Devices: Walker Review of Systems All systems reviewed & are unremarkable except as noted in HPI & below. Physical Exam . * General: Alert and oriented, no acute distress * Constitutional: well-developed, well-nourished. * Respiratory: Normal respiratory effort, no distress * Gastrointestinal: No tenderness to palpation, no rigidity or guarding. * Skin: No rash or lesion. * Neurologic: Grossly normal * Musculoskeletal: LLE with large area of soft tissue swelling and ecchymosis to the anterolateral aspect of the distal tib-fib region. Punctate skin tear central to this area with scant serous drainage. No purulence or local erythema noted. Diffuse TTP throughout this region and slightly proximally. Otherwise no deformity or skin changes to the left leg. AROM knee flexion/extension intact without pain. AROM ankle flexion/extension intact without apparent pain. Wiggles toes. Sensation intact plantar/dorsal foot. Results & Data Results & Data Laboratory Results . Diagnostic Findings 12/31/24 CT L tib-fib Findings: No fracture or dislocation. Joint spaces are normally aligned. Pretibial, subcutaneous hematoma, extending 14 cm in the craniocaudal dimension, and 2.6 cm AP diameter, is grossly similar from the prior day radiograph. No aggressive osseous lesion. Impression: Similar-appearing pretibial soft tissue hematoma without associated bony abnormality. Generalized subcutaneous edema of the left lower leg and ankle region. 12/30/24 XR L tib-fib FINDINGS: Bones/joints: Left total knee arthroplasty. No acute fracture or dislocation. Soft tissues: Focal anterior lower leg soft tissue swelling. No radiopaque foreign body. IMPRESSION: Focal anterior lower leg soft tissue swelling. PG Care Time/CCT Total # of Minutes Spent Total Time Spent with Patient: Total time spent is greater than 50% in coordination of care (as documented) at patient's floor/unit and/or counseling patient: C[place] [address] IN/OBS CONSULT LVL 2,35M Patient Type Established History Problem Focused Exam Problem Focused Medical Decision Making Straight Forward Diagnoses Contusion of leg, left S80.12XA
[2025-01-03] MEDS: ASPIRIN 81 MG CHEW PO SCH (09:56)
--- NOTE | 2025-01-03 13:04 | Hospitalist Progress Note ---
Date of Service January 03, 2025 Assessment & Plan (1) Ambulatory dysfunction: (2) Recurrent falls: (3) Contusion of leg, left: (4) Dementia with behavioral disturbance: Plan Patient is an 89-year-old female with past medical history of asthma, HFpEF, breast cancer, GERD, CAD, paroxysmal A-fib, SVT s/p ablation, CVA (without residual symptoms), intracranial hemorrhage, recurrent falls, dementia. Patient presented via EMS 12/29 after a unwitnessed fall at [facility]; workup in the ED was negative and patient was discharged home. She returned 11/01 via EMS after she fell getting off the [employer] bus and hit her left ankle and leg. Again workup in the ED did not reveal any acute traumatic changes however patient's cognition changed and she became aggressive and with some right sided deficits. Stroke workup including head CTA and neck CTA were obtained which just showed b ilateral carotid artery stenosis and patient is now back to her baseline. She is being admitted for ambulatory dysfunction. #Ambulatory dysfunction/left lower extremity bruising recurrent falls x 2 days, left tib/fib x-ray on arrival to ED with focal anterior lower leg soft tissue swelling -Fall and aspiration precautions -PT/OT consulted -Pain control with Tylenol as needed, morphine 1/2 mg for breakthrough pain -Demarcated swelling noted to LLE with marked ecchymosis (on Plavix), CT tib /fib with pretibial, subcutaneous hematoma extending 14cm in craniocaudal dim ension, and 2.6cm AP diameter -nursing to doppler pulses in left foot, ice to left lower leg with transition to heat in a few days, continued monitoring of skin integrity to left lower extremity -she is s/p right TCAR 02/09/[address] Camarillo, currently on DAPT-->spoke with Dr. Camarillo and in setting of marked hematoma and potentiation for worsening bleeding ok to hold Plavix until symptoms improve from hematoma -ortho consult with recommendation for conservative treatment. monitoring/ice/gentle compression #Dementia with behavioral disturbance patient became aggressive and with reported right sided deficits in the ED. Note that this was after she was given fentanyl 50 mcg IV. Head CTA revealed bilateral carotid artery stenosis (greatest 70% at distal R ICA), neck CTA revealed patent stent of right carotid bifurcation. Patient has dementia and is frequently confused at baseline. -Given patient at baseline at time of admission, will defer for further stroke workup -no other acute indication of mental status change on admission electrolytes stable, no infectious origin noted, UA negative Received Ativan 0.5 mg IV x 1 in the ED, continue as needed for any aggressive behaviors -promote frequent orientation and good sleep-wake cycles melatonin as needed -continue pramipexole and escitalopram #MADAN -CPAP HS #HFpEF most recent EF 65 to 70% 12/2023. -GDMT: continue metoprolol and lasix -heart healthy, low sodium diet #CADs/p right TCAR -hold plavix, on statin #paroxysmal A-fib -continue metoprolol and amiodarone, no anticoagulation given recent history of brain hemorrhage #HTN -continue metoprolol, Lasix, verapamil, valsartan #Asthma -continue home inhalers VTE ppx: SCDs, low risk Dispo: med surg, transfer to correction at [facility] Admission and Anticipated Discharge Date Admission Date: December 30, 2024 Subjective Patient eating lunch this afternoon. States she has mild pain in left lower leg. She has no other complaints. Aware she is being transferred to correction at [facility]. Review of Systems Review of Systems: All systems reviewed & are unremarkable except as noted in Subjective Physical Exam Physical Exam: GENERAL APPEARANCE: A&O to person and place. Sitting up in bed. NAD. SKIN: Normal color without rashes or lesions. Normal turgor. HEENT: Head AT/NC. Buccal mucosa is moist and pink. NECK: No jugular venous distention. No thyroid enlargement. There is no lymphadenopathy. HEART: RRR without m/g/r LUNGS: Normal inspiratory effort. CTA without w/r/r ABDOMEN: No guarding or rigidity. Normoactive BS in all four quadrants. Abdomen soft and NT. MSK: No bony gross/deformities throughout. ROM intact. EXTREMITIES: No edema, No peripheral cyanosis. Noted ecchymosis to left lower leg with less noted swelling. Dressing to left mid-gross removed with small skin tear noted-no abnormal drainage or necrosis noted. Neuro: CN 2-12 grossly intact. No focal neuro deficits PSYCHIATRIC: Normal affect. Eye contact is good. Speech is normal rate and content. Responses are appropriate. Results & Data Results & Data Vital Signs (Past 12 Hours) Vital Signs Temp Pulse Resp BP Pulse Ox O2 Del Method 11/13/25 09:45 67 152/74 H 11/13/25 07:18 36.8 C 65 18 164/85 H 94 Room Air Laboratory Results Labs reviewed: CBC, CMP PG Care Time/CCT Total # of Minutes Spent Total Time Spent with Patient: Total time spent is greater than 50% in coordination of care (as documented) at patient's floor/unit and/or counseling patient: Coding Level of Care Code 95757 SUB INP/OBS CARE 2/35MIN Diagnoses Ambulatory dysfunction R26.2 Recurrent falls R29.6 Contusion of leg, left S80.12XA Dementia with behavioral disturbance F03.918
--- NOTE | 2025-01-03 16:12 | Electrocardiogram Report ---
Test Reason : Blood Pressure : */* mmHG Vent. Rate : 65 BPM Atrial Rate : 65 BPM P-R Int : 174 ms QRS Dur : 96 ms QT Int : 506 ms P-R-T Axes : 72 -10 19 degrees QTcB Int : 526 ms Normal sinus rhythm Minimal voltage criteria for LVH, may be normal variant ( Candido product ) Nonspecific ST abnormality Prolonged QT Abnormal ECG When compared with ECG of 29-Dec-2024 08:12, (unconfirmed) No significant change was found Confirmed by Teo Patino ([id number]) on 01/03/2025 4:11:57 PM Referred By: REFERRED SELF Confirmed By: Teo Patino
[2025-01-03] MEDS: MELATONIN 3 MG TAB PO PRN (20:21)
[2025-01-04 12:36] LABS: Anion Gap 7.0 (3-11); Blood Urea Nitrogen 20.0 mg/dl (6-23); Calcium 9.3 mg/dl (8.6-10.3); Carbon Dioxide 28.0 mmol/L (21-32); Chloride 101.0 mmol/L (98-107); Creatinine Clr Calc Pharmacy 44.2 ml/min; Glucose 116.0 mg/dl (70-99(Fasting)); Potassium 4.5 mmol/L (3.5-5.1); Sodium 136.0 mmol/L (136-145)
[2025-01-04 12:38] LABS: Hematocrit (blood only) 36.3 % (37.0-47.0); Hemoglobin 11.3 g/dL (12.0-16.0); Mean Corpuscular Hemoglobin 27.6 pg (25.0-34.0); Mean Corpuscular Volume 88.5 fL (80.0-100.0); Platelet Count 133 K/uL (130-400); RDW Standard Deviation 73.0 fL (36.4-46.3); Red Blood Count 4.10 M/uL (4.20-5.40); White Blood Count 7.49 K/ul (4.8-10.8)
[2025-01-04 12:41] LABS: Acanthocytes 1+; Anisocytosis Present; Immature Granulocytes # (auto) 0.02 K/uL (0.01-0.20); Immature Granulocytes % (auto) 0.3 %
--- NOTE | 2025-01-04 14:52 | Hospitalist Progress Note ---
Date of Service January 04, 2025 Assessment & Plan (1) Ambulatory dysfunction: (2) Recurrent falls: (3) Contusion of leg, left: (4) Dementia with behavioral disturbance: Plan Patient is an 89-year-old female with past medical history of asthma, HFpEF, breast cancer, GERD, CAD, paroxysmal A-fib, SVT s/p ablation, CVA (without residual symptoms), intracranial hemorrhage, recurrent falls, dementia. Patient presented via EMS 12/29 after a unwitnessed fall at [facility]; workup in the ED was negative and patient was discharged home. She returned 11/01 via EMS after she fell getting off the [employer] bus and hit her left ankle and leg. Again workup in the ED did not reveal any acute traumatic changes however patient's cognition changed and she became aggressive and with some right sided deficits. Stroke workup including head CTA and neck CTA were obtained which just showed b ilateral carotid artery stenosis and patient is now back to her baseline. She is being admitted for ambulatory dysfunction. #Ambulatory dysfunction/left lower extremity bruising recurrent falls x 2 days, left tib/fib x-ray on arrival to ED with focal anterior lower leg soft tissue swelling -Fall and aspiration precautions -PT/OT consulted -Pain control with Tylenol as needed, morphine 1/2 mg for breakthrough pain -Demarcated swelling noted to LLE with marked ecchymosis (on Plavix), CT tib /fib with pretibial, subcutaneous hematoma extending 14cm in craniocaudal dim ension, and 2.6cm AP diameter -nursing to doppler pulses in left foot, ice to left lower leg with transition to heat in a few days, continued monitoring of skin integrity to left lower extremity -she is s/p right TCAR 02/09/[address] Camarillo, currently on DAPT-->spoke with Dr. Camarillo and in setting of marked hematoma and potentiation for worsening bleeding ok to hold Plavix until symptoms improve from hematoma -ortho consult with recommendation for conservative treatment. monitoring/ice/gentle compression #Dementia with behavioral disturbance patient became aggressive and with reported right sided deficits in the ED. Note that this was after she was given fentanyl 50 mcg IV. Head CTA revealed bilateral carotid artery stenosis (greatest 70% at distal R ICA), neck CTA revealed patent stent of right carotid bifurcation. Patient has dementia and is frequently confused at baseline. -Given patient at baseline at time of admission, will defer for further stroke workup -no other acute indication of mental status change on admission electrolytes stable, no infectious origin noted, UA negative Received Ativan 0.5 mg IV x 1 in the ED, continue as needed for any aggressive behaviors -promote frequent orientation and good sleep-wake cycles melatonin as needed -continue pramipexole and escitalopram #MADAN -CPAP HS #HFpEF most recent EF 65 to 70% 12/2023. -GDMT: continue metoprolol and lasix -heart healthy, low sodium diet #CADs/p right TCAR -hold plavix, on statin #paroxysmal A-fib -continue metoprolol and amiodarone, no anticoagulation given recent history of brain hemorrhage #HTN -continue metoprolol, Lasix, verapamil, valsartan #Asthma -continue home inhalers VTE ppx: SCDs, low risk Dispo: med surg, transfer to alf at [facility] Admission and Anticipated Discharge Date Admission Date: December 30, 2024 Subjective Patient eating lunch this afternoon. States she has mild pain in left lower leg. She has no other complaints. Aware she is being transferred to alf at [facility]. Results & Data Results & Data Vital Signs (Past 12 Hours) Vital Signs Temp Pulse Pulse Resp BP Pulse Ox O2 Del Method 01/04/25 12:00 36.7 C 65 12 136/68 96 Room Air 01/04/25 09:20 62 96/56 L 01/04/25 08:28 36.5 C 65 18 107/52 L 95 Room Air 01/04/25 08:10 36.6 C 78 13 112/74 95 Room Air 01/04/25 07:51 Room Air PG Care Time/CCT Total # of Minutes Spent Total Time Spent with Patient: Total time spent is greater than 50% in coordination of care (as documented) at patient's floor/unit and/or counseling patient: Coding Diagnoses Ambulatory dysfunction R26.2 Recurrent falls R29.6 Contusion of leg, left S80.12XA Dementia with behavioral disturbance F03.918
--- NOTE | 2025-01-04 15:41 | Hospitalist Progress Note ---
Date of Service January 04, 2025 Assessment & Plan (1) Ambulatory dysfunction: (2) Recurrent falls: (3) Contusion of leg, left: (4) Dementia with behavioral disturbance: Plan Patient is an 89-year-old female with past medical history of asthma, HFpEF, breast cancer, GERD, CAD, paroxysmal A-fib, SVT s/p ablation, CVA (without residual symptoms), intracranial hemorrhage, recurrent falls, dementia. Patient presented via EMS 12/29 after a unwitnessed fall at [facility]; workup in the ED was negative and patient was discharged home. She returned 11/01 via EMS after she fell getting off the [employer] bus and hit her left ankle and leg. Again workup in the ED did not reveal any acute traumatic changes however patient's cognition changed and she became aggressive and with some right sided deficits. Stroke workup including head CTA and neck CTA were obtained which just showed b ilateral carotid artery stenosis and patient is now back to her baseline. She is being admitted for ambulatory dysfunction. #Ambulatory dysfunction/left lower extremity bruising/left pretibial hematoma recurrent falls x 2 days, left tib/fib x-ray on arrival to ED with focal anterior lower leg soft tissue swelling -Fall and aspiration precautions -PT/OT consulted -Pain control with Tylenol as needed, morphine 1/2 mg for breakthrough pain -Demarcated swelling noted to LLE with marked ecchymosis (on Plavix), CT tib /fib with pretibial, subcutaneous hematoma extending 14cm in craniocaudal dimension, and 2.6cm AP diameter -nursing to doppler pulses in left foot, ice to left lower leg with transition to heat in a few days, continued monitoring of skin integrity to left lower extremity -she is s/p right TCAR 02/09/[address] Camarillo, currently on DAPT-->spoke with Dr. Camarillo and in setting of marked hematoma and potentiation for worsening bleeding ok to hold Plavix until symptoms improve from hematoma -ortho consult with recommendation for conservative treatment-->monitoring/ice/gentle compression -CRP 12.20-->will monitor is setting of possible infection development -worsening pain to LLE on exam with associated erythema, venous Doppler/arterial US LLE #Dementia with behavioral disturbance patient became aggressive and with re ported right sided deficits in the ED. Note that this was after she was given fentanyl 50 mcg IV. Head CTA revealed bilateral carotid artery stenosis (greatest 70% at distal R ICA), neck CTA revealed patent stent of right carotid bifurcation. Patient has dementia and is frequently confused at baseline. -Given patient at baseline at time of admission, will defer for further stroke workup -no other acute indication of mental status change on admission electrolytes stable, no infectious origin noted, UA negative Received Ativan 0.5 mg IV x 1 in the ED, continue as needed for any aggressive behaviors -promote frequent orientation and good sleep-wake cycles melatonin as needed -continue pramipexole and escitalopram #MADAN -CPAP HS #HFpEF most recent EF 65 to 70% 12/2023. -GDMT: continue metoprolol and lasix -heart healthy, low sodium diet #CADs/p right TCAR -hold plavix, on statin #paroxysmal A-fib -continue metoprolol and amiodarone, no anticoagulation given recent history of brain hemorrhage #HTN -continue metoprolol, Lasix, verapamil, valsartan #Asthma -continue home inhalers VTE ppx: SCDs, low risk Dispo: med surg, transfer to [facility] at [facility] Admission and Anticipated Discharge Date Admission Date: December 30, 2024 Subjective Patient c/o left lower leg discomfort today. Appetite has been good. She is eating and drinking well. Nursing reports pedal pulses appreciated via doppler in left foot. Nursing reports that patient speech at times low pitch and jumbled. Spoke with patient at length today-->he reports patient at baseline mixes words up and sounds garbled, then has clear and concise speech. Speech fluid and clear this am. She has no stroke symptoms. Review of Systems Review of Systems: All systems reviewed & are unremarkable except as noted in Subjective Physical Exam Physical Exam: GENERAL APPEARANCE: A&O to person and place. Sitting up in bed. NAD. SKIN: Normal color without rashes or lesions. Normal turgor. HEENT: Head AT/NC. Buccal mucosa is moist and pink. NECK: No jugular venous distention. No thyroid enlargement. There is no lymphadenopathy. HEART: RRR without m/g/r LUNGS: Normal inspiratory effort. CTA without w/r/r ABDOMEN: No guarding or rigidity. Normoactive BS in all four quadrants. Abdomen soft and NT. MSK: No bony gross/deformities throughout. ROM intact. EXTREMITIES: No edema, No peripheral cyanosis. Noted ecchymosis to left lower leg noted swelling and warmth to touch. Dressing to left mid-gross removed with small skin tear noted-no abnormal drainage or necrosis noted. Palpable pedal pulses. Neuro: CN 2-12 grossly intact. No focal neuro deficits. PSYCHIATRIC: Normal affect. Eye contact is good. Speech is normal rate and content. Responses are appropriate. Results & Data Results & Data Vital Signs (Past 12 Hours) Vital Signs Temp Pulse Pulse Resp BP Pulse Ox O2 Del Method 01/04/25 12:00 36.7 C 65 12 136/68 96 Room Air 01/04/25 09:20 62 96/56 L 01/04/25 08:28 36.5 C 65 18 107/52 L 95 Room Air 01/04/25 08:10 36.6 C 78 13 112/74 95 Room Air 01/04/25 07:51 Room Air Laboratory Results Labs reviewed: CBC, BMP, CRP PG Care Time/CCT Total # of Minutes Spent Total Time Spent with Patient: Total time spent is greater than 50% in coordination of care (as documented) at patient's floor/unit and/or counseling patient: Coding Level of Care Code 26492 SUB INP/OBS CARE 2/35MIN Diagnoses Ambulatory dysfunction R26.2 Recurrent falls R29.6 Contusion of leg, left S80.12XA Dementia with behavioral disturbance F03.918
--- NOTE | 2025-01-05 10:01 | Ultrasound Report ---
ULTRASOUND LEFT LOWER EXTREMITY VENOUS CLINICAL HISTORY: Left leg pain and swelling. Erythema. COMPARISON STUDY: Bilateral lower extremity venous ultrasound dated 09/09/2024. TECHNIQUE: Real-time, grayscale, and color Doppler sonography of the deep veins of the left lower ext remity was performed from the inguinal crease to the calf. Compression and augmentation were utilized . FINDINGS: There is no sonographic evidence of deep venous thrombosis identified in the left lower ext remity. The common femoral, superficial femoral, and popliteal veins are patent and normally compress ible. The greater saphenous vein and the profunda femoris vein at the junction with the common femora l vein are clear. The visualized calf veins are patent. IMPRESSION: There is no sonographic evidence of deep venous thrombosis identified in the left lower e xtremity. ACT 112: Negative or not required by law. Electronically signed by: Blaine Michael M.D. 01/05/2025 9:59 AM
[2025-01-05 11:29] LABS: Hematocrit (blood only) 34.6 % (37.0-47.0); Hemoglobin 11.1 g/dL (12.0-16.0); Immature Granulocytes # (auto) 0.02 K/uL (0.01-0.20); Immature Granulocytes % (auto) 0.4 %; Mean Corpuscular Hemoglobin 27.8 pg (25.0-34.0); Mean Corpuscular Volume 86.5 fL (80.0-100.0); Platelet Count 150 K/uL (130-400); RDW Standard Deviation 69.5 fL (36.4-46.3); Red Blood Count 4.00 M/uL (4.20-5.40); White Blood Count 5.30 K/ul (4.8-10.8)
[2025-01-05 11:45] LABS: Anion Gap 7.0 (3-11); Blood Urea Nitrogen 15.0 mg/dl (6-23); Calcium 8.7 mg/dl (8.6-10.3); Carbon Dioxide 26.0 mmol/L (21-32); Chloride 100.0 mmol/L (98-107); Creatinine Clr Calc Pharmacy 50.3 ml/min; Glucose 131.0 mg/dl (70-99(Fasting)); Potassium 3.8 mmol/L (3.5-5.1); Sodium 133.0 mmol/L (136-145)
[2025-01-05 11:53] LABS: Anisocytosis Present; Polychromasia 1+
--- NOTE | 2025-01-05 12:25 | Hospitalist Progress Note ---
Date of Service January 05, 2025 Assessment & Plan (1) Ambulatory dysfunction: (2) Recurrent falls: (3) Contusion of leg, left: (4) Dementia with behavioral disturbance: Plan Patient is an 89-year-old female with past medical history of asthma, HFpEF, breast cancer, GERD, CAD, paroxysmal A-fib, SVT s/p ablation, CVA (without residual symptoms), intracranial hemorrhage, recurrent falls, dementia. Patient presented via EMS 12/29 after a unwitnessed fall at [facility]; workup in the ED was negative and patient was discharged home. She returned 11/01 via EMS after she fell getting off the [employer] bus and hit her left ankle and leg. Again workup in the ED did not reveal any acute traumatic changes however patient's cognition changed and she became aggressive and with some right sided deficits. Stroke workup including head CTA and neck CTA were obtained which just showed b ilateral carotid artery stenosis and patient is now back to her baseline. She is being admitted for ambulatory dysfunction. #Ambulatory dysfunction/left lower extremity bruising/left pretibial hematoma recurrent falls x 2 days, left tib/fib x-ray on arrival to ED with focal anterior lower leg soft tissue swelling -Fall and aspiration precautions -PT/OT consulted -Pain control with Tylenol as needed, morphine 1/2 mg for breakthrough pain -Demarcated swelling noted to LLE with marked ecchymosis (on Plavix), CT tib /fib with pretibial, subcutaneous hematoma extending 14cm in craniocaudal dimension, and 2.6cm AP diameter -nursing to doppler pulses in left foot, ice to left lower leg with transition to heat in a few days, continued monitoring of skin integrity to left lower extremity -she is s/p right TCAR 02/09/[address] Camarillo, currently on DAPT-->spoke with Dr. Camarillo and in setting of marked hematoma and potentiation for worsening bleeding ok to hold Plavix until symptoms improve from hematoma -ortho consult with recommendation for conservative treatment-->monitoring/ice/gentle compression,transitioned to heat -CRP 12.20, 12.48, will cont to trend in setting of inflammation from hematoma and monitoring of infection development -worsening pain to LLE on exam with associated erythema, venous Doppler/arterial US LLE with no acute findings, LLE arterial US with no acute findings, trend CRP, procal #Dementia with behavioral disturbance patient became aggressive and with reported right sided deficits in the ED. Note that this was after she was given fentanyl 50 mcg IV. Head CTA revealed bilateral carotid artery stenosis (greatest 70% at distal R ICA), neck CTA revealed patent stent of right carotid bifurcation. Patient has dementia and is frequently confused at baseline. -Given patient at baseline at time of admission, will defer for further stroke workup -no other acute indication of mental status change on admission electrolytes stable, no infectious origin noted, UA negative Received Ativan 0.5 mg IV x 1 in the ED, continue as needed for any aggressive behaviors -promote frequent orientation and good sleep-wake cycles melatonin as needed -continue pramipexole and escitalopram -add prn Zyprexa at hs for agitation #MADAN -CPAP HS #HFpEF most recent EF 65 to 70% 12/2023. -GDMT: continue metoprolol and lasix -heart healthy, low sodium diet #CADs/p right TCAR -hold plavix, on statin #paroxysmal A-fib -continue metoprolol and amiodarone, no anticoagulation given recent history of brain hemorrhage #HTN -continue metoprolol, Lasix, verapamil, valsartan #Asthma -continue home inhalers VTE ppx: SCDs, low risk Dispo: med surg, transfer to [facility] at [facility] Admission and Anticipated Discharge Date Admission Date: December 30, 2024 Subjective Patient resting in bed this am. Mild complaints of left lower leg discomfort. Eating and drinking well. Nursing reports patient having periodic periods of agitation in the evening. Review of Systems Review of Systems: All systems reviewed & are unremarkable except as noted in Subjective Physical Exam Physical Exam: GENERAL APPEARANCE: A&O to person and place. Sitting up in bed. NAD. SKIN: Normal color without rashes or lesions. Normal turgor. HEENT: Head AT/NC. Buccal mucosa is moist and pink. NECK: No jugular venous distention. No thyroid enlargement. There is no lymphadenopathy. HEART: RRR without m/g/r LUNGS: Normal inspiratory effort. CTA without w/r/r ABDOMEN: No guarding or rigidity. Normoactive BS in all four quadrants. Abdomen soft and NT. MSK: No bony gross/deformities throughout. ROM intact. EXTREMITIES: No edema, No peripheral cyanosis. Noted ecchymosis to left lower leg noted swelling and warmth to touch. More ecchymosis extending into left foot. Dressing to left mid-gross removed with small skin tear noted-no abnormal drainage or necrosis noted. Palpable pedal pulses. Neuro: CN 2-12 grossly intact. No focal neuro deficits. PSYCHIATRIC: Normal affect. Eye contact is good. Speech is normal rate and content. Responses are appropriate. Results & Data Results & Data Vital Signs (Past 12 Hours) Vital Signs Temp Pulse Resp BP Pulse Ox O2 Del Method 01/05/25 07:06 36.5 C 70 16 129/69 93 Room Air Laboratory Results Labs reviewed: CBC, BMP, CRP. pro-live PG Care Time/CCT Total # of Minutes Spent Total Time Spent with Patient: Total time spent is greater than 50% in coordination of care (as documented) at patient's floor/unit and/or counseling patient: Coding Level of Care Code 49323 SUB INP/OBS CARE 2/35MIN Diagnoses Ambulatory dysfunction R26.2 Recurrent falls R29.6 Contusion of leg, left S80.12XA Dementia with behavioral disturbance F03.918
--- NOTE | 2025-01-05 16:27 | Ultrasound Report ---
ULTRASOUND LEFT LOWER EXTREMITY ARTERIAL CLINICAL HISTORY: Left leg pain. Erythema. COMPARISON STUDY: No priors. TECHNIQUE: Real-time grayscale and color Doppler sonography of the arteries of the left lower extremi ty is performed from the inguinal crease to the foot. The patient declined ankle-brachial index evalu ation. FINDINGS: There is atherosclerotic plaque and irregularity throughout the arteries of the left lower extremity. There are triphasic arterial waveforms in the left common femoral artery with velocities m easuring up to 73 cm/s. The profunda femoris artery is patent with velocities measuring up to 65 cm/s . There are biphasic to triphasic waveforms throughout the superficial femoral artery with velocities measuring up to 131 cm/s. The popliteal artery is patent with velocities measuring up to 100 cm/s. T he calf arteries are suboptimally assessed but appear patent with biphasic waveforms and 3-vessel run off to the foot. Velocities in the calf arteries measure up to 128 cm/s. The dorsalis pedis artery is patent with velocities measuring up to 41 cm/s. IMPRESSION: There is no sonographic evidence of high-grade stenosis or focal vessel cut off throughou t the arteries of the left lower extremity. Electronically signed by: Blaine Michael M.D. 01/05/2025 4:26 PM
[2025-01-06 06:44] LABS: Hematocrit (blood only) 34.2 % (37.0-47.0); Hemoglobin 11.0 g/dL (12.0-16.0); Immature Granulocytes # (auto) 0.01 K/uL (0.01-0.20); Immature Granulocytes % (auto) 0.2 %; Mean Corpuscular Hemoglobin 27.8 pg (25.0-34.0); Mean Corpuscular Volume 86.4 fL (80.0-100.0); Platelet Count 152 K/uL (130-400); RDW Standard Deviation 69.3 fL (36.4-46.3); Red Blood Count 3.96 M/uL (4.20-5.40); White Blood Count 5.45 K/ul (4.8-10.8)
[2025-01-06 07:04] LABS: Anion Gap 8.0 (3-11); Blood Urea Nitrogen 19.0 mg/dl (6-23); Calcium 9.0 mg/dl (8.6-10.3); Carbon Dioxide 27.0 mmol/L (21-32); Chloride 102.0 mmol/L (98-107); Creatinine Clr Calc Pharmacy 46.7 ml/min; Glucose 92.0 mg/dl (70-99(Fasting)); Potassium 3.8 mmol/L (3.5-5.1); Sodium 137.0 mmol/L (136-145)
[2025-01-06 07:14] LABS: Anisocytosis Present; Polychromasia 1+
--- NOTE | 2025-01-06 11:14 | Hospitalist Progress Note ---
Date of Service January 06, 2025 Assessment & Plan (1) Ambulatory dysfunction: (2) Recurrent falls: (3) Contusion of leg, left: (4) Dementia with behavioral disturbance: Plan Patient is an 89-year-old female with past medical history of asthma, HFpEF, breast cancer, GERD, CAD, paroxysmal A-fib, SVT s/p ablation, CVA (without residual symptoms), intracranial hemorrhage, recurrent falls, dementia. Patient presented via EMS 12/29 after a unwitnessed fall at [facility]; workup in the ED was negative and patient was discharged home. She returned 11/01 via EMS after she fell getting off the [employer] bus and hit her left ankle and leg. Again workup in the ED did not reveal any acute traumatic changes however patient's cognition changed and she became aggressive and with some right sided deficits. Stroke workup including head CTA and neck CTA were obtained which just showed b ilateral carotid artery stenosis and patient is now back to her baseline. She is being admitted for ambulatory dysfunction. #Ambulatory dysfunction/left lower extremity bruising/left pretibial hematoma recurrent falls x 2 days, left tib/fib x-ray on arrival to ED with focal anterior lower leg soft tissue swelling -Fall and aspiration precautions -PT/OT consulted -Pain control with Tylenol as needed, morphine 1/2 mg for breakthrough pain -Demarcated swelling noted to LLE with marked ecchymosis (on Plavix), CT tib /fib with pretibial, subcutaneous hematoma extending 14cm in craniocaudal dimension, and 2.6cm AP diameter -nursing to doppler pulses in left foot, ice to left lower leg with transition to heat in a few days, continued monitoring of skin integrity to left lower extremity -she is s/p right TCAR 02/09/[address] Camarillo, currently on DAPT-->spoke with Dr. Camarillo and in setting of marked hematoma and potentiation for worsening bleeding ok to hold Plavix until symptoms improve from hematoma -ortho consult with recommendation for conservative treatment-->monitoring/ice/gentle compression,transitioned to heat -CRP 12.20, 12.48, 11.80, no leukocytosis with CBC and clinical improvement in appearance of left lower leg hematoma, procal unremarkable with less suspicion of developing infection -venous Doppler/arterial US LLE with no acute findings, LLE arterial US with no acute findings #Dementia with behavioral disturbance patient became aggressive and with reported right sided deficits in the ED. Note that this was after she was given fentanyl 50 mcg IV. Head CTA revealed bilateral carotid artery stenosis (greatest 70% at distal R ICA), neck CTA revealed patent stent of right carotid bifurcation. Patient has dementia and is frequently confused at baseline. -Given patient at baseline at time of admission, will defer for further stroke workup -no other acute indication of mental status change on admission electrolytes stable, no infectious origin noted, UA negative Received Ativan 0.5 mg IV x 1 in the ED, continue as needed for any aggressive behaviors -promote frequent orientation and good sleep-wake cycles melatonin as needed -continue pramipexole and escitalopram -keep Zyprexa at hs prn agitation #MADAN -CPAP HS #HFpEF most recent EF 65 to 70% 12/2023. -GDMT: continue metoprolol and lasix -heart healthy, low sodium diet #CADs/p right TCAR -hold plavix, on statin #paroxysmal A-fib -continue metoprolol and amiodarone, no anticoagulation given recent history of brain hemorrhage #HTN -continue metoprolol, Lasix, verapamil, valsartan #Asthma -continue home inhalers VTE ppx: SCDs, low risk Dispo: med surg, possible transfer to SNF at [facility] tomorrow pending P2P (unable to complete on 01/04 as patient not medically stable) Admission and Anticipated Discharge Date Admission Date: December 30, 2024 Subjective Patient slept well last night and received po Zyprexa as she was having periods of agitation into the evening. States the pain in her left lower leg has improved. Eating and drinking well. Review of Systems Review of Systems: All systems reviewed & are unremarkable except as noted in Subjective Physical Exam Physical Exam: GENERAL APPEARANCE: A&O to person and place. Lying in bed. NAD. SKIN: Normal color without rashes or lesions. Normal turgor. HEENT: Head AT/NC. Buccal mucosa is moist and pink. NECK: No jugular venous distention. No thyroid enlargement. There is no lymphadenopathy. HEART: RRR without m/g/r LUNGS: Normal inspiratory effort. CTA without w/r/r. ABDOMEN: No guarding or rigidity. Normoactive BS in all four quadrants. Abdomen soft and NT. MSK: No bony gross/deformities throughout. ROM intact. EXTREMITIES: No edema, No peripheral cyanosis. Noted ecchymosis to left lower leg with less warmth, swelling. More ecchymosis extending into left foot. Dressing to left mid-gross removed with small skin tear noted-no abnormal drainage or necrosis noted. Palpable pedal pulses. Neuro: CN 2-12 grossly intact. No focal neuro deficits. PSYCHIATRIC: Normal affect. Eye contact is good. Speech is normal rate and content. Responses are appropriate. Results & Data Results & Data Vital Signs (Past 12 Hours) Vital Signs Temp Pulse Resp BP Pulse Ox O2 Del Method 01/06/25 06:58 36.6 C 66 16 106/71 96 Room Air 01/05/25 23:41 36.7 C 66 18 93/49 L 92 Room Air Laboratory Results Labs reviewed: CBC, BMP, CRP PG Care Time/CCT Total # of Minutes Spent Total Time Spent with Patient: Total time spent is greater than 50% in coordination of care (as documented) at patient's floor/unit and/or counseling patient: Coding Level of Care Code 76371 SUB INP/OBS CARE 2/35MIN Diagnoses Ambulatory dysfunction R26.2 Recurrent falls R29.6 Contusion of leg, left S80.12XA Dementia with behavioral disturbance F03.918
--- NOTE | 2025-01-07 14:24 | Hospitalist Progress Note ---
Date of Service January 07, 2025 Assessment & Plan (1) Ambulatory dysfunction: (2) Recurrent falls: (3) Contusion of leg, left: (4) Dementia with behavioral disturbance: Plan Patient is an 89-year-old female with past medical history of asthma, HFpEF, breast cancer, GERD, CAD, paroxysmal A-fib, SVT s/p ablation, CVA (without residual symptoms), intracranial hemorrhage, recurrent falls, dementia. Patient presented via EMS 12/29 after a unwitnessed fall at [facility]; workup in the ED was negative and patient was discharged home. She returned 12/30 via EMS after she fell getting off the [facility] bus and hit her left ankle and leg. Again workup in the ED did not reveal any acute traumatic changes however patient's cognition changed and she became aggressive and with some right sided deficits. Stroke workup including head CTA and neck CTA were obtained which just showed bi lateral carotid artery stenosis and patient is now back to her baseline. She is being admitted for ambulatory dysfunction. #Ambulatory dysfunction/left lower extremity bruising/left pretibial hematoma recurrent falls x 2 days, left tib/fib x-ray on arrival to ED with focal anterior lower leg soft tissue swelling. Demarcated swelling noted to LLE with marked ecchymosis (on Plavix), CT tib /fib with pretibial, subcutaneous hematoma extending 14cm in craniocaudal dimension, and 2.6cm AP diameter. Venous Doppler/arterial US LLE with no acute findings, LLE arterial US with no acute findings. she is s/p right TCAR 02/09/[address] Camarillo, currently on DAPT-->spoke with Dr. Camarillo and in setting of marked hematoma and potentiation for worsening bleeding ok to hold Plavix until symptoms improve from hematoma. Ortho consulted who recommended conservative treatment. -PT/OT consulted - rec return to [facility], but mundojasmin wants her to go to SNF -Pain control with Tylenol as needed Supportive care: doppler pulses q shift, heat lower extremity, elevate Inital concern for infection, but CRP downtrending, procal negatvie no leukocytosis and clinical improvement - abx deferred #Dementia with behavioral disturbance patient became aggressive and with reported right sided deficits in the ED. Note that this was after she was given fentanyl 50 mcg IV. Head CTA revealed bilateral carotid artery stenosis (greatest 70% at distal R ICA), neck CTA revealed patent stent of right carotid bifurcation. Patient has dementia and is frequently confused at baseline - returned to baseline and further stroke workup deferred. -no other acute indication of mental status change on admission electrolytes stable, no infectious origin noted, UA negative -continue pramipexole and escitalopram -keep Zyprexa at hs prn agitation #MADAN -CPAP HS #HFpEF most recent EF 65 to 70% 12/2023. -GDMT: continue metoprolol and lasix -heart healthy, low sodium diet #CADs/p right TCAR -hold plavix, continue ASA. on statin #paroxysmal A-fib -continue metoprolol and amiodarone, no anticoagulation given recent history of brain hemorrhage #HTN -continue metoprolol, Lasix, verapamil, valsartan #Asthma -continue home inhalers VTE ppx: SCDs, low risk Dispo: continued inpatient stay, plan for return to [facility] 01/08 Admission and Anticipated Discharge Date Admission Date: December 30, 2024 Subjective patient seen lying in bed, sleeping but arouses to verbal stimuli. Denies pain when asked, but comlpains of pain with palpation no other acute complaints Review of Systems Review of Systems: All systems reviewed & are unremarkable except as noted in Subjective Physical Exam Physical Exam: General: NAD, VS as above Resp: normal respiratory effort, lungs clear to auscultation anteriorly CV: RRR, no murmur, Abd: normal bowel sounds, non tender, soft Extremities: brusing and swelling to left LE, with some erythema. More purple color than concern for infection Results & Data Results & Data Vital Signs (Past 12 Hours) Vital Signs Temp Pulse Resp BP Pulse Ox O2 Del Method 01/07/25 08:07 68 109/60 01/07/25 07:35 Room Air 01/07/25 07:12 98.1 F 67 16 120/60 94 Room Air PG Care Time/CCT Total # of Minutes Spent Total Time Spent with Patient: Total time spent is greater than 50% in coordination of care (as documented) at patient's floor/unit and/or counseling patient: Coding Level of Care Code 44994 SUB INP/OBS CARE 03/17MIN Diagnoses Ambulatory dysfunction R26.2 Recurrent falls R29.6 Contusion of leg, left S80.12XA Dementia with behavioral disturbance F03.918
[2025-01-07] MEDS: DOCUSATE SODIUM 100 MG CAP PO PRN (17:19)
[2025-01-08 07:37] VITALS: BP 129/75; RESP 16; TEMP 98.1; O2SAT 91
--- NOTE | 2025-01-08 10:11 | Discharge Summary ---
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 plavix until hematoma and symptoms improve No other changes to your home medications Activity: You can do normal everyday activities as your body allows. Take rest breaks if you feel tired. Do not overexert. Stop activity if you have pain, shortness of breath or feel dizzy. Follow-up appointments: Make an appointment with your primary care physician within one week of discharge. A copy of this summary will be sent to them. Every time you see your primary care physician, or any other doctor, bring your medication list, and a list of questions. CONTACT YOUR PRIMARY CARE PROVIDER if you experience any of the following: Shortness of breath or difficulty breathing Fevers or chills Feeling tired with normal activity or experiencing dizziness or fainting Difficulty following your treatment plan, or difficulty taking medications CALL 911 OR GO TO THE EMERGENCY DEPARTMENT if you experience any of the following: Severe abdominal pain or nausea/vomiting Severe chest pain, or chest pain that radiates (moves) to your jaw or arm Sudden, severe shortness of breath or difficulty breathing - unable to doppler pulses Thank you for allowing us to participate in your care. Total Time Total Time Spent Total Time Spent (In Minutes): Time spent day of discharge 36 minutes including direct patient care, medication reconciliation, documentation, review of labs and images, and coordination of care. Coding Level of Care Code 28608 INP/OBS DISCH >30 MIN Diagnoses Ambulatory dysfunction R26.2 Recurrent falls R29.6 Contusion of leg, left S80.12XA Dementia with behavioral disturbance F03.918
[2025-01-08 13:21] VITALS: PULSE 65
== END 2025-01-08 14:55 | DRG 92 ==
LOC: ED 18:37 → SUATTDRO 23:47 → 3N 23:47